=== PATIENT | male | born 1945 | race Caucasian/White ===

== ENCOUNTER → 2019-03-14 12:39 | Outpatient (CLI) | payer MEDICARE, OTHER, SELFPAY ==
[2019-03-14 14:23] LABS: Cholesterol 96 mg/dL (200); High Density Lipoprotein 44 mg/dL; Triglycerides 132 mg/dL; Very Low Density Lipoprotein 26 mg/dL (5-40)
== END ==
DX: E78.5 Hyperlipidemia, unspecified (principal)
CPT/HCPCS: 36415; 80061

== ENCOUNTER → 2019-07-09 14:51 | Outpatient (CLI) | payer MEDICARE, OTHER, SELFPAY ==
[2019-07-09 16:53] LABS: Absolute Lymphocyte Count 1.13 X10^3/uL (0.83-4.51); Basophil# 0.06 X10^3/uL; Basophil% 0.8 % (0-1); Eosinophil# 0.32 X10^3/uL; Eosinophils% 4.3 % (0-5); Hematocrit 39.8 % (40-54); Hemoglobin 13.2 g/dL (13.0-16.5); Lymphocyte # 1.13 X10^3/ul (4.0); Lymphocyte % 15.3 % (19-41); Mean Corp Hgb Conc 33.2 g/dL (32-36); Mean Corpuscular Hgb 28.9 pg (27.0-32.0); Mean Corpuscular Volume 87.3 fL (80-94); Mean Platelet Vol. 11.5 fl (6.2-12.0); Monocyte# 0.79 X10^3/uL; Monocyte% 10.7 % (0-10); NRBC Flagged by Analyzer 0 % (0-5); Neutrophil # 5.04 X10^3/uL (2.7-7.7); Neutrophil % 68.5 % (47-70); Platelet Count 227 K/mm3 (150-450); RBC Distribution Width CV 12.9 % (11.6-14.6); RBC Distribution Width SD 40.7 fl (35.1-43.9); Red Blood Count 4.56 M/mm3 (4.6-6.2); White Blood Count 7.4 K/mm3 (4.4-11.0)
[2019-07-09 17:11] LABS: ALB/GLOB Ratio 1.1 RATIO (0.9-2.4); AST(SGOT) 19 U/L (15-37); Alanine Aminotransfer ALT/SGPT 27 U/L (16-61); Albumin, Serum 3.3 g/dL (3.2-5.0); Alkaline Phosphatase 66 U/L (45-117); Anion Gap 8 (5-15); BUN 20 mg/dL (7-18); BUN/Creat Ratio 13.2 RATIO (10-20); Calcium,Total 8.8 mg/dL (8.5-10.1); Chloride 106 mmol/L (98-107); Creatinine, Serum 1.51 mg/dL (0.70-1.30); EST Glomerular Filtration Rate 48 mL/min (>60); Est Glom Filt Rate - Afr Amer 58 mL/min (>60); Globulin 3.1 g/dL (2.2-4.2); Glucose 187 mg/dL (74-106); Protein, Total 6.4 g/dL (6.4-8.2); Sodium Level 141 mmol/L (136-145); T4 Free Direct 0.82 ng/dL (0.76-1.46); Thyroid Stim Hormone (TSH) 2.32 uIU/mL (0.358-3.74)
[2019-07-10 07:59] LABS: SARS-COV-2 TOTAL ABS Nonreactive (Nonreactive)
[2019-07-10 10:34] LABS: Vitamin B12 426 pg/mL (211-911); Vitamin D,25 Hydroxy 41.6 ng/mL
== END ==
PROVIDERS: PCP Family Medicine; Visit Provider Family Medicine
DX: Z20.828 Contact with and (suspected) exposure to other viral communicable diseases (principal); N39.0 Urinary tract infection, site not specified; I10 Essential (primary) hypertension; E55.9 Vitamin D deficiency, unspecified; R41.89 Other symptoms and signs involving cognitive functions and awareness
CPT/HCPCS: 80053; 82306; 82607; 84439; 84443; 85025; 86769; G2023

== ENCOUNTER 2019-07-14 11:04 | Emergency (ER) | payer MEDICARE, OTHER, SELFPAY ==
[2019-07-14 11:06] VITALS: BP 146/70; PULSE 59; RESP 17; TEMP 36.1; O2SAT 96; BMI 32.1
--- NOTE | 2019-07-14 11:27 | ED.DCSUM_ITS ---
History of Present Illness Informant: Patient, Family Onset: Today Context: Sudden Onset Timing: Continuous Quality: skin tear Location: left forearm Current Severity: Mild Maximum Severity: Severe Worsened by: movement Relieved by: rest/dressing Associated Symptoms: denies Narrative: 73-year-old male presents with a skin tear to his left forearm. This occurred earlier today. He scraped his forearm against a new storm door that he was installing at his home. He was able to get the bleeding stopped with manual pressure. He states his last tetanus was 3 years ago. He is right-hand dominant. He is not on blood thinners. Denies any numbness tingling or signifi cant pain. Denies weakness. Denies any other injuries. Prior similar symptoms: No Recent Illness/Hospitalization: No <Jamar Elliott - Last Filed: 07/14/19 11:50> <Shola Carmona - Last Filed: 07/14/19 16:15> Chief Complaint: Laceration Past Medical History Prior records reviewed: Yes Past Medical History: None Surgical History: no surgical history Lives: With Family Smoking Status: Never smoker Alcohol: None Drugs: None <Jamar Elliott - Last Filed: 07/14/19 11:50> <Shola Carmona - Last Filed: 07/14/19 16:15> - Allergies and Home Meds Allergies/Adverse Reactions: Allergies Penicillins Allergy (Verified 07/14/19 11:05) Hives Primary Care Physician: Meño Torres MD [Primary Care Provider] - Review of Systems All systems negative except as indicated General: Denies: Chills, Fever, Sweats Eyes: Denies: Visual changes - bilaterally, Diplopia ENT: Denies: Rhinorrhea, Sore throat Cardiovascular: Denies: Chest pain, Palpitations Respiratory: Denies: Dyspnea, Cough, Dyspnea on exertion Gastrointestinal: Denies: Abdominal pain, Nausea, Vomiting, Diarrhea, Melena, Hematochezia Genitourinary: Denies: Dysuria, Hematuria, Frequency Musculoskeletal: Denies: Back pain, Swelling, Extremity Pain Skin: Reports: Abrasions, Wounds. Denies: Rash, Abscess Neurological: Denies: Headache, Weakness, Numbness <Jamar Elliott - Last Filed: 07/14/19 11:50> Physical Exam Vital Signs/Narrative: Vital Signs Temp Pulse Resp BP Pulse Ox 07/14/19 11:06 97.0 F L 59 L 17 146/70 H 96 Inital Vital Signs reviewed: Yes General: Well nourished, Well developed, No Acute Distress Head: Normocephalic, Atraumatic Eyes: Perrl, EOMI ENT: Moist mucous membranes, No rhinorrhea Neck: Supple, Nontender Cardiovascular: Regular rate, Regular rhythm, No murmurs Respiratory: No distress, CTA bilaterally, Chest nontender Abdomen: Soft, Nontender, Nondistended, Normal bowel sounds Back: Nontender, Normal Inspection Extremities: Nontender, No edema. Negative for: Tenderness, Edema, Calf Ten derness Skin: Normal color, No rash, Trauma - Patient has a skin tear on his left forearm dorsal aspect. There is no active bleeding or lacerations. There is no tenderness on palpation around this area. Compartment soft. Normal radial pulse distally. Lithographed Plate Inspector strength equal bilaterally. Normal range of motion actively of his wrist and elbow. No signs of infection are noted. Neurological: Alert, Oriented x3, Cranial nerves II-XII grossly intact, Normal Strength, Normal Sensation Psychological: Normal affect, Normal Mood <Jamar Elliott - Last Filed: 07/14/19 11:50> Diagnostic/Tx/Re-eval - Medical Decision Making Patient's tetanus immunization is up-to-date. Patient wound is not bleeding it is a skin tear and there is no laceration that would require suture repair. It is superficial. Gelfoam dressing was applied. I discussed with patient proper wound care and given signs of infection to monitor for and advised him to follow-up with his primary care in 2 to 3 days for wound check or return back to the emergency department for worsening symptoms which were discussed. <Jamar Elliott - Last Filed: 07/14/19 11:50> - Medical Decision Making Patient was seen with me. I did a ucjm-vo-same examination with the patient. Patient presents with skin tear to his left forearm that occurred last night. Patient states that the bleeding is been persistent. Patient states his son is a nurse and he came over and applied a dressing to his forearm last night. Patient denies any paresthesias or weakness. Patient states his last tetanus was within 5 years. Patient denies any other injuries. Vital signs are stable. Patient is afebrile. Patient is in no acute distress. Skin is warm and dry. There is a superficial skin tear over the dorsal aspect of the left forearm. This is approximately 6 cm in length. There is no gapping of the wound margins. There is minimal bleeding. Sensation was intact to light touch bilaterally in the upper extremities. Radial pulses are equal bilaterally. There is good range of motion. There is no bony crepitance or step-off. There is no tenderness. Gelfoam dressing was applied. Patient was instructed to keep the wound clean and dry. Patient was instructed to follow-up with his primary care physician. Patient was instructed return if worse in any way. Patient understood and was agreeable with the plan. All questions were answered. <Shola Carmona - Last Filed: 07/14/19 16:15> ED Disposition <Jamar Elliott - Last Filed: 07/14/19 11:50> <Shola Carmona - Last Filed: 07/14/19 16:15> - Plan for ED Patient: Disposition: Home or Assisted Living Diagnosis: Skin tear of left forearm without complication, Abrasion of forearm without infection Instructions: ED AVULSION LACERATION Referrals: Meño Torres MD [Primary Care Provider] -
[2019-07-14 12:01] VITALS: RESP 16
== END 2019-07-14 12:02 | disposition home or self-care (01) ==
LOC: ED 11:59
PROVIDERS: Emergency Provider Physician Assistant Medical; PCP Family Medicine
DX: S51.812A Laceration without foreign body of left forearm, initial encounter (principal); S50.812A Abrasion of left forearm, initial encounter; W22.8XXA Striking against or struck by other objects, initial encounter; Y93.9 Activity, unspecified; Y92.9 Unspecified place or not applicable
CPT/HCPCS: 99282

== ENCOUNTER 2019-09-30 11:51 | Emergency (ER) | payer MEDICARE, OTHER, SELFPAY ==
[2019-09-30 11:53] VITALS: BP 149/63; PULSE 48; RESP 16; TEMP 36.4; O2SAT 99; BMI 30.1
--- NOTE | 2019-09-30 12:11 | RAD_ITS ---
STUDY: X-RAY - RIGHT KNEE REASON FOR EXAM: Male, 74 years old. Walking and felt a pop in right knee, pain -- medial pain, swelling -- arthroscopic surgery in TECHNIQUE: 4 view(s) of the knee. COMPARISON: None. FINDINGS: Normal visualized distal femur. Normal visualized proximal tibia and fibula. Normal proximal tibiofibular articulation. There is severe degenerative arthrosis of the medial femorotibial compartment with severe joint space narrowing. There is mild degenerative arthrosis of the lateral femorotibial compartment. There is severe degenerative arthrosis of the patellofemoral articulation. Moderate sized joint effusion. Chondrocalcinosis of the medial and lateral menisci. RAD/Knee 4 or More Views IMPRESSION: Degenerative arthrosis. Moderate-sized joint effusion. Chondrocalcinosis. Electronically Signed: Magdy Lisa, at 12:58 EDT , Service support ,
--- NOTE | 2019-09-30 12:51 | ED.DCSUM_ITS ---
- ER Visit Summary Date of Service: 09/30/19 Chief Complaint: Right knee pain History of Present Illness: The patient is a [address] Meño Torres. He reports that just prior to coming emergency department he turned on a planted right foot and felt a pop in his right knee. Reports he has sharp pains 9-10 with weightbearing and is pain-free at rest. He did not fall. He denies any paresthesias or weakness. Reports he had similar symptoms in the past and his knee is actually locked in place. Review of systems: General: No fever, chills, cold sweats. Cardiovascular: No chest pain, palpitations. Respiratory: No cough, shortness of breath, dyspnea on exertion. Gastrointestinal: No abdominal pain, nausea, vomiting, diarrhea, melena, or hematochezia. Genitourinary: No dysuria, frequency, hematuria. Skin: No rash. Neuro: No headache, numbness, weakness. Physical Examination: Vitals: Stable. Afebrile. General: Well-nourished and well-developed. Head: Normocephalic atraumatic. Neck: Supple, no lymphadenopathy. No JVD. Nontender. Cardiovascular: Regular rate and rhythm. No murmurs. Respiratory: No respiratory distress. Clear to auscultation bilaterally. Abdominal: Soft, nontender, nondistended, normal bowel sounds. No guarding, rebound, or peritoneal signs. Back: Nontender. Extremities: Right knee shows mild tenderness palpation to the distal medial right femur. He has no pain or ligamentous instability with anterior/posterior drawer or medial/lateral stress. He has had a positive Khoa with his foot deviated medially. Is a small joint effusion. Skin: Normal color, no rash. Neurologic: Alert and oriented ?3. Cranial nerves II through XII are intact. Normal strength and sensation. Psych: Normal affect. Test Results: X-ray shows degenerative changes. Emergency Department Course and Treatment: Patient refused pain medications. He is resting comfortably. Treatment Plan: Patient will be discharged with Viroqua and Colace. Instructed to follow-up Dr. Barr in 1 week if not improving. Return to the emergency department for any worsening symptoms. Disposition: To home in improved and stable condition. Impression: 1. Right knee pain, acute. This note was generated with [employer] software. It may contain incorrect words, spelling, and punctuation that were not noted in review of the chart prior to signing ED Disposition - Plan for ED Patient: Instructions: ED Knee Pain [facility] Prescriptions: Docusate Sodium [Colace] 100 mg PO DAILY #20 cap Prescription Printed Hydrocodone Bitart/Apap 5-325 [Viroqua 5MG-325MG] 1 tab PO Q4H PRN PRN 2 Days #10 tab PRN Reason: Pain Prescription Printed Referrals: Jason Barr MD [STAFF PHYSICIAN] - 1 Week if not improving
[2019-09-30 13:09] VITALS: BP 132/78; PULSE 61; RESP 18; O2SAT 97
== END 2019-09-30 13:10 | disposition home or self-care (01) ==
LOC: ED 12:18
PROVIDERS: Emergency Provider Emergency Medicine; PCP Family Medicine
DX: M25.561 Pain in right knee (principal); I25.10 Atherosclerotic heart disease of native coronary artery without angina pectoris; E11.9 Type 2 diabetes mellitus without complications; Z79.84 Long term (current) use of oral hypoglycemic drugs; Z79.82 Long term (current) use of aspirin; Z79.899 Other long term (current) drug therapy; Z95.1 Presence of aortocoronary bypass graft
CPT/HCPCS: 73564; 99282

== ENCOUNTER → 2019-11-22 06:47 | Outpatient (CLI) | payer MEDICARE, OTHER, SELFPAY ==
[2019-11-04 13:59] VITALS: BMI 30.4
--- NOTE | 2019-11-22 06:48 | ECHOCS_ITS ---
Reason For Study: CAD/ASHD Procedure This was a 2D Doppler, Color Flow transthoracic echocardiogram. Exam performed in department. Left Ventricle Normal LV size. The estimated ejection fraction is 65 %. No regional wall motion abnormalities noted. Right Ventricle Normal RV size. Normal systolic function. Atria Normal left atrium. Normal right atrium. No doppler evidence for ASD. Mitral Valve There is no mitral valve stenosis. Trivial mitral valve insufficiency. Tricuspid Valve There is no tricuspid stenosis. Unable to estimate RV systolic pressure due to inadequate jet, pulmonary artery pressure probably normal. Aortic Valve Aortic sclerosis, no stenosis. No aortic valve insufficiency. Pulmonic Valve There is no pulmonic valvular stenosis. Trivial pulmonic valve insufficiency. Great Vessels Normal aortic root. Pericardium/Pleural No pericardial effusion. Medication Diluted definity 3ml given slow IV push to enhance endocardial definition. MMode/2D Measurements & Calculations LVIDd: 4.5 cm IVSd: 1.1 cm Ao root diam: 3.2 cm LVIDs: 3.0 cm LVPWd: 1.1 cm RVDd: 3.8 cm FS: 34.5 % LAV(MOD-bp): 62.9 ml LVAd ap4: 30.3 cm2 SV(MOD-sp4): 58.6 ml LAV(MOD-bp) Indexed: 30.8 ml/m2 EDV(MOD-sp4): 94.7 ml LAV(MOD-sp2): 55.5 ml EDV(sp4-el): 95.3 ml LAV(MOD-sp4): 59.4 ml LVAs ap4: 16.8 cm2 ESV(MOD-sp4): 36.1 ml ESV(sp4-el): 37.2 ml EF(MOD-sp4): 61.9 % EF(sp4-el): 61.0 % SV(sp4-el): 58.2 ml LA A4 area: 20.3 cm2 LA dimension(2D): 4.1 cm RA A4 area: 14.0 cm2 Time Measurements MV dec time: 0.21 sec Doppler Measurements & Calculations MV E max farooq: 84.6 cm/sec Lat Peak E' Farooq: 9.7 cm/sec Med Peak E' Farooq: 7.7 cm/sec MV A max farooq: 69.5 cm/sec E/E' lat: 8.7 E/E' med: 11.1 MV E/A: 1.2 Ao V2 max: 124.0 cm/sec LV V1 max: 96.5 cm/sec PA V2 max: 120.6 cm/sec Ao max P.1 mmHg LV V1 max P.7 mmHg TR max farooq: 303.8 cm/sec TR max P.9 mmHg Interpretation Summary The estimated ejection fraction is 65 %. Trivial mitral valve insufficiency. The study was technically difficult. Contrast injection was performed. Ordering Physician: Tracie Aquino Referring Physician: SHARIFA LOVE Performed By: Tiffanie Rivas RDCS
--- NOTE | 2019-12-03 17:55 | STRESSREP_ITS ---
Stress Test Report Date: 11/22/2019 Procedure: Exercise tolerance test/imaging study Indications: CAD Consent: Per the patient Procedure: The patient exercised on a Magen protocol for 9 minutes achieving a peak heart rate of 131 bpm (90% predicted maximal heart rate) with a peak blood pressure 194/66 mmHg and a peak MET capacity of 10.1 METs. The baseline ECG demonstrated normal sinus rhythm, occasional PVCs. The peak exercise ECG demonstrated sinus tachycardia with occasional PVCs, no significant ST-T changes diagnostic for ischemia. EKG during recovery revealed no significant ischemic changes [There were no significant cardiac dysrhythmias pretest, during exercise, or recovery]. The functional capacity was considered excellent for age. There was [no complaint of chest discomfort during exercise or recovery]. The examination was discontinued secondary to achieving target heart rate. Impression: 1. Technically adequate (percent predicted maximal heart rate greater than 85%) exercise tolerance test 2. Stress test is negative for exercise-induced EKG changes of ischemia 3. The test test is negative for exercise-induced chest pain 4. Functional capacity is excellent for age 5. Nuclear images pending Myocardial perfusion imaging study: Technique: The patient was injected with 11 mCi of technetium 99m Cardiolite and subsequently rest SPECT Cardiolite nuclear imaging was obtained in the horizontal long, vertical long, and short axis views. The patient exercised on a Magen protocol. Please see above for details. The patient was injected with 33 mCi of technetium 99m Cardiolite and subsequently stress SPECT Cardiolite nuclear imaging was obtained in the horizontal long, vertical long, and short axis views. A gated Cardiolite study at peak stress was obtained. Interpretation: Rest and stress SPECT Cardiolite nuclear imaging status post realignment, normalization, and attenuation correction, demonstrates normal myocardial radioisotope uptake. The gated Cardiolite study demonstrates no significant regional wall motion abnormalities. The reported LVEF is 67%. Impression: 1. There is no evidence of significant ischemia or infarction. 2. The gated Cardiolite study reports an LVEF of 67%. This note was generated with [employer] software. It may contain incorrect words, spelling, and punctuation that were not noted in checking the note before signing.
== END ==
PROVIDERS: PCP Family Medicine; Referring Provider Specialist; Visit Provider Specialist
DX: I25.10 Atherosclerotic heart disease of native coronary artery without angina pectoris (principal); I10 Essential (primary) hypertension; E78.5 Hyperlipidemia, unspecified; Z95.5 Presence of coronary angioplasty implant and graft; Z95.1 Presence of aortocoronary bypass graft
CPT/HCPCS: 78452; 93017; 93306; A9500; Q9957; A4216; C8929

== ENCOUNTER → 2020-10-02 | Outpatient (CLI) | payer MEDICARE, OTHER, SELFPAY | END | disposition home or self-care (01) | LOC: LABSPEC 15:38 | PROVIDERS: PCP Family Medicine; Visit Provider Family Medicine | DX: R39.15 Urgency of urination (principal) | CPT/HCPCS: 87086; 87088 ==

== ENCOUNTER 2021-02-04 18:57 | Emergency (ER) | payer MEDICARE, OTHER, SELFPAY ==
[2021-02-04 18:57] VITALS: BP 181/76; PULSE 56; RESP 18; TEMP 37.1; O2SAT 96; BMI 30.4
--- NOTE | 2021-02-04 19:19 | EDS_ITS ---
HPI History of Present Illness Chief Complaint: Cold Sx Informant: patient Narrative Narrative: Patient presents with about 3 days of mild nasal congestion and a little bit of malaise. He states he is not really coughing. He is not short of breath. He does not feel sick he is just a little more tired than normal. No myalgias. No fevers. He was exposed to Covid through grandson. His is having some symptoms similar to him but 1 day longer. She had a Covid test that was negative today but was referred in here for further testing. He thought he should get tested to. Although he has multiple medical problems he feels well. He actually goes to the gym and works out 3 days a week. He states his symptoms are mild. Nothing really makes them better or worse. He is not having chest pain. [facility] Medical History (Updated 02/04/21 @ 19:[address] Oliver Blum MD) Asthma Atherosclerosis of coronary artery of [place] heart without angina pectoris CKD (chronic kidney disease) Essential hypertension Hay fever Hyperlipidemia Mild cognitive impairment Skin cancer STEMI (ST elevation myocardial infarction) Type 2 diabetes mellitus without complication Vitamin D deficiency Home Medications aspirin 81 mg PO DAILY@0800 07/14/19 [History Last Taken Unknown] cholecalciferol (vitamin D3) 2,000 unit PO DAILY 07/14/19 [History Last Taken Unknown] glimepiride 4 mg PO DAILY 07/14/19 [History Last Taken Unknown] ascorbic acid (vitamin C) 1,000 mg PO 09/30/19 [History Last Taken Unknown] alirocumab 75 mg/mL subcutaneous pen injector 75 mg SC Q2W 10/25/19 [History Last Taken Unknown] fenofibrate 54 mg tablet 54 mg PO DAILY tab 10/25/19 [History Last Taken Unknown] metoprolol succinate 25 mg tablet,extended release 24 hr 25 mg PO DAILY tab 10/25/19 [History Last Taken Unknown] Allergy/AdvReac Type Severity Reaction Status Date / Time fish derived Allergy Intermediate Throat Verified 02/04/21 18:59 swells Penicillins Allergy Hives Verified 02/04/21 18:59 [id number] Reductase AdvReac Intermediate myalgias Verified 02/04/21 18:59 Inhibitor [Oflzedf-Bnr-Ecg Reductase Inhibitor] Family History Father ALS (amyotrophic lateral sclerosis) Mother Heart disease Breast cancer CVA (cerebral vascular accident) Diabetes Sister Cancer Uterine cancer Surgical History 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) History of coronary artery stent placement (09/17/14) History of elbow surgery History of eye surgery History of left cataract extraction History of right cataract extraction Social History Smoking Status: Former smoker how long ago did patient quit smokin years ago alcohol intake: current alcohol intake frequency: a few times a week Alcohol type: wine substance use type: does not use caffeine: Yes Type: coffee Number of servings: 1 ROS ROS ED Constitutional Constitutional ED: Reports other Details: He does have generalized malaise ; Denies chills or fever(s) ENT ENT ED: Reports rhinorrhea; Denies sore throat Cardiovascular Cardiovascular: Denies chest pain or palpitations Respiratory/Chest Respiratory/Chest: Reports cough; Denies dyspnea or sputum Gastrointestinal Gastrointestinal: Denies abdominal pain, diarrhea, nausea or vomiting Genitourinary Genitourinary ED: Denies dysuria Musculoskeletal Musculoskeletal: Denies myalgias Integumentary Denies rash Neurologic Neurologic: Denies headache(s) Psychiatric Psychiatric: Denies anxiety or depression Endocrine Endocrinology: Denies polydipsia or polyuria Allergic/Immunologic Allergic/Immunologic ED: Denies mouth swelling or urticaria EXAM Physical Exam Const Vital Signs: 02/04/21 18:57 02/04/21 20:19 02/04/21 20:20 Temperature 98.8 F Temperature Source Temporal Pulse Rate 56 L Respiratory Rate 18 Respiratory Effort Normal Non-Labored Normal Non-Labored Respiratory Depth Normal Respiratory Pattern Normal Normal Blood Pressure 181/76 H Blood Pressure Mean 111 Pulse Ox 96 Oxygen Delivery Method Room Air Room Air Positive well nourished and well developed General Appearance ED: well developed and NAD; Negative for cyanotic, diaphoretic or pallor HEENT Reports moist mucous membranes Eyes General Eye ED: Negative for pale conjunctiva or scleral icterus Neck no JVD Chest Wall inspection of chest normal Resp normal respiratory effort and clear to auscultation bilaterally Effort and Inspection: Negative for pain with movement Auscultation: Negative for rales, rhonchi or wheezes Cardio regular rate, regular rhythm and no murmurs GI normal to inspection, nondistended, normoactive bowel sounds and non-tender Palpation: soft Back/Spine no CVA tenderness Neuro Sensorium / Orientation: alert Psych mental status grossly normal Skin no rashes or lesions noted General Skin Exam: Negative for jaundice or pallor MDM MDM MDM Narrative Medical decision making narrative: I discussed options with the patient. He states he does not feel well he just wants to know if he has Covid. I will send off a PCR test as this is more sensitive. We are doing the same for his . They would both like to go home pending this test. Covid test did come back negative for this patient. Lab Data Labs: Laboratory Results - last 24 hr 02/04/21 20:12 COVID-19 (JANNETTE) Not Detected Discharge Plan Triage Chief Complaint: Cold Sx ED Provider: Oliver Blum Dx/Rx/DC Orders Clinical Impression: Malaise, Close exposure to 2019-nCoV Instructions: Coronavirus Disease 2019 (COVID-19): Caring for Yourself or Others Prescriptions: No Action fenofibrate 54 mg tablet 54 mg PO DAILY RF: 0 metoprolol succinate 25 mg tablet extended release 24 hr 25 mg PO DAILY RF: 0 Praluent Pen 75 mg/mL pen injector 75 mg SC Q2W RF: 0 glimepiride 4 MG tablet 4 mg PO DAILY RF: 0 aspirin 81 MG tablet,chewable 81 mg PO DAILY@0800 RF: 0 cholecalciferol (vitamin D3) 2,000 UNIT capsule 2,000 unit PO DAILY RF: 0 ascorbic acid (vitamin C) 1,000 MG tablet 1,000 mg PO RF: 0 Primary Care Provider: Meño Torres Referrals: Meño Torres MD [Primary Care Provider] - 3-5 Days if not improving Disposition Disposition: Home, Self Care Discharge Date/Time: 02/04/21 20:22
[2021-02-04 20:20] VITALS: O2SAT 95
== END 2021-02-04 20:22 | disposition home or self-care (01) ==
LOC: ED 19:26
PROVIDERS: Emergency Provider Emergency Medicine; PCP Family Medicine
DX: R53.81 Other malaise (principal); Z20.822 Contact with and (suspected) exposure to COVID-19; I12.9 Hypertensive chronic kidney disease with stage 1 through stage 4 chronic kidney disease, or unspecified chronic kidney disease; E11.22 Type 2 diabetes mellitus with diabetic chronic kidney disease; N18.9 Chronic kidney disease, unspecified; I25.10 Atherosclerotic heart disease of native coronary artery without angina pectoris; E11.9 Type 2 diabetes mellitus without complications; E78.5 Hyperlipidemia, unspecified; J45.909 Unspecified asthma, uncomplicated; E55.9 Vitamin D deficiency, unspecified; Z79.82 Long term (current) use of aspirin; Z79.84 Long term (current) use of oral hypoglycemic drugs; Z79.899 Other long term (current) drug therapy; Z87.891 Personal history of nicotine dependence; Z95.1 Presence of aortocoronary bypass graft; Z95.5 Presence of coronary angioplasty implant and graft
CPT/HCPCS: 87635; 99283; U0005; U0003

== ENCOUNTER 2021-02-07 08:21 | Emergency (ER) | payer MEDICARE, SELFPAY ==
[2021-02-07 08:22] VITALS: BP 168/72; PULSE 59; RESP 18; TEMP 36.6; O2SAT 100; BMI 31.3
--- NOTE | 2021-02-07 09:26 | EDS_ITS ---
HPI History of Present Illness Chief Complaint: General Illness Detail of Chief Complaint: I need to be tested for COVID-19 Informant: patient Onset/Context/Timing Onset: Today Worsened by: Nothing Relieved by: Nothing Narrative Narrative: Patient presents requesting a COVID-19 rapid antigen test. Patient states his tested positive for COVID-19 recently. Patient states he is scheduled to start a new job tomorrow and needs to make sure that he is negative for COVID-19 before he starts this. Patient states that he has had some rhi norrhea but this has resolved. Patient denies any fevers or chills. Patient denies any shortness of breath or cough. Patient denies any nausea, vomiting, or diarrhea. Patient denies any other symptoms. [facility] Medical History (Updated 02/07/21 @ 10:[address] Shola Carmona, DO) Asthma Atherosclerosis of coronary artery of [place] heart without angina pectoris CKD (chronic kidney disease) Essential hypertension Hay fever Hyperlipidemia Mild cognitive impairment Skin cancer STEMI (ST elevation myocardial infarction) Type 2 diabetes mellitus without complication Vitamin D deficiency Home Medications aspirin 81 mg PO DAILY@0800 07/14/19 [History Last Taken Unknown] cholecalciferol (vitamin D3) 2,000 unit PO DAILY 07/14/19 [History Last Taken Unknown] glimepiride 4 mg PO DAILY 07/14/19 [History Last Taken Unknown] ascorbic acid (vitamin C) 1,000 mg PO 09/30/19 [History Last Taken Unknown] alirocumab 75 mg/mL subcutaneous pen injector 75 mg SC Q2W 10/25/19 [History Last Taken Unknown] fenofibrate 54 mg tablet 54 mg PO DAILY tab 10/25/19 [History Last Taken Unknown] metoprolol succinate 25 mg tablet,extended release 24 hr 25 mg PO DAILY tab 10/25/19 [History Last Taken Unknown] Allergy/AdvReac Type Severity Reaction Status Date / Time fish derived Allergy Intermediate Throat Verified 02/07/21 08:24 swells Penicillins Allergy Hives Verified 02/07/21 08:24 Htglabq-MLV-WzU Reductase AdvReac Intermediate myalgias Verified 02/07/21 08:24 Inhibitor [Mejirmb-Mjp-Pnv Reductase Inhibitor] Family History Father ALS (amyotrophic lateral sclerosis) Mother Heart disease Breast cancer CVA (cerebral vascular accident) Diabetes Sister Cancer Uterine cancer Surgical History 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) History of coronary artery stent placement (09/17/14) History of elbow surgery History of eye surgery History of left cataract extraction History of right cataract extraction Social History Smoking Status: Former smoker how long ago did patient quit smokin years ago alcohol intake: current alcohol intake frequency: a few times a week Alcohol type: wine substance use type: does not use caffeine: Yes Type: coffee Number of servings: 1 ROS ROS ED Constitutional Constitutional ED: Denies chills or fever(s) Eyes Eyes: Denies blurry vision or change in vision ENT ENT ED: Reports rhinorrhea; Denies sore throat Cardiovascular Cardiovascular: Denies chest pain or palpitations Respiratory/Chest Respiratory/Chest: Denies cough or dyspnea Gastrointestinal Gastrointestinal: Denies nausea or vomiting Genitourinary Genitourinary ED: Denies dysuria or hematuria Musculoskeletal Musculoskeletal: Denies back pain or neck pain Integumentary Denies abscess or rash Neurologic Neurologic: Denies headache(s) or weakness Allergic/Immunologic Allergic/Immunologic ED: Denies mouth swelling or urticaria EXAM Physical Exam Const Vital Signs: 02/07/21 08:22 02/07/21 08:32 Temperature 98 F Temperature Source Temporal Pulse Rate 59 L Respiratory Rate 18 Respiratory Pattern Normal Blood Pressure 168/72 H Blood Pressure Mean 104 Pulse Ox 100 Oxygen Delivery Method Room Air Positive well nourished and well developed General Appearance ED: well developed HEENT Reports moist mucous membranes Neck supple and no JVD Resp normal respiratory effort and clear to auscultation bilaterally Cardio regular rate, regular rhythm and no murmurs GI normal to inspection, nondistended, normoactive bowel sounds and non-tender Palpation: soft Extremity normal to inspection General Extremety ED: Negative for edema or tenderness General Extremity: Negative for edema Neuro oriented x3, CN's II-XII intact bilaterally and no sensory deficits noted Sensorium / Orientation: alert Motor Exam: strength 5/5 throughout Psych mental status grossly normal Skin no rashes or lesions noted MDM MDM MDM Narrative Medical decision making narrative: COVID-19 rapid antigen was obtained and was negative. Patient was advised of his findings. Patient was instructed to follow-up with his primary care physician in 7 to 10 days. Patient was instructed to return if worse in any way. Patient understood and was agreeable with the plan. All questions were answered. Discharge Plan Triage Chief Complaint: General Illness ED Provider: Shola Carmona Dx/Rx/DC Orders Clinical Impression: Close exposure to 2019-nCoV Instructions: Coronavirus Disease 2019 (COVID-19): Overview Prescriptions: No Action fenofibrate 54 mg tablet 54 mg PO DAILY RF: 0 metoprolol succinate 25 mg tablet extended release 24 hr 25 mg PO DAILY RF: 0 Praluent Pen 75 mg/mL pen injector 75 mg SC Q2W RF: 0 glimepiride 4 MG tablet 4 mg PO DAILY RF: 0 aspirin 81 MG tablet,chewable 81 mg PO DAILY@0800 RF: 0 cholecalciferol (vitamin D3) 2,000 UNIT capsule 2,000 unit PO DAILY RF: 0 ascorbic acid (vitamin C) 1,000 MG tablet 1,000 mg PO RF: 0 Primary Care Provider: Meño Torres Referrals: Meño Torres MD [Primary Care Provider] - 1-2 Weeks Disposition Disposition: Home, Self Care
[2021-02-07 10:52] VITALS: BP 135/28; PULSE 88; RESP 16; TEMP 36.9; O2SAT 98
== END 2021-02-07 10:52 | disposition home or self-care (01) ==
PROVIDERS: Emergency Provider Emergency Medicine; PCP Family Medicine; Visit Provider Emergency Medicine
DX: Z20.822 Contact with and (suspected) exposure to COVID-19 (principal); E11.22 Type 2 diabetes mellitus with diabetic chronic kidney disease; I12.9 Hypertensive chronic kidney disease with stage 1 through stage 4 chronic kidney disease, or unspecified chronic kidney disease; N18.9 Chronic kidney disease, unspecified; I25.10 Atherosclerotic heart disease of native coronary artery without angina pectoris; E78.5 Hyperlipidemia, unspecified; J45.909 Unspecified asthma, uncomplicated; I25.2 Old myocardial infarction; Z79.82 Long term (current) use of aspirin; Z79.84 Long term (current) use of oral hypoglycemic drugs; Z87.891 Personal history of nicotine dependence; Z95.1 Presence of aortocoronary bypass graft; Z95.5 Presence of coronary angioplasty implant and graft
CPT/HCPCS: 87426; 99282

== ENCOUNTER 2021-02-11 17:25 | Outpatient (CLI) | payer MEDICARE, SELFPAY | END 2021-02-11 23:59 | disposition short-term general hospital (02) | LOC: LABSPEC 02-12 09:09 | PROVIDERS: PCP Family Medicine; Visit Provider Family Medicine | DX: Z11.52 Encounter for screening for COVID-19 (principal) | CPT/HCPCS: 87635; U0003; U0005 ==

== ENCOUNTER → 2022-07-26 | Outpatient (CLI) | payer MEDICARE, SELFPAY ==
[2022-07-26 14:57] LABS: Vitamin B12 687 pg/mL (211-911)
[2022-07-26 15:14] LABS: AST(SGOT) 29 U/L (15-37); Alanine Aminotransfer ALT/SGPT 40 U/L (16-61); Albumin, Serum 3.6 g/dL (3.2-5.0); Alkaline Phosphatase 71 U/L (45-117); Anion Gap 2 (5-15); BUN 26 mg/dL (7-18); BUN/Creat Ratio 19.3 RATIO (10-20); Calcium,Total 9.5 mg/dL (8.5-10.1); Chloride 110 mmol/L (98-107); Cholesterol 139 mg/dL (200); Creatinine, Serum 1.35 mg/dL (0.70-1.30); EST Glomerular Filtration Rate 54 mL/min (>60); Est Glom Filt Rate - Afr Amer 66 mL/min (>60); Globulin 3.7 g/dL (2.2-4.2); Glucose 116 mg/dL (74-106); High Density Lipoprotein 39 mg/dL; Potassium 5.3 mmol/L (3.5-5.1); Protein, Total 7.3 g/dL (6.4-8.2); Sodium Level 140 mmol/L (136-145); Thyroid Stim Hormone (TSH) 3.04 uIU/mL (0.358-3.74); Triglycerides 117 mg/dL; Very Low Density Lipoprotein 23 mg/dL (5-40)
== END | disposition home or self-care (01) ==
LOC: BFHLAB 11:18
PROVIDERS: PCP Family Medicine; Visit Provider Family Medicine
DX: E11.65 Type 2 diabetes mellitus with hyperglycemia (principal); I25.10 Atherosclerotic heart disease of native coronary artery without angina pectoris; E03.9 Hypothyroidism, unspecified; E53.8 Deficiency of other specified B group vitamins
CPT/HCPCS: 36415; 80053; 80061; 82043; 82570; 82607; 84443

== ENCOUNTER → 2022-08-02 | Outpatient (CLI) | payer MEDICARE, SELFPAY ==
--- NOTE | 2022-08-03 17:23 | STRESSREP ---
Stress Test Report Exercise myocardial perfusion stress test. 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 The patient exercised according to the regular Magen protocol for a total duration of 9 minutes attaining a maximum heart rate of 110 bpm which was 76% of maximum predicted heart rate; the maximum workload was 10.1 metabolic equivalents. At rest there were no ST or T wave changes noted to suggest ischemia and at peak exercise upsloping ST changes only were noted which did not meet the criteria for ischemia. No clinical angina was noted the test was terminated due to the target heart rate being achieved/fatigue. The peak blood pressure was 170/64 mmHg. Rate-pressure product was 18,400.. Myocardial perfusion protocol. 10.0 mCi of technetium 99m sestamibi was injected at rest. The patient exercised according to regular Magen protocol for total duration of 9 minutes and at peak exercise 35 mCi of technetium 99m sestamibi was injected stress images were obtained stress and rest images were reconstructed in comparing the short axis vertical long and horizontal long axis. Gated images were also obtained. Perfusion SPECT analysis: Review of the stress images demonstrate normal uptake of tracer noted in all areas of the myocardium. The resting images similarly demonstrate normal uptake of tracer noted in all areas of the myocardium. No areas of reversibility are noted to suggest ischemia no previous infarct was noted. Gated SPECT analysis: The gated ejection fraction is 65%. Conclusion: Normal exercise myocardial perfusion stress test at a high workload Preserved ejection fraction.
== END | disposition home or self-care (01) ==
LOC: CVS 06:08
PROVIDERS: PCP Family Medicine; Referring Provider Internal Medicine Cardiovascular Disease; Visit Provider Internal Medicine Cardiovascular Disease
DX: I25.10 Atherosclerotic heart disease of native coronary artery without angina pectoris (principal); I10 Essential (primary) hypertension; E78.5 Hyperlipidemia, unspecified; Z95.1 Presence of aortocoronary bypass graft; Z95.5 Presence of coronary angioplasty implant and graft
CPT/HCPCS: 78452; 93017; A9500; A4216

== ENCOUNTER → 2022-09-03 | Outpatient (CLI) | payer MEDICARE, SELFPAY | END | disposition home or self-care (01) | LOC: LABSPEC 08:54 | PROVIDERS: PCP Family Medicine; Visit Provider Otolaryngology Otolaryngology/Facial Plastic Surgery | DX: J32.9 Chronic sinusitis, unspecified (principal) | CPT/HCPCS: 87070; 87077; 87186; 87205 ==

== ENCOUNTER → 2022-09-20 | Outpatient (CLI) | payer MEDICARE, SELFPAY ==
[2022-09-20 11:19] LABS: PSA,Total - Annual Screen 1.92 ng/mL (0.00-4.00)
== END | disposition home or self-care (01) ==
LOC: LAB 10:04
PROVIDERS: PCP Family Medicine; Referring Provider Family Medicine; Visit Provider Family Medicine
DX: Z12.5 Encounter for screening for malignant neoplasm of prostate (principal)
CPT/HCPCS: 36415; 84153; G0103

== ENCOUNTER → 2022-11-16 | Outpatient (CLI) | payer MEDICARE, SELFPAY ==
--- NOTE | 2022-11-16 13:25 | RAD_ITS ---
INDICATION: HIP/THIGH PAIN -- R EXAMINATION/TECHNIQUE: X-RAY - XR Spine Lumbar Min 4 Views COMPARISON: No relevant prior comparison study available FINDINGS: Preserved vertebral body height. No fracture. No spondylolisthesis. Preservation of the normal lumbar lordosis. Mild dextro convex lumbar scoliosis. Endplate osteophyte is present throughout the lumbar spine with bulky hypertrophic facet arthropathy from L3-S1. Mild loss of disc space height at L1-2. Included bowel gas pattern is non-obstructive. RAD/L/S Spine Min 4 Views IMPRESSION: No evidence of lumbar spinal fracture or spondylolisthesis. Lumbar spondylosis as described. Electronically Signed: Wagner Caban MD at 17:46 EDT ,
--- NOTE | 2022-11-16 13:25 | RAD_ITS ---
INDICATION: PAIN EXAMINATION/TECHNIQUE: X-RAY - XR Hip Unilateral with Pelvis when performed; 2-3 Views COMPARISON: No relevant prior comparison study available FINDINGS: PELVIC BONES: No displaced fracture, destructive or sclerotic lesions. Note that overlapping bowel shadows may however obscure fine detail. Sacroiliac joints are unremarkable. No widening of the pubic symphysis. HIPS: Moderate bilateral hip joint space narrowing, with accompanying marginal osteophytes. No displaced fracture seen in this frontal view. SOFT TISSUES: No soft tissue swelling or gas. RAD/HIP, UNI W/ Pelvis 2-3 Views IMPRESSION: No evidence of displaced pelvic or hip fracture. Moderate bilateral hip arthrosis. Electronically Signed: Wagner Caban MD at 17:44 EDT ,
== END | disposition home or self-care (01) ==
LOC: RAD 13:18
PROVIDERS: PCP Family Medicine; Referring Provider Nurse Practitioner Family; Visit Provider Nurse Practitioner Family
DX: M25.551 Pain in right hip (principal); M79.651 Pain in right thigh
CPT/HCPCS: 72110; 73502

== ENCOUNTER 2022-12-10 14:15 | Emergency (ER) | payer MEDICARE, SELFPAY ==
[2022-12-10 14:17] VITALS: BP 127/64; PULSE 54; RESP 18; TEMP 36.6; O2SAT 96; BMI 29.5
--- NOTE | 2022-12-10 14:31 | EDS_ITS ---
HPI History of Present Illness Chief Complaint: Upper Extremity Injury Detail of Chief Complaint: Pain to left index finger Informant: patient Narrative Narrative: Patient presents to the emergency department with complaint of pain to his left index finger that initially started yesterday. Patient states that he was trying to strap in a wheelchair onto a vehicle and reached between a wall in the wheelchair and was twisting his arm awkwardly and hand. Subsequently developed some soreness to the index finger. Patient with increased swelling today and more discomfort. He denies any cuts or lacerations. He had no fever or chills or sweats. [facility] Medical History Acute maxillary sinusitis, unspecified Asthma Atherosclerosis of coronary artery of [place] heart without angina pectoris CKD (chronic kidney disease) Essential hypertension Hay fever Hyperlipidemia Mild cognitive impairment Skin cancer STEMI (ST elevation myocardial infarction) Type 2 diabetes mellitus without complication Vitamin D deficiency Home Medications aspirin 81 mg chewable tablet 81 mg PO DAILY@0800 07/14/19 [History Last Taken Unknown] cholecalciferol (vitamin D3) 50 mcg (2,000 unit) capsule 2,000 unit PO DAILY 07/14/19 [History Last Taken Unknown] glimepiride 4 mg tablet 4 mg PO DAILY 07/14/19 [History Last Taken Unknown] fenofibrate 54 mg tablet 54 mg PO DAILY 10/25/19 [History Last Taken Unknown] metoprolol succinate 25 mg tablet,extended release 24 hr 25 mg PO DAILY 10/25/19 [History Last Taken Unknown] ezetimibe 10 mg tablet 10 mg PO DAILY 07/22/22 [History Last Taken Unknown] memantine 10 mg tablet 10 mg PO BID 07/22/22 [History Last Taken Unknown] losartan 50 mg tablet 50 mg PO DAILY #90 tabs 07/26/22 [Rx Last Taken Unknown] azithromycin 250 mg tablet 250 mg PO QDAY #12 tabs 08/23/22 [Rx Last Taken Unknown] Allergy/AdvReac Type Severity Reaction Status Date / Time fish derived Allergy Intermediate Throat Verified 12/10/22 14:17 swells Penicillins Allergy Hives Verified 12/10/22 14:17 Odkxtit-DSP-CoT Reductase AdvReac Intermediate myalgias Verified 12/10/22 14:17 Inhibitor [[place]-Nxx-Efy Reductase Inhibitor] Family History Father ALS (amyotrophic lateral sclerosis) Mother Heart disease Breast cancer CVA (cerebral vascular accident) Diabetes Sister Cancer Uterine cancer Surgical History 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) History of coronary artery stent placement (09/17/14) History of elbow surgery History of eye surgery History of left cataract extraction History of right cataract extraction Social History Smoking Status: Former smoker how long ago did patient quit smokin years ago alcohol intake: current alcohol intake frequency: a few times a week Alcohol type: wine substance use type: does not use caffeine: Yes Type: coffee Number of servings: 1 ROS ROS ED Review of Systems ROS Unobtainable: other Constitutional Constitutional ED: Reports lethargy; Denies chills, fever(s), sweats or weight loss Eyes Eyes: Denies blurry vision, change in vision or diplopia ENT ENT ED: Denies rhinorrhea or sore throat Cardiovascular Cardiovascular: Denies chest pain, orthopnea or racing heartbeat Respiratory/Chest Respiratory/Chest: Denies cough, dyspnea, dyspnea on exertion, orthopnea or sputum Gastrointestinal Gastrointestinal: Denies abdominal pain, diarrhea, nausea or vomiting Genitourinary Genitourinary ED: Denies dysuria, hematuria or urinary frequency Musculoskeletal Musculoskeletal: Reports other Details: Left index finger pain and swelling ; Denies arthralgias, back pain, myalgias or neck pain Integumentary Denies abscess, Abrasions or rash Neurologic Neurologic: Denies headache(s) or weakness Psychiatric Psychiatric: Denies anxiety, depression or suicidal thoughts Endocrine Endocrinology: Denies polydipsia, polyphagia or polyuria Hematologic/Lymphatic Hematologic/Lymphatic: Denies easy bleeding, easy bruising or lymphadenopathy Allergic/Immunologic Allergic/Immunologic ED: Denies mouth swelling, tongue swelling or urticaria EXAM Physical Exam Const Vital Signs: 12/10/22 14:17 Temperature 97.8 F Temperature Source Temporal Pulse Rate 54 L Respiratory Rate 18 Blood Pressure 127/64 H Blood Pressure Mean 85 Pulse Ox 96 Oxygen Delivery Method Room Air Positive well nourished and well developed General Appearance ED: well developed and NAD HEENT Reports TM's clear and moist mucous membranes normocephalic and atraumatic; Negative for trauma or tenderness Tympanic Membrane ED: Yes TM's clear Eyes PERRL and EOMs intact bilaterally General Eye ED: Negative for pale conjunctiva or scleral icterus Neck no lymphadenopathy, supple and no JVD General: Negative for tenderness Chest Wall inspection of chest normal and palpation of chest normal Chest: Negative for tenderness Resp normal respiratory effort and clear to auscultation bilaterally Effort and Inspection: Negative for respiratory distress or pain with movement Auscultation: Negative for rhonchi, wheezes or diminished lung sounds Cardio regular rate, regular rhythm, S1 normal heart sound, S2 normal heart sound and no murmurs Peripheral Pulses: pulses 2+ throughout GI normal to inspection, nondistended, normoactive bowel sounds, soft to palpation, non-tender, non-distended and no masses Back/Spine no CVA tenderness and no thoracic nor lumbar tenderness Extremity Extremity Narrative: Left index finger-there is soft tissue swelling over the proximal phalanx. There is pain at the PIP joint. He has limited flexion at the PIP joint secondary to pain. He has no tenderness over the extensor tendon or flexor tendon on exam. There is no erythema or warmth. There is no ecchymosis or bruising. Neurovascular intact distally General Extremety ED: Negative for edema General Extremity: Negative for edema Neuro oriented x3, CN's II-XII intact bilaterally, no sensory deficits noted and gait normal Sensorium / Orientation: awake, alert, oriented to person, oriented to place and oriented to time Motor Exam: strength 5/5 throughout and strength abnormal Psych mental status grossly normal Skin no rashes or lesions noted and no wounds MDM MDM MDM Narrative Medical decision making narrative: Patient with pain to left index finger after trying to manipulate and attach a wheelchair to a vehicle yesterday. X-rays of the left index finger obtained were interpreted by myself as no evidence of fracture or dislocation. Clinically the finger does not look infected. Negative for [place] signs. I suspect likely a sprain of the finger. Patient will be placed in aluminum splint. He will take Naprosyn at home for pain. Radiography Diagnostic Testing: Three-view x-rays of the left Are obtained interpreted by myself as no evidence of fracture or dislocation. Official report from radiology pending. Discharge Plan Triage Chief Complaint: Upper Extremity Injury ED Provider: Berenice De Luna Dx/Rx/DC Orders Clinical Impression: Sprain of finger Instructions: ED Finger Sprain Prescriptions: No Action fenofibrate 54 mg tablet 54 mg PO DAILY metoprolol succinate 25 mg tablet extended release 24 hr 25 mg PO DAILY memantine 10 mg tablet 10 mg PO BID ezetimibe 10 mg tablet 10 mg PO DAILY losartan 50 mg tablet 50 mg PO DAILY Qty: 90 3RF azithromycin 250 mg tablet 250 mg PO QDAY Qty: 12 0RF Rx Instructions: 2 tablets today, then 1 tablet daily on days 2 through 11 glimepiride 4 MG tablet 4 mg PO DAILY aspirin 81 MG tablet,chewable 81 mg PO DAILY@0800 cholecalciferol (vitamin D3) 2,000 UNIT capsule 2,000 unit PO DAILY Primary Care Provider: Donell Capps Referrals: Donell Capps DO [Primary Care Provider] - Brian Ramos MD [Med Staff - Active Staff] - 3-5 Days Disposition Disposition: Home, Self Care Discharge Date/Time: 12/10/22 15:12
--- NOTE | 2022-12-10 14:38 | RAD_ITS ---
INDICATION: pain, swelling left index finger EXAMINATION/TECHNIQUE: X-RAY - LEFT HAND XR Fingers Min 2 Views 3 VIEWS COMPARISON: No relevant prior comparison study available FINDINGS: SOFT TISSUES: No soft tissue swelling or gas. No radiopaque foreign body. BONES/JOINTS: No acute fracture or subluxation.. Normal alignment. Preservation of the joint space.. No sclerotic or destructive changes observed. RAD/Finger(s) Min 2 Views IMPRESSION: No evidence of acute fracture or dislocation. Electronically Signed: Kyle Narayan MD at 15:09 EDT ,
[2022-12-10 15:11] VITALS: O2SAT 97
== END 2022-12-10 15:12 | disposition home or self-care (01) ==
PROVIDERS: Emergency Provider Emergency Medicine; PCP Family Medicine; Visit Provider Emergency Medicine
DX: S63.611A Unspecified sprain of left index finger, initial encounter (principal); E11.22 Type 2 diabetes mellitus with diabetic chronic kidney disease; I25.10 Atherosclerotic heart disease of native coronary artery without angina pectoris; N18.9 Chronic kidney disease, unspecified; E78.5 Hyperlipidemia, unspecified; I12.9 Hypertensive chronic kidney disease with stage 1 through stage 4 chronic kidney disease, or unspecified chronic kidney disease; X50.1XXA Overexertion from prolonged static or awkward postures, initial encounter; Z79.82 Long term (current) use of aspirin; Z87.891 Personal history of nicotine dependence; Z95.1 Presence of aortocoronary bypass graft; Z95.5 Presence of coronary angioplasty implant and graft
CPT/HCPCS: 73140; 99283

== ENCOUNTER → 2023-01-12 | Outpatient (CLI) | payer MEDICARE, SELFPAY | END | disposition home or self-care (01) | LOC: LABSPEC 13:41 | PROVIDERS: PCP Family Medicine; Visit Provider Family Medicine | DX: R05.9 Cough, unspecified (principal) | CPT/HCPCS: 87635 ==

== ENCOUNTER → 2023-05-31 | Outpatient (CLI) | payer MEDICARE, SELFPAY ==
--- NOTE | 2023-05-31 08:11 | ECHOCS_ITS ---
Reason For Study: Murmur Procedure This was a 2D Doppler, Color Flow transthoracic echocardiogram. Contrast injection was performed. The study was technically difficult. Exam performed in department. Left Ventricle Normal LV size. The estimated ejection fraction is 65 %. Diastolic function is indeterminate. No regional wall motion abnormalities noted. Right Ventricle Normal RV size. Normal systolic function. Atria The left atrium is mildly enlarged. Normal right atrium. No doppler evidence for ASD. Mitral Valve There is mild mitral annular calcification. There is no mitral valve stenosis. No mitral valve insufficiency. Tricuspid Valve There is no tricuspid stenosis. Trivial tricuspid valve insufficiency. Pulmonary artery systolic pressure is 30 mmHg. Aortic Valve Moderate diffuse aortic valve thickening. Mild to moderate aortic stenosis. No aortic valve insufficiency. Pulmonic Valve There is no pulmonic valvular stenosis. No pulmonic valve insufficiency. Great Vessels Normal aortic root. Pericardium/Pleural No pericardial effusion. Medication 22 gauge I.V. with prn adaptor inserted into right arm. Diluted definity 1.5ml given slow IV push to enhance endocardial definition. MMode/2D Measurements & Calculations LVIDd: 4.7 cm IVSd: 0.99 cm LVOT diam: 2.0 cm LVIDs: 3.2 cm LVPWd: 1.1 cm RVDd: 3.8 cm FS: 32.4 % LVOT area: 3.2 cm2 Ao root diam: 3.5 cm LAV(MOD-bp): 72.4 ml Aortic Valve Planimetry: 1.0 cm2 LA dimension: 4.7 cm LAV(MOD-bp) Indexed: 36.8 ml/m2 LAV(MOD-sp2): 72.1 ml LAV(MOD-sp4): 64.9 ml TAPSE: 1.8 cm LA A4 area: 22.3 cm2 RA A4 area: 17.3 cm2 Time Measurements MV dec time: 0.28 sec Doppler Measurements & Calculations MV E max farooq: 77.5 cm/sec Lat Peak E' Farooq: 8.2 cm/sec Med Peak E' Farooq: 6.6 cm/sec MV A max farooq: 58.5 cm/sec E/E' lat: 9.4 E/E' med: 11.7 MV E/A: 1.3 MV V2 max: 92.8 cm/sec MV P1/2t max farooq: 91.8 cm/sec Ao V2 max: 303.0 cm/sec MV max P.4 mmHg MV P1/2t: 108.2 msec Ao max P.7 mmHg MV V2 mean: 42.2 cm/sec MV dec slope: 248.5 cm/sec2 Ao V2 mean: 195.5 cm/sec MV mean P.90 mmHg Ao mean P.1 mmHg MV V2 VTI: 35.5 cm MVA(P1/2t): 2.0 cm2 Ao V2 VTI: 82.3 cm MVA(VTI): 2.7 cm2 AV (velocity ratio): 0.36 JANE(I,D): 1.2 cm2 JANE(V,D): 1.1 cm2 LV V1 max: 106.3 cm/sec SV(LVOT): 96.5 ml TR max farooq: 252.3 cm/sec LV V1 max P.5 mmHg TR max P.5 mmHg LV V1 mean P.7 mmHg LV V1 mean: 77.8 cm/sec LV V1 VTI: 29.8 cm ECHO/Echo Complete W/ Contrast Interpretation Summary The estimated ejection fraction is 65 %. Diastolic function is indeterminate. The left atrium is mildly enlarged. Mild to moderate aortic stenosis. Ordering Physician: Duong Reyes Referring Physician: Donell Capps Performed By: Ramiro Ivey RCS
== END | disposition home or self-care (01) ==
LOC: CVS 08:07
PROVIDERS: PCP Family Medicine; Referring Provider Internal Medicine Cardiovascular Disease; Visit Provider Internal Medicine Cardiovascular Disease
DX: R01.1 Cardiac murmur, unspecified (principal)
CPT/HCPCS: 93306; Q9957; A4216; C8929

== ENCOUNTER 2023-06-27 18:34 | Emergency (ER) | payer MEDICARE, SELFPAY ==
[2023-06-27 18:35] VITALS: BP 143/66; PULSE 82; RESP 16; TEMP 36.4; O2SAT 97; BMI 29.6
--- NOTE | 2023-06-27 19:28 | RAD_ITS ---
STUDY: X-RAY - LEFT HAND REASON FOR EXAM: Male, 77 years old. INJURY TECHNIQUE: 2 view(s) of the hand. COMPARISON: None. FINDINGS: Normal radiocarpal articulation. Normal distal radioulnar joint. Normal visualized carpal bones. Normal carpal articulations Normal carpometacarpal articulation of the thumb. Normal second through fifth carpometacarpal joints. Normal metacarpi. There is degenerative arthrosis of the metacarpophalangeal (MCP) joints. Normal interphalangeal joint of the thumb. Normal proximal and distal phalanges of the thumb. There is degenerative arthrosis of the second and third metacarpophalangeal (MCP) joints. There is diffuse articular joint space narrowing of the proximal and distal interphalangeal joints of the second through fifth fingers, but without erosive changes or periarticular soft tissue swelling. Normal phalanges of the second through fifth fingers. The soft tissue structures are unremarkable. There is no acute fracture seen. RAD/Hand 2 Views IMPRESSION: Degenerative joint disease of the hand, as described above. Electronically Signed: Abelino Herrera MD at 19:49 EDT ,
== END 2023-06-27 21:46 | disposition left against medical advice (07) ==
LOC: ED 21:54
PROVIDERS: PCP Family Medicine
DX: S61.412A Laceration without foreign body of left hand, initial encounter (principal); X58.XXXA Exposure to other specified factors, initial encounter; Z53.21 Procedure and treatment not carried out due to patient leaving prior to being seen by health care provider
CPT/HCPCS: 73120

== ENCOUNTER 2023-06-28 09:03 | Emergency (ER) | payer MEDICARE, SELFPAY ==
[2023-06-28 09:07] VITALS: BP 157/77; PULSE 55; RESP 14; RESP 16; TEMP 36.1; O2SAT 96; BMI 29.9
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
[2023-06-28] MEDS: Diphth,Pertuss(Acell),Tet Vac 0.5 ML Vial IM (09:28)
[2023-06-28 09:31] VITALS: BP 145/77; PULSE 56; RESP 17; TEMP 36.4; O2SAT 96
== END 2023-06-28 09:48 | disposition home or self-care (01) ==
LOC: ED 09:43
PROVIDERS: Emergency Provider Emergency Medicine; PCP Family Medicine; Visit Provider Emergency Medicine
DX: S61.412A Laceration without foreign body of left hand, initial encounter (principal); E11.22 Type 2 diabetes mellitus with diabetic chronic kidney disease; I12.9 Hypertensive chronic kidney disease with stage 1 through stage 4 chronic kidney disease, or unspecified chronic kidney disease; Z23 Encounter for immunization; W22.8XXA Striking against or struck by other objects, initial encounter; N18.9 Chronic kidney disease, unspecified; J45.909 Unspecified asthma, uncomplicated; Z79.82 Long term (current) use of aspirin; Z79.84 Long term (current) use of oral hypoglycemic drugs; Z79.899 Other long term (current) drug therapy; Z87.891 Personal history of nicotine dependence; I25.2 Old myocardial infarction
CPT/HCPCS: 12002; 90715; 99283

== ENCOUNTER → 2023-08-25 | Outpatient (CLI) | payer MEDICARE, SELFPAY ==
[2023-08-25 11:42] LABS: Anion Gap 3 (5-15); BUN 27 mg/dL (7-18); BUN/Creat Ratio 18.5 RATIO (10-20); Calcium,Total 9.3 mg/dL (8.5-10.1); Chloride 105 mmol/L (98-107); Creatinine, Serum 1.46 mg/dL (0.70-1.30); EST Glomerular Filtration Rate 50 mL/min (>60); Est Glom Filt Rate - Afr Amer 60 mL/min (>60); Glucose 238 mg/dL (74-106); Potassium 4.2 mmol/L (3.5-5.1); Sodium Level 138 mmol/L (136-145)
== END | disposition home or self-care (01) ==
LOC: LAB 10:53
PROVIDERS: PCP Family Medicine; Referring Provider Internal Medicine Cardiovascular Disease; Visit Provider Internal Medicine Cardiovascular Disease
DX: I10 Essential (primary) hypertension (principal)
CPT/HCPCS: 36415; 80048

== ENCOUNTER → 2023-09-22 | Outpatient (CLI) | payer MEDICARE, SELFPAY ==
--- NOTE | 2023-09-21 16:40 | LES_PTH ---
PATIENT: RAMONA BURGESS LOC: [facility] U#:[id number] AGE/SX: 78/M ROOM: RE09/22/[address]: Dr. Donell Capps, : 1945 BED: DIS: 09/22/2023 SPEC #: [id number] RECD: 09/22/23 11:52 STATUS: URIAH ELIZABETH #: [id number] ADOLFO: 09/21/23 16:[address]: Donell Capps DEPT: SURGICAL PATHOLOGY RECD BY: Terrie Sexton Tissues: Skin of leg, NOS Procedures: Special Stain Group I Surgery Specimen Level IV GMS Stain (control) HEADER OPERATION: Punch biopsy of left leg PRE-OP DIAGNOSIS: Persistent rash, psoriasis appearing, rule out psoriasis TISSUE SUBMITTED: Punch biopsy left leg MICROSCOPIC DIAGNOSIS Left leg, punch biopsy: Superficial perivascular dermatitis. See comment. ATIF/ 09/25/2023 COMMENT Sections show perivascular inflammation consistent primarily of small lymphocytes in the dermis and surrounding blood vessels. Rare eosinophils are noted. No plasma cells are seen. Minimal superficial epidermal infiltration of lymphocytes is also identified. The epidermis does not display hyperplasia or acanthosis. GMS stain with matched control is negative for fungal organisms. Classic features of psoriasis are not present. Clinical correlation is suggested. MICROSCOPIC DESCRIPTION Slides are reviewed. GROSS DESCRIPTION Received in fixative is one container labeled with the patient's name and designated Left leg. The specimen consists of a punch biopsy of brock-white skin measuring 0.1cm in diameter and 0.2cm in length. The entire specimen is submitted in one cassette. 09/22/2023 TC:3 CPT:97454,64832
== END | disposition home or self-care (01) ==
LOC: LABSPEC 12:19
PROVIDERS: PCP Family Medicine; Referring Provider Family Medicine; Visit Provider Family Medicine
DX: L30.8 Other specified dermatitis (principal)
CPT/HCPCS: 88305; 88312

== ENCOUNTER → 2023-11-06 | Outpatient (CLI) | payer MEDICARE, SELFPAY ==
[2023-11-06 15:09] LABS: Absolute Lymphocyte Count 0.86 X10^3/uL (0.83-4.51); Absolute Neutrophil Count 4.7 X10^3/uL (2.0-7.7); Basophil# 0.09 X10^3/uL; Basophil% 1.3 % (0-1); Eosinophil# 0.43 X10^3/uL; Eosinophils% 6.3 % (0-5); Hematocrit 36.7 % (40-54); Lymphocyte # 0.86 X10^3/ul (0.83-4.51); Lymphocyte % 12.6 % (19-41); Mean Corp Hgb Conc 32.7 g/dL (32-36); Mean Corpuscular Hgb 28.6 pg (27.0-32.0); Mean Corpuscular Volume 87.6 fL (80-94); Mean Platelet Vol. 11.6 fl (6.2-12.0); Monocyte# 0.75 X10^3/uL; Monocyte% 10.9 % (0-10); NRBC Flagged by Analyzer 0 % (0-5); Neutrophil % 68.6 % (47-70); Platelet Count 259 K/mm3 (150-450); RBC Distribution Width CV 13.2 % (11.6-14.6); RBC Distribution Width SD 41.8 fl (35.1-43.9); Red Blood Count 4.19 M/mm3 (4.6-6.2); White Blood Count 6.9 K/mm3 (4.4-11.0)
[2023-11-06 16:18] LABS: AST(SGOT) 29 U/L (15-37); Alanine Aminotransfer ALT/SGPT 40 U/L (16-61); Albumin, Serum 3.4 g/dL (3.2-5.0); Alkaline Phosphatase 95 U/L (45-117); Anion Gap 7 (5-15); BUN 29 mg/dL (7-18); BUN/Creat Ratio 21.5 RATIO (10-20); Calcium,Total 9.4 mg/dL (8.5-10.1); Chloride 109 mmol/L (98-107); Creatinine, Serum 1.35 mg/dL (0.70-1.30); EST Glomerular Filtration Rate 54 mL/min (>60); Est Glom Filt Rate - Afr Amer 66 mL/min (>60); Globulin 3.3 g/dL (2.2-4.2); Glucose 146 mg/dL (74-106); Potassium 4.4 mmol/L (3.5-5.1); Protein, Total 6.7 g/dL (6.4-8.2); Sodium Level 141 mmol/L (136-145); T4 Free Direct 0.92 ng/dL (0.76-1.46)
== END | disposition home or self-care (01) ==
LOC: BFHLAB 13:08
PROVIDERS: PCP Family Medicine; Referring Provider Family Medicine; Visit Provider Family Medicine
DX: E03.9 Hypothyroidism, unspecified (principal); R63.4 Abnormal weight loss
CPT/HCPCS: 36415; 80053; 84439; 84443; 85025

== ENCOUNTER 2024-02-05 20:15 | Inpatient (IN) | payer MEDICARE, SELFPAY ==
[2024-02-05] VITALS (10 sets, daily range): BP systolic 138–197; BP diastolic 55–97; PULSE 50–89; RESP 14–20; TEMP 36.3–36.8; O2SAT 98–100; BMI 29.0; BMI 28.3
--- NOTE | 2024-02-05 20:16 | EKG12_ITS ---
Test Reason : STROKE Blood Pressure : */* mmHG Vent. Rate : 60 BPM Atrial Rate : 60 BPM P-R Int : 172 ms QRS Dur : 92 ms QT Int : 438 ms P-R-T Axes : 19 41 70 degrees QTcB Int : 438 ms Normal sinus rhythm Normal ECG Confirmed by KEON LEACH, ABDULAZIZ ([id number]), international editorial producer MARIANA ROACH ([id number]) on 02/06/2024 8:02:44 AM Referred By: Confirmed By: ABDULAZIZ HERBERT MD
--- NOTE | 2024-02-05 20:16 | CT_ITS ---
We are attempting to reach an attending provider to discuss findings. An addendum with communication details will be sent when the communication is complete. INDICATION: Neuro deficit, acute, stroke suspected EXAMINATION: CT BRAIN - CT Head Stroke Protocol W/O Contrast Injection TECHNIQUE: Multiple axial images were obtained of the head without intravenous contrast. The protocol utilizes one or more of the following dose reduction techniques: automated exposure control, adjustment of mA and/or kV according to patient size,and/or use of iterative reconstruction technique. IV Contrast dosage and agent: None. COMPARISON: FINDINGS: BRAIN PARENCHYMA: No intra- or extra-axial hemorrhage. No evidence of acute infarct. No intracranial mass or mass effect. There is preservation of the dixon/white matter interface. Posterior fossa structures are unremarkable. CSF SPACES: Appropriate for age. No hydrocephalus. Basal cisterns are patent. CALVARIUM, SKULL BASE, PARANASAL SINUSES AND MASTOID AIR CELLS: Clear. No discrete lytic or blastic abnormalities. ORBITS: Both globes, extraocular muscles, optic nerves and retrobulbar fat appear unremarkable. CT/STROKE Brain/Head without Cont IMPRESSION: No acute intracranial pathology Electronically Signed: Darius Erickson DO at 20:30 EST Reading Location ID and State: [facility] / [place] Tel [phone], Service support ,
--- NOTE | 2024-02-05 20:16 | CT_ITS ---
We are attempting to reach an attending provider to discuss findings. An addendum with communication details will be sent when the communication is complete. INDICATION: Neuro deficit, acute, stroke suspected EXAMINATION: CT BRAIN WITHOUT CONTRAST, CTA HEAD, AND CTA NECK TECHNIQUE: Routine carotid CT angiogram protocol was performed without and with IV contrast. In addition, images were obtained of the [place] of [place]. NASCET criteria using the distal ICAs for comparison were used for evaluation of stenoses. 3D reconstructions were reviewed. The protocol utilizes one or more of the following dose reduction techniques: automated exposure control, adjustment of mA and/or kV according to patient size,and/or use of iterative reconstruction technique. IV Contrast dosage and agent: COMPARISON: FINDINGS: --CTA NECK: AORTIC ARCH AND BRANCHES: Normal anatomy, patent. RIGHT CCA: No occlusion, significant stenosis or dissection. RIGHT CAROTID BULB: Atherosclerotic calcifications with less than 50% luminal stenosis. RIGHT ICA: No occlusion, significant stenosis or dissection. LEFT CCA: No occlusion, significant stenosis or dissection. LEFT CAROTID BULB: Atherosclerotic calcifications with less than 50% luminal stenosis. LEFT ICA: No occlusion, significant stenosis or dissection. RIGHT VERTEBRAL ARTERY: No occlusion, significant stenosis or dissection. LEFT VERTEBRAL ARTERY: No occlusion, significant stenosis or dissection. NECK SOFT TISSUES: Unremarkable. --CTA HEAD: --Anterior circulation: ICAs: No significant stenosis at the intracranial/visualized segments. ACAs: No significant stenosis at the visualized segments. ACOM: Questionable 1 mm aneurysm at the junction of the anterior communicating and the right A2 segment.. MCAs: No significant stenosis at the visualized segments. --Posterior circulation: PCOMs: Patent on the right. Nonvisualization on the left. professor of history: Hypoplastic right P1 segment. BASILAR ARTERY: No significant stenosis. VERTEBRAL ARTERIES: No significant stenosis at the intradural/visualized segments. No evidence of intracranial aneurysm or vascular malformation. CT/STROKE CTA Head AND Neck W/Con IMPRESSION: Questionable 1 mm aneurysm at the junction of the anterior communicating and the right A2 segment.. Electronically Signed: Darius Erickson DO at 21:15 EST Reading Location ID and State: [facility] / [place] Tel [phone], Service support ,
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
--- NOTE | 2024-02-05 20:26 | ED.RN ---
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
--- NOTE | 2024-02-05 20:34 | CM.ED ---
Social Work Reason for visit: Stroke alert Patient was brought in by son and . Supportive listening and emotional support offered. No further needs identified at this time. Chrissy Comer, LEAD SOFTWARE DEVELOPMENT ENGINEER, STEEL POST INSTALLER
[2024-02-05 20:49] LABS: Basophil# 0.05 X10^3/uL; Basophil% 0.7 % (0-1); Eosinophil# 0.34 X10^3/uL; Eosinophils% 4.7 % (0-5); Hematocrit 36.5 % (40-54); Hemoglobin 12.2 g/dL (13.0-16.5); Lymphocyte % 15.3 % (19-41); Mean Corp Hgb Conc 33.4 g/dL (32-36); Mean Corpuscular Hgb 28.8 pg (27.0-32.0); Mean Corpuscular Volume 86.1 fL (80-94); Mean Platelet Vol. 11.2 fl (6.2-12.0); Monocyte# 0.66 X10^3/uL; Monocyte% 9.2 % (0-10); NRBC Flagged by Analyzer 0 % (0-5); Neutrophil # 5.01 X10^3/uL (2.7-7.7); Neutrophil % 69.7 % (47-70); Platelet Count 183 K/mm3 (150-450); RBC Distribution Width SD 40.5 fl (35.1-43.9); Red Blood Count 4.24 M/mm3 (4.6-6.2); White Blood Count 7.2 K/mm3 (4.4-11.0)
[2024-02-05 20:51] LABS: Bedside Glucose 238 mg/dL (74-106)
[2024-02-05 20:58] LABS: International Normalized Ratio 1.1; Prothrombin Time (Protime)PT. 14.1 SECONDS (11.7-14.9)
[2024-02-05 20:59] LABS: Partial Thromboplast Time 28.3 Seconds (24.1-36.2)
--- NOTE | 2024-02-05 21:00 | RAD_ITS ---
INDICATION: Neuro deficit, acute, stroke suspected EXAMINATION/TECHNIQUE: X-RAY - XR Chest 1 View COMPARISON: FINDINGS: LINES/DEVICES: Sternotomy wires present. LUNGS: No consolidation, edema or effusion. No pneumothorax. MEDIASTINUM AND CARDIOVASCULAR STRUCTURES: Cardiac silhouette not enlarged. Central airways and mediastinal contour are unremarkable. BONES AND SOFT TISSUES: Unremarkable. RAD/Chest 1 View IMPRESSION: No radiographic evidence of acute cardiopulmonary disease. Electronically Signed: Darius Erickson DO at 21:19 EST ,
[2024-02-05 21:11] LABS: Anion Gap 4 (5-15); BUN 21 mg/dL (7-18); BUN/Creat Ratio 18.9 RATIO (10-20); Calcium,Total 8.5 mg/dL (8.5-10.1); Chloride 107 mmol/L (98-107); Creatinine, Serum 1.11 mg/dL (0.70-1.30); EST Glomerular Filtration Rate 68 mL/min (>60); Est Glom Filt Rate - Afr Amer 82 mL/min (>60); Estimated Creatinine Clearance 55.93 ml/min; Glucose 180 mg/dL (74-106); Potassium 4.1 mmol/L (3.5-5.1); Sodium Level 140 mmol/L (136-145); Troponin-I HS 8 pg/mL (3.0-78.0)
--- NOTE | 2024-02-05 21:37 | ECHOD_ITS ---
Reason For Study: TIA/STROKE Procedure This was a 2D Doppler, Color Flow transthoracic echocardiogram. Exam performed portable in patient room. Left Ventricle Normal LV size. Moderate concentric left ventricular hypertrophy. Left ventricular systolic function is normal. The left ventricular ejection fraction is 55 %. No regional wall motion abnormalities noted. Right Ventricle Normal RV size. Normal systolic function. Mitral Valve Normal mitral valve. Tricuspid Valve Normal tricuspid valve. Mild (1+) tricuspid valve insufficiency. Pulmonary artery systolic pressure is 32 mmHg. Aortic Valve Trisinus/trileaflet aortic valve. Moderate focal aortic valve calcification. Peak aortic valve gradient 36 mmHg. Mean aortic valve gradient 23 mmHg. Mild to moderate aortic stenosis. Pulmonic Valve The pulmonic valve is not well visualized. Great Vessels Normal aortic root. The pulmonary is not well visualized. Inferior vena cava collapse with respiration. Pericardium/Pleural No pericardial effusion. MMode/2D Measurements & Calculations LVIDd: 4.2 cm IVSd: 1.5 cm LVOT diam: 2.1 cm LVIDs: 2.7 cm LVPWd: 1.7 cm LVOT area: 3.4 cm2 RVDd: 4.8 cm FS: 36.6 % asc Aorta Diam: 3.4 cm LAV(MOD-bp): 51.6 ml LVAd ap4: 24.8 cm2 LAV(MOD-bp) Indexed: 26.6 ml/m2 LVLd ap4: 8.2 cm LAV(MOD-sp2): 53.0 ml EDV(MOD-sp4): 61.4 ml LAV(MOD-sp4): 49.2 ml EDV(sp4-el): 63.2 ml LVAs ap4: 12.7 cm2 LVLs ap4: 6.8 cm ESV(MOD-sp4): 20.4 ml ESV(sp4-el): 20.2 ml EF(MOD-sp4): 66.8 % EF(sp4-el): 68.1 % SV(MOD-sp4): 41.0 ml SV(MOD-sp2): 26.5 ml LVAd ap2: 21.1 cm2 LVLd ap2: 7.7 cm SI(MOD-sp4): 21.2 ml/m2 SI(MOD-sp2): 13.7 ml/m2 EDV(MOD-sp2): 46.8 ml EDV(sp2-el): 49.2 ml LVAs ap2: 12.7 cm2 LVLs ap2: 6.8 cm ESV(MOD-sp2): 20.3 ml ESV(sp2-el): 20.3 ml EF(MOD-sp2): 56.7 % SV(sp4-el): 43.1 ml Ao sinus diam: 3.[address] Junction: 3.0 cm LA A4 area: 18.2 cm2 LA dimension(2D): 3.7 cm RA A4 area: 11.9 cm2 TAPSE: 1.9 cm Time Measurements MV dec time: 0.23 sec Doppler Measurements & Calculations MV E max farooq: 83.8 cm/sec Lat Peak E' Farooq: 10.7 cm/sec Med Peak E' Farooq: 6.5 cm/sec MV A max farooq: 61.4 cm/sec E/E' lat: 7.8 E/E' med: 13.0 MV E/A: 1.4 Ao V2 max: 299.0 cm/sec LV V1 max: 103.6 cm/sec MV dec slope: 362.0 cm/sec2 Ao max P.9 mmHg LV V1 max P.3 mmHg Ao V2 mean: 228.8 cm/sec LV V1 mean P.6 mmHg Ao mean P.5 mmHg LV V1 mean: 78.6 cm/sec Ao V2 VTI: 73.1 cm LV V1 VTI: 29.8 cm AV (velocity ratio): 0.41 JANE(I,D): 1.4 cm2 JANE(V,D): 1.2 cm2 SV(LVOT): 101.2 ml PA V2 max: 81.3 cm/sec TR max farooq: 267.5 cm/sec TR max P.6 mmHg ECHO/Echo Complete Interpretation Summary Normal LV size. Left ventricular systolic function is normal. The left ventricular ejection fraction is 55 %. Mean aortic valve gradient 23 mmHg. Mild to moderate aortic stenosis. Moderate concentric left ventricular hypertrophy. Ordering Physician: Shania Gutierrez Referring Physician: Donell Capps Performed By: Katelin Bullock RDCS
--- NOTE | 2024-02-05 21:38 | PCM.HP.STD ---
HPI - General General Date of Admission: 02/05/24 Date of Service: 02/05/24 Chief Complaint: visual field cut HPI Narrative RAMONA BURGESS, is a 78 M who presented to the emergency department [facility] on 02/05/2024 with a chief complaint of visual changes in his left eye. Patient stated he was driving earlier and reported that the son was in his eyes so he had trouble seeing (this was between 4 and 430) however it was then noticed by family his pupil looked a little bit different and he had loss of vision peripherally on the left eye only about an hour to an hour and a half after that episode. Given these findings, his son drove him to the emergency department for further evaluation. He denied any tingling numbness or weakness anywhere. Initial NIH was 2 for visual changes and he was given a 1 for facial palsy however on my exam there is no facial palsy present and his NIH was 1. He does have a known history of DM-2, hypertension, hyperlipidemia and does not tolerate statins as well as coronary artery disease with previous stent placement in 2014. He has had a recent echocardiogram however bubble study was not performed at that time. EF was 65% and he had mild to moderate aortic stenosis. Vital signs on presentation showed temperature of 98.2, heart rate 59, blood pressure 183/67, pulse ox was 100% on room air. CBC was overtly unremarkable. Coags were normal. Chemistry panel was unremarkable except for blood glucose level 180. Troponin was 8. EKG was normal sinus rhythm with normal intervals and no ST-T wave changes concerning for acute ischemia. Chest x-ray was completely unremarkable. CT the brain showed no acute intracranial pathology and CTA of the head and neck showed no stenosis that was significant and I questionable 1 mm aneurysm at the junction of the anterior communicating and right A2 segment. On exam there was significant anisocoria left eye. It was evident the patient has had previous cataract surgery bilaterally. [facility]LY [facility] Medical History Basal cell carcinoma Acute maxillary sinusitis, unspecified Asthma Hay fever Skin cancer STEMI (ST elevation myocardial infarction) Essential hypertension Hyperlipidemia Atherosclerosis of coronary artery of [place] without angina pectoris CKD (chronic kidney disease) Type 2 diabetes mellitus without complication Vitamin D deficiency Mild cognitive impairment Home Medications ?Medication ?Instructions ?Recorded ?Last Taken ?Type aspirin 81 mg chewable tablet 81 mg PO DAILY@0800 07/14/19 Unknown History cholecalciferol (vitamin D3) 50 2,000 unit PO DAILY 07/14/19 Unknown History mcg (2,000 unit) capsule glimepiride 4 mg tablet 4 mg PO DAILY 07/14/19 Unknown History memantine 10 mg tablet 10 mg PO QAM 03/02/23 Unknown History metoprolol succinate 50 mg 50 mg PO DAILY 03/02/23 Unknown History tablet,extended release 24 hr escitalopram oxalate 5 mg tablet 5 mg PO QDAY 09/01/23 Unknown History levothyroxine 50 mcg tablet 50 mcg PO QDAY 09/01/23 Unknown History losartan 100 mg tablet 100 mg PO DAILY #90 tabs 09/01/23 Unknown Rx tamsulosin 0.4 mg capsule 0.4 mg PO BID 09/01/23 Unknown History donepezil 5 mg tablet 5 mg PO QHS 02/05/24 Unknown History Allergy/AdvReac Type Severity Reaction Status Date / Time fish derived Allergy Intermediate Throat Verified 02/05/24 20:51 swells Penicillins Allergy Hives Verified 02/05/24 20:51 Oooyaib-FYF-ShO Reductase AdvReac Intermediate myalgias Verified 02/05/24 20:51 Inhibitor (Ruttkfh-Wko-Wnr Reductase Inhibitor) Family History Father ALS (amyotrophic lateral sclerosis) Mother Heart disease Breast cancer CVA (cerebral vascular accident) Diabetes Sister Cancer Uterine cancer Surgical History History of carpal tunnel surgery of right wrist (~2023) History of nasal surgery History of left cataract extraction History of elbow surgery History of coronary artery stent placement (09/17/14) 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) History of eye surgery History of right cataract extraction Social History Smoking Status: Former smoker how long ago did patient quit smokin years ago alcohol intake: current alcohol intake frequency: a few times a week Alcohol type: wine substance use type: does not use caffeine: Yes Type: coffee Number of servings: 1 ROS Constitutional Constitutional: Denies anorexia, change in weight, chills, fatigue, fever(s), malaise, night sweats, weakness or other Eyes Eyes: Reports change in vision; Denies blurry vision, change in eye color, discharge from eye(s), double vision, erythema, eye pain, loss of vision or other ENT HEENT: Denies abnormal hearing, dysphagia, ear pain, epistaxis, headache(s), hearing loss, nasal congestion, nasal discharge, post nasal drip, sinus pressure, sore throat or other Cardiovascular Cardiovascular: Denies chest pain, claudication, dyspnea on exertion, edema, lightheadedness, orthopnea, palpitations, paroxysmal nocturnal dyspnea, rapid heart rate, syncope or other Respiratory/Chest Respiratory/Chest: Denies cough, dyspnea, excessive phlegm production, hemoptysis, productive cough, shortness of breath at rest, shortness of breath with exertion, wheezing or other Gastrointestinal Gastrointestinal: Denies abdominal pain, coffee ground emesis, constipation, diarrhea, dyspepsia, hematemesis, hematochezia, loose stools, melena, nausea, vomiting or other Genitourinary Genitourinary: Denies burning urination, difficulty urinating, dysuria, hematuria, nocturia, urinary frequency, urinary hesitancy, urinary incontinence, urinary urgency or other Musculoskeletal Musculoskeletal: Denies arthralgias, back pain, joint pain, joint stiffness, joint swelling, myalgias, neck pain or other Neurologic Neurologic: Reports other Details: Left-sided hemianopsia ; Denies abnormal gait, abnormal speech, confusion, disequilibrium, dizziness, focal weakness, headache(s), numbness, paresthesias, seizure-like activity, seizures, syncope, tingling or tremor(s) Psychiatric Psychiatric: Denies anxiety, depression, homicidal ideation, suicidal ideation or other Endocrine Endocrinology: Denies change in body appearance, cold intolerance, excessive sweating, heat intolerance, polydipsia, polyuria or other Hematologic/Lymphatic Hematologic/Lymphatic: Denies anemia, easy bleeding, easy bruising, lymphadenopathy or other Allergic/Immunologic Allergic/Immunologic: Denies rhinitis, hives, eczemia, asthma or other Vital Signs Vital Signs Vital Signs: 02/05/24 20:15 02/05/24 20:16 02/05/24 20:17 Temperature 98.2 F Temperature Source Oral Pulse Rate 59 L 59 L 89 Respiratory Rate 14 18 16 Blood Pressure 183/67 H 178/63 H 183/67 H Blood Pressure Mean 105 101 105 Pulse Ox 100 98 98 Oxygen Delivery Method Room Air Room Air Room Air 02/05/24 20:33 02/05/24 20:46 02/05/24 21:16 Temperature Temperature Source Pulse Rate 60 54 L Respiratory Rate 20 H 16 Blood Pressure 182/55 H 138/97 H Blood Pressure Mean 97 110 Pulse Ox 100 98 Oxygen Delivery Method Room Air Room Air Room Air 02/05/24 21:19 Temperature 98 F Temperature Source Pulse Rate 54 L Respiratory Rate 16 Blood Pressure 138/97 H Blood Pressure Mean 110 Pulse Ox 99 Oxygen Delivery Method Weight Weight: 84.028 kg Body Mass Index (BMI) 29.0 Physical Exam Const alert, oriented x3, no apparent distress and well nourished Constitutional Narrative: Slightly overweight older white male, sitting up in bed, son and at bedside, appears comfortable, nontoxic appearing General Appearance: cooperative HEENT normocephalic, head/scalp atraumatic and moist oral mucous membranes HEENT Narrative: Mild hearing loss, Mallampati 2, no thrush Eyes EOMs intact bilaterally and conjunctivae normal; Negative for PERRL Eyes Narrative: No scleral icterus, left pupil is abnormal shape and reactive but reactivity is limited, right eye is within normal limits. Patient with obvious previous ocular surgery Neck supple, no JVD and no carotid bruits Neck Narrative: Trachea midline, no thyroid enlargement Resp normal respiratory effort, no retractions, no use of accessory muscles and clear to auscultation bilaterally Auscultation: Negative for rales, rhonchi or wheezes Cardio regular rate, regular rhythm, S1 normal heart sound, S2 normal heart sound, no rub and no clicks; Negative for no murmurs Cardio Narrative: 3 out of 6 systolic murmur loudest at right upper sternal border GI normal to inspection, nondistended, normoactive bowel sounds, soft to palpation and non-tender Extremity no clubbing, cyanosis or edema Extremity Narrative: Radial and pedal pulses are 2+ Neuro oriented x3, No CN's II-XII intact bilaterally, moves all extremities and no focal motor deficits Neuro Narrative: Patient with left eye visual field cut that is consistent with hemianopsia, right eye within normal limits, all other cranial nerves within normal limits Speech: speech normal Psych affect normal Psych Narrative: Very pleasant, interacts appropriately, eye contact is good Results Lab / Micro Data 02/05/24 20:33 02/05/24 20:33 Labs: Laboratory Results - last 24 hr 02/05/24 20:21: POC Glucose 238 H 02/05/24 20:33: WBC 7.2, RBC 4.24 L, Hgb 12.2 L, Hct 36.5 L, MCV 86.1, MCH 28.8, MCHC 33.4, RDW Std Deviation 40.5, RDW Coeff of [place] 13.0, Plt Count 183, MPV 11.2, Immature Gran % (Auto) 0.400, Neut % (Auto) 69.7, Lymph % (Auto) 15.3 L, [place] % (Auto) 9.2, Eos % (Auto) 4.7, Baso % (Auto) 0.7, Absolute Neuts (auto) 5.0, Absolute Lymphs (auto) 1.10, Nucleated RBC % 0, PT 14.1, INR 1.1, APTT 28.3, Sodium 140, Potassium 4.1, Chloride 107, Carbon Dioxide 29.0, Anion Gap 4 L, BUN 21 H, Creatinine 1.11, Estim Creat Clear Calc 55.93, Est GFR (MDRD) Af Amer 82, Est GFR (MDRD) Non-Af 68, BUN/Creatinine Ratio 18.9, Glucose 180 H, Calcium 8.5, Troponin I High Sens 8 Imaging Radiology Impression Brain CT 02/05/24 20:16 IMPRESSION: No acute intracranial pathology Electronically Signed: Darius rEickson DO at 20:30 EST , ADDENDUM: 02/05/242037 IMPRESSION: No acute intracranial pathology N.B. : The above Results were Read Back by Darius Erickson DO to Dax Vicente DO, and understanding confirmed on 02/05/2024 20:31:47 (ET). Electronically Signed: Darius Erickson DO at 20:30 EST , Head/Neck CTA 02/05/24 20:16 IMPRESSION: Questionable 1 mm aneurysm at the junction of the anterior communicating and the right A2 segment.. 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 N.B. : The above Results were Read Back by Darius Erickson DO to Dariusz Castellanos MD, and understanding confirmed on 02/05/2024 21:16:52 (ET). Electronically Signed: Darius Erickson DO at 21:15 EST , Chest X-Ray 02/05/24 21:00 IMPRESSION: No radiographic evidence of acute cardiopulmonary disease. Electronically Signed: Darius Erickson DO at 21:19 EST , Assessment & Plan Assessment/Plan (1) Left homonymous hemianopsia: PLAN: Plan Left eye hemianopsia -NIH on presentation was 2 and 1 at the time of my evaluation -Out of the window for tenecteplase -Patient with abnormal pupil exam--> unclear how much of this is chronic versus acute with previous eye surgery -MRI in a.m. 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 -Reported out as possible/questionable -Check MRA of brain -Neuroconsultation -Will need outpatient follow-up Essential hypertension/hyperlipidemia -Patient is statin intolerant -Hold home antihypertensives for now and allow for permissive hypertension given above concern for stroke -As needed antihypertensives per stroke protocol Hypothyroidism -Continue home levothyroxine -Check TSH DM-2 -Check hemoglobin A1c -Hold home oral agents -SSI -Accu-Cheks as ordered BPH with obstruction -Continue home Flomax Memory impairment -Continue home memantine -Continue home donepezil -Patient was alert and oriented x 3 on admission Depression -Continue home Lexapro History of tobacco abuse -No current use -Ongoing cessation DVT prophylaxis -Lovenox subcu 40 mg daily CODE STATUS -Verified as full code in the emergency department prior to admission Charges/Coding Visit Charges Inpatient E&M: 28263 Init Hosp L2
[2024-02-05] MEDS: Donepezil HCl 5 MG Tablet PO (23:12)
[2024-02-05] MEDS: Tamsulosin HCl 0.4 MG Capsule PO (23:12)
[2024-02-05 23:31] LABS: Bedside Glucose 131 mg/dL (74-106)
[2024-02-05] MEDS: Clopidogrel Bisulfate 75 MG Tablet PO (23:48)
[2024-02-06 01:26] VITALS: BMI 28.3
[2024-02-06 02:00] VITALS: BP 162/61; PULSE 54; RESP 18; TEMP 36.4; O2SAT 98
[2024-02-06 03:55] VITALS: BP 164/64; PULSE 53; RESP 18; TEMP 36.3; O2SAT 97
[2024-02-06 06:00] VITALS: BP 146/59; PULSE 52; RESP 18; TEMP 36.3; O2SAT 100
[2024-02-06 06:40] LABS: Absolute Lymphocyte Count 1.25 X10^3/uL (0.83-4.51); Absolute Neutrophil Count 5.5 X10^3/uL (2.0-7.7); Basophil# 0.05 X10^3/uL; Basophil% 0.6 % (0-1); Eosinophil# 0.36 X10^3/uL; Eosinophils% 4.6 % (0-5); Hematocrit 36.2 % (40-54); Hemoglobin 12.3 g/dL (13.0-16.5); Lymphocyte # 1.25 X10^3/ul (0.83-4.51); Lymphocyte % 15.9 % (19-41); Mean Corpuscular Hgb 28.9 pg (27.0-32.0); Mean Corpuscular Volume 85.2 fL (80-94); Mean Platelet Vol. 10.9 fl (6.2-12.0); Monocyte# 0.75 X10^3/uL; Monocyte% 9.5 % (0-10); NRBC Flagged by Analyzer 0 % (0-5); Neutrophil # 5.45 X10^3/uL (2.7-7.7); Neutrophil % 69.3 % (47-70); Platelet Count 178 K/mm3 (150-450); RBC Distribution Width SD 39.9 fl (35.1-43.9); Red Blood Count 4.25 M/mm3 (4.6-6.2); White Blood Count 7.9 K/mm3 (4.4-11.0)
[2024-02-06] MEDS: Levothyroxine 50 MCG Tablet PO (06:45)
[2024-02-06 07:04] LABS: Bedside Glucose 100 mg/dL (74-106)
[2024-02-06 07:19] LABS: AST(SGOT) 20 U/L (15-37); Alanine Aminotransfer ALT/SGPT 48 U/L (16-61); Albumin, Serum 3.1 g/dL (3.2-5.0); Alkaline Phosphatase 75 U/L (45-117); Anion Gap 3 (5-15); BUN 17 mg/dL (7-18); BUN/Creat Ratio 17.8 RATIO (10-20); Calcium,Total 8.9 mg/dL (8.5-10.1); Chloride 109 mmol/L (98-107); Cholesterol 176 mg/dL (200); Creatinine, Serum 0.96 mg/dL (0.70-1.30); EST Glomerular Filtration Rate 81 mL/min (>60); Est Glom Filt Rate - Afr Amer 98 mL/min (>60); Estimated Creatinine Clearance 64.02 ml/min; Glucose 105 mg/dL (74-106); High Density Lipoprotein 44 mg/dL; Magnesium 2.1 mg/dL (1.6-2.6); Phosphorus 3.4 mg/dL (2.5-4.9); Potassium 4.1 mmol/L (3.5-5.1); Protein, Total 6.1 g/dL (6.4-8.2); Sodium Level 139 mmol/L (136-145); Triglycerides 131 mg/dL; Very Low Density Lipoprotein 26 mg/dL (5-40)
--- NOTE | 2024-02-06 07:21 | PCM.PN.HOSP ---
Reason for Visit Reason for Visit: Diagnoses Homonymous bilateral field defects, left side (02/05/24) Objective Data Objective Data Vital Signs: Vital Signs Temp Pulse Resp BP Pulse Ox O2 Del Method 97.4 F L 52 L 18 146/59 H 100 Room Air 02/06/24 06:00 02/06/24 06:00 02/06/24 06:00 02/06/24 06:00 02/06/24 06:00 02/06/24 06:00 Oxygen Delivery Method Room Air Weight: 181 lb 3.52 oz Body Mass Index (BMI) 28.3 Intake & Output: Intake and Output for Last 24 Hours 02/04/24 02/05/24 02/06/24 23:59 23:59 23:59 Output Total 0 / 0 825 / 825 Balance 0 / 0 -825 / -825 Lab / Micro Data 02/06/24 06:28 02/06/24 06:28 Labs: Laboratory Results - last 24 hr 02/05/24 20:21: POC Glucose 238 H 02/05/24 20:33: WBC 7.2, RBC 4.24 L, Hgb 12.2 L, Hct 36.5 L, MCV 86.1, MCH 28.8, MCHC 33.4, RDW Std Deviation 40.5, RDW Coeff of Ford 13.0, Plt Count 183, MPV 11.2, Immature Gran % (Auto) 0.400, Neut % (Auto) 69.7, Lymph % (Auto) 15.3 L, [place] % (Auto) 9.2, Eos % (Auto) 4.7, Baso % (Auto) 0.7, Absolute Neuts (auto) 5.0, Absolute Lymphs (auto) 1.10, Nucleated RBC % 0, PT 14.1, INR 1.1, APTT 28.3, Sodium 140, Potassium 4.1, Chloride 107, Carbon Dioxide 29.0, Anion Gap 4 L, BUN 21 H, Creatinine 1.11, Estim Creat Clear Calc 55.93, Est GFR (MDRD) Af Amer 82, Est GFR (MDRD) Non-Af 68, BUN/Creatinine Ratio 18.9, Glucose 180 H, Calcium 8.5, Troponin I High Sens 8 02/05/24 23:08: POC Glucose 131 H 02/06/24 06:28: WBC 7.9, RBC 4.25 L, Hgb 12.3 L, Hct 36.2 L, MCV 85.2, MCH 28.9, MCHC 34.0, RDW Std Deviation 39.9, RDW Coeff of [place] 13.0, Plt Count 178, MPV 10.9, Immature Gran % (Auto) 0.100, Neut % (Auto) 69.3, Lymph % (Auto) 15.9 L, [place] % (Auto) 9.5, Eos % (Auto) 4.6, Baso % (Auto) 0.6, Absolute Neuts (auto) 5.5, Absolute Lymphs (auto) 1.25, Nucleated RBC % 0, Sodium 139, Potassium 4.1, Chloride 109 H, Carbon Dioxide 28.0, Anion Gap 3 L, BUN 17, Creatinine 0.96, Estim Creat Clear Calc 64.02, Est GFR (MDRD) Af Amer 98, Est GFR (MDRD) Non-Af 81, BUN/Creatinine Ratio 17.8, Glucose 105, Calcium 8.9, Phosphorus 3.4, Magnesium 2.1, Total Bilirubin 0.60, AST 20, ALT 48, Alkaline Phosphatase 75, Total Protein 6.1 L, Albumin 3.1 L, Globulin 3.0, Albumin/Globulin Ratio 1.0, Triglycerides 131, Cholesterol 176, LDL Cholesterol 106, VLDL Cholesterol 26, HDL Cholesterol 44, TSH 2.960 02/06/24 06:42: POC Glucose 100 Radiography Diagnostic Testing: Radiology Impression Brain CT 02/05/24 20:16 IMPRESSION: No acute intracranial pathology Electronically Signed: Darius Erickson DO at 20:30 EST Reading Location ID and State: [facility] / [place] Tel [phone], Service support , ADDENDUM: 02/05/242037 IMPRESSION: No acute intracranial pathology N.B. : The above Results were Read Back by Darius Erickson DO to Dax Vicente DO, and understanding confirmed on 02/05/2024 20:31:47 (ET). Electronically Signed: Darius Erickson DO at 20:30 EST , Head/Neck CTA 02/05/24 20:16 IMPRESSION: Questionable 1 mm aneurysm at the junction of the anterior communicating and the right A2 segment.. 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 N.B. : The above Results were Read Back by Darius Erickson DO to Dariusz Castellanos MD, and understanding confirmed on 02/05/2024 21:16:52 (ET). Electronically Signed: Darius Erickson DO at 21:15 EST , Chest X-Ray 02/05/24 21:00 IMPRESSION: No radiographic evidence of acute cardiopulmonary disease. Electronically Signed: Darius Erickson DO at 21:19 EST , Physical Exam Narrative Patient with left eye visual field cut that is consistent with hemianopsia, right eye within normal limits, all other cranial nerves within normal limits Assessment & Plan Assessment/Plan (1) Left homonymous hemianopsia: PLAN: Plan 78-year-old gentleman was admitted with change in left eye vision about 14 8 hours on day of admission while he was driving. Approxi-1 to 1.5 hours, visual symptoms got worse and lost peripheral vision, unable to see his left arm and head to the side. NIH score was 2 Left eye hemianopsia -NIH on presentation was 2 and 1 at the time of my evaluation -Out of the window for tenecteplase -Patient with abnormal pupil exam--> unclear how much of this is chronic versus acute with previous eye surgery -MRI in a.m. 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 -Reported out as possible/questionable -Neuroconsultation -Will need outpatient follow-up Essential hypertension/hyperlipidemia -Patient is statin intolerant -Hold home antihypertensives for now and allow for permissive hypertension given above concern for stroke -As needed antihypertensives per stroke protocol Hypothyroidism -Continue home levothyroxine -Check TSH DM-2 -Check hemoglobin A1c -Hold home oral agents -SSI -Accu-Cheks as ordered BPH with obstruction -Continue home Flomax Memory impairment -Continue home memantine -Continue home donepezil -Patient was alert and oriented x 3 on admission Depression -Continue home Lexapro History of tobacco abuse -No current use -Ongoing cessation DVT prophylaxis -Lovenox subcu 40 mg daily CODE STATUS -Verified as full code in the emergency department prior to admission
[2024-02-06 07:45] VITALS: O2SAT 96
[2024-02-06 08:00] LABS: Hemoglobin A1c 6.8 % (3.8-5.6)
[2024-02-06 09:15] VITALS: BP 155/59; PULSE 51; RESP 18; TEMP 36.7; O2SAT 97
[2024-02-06] MEDS: Tamsulosin HCl 0.4 MG Capsule PO (09:16)
[2024-02-06] MEDS: Escitalopram Oxalate 10 MG Tablet 5 MG PO (09:16)
[2024-02-06] MEDS: Aspirin 81 MG TAB.CHEW PO (09:16)
[2024-02-06] MEDS: Clopidogrel Bisulfate 75 MG Tablet PO (09:16)
[2024-02-06] MEDS: Memantine Hydrochloride 10 MG Tablet PO (09:16)
[2024-02-06] MEDS: Cholecalciferol (VIT D3) 25 MCG TABLET (1,000 UNITS) 50 MCG PO (09:17)
--- NOTE | 2024-02-06 10:00 | MRI_ITS ---
EXAM: MR HEAD WITHOUT INTRAVENOUS CONTRAST CLINICAL INDICATION: stroke TECHNIQUE: Multiplanar and multisequence MR images of the brain were obtained without intravenous contrast. COMPARISON: CT brain 02/05/2024 FINDINGS: BRAIN AND EXTRA-AXIAL SPACES: No restricted diffusion to indicate acute ischemia. Brain signal intensity is normal. No hemorrhage or mass effect. Ventricles and cortical sulci are prominent in size related to volume loss change commensurate with the patient''s age. Posterior fossa is normal. Basal cisterns are patent. SELLA: Normal. Normal sella turcica, pituitary gland, infundibular stalk, optic chiasm and hypothalamus. AUDITORY SYSTEM: Normal. The internal auditory canals are patent. BONES/JOINTS: Intact calvarium. SINUSES: Unremarkable as visualized. Clear. MASTOID AIR CELLS: Clear. ORBITS: Deformity of the left globe related to surgical banding. VASCULATURE: Unremarkable as visualized. Normal flow voids in the major intracranial circulation. MRI/Brain without Contrast IMPRESSION: No acute intracranial abnormality. Electronically Signed: Kevyn Salazar MD at 11:53 EST ,
[2024-02-06 11:58] LABS: Bedside Glucose 285 mg/dL (74-106)
--- NOTE | 2024-02-06 13:08 | CON.PCM.NE_ITS ---
Assessment and Plan: Stroke Assessment/Plan ASSESSMENT/PLAN: DWI negative TIA 1) Recommend TTE to complet TIA work-up. If TTE negative, can DC home 2) Asa/plavix x 21 days, then stop plavix and continue Asa only thereafter 3) Recommend starting lipitor 4) Follow-up in outpatient neurology clinic. Primary team messaged on backline. HPI Consult Data Date of Consult: 02/06/24 HPI Narrative HPI Narrative: RAMONA BURGESS is a 78 yo RH M with a history of DM HTN HL CAD s/p stent (on home Asa) who at [address] while driving developed decreased vision on the left (out of focus/blurry) to the point where he could not see his own hand. He presented to [place] [facility]. CT brain negative. CTA head/neck negative. He was admitted to medicine. LDL 106, HgbA1c 6.8. MRI brain DWI negative. This morning he feels back to baseline (episode lasted ~4hrs). He is on Asa/plavix. Neurological examination shows nonfocal exam.NIHSS-0. TTE completed, awaiting report. [facility] Medical History Basal cell carcinoma Acute maxillary sinusitis, unspecified Asthma Hay fever Skin cancer STEMI (ST elevation myocardial infarction) Essential hypertension Hyperlipidemia Atherosclerosis of coronary artery of [place] heart without angina pectoris CKD (chronic kidney disease) Type 2 diabetes mellitus without complication Vitamin D deficiency Mild cognitive impairment Home Medications ?Medication ?Instructions ?Recorded ?Last Taken ?Type aspirin 81 mg chewable tablet 81 mg PO DAILY@0800 07/14/19 Unknown History cholecalciferol (vitamin D3) 50 2,000 unit PO DAILY 07/14/19 Unknown History mcg (2,000 unit) capsule glimepiride 4 mg tablet 4 mg PO DAILY 07/14/19 Unknown History memantine 10 mg tablet 10 mg PO QAM 03/02/23 Unknown History metoprolol succinate 50 mg 50 mg PO DAILY 03/02/23 Unknown History tablet,extended release 24 hr escitalopram oxalate 5 mg tablet 5 mg PO QDAY 09/01/23 Unknown History levothyroxine 50 mcg tablet 50 mcg PO QDAY 09/01/23 Unknown History losartan 100 mg tablet 100 mg PO DAILY #90 tabs 09/01/23 Unknown Rx tamsulosin 0.4 mg capsule 0.4 mg PO BID 09/01/23 Unknown History donepezil 5 mg tablet 5 mg PO QHS 02/05/24 Unknown History Allergy/AdvReac Type Severity Reaction Status Date / Time fish derived Allergy Intermediate Throat Verified 02/05/24 20:51 swells Penicillins Allergy Hives Verified 02/05/24 20:51 [id number] Reductase AdvReac Intermediate myalgias Verified 02/05/24 20:51 Inhibitor (Pwjpjki-Jrq-Mhq Reductase Inhibitor) Family History Father ALS (amyotrophic lateral sclerosis) Mother Heart disease Breast cancer CVA (cerebral vascular accident) Diabetes Sister Cancer Uterine cancer Surgical History History of carpal tunnel surgery of right wrist (~2023) History of nasal surgery History of left cataract extraction History of elbow surgery History of coronary artery stent placement (09/17/14) 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) History of eye surgery History of right cataract extraction Social History Smoking Status: Former smoker how long ago did patient quit smokin years ago alcohol intake: current alcohol intake frequency: a few times a week Alcohol type: wine substance use type: does not use caffeine: Yes Type: coffee Number of servings: 1 Vital Signs Vital Signs Vital Signs: 02/05/24 20:15 02/05/24 20:16 02/05/24 20:17 Temperature 98.2 F Temperature Source Oral Pulse Rate 59 L 59 L 89 Respiratory Rate 14 18 16 Respiratory Effort Respiratory Depth Respiratory Pattern Blood Pressure 183/67 H 178/63 H 183/67 H Blood Pressure Mean 105 101 105 Blood Pressure Source Blood Pressure Position Blood Pressure Location Pulse Ox 100 98 98 Oxygen Delivery Method Room Air Room Air Room Air 02/05/24 20:33 02/05/24 20:46 02/05/24 21:16 Temperature Temperature Source Pulse Rate 60 54 L Respiratory Rate 20 H 16 Respiratory Effort Respiratory Depth Respiratory Pattern Blood Pressure 182/55 H 138/97 H Blood Pressure Mean 97 110 Blood Pressure Source Blood Pressure Position Blood Pressure Location Pulse Ox 100 98 Oxygen Delivery Method Room Air Room Air Room Air 02/05/24 21:19 02/05/24 21:30 02/05/24 22:00 Temperature 98 F Temperature Source Pulse Rate 54 L 59 L 55 L Respiratory Rate 16 15 16 Respiratory Effort Respiratory Depth Respiratory Pattern Blood Pressure 138/97 H 158/64 H 185/57 H Blood Pressure Mean 110 95 99 Blood Pressure Source Blood Pressure Position Blood Pressure Location Pulse Ox 99 98 98 Oxygen Delivery Method Room Air 02/05/24 22:35 02/05/24 22:45 02/05/24 23:00 Temperature 97.3 F L Temperature Source Temporal Pulse Rate 50 L Respiratory Rate 16 Respiratory Effort Normal Non-Labored Respiratory Depth Normal Respiratory Pattern Normal Blood Pressure 197/66 H Blood Pressure Mean 109 Blood Pressure Source Monitor Blood Pressure Position Semi-Fowlers Blood Pressure Location Left Arm Pulse Ox 100 100 Oxygen Delivery Method Room Air Room Air Room Air 02/06/24 02:00 02/06/24 03:55 02/06/24 06:00 Temperature 97.5 F L 97.4 F L 97.4 F L Temperature Source Temporal Temporal Temporal Pulse Rate 54 L 53 L 52 L Respiratory Rate 18 18 18 Respiratory Effort Respiratory Depth Respiratory Pattern Blood Pressure 162/61 H 164/64 H 146/59 H Blood Pressure Mean 94 97 88 Blood Pressure Source Monitor Monitor Monitor Blood Pressure Position Semi-Fowlers Semi-Fowlers Semi-Fowlers Blood Pressure Location Left Arm Left Arm Left Arm Pulse Ox 98 97 100 Oxygen Delivery Method Room Air Room Air Room Air 02/06/24 07:32 02/06/24 09:15 Temperature 98.1 F Temperature Source Oral Pulse Rate 51 L Respiratory Rate 18 Respiratory Effort Normal Non-Labored Respiratory Depth Normal Respiratory Pattern Normal Blood Pressure 155/59 H Blood Pressure Mean 91 Blood Pressure Source Blood Pressure Position Blood Pressure Location Pulse Ox 97 Oxygen Delivery Method Room Air Room Air Weight Weight: 82.2 kg Body Mass Index (BMI) 28.3 NIHSS NIHSS Nursing Documentation NIHSS Nursing Documentation: NIHSS: Ischemic Stroke/TIA Start: 02/05/24 22:42 Text: For ICU Patients: NIH sroke scale at Status: Complete presentation and every 2 hours or with change in RN caregiver Freq: [id number] Protocol: Activity Type Activity Date Activity User E-sign Co-sign Detail Recorded Client Recorded Date Recorded By Document 02/05/24 22:35 MB [id number] 02/05/24 23:00 MB 02/05/24 22:35 NIH Stroke Scale [NIHSS] A score of 0 is normal or asymptomatic . Total possible score is 42. Inpatient: RN or Physician to activate a stroke alert for onset of new stroke symptoms or with NIHSS increase >/= 3 points. Following change in neurological status, NIHSS will be performed per physician order or more frequently PRN. -1a. Level of Consciousness Alert; keenly responsive -1b. LOC Questions Answers BOTH questions correctly. -1c. LOC Commands Performs both tasks correctly . -2. Best Gaze Normal -3. Visual Partial hemianopia -4. Facial Palsy Normal symmetrical movements -5a. Left Arm No drift; arm holds 90 (or 45 ) degrees for full 10 seconds -5b. Right Arm No drift; arm holds 90 (or 45 ) degrees for full 10 seconds -6a. Left Leg No drift; leg holds 30-degree position for full 5 seconds -6b. Right Leg No drift; leg holds 30-degree position for full 5 seconds -7. Limb Ataxia Absent -8. Sensory Normal; no sensory loss -9. Best Language No aphasia; normal -10. Dysarthria Normal -11. Extinction and Inattention No abnormality -Total 1 Query Text:A score of 0 is normal or asymptomatic. Total possible score is 42 . ED: Notify Physician for NIHSS increase by > / = 3 points. Inpatient: RN or Physician to activate a stroke alert for NIHSS increase of > / = 3 points. Coma Scale [Assess] -Eye Opening Spontaneous -Motor Obeys Commands -Verbal Oriented [Total] -Coma Scale Total 15 NIHSS: Ischemic Stroke/TIA Start: 02/05/24 22:42 Text: For PCU Patients: NIH and Neuro Check every 4 Status: Active hours, PRN and with change in RN caregiver. Freq: [id number] Protocol: Activity Type Activity Date Activity User E-sign Co-sign Detail Recorded Client Recorded Date Recorded By Document 02/06/24 09:15 MM desktop 02/06/24 09:15 MM 02/06/24 09:15 NIH Stroke Scale [NIHSS] A score of 0 is normal or asymptomatic . Total possible score is 42. Inpatient: RN or Physician to activate a stroke alert for onset of new stroke symptoms or with NIHSS increase >/= 3 points. Following change in neurological status, NIHSS will be performed per physician order or more frequently PRN. -1a. Level of Consciousness Alert; keenly responsive -1b. LOC Questions Answers BOTH questions correctly. -1c. LOC Commands Performs both tasks correctly . -2. Best Gaze Normal -3. Visual No visual loss -4. Facial Palsy Normal symmetrical movements -5a. Left Arm No drift; arm holds 90 (or 45 ) degrees for full 10 seconds -5b. Right Arm No drift; arm holds 90 (or 45 ) degrees for full 10 seconds -6a. Left Leg No drift; leg holds 30-degree position for full 5 seconds -6b. Right Leg No drift; leg holds 30-degree position for full 5 seconds -7. Limb Ataxia Absent -8. Sensory Normal; no sensory loss -9. Best Language No aphasia; normal -10. Dysarthria Normal -11. Extinction and Inattention No abnormality -Total 0 Query Text:A score of 0 is normal or asymptomatic. Total possible score is 42 . ED: Notify Physician for NIHSS increase by > / = 3 points. Inpatient: RN or Physician to activate a stroke alert for NIHSS increase of > / = 3 points. Coma Scale [Assess] -Eye Opening Spontaneous -Motor Obeys Commands -Verbal Oriented [Total] -Coma Scale Total 15 NIHSS 1a. Level of Consciousness: Alert; keenly responsive 1b. LOC Questions: Answers BOTH questions correctly. 1c. LOC Commands: Performs both tasks correctly. 2. Best Gaze: Normal 3. Visual: No visual loss 4. Facial Palsy: Normal symmetrical movements 5a. Left Arm: No drift; arm holds 90 (or 45) degrees for full 10 seconds 5b. Right Arm: No drift; arm holds 90 (or 45) degrees for full 10 seconds 6a. Left Leg: No drift; leg holds 30-degree position for full 5 seconds 6b. Right Leg: No drift; leg holds 30-degree position for full 5 seconds 7. Limb Ataxia: Absent 8. Sensory: Normal; no sensory loss 9. Best Language: No aphasia; normal 10. Dysarthria: Normal 11. Extinction and Inattention: No abnormality Total: 0 Physical Exam Neuro Neuro Narrative: General: The patient appears nutritionally appropriate, well-groomed, and appears comfortable in no acute distress. Mental Status: The patient?s mental status was normal including orientation. Language was intact. Cranial nerves: Visual weathers full, extra-ocular motion was intact. Face motion symmetric. Bilateral shoulder shrug was intact. Tongue was midline with normal movement. There was no dysarthria. Motor: Normal strength in all four extremities. No pronator drift. Sensation: Intact light touch bilaterally. Coordination: Bilateral finger to nose was normal. There was no dysmetria. Gait: deferred Lab / Micro Data 02/06/24 06:28 02/06/24 06:28 Labs: Laboratory Results - last 24 hr 02/05/24 20:21: POC Glucose 238 H 02/05/24 20:33: WBC 7.2, RBC 4.24 L, Hgb 12.2 L, Hct 36.5 L, MCV 86.1, MCH 28.8, MCHC 33.4, RDW Std Deviation 40.5, RDW Coeff of [place] 13.0, Plt Count 183, MPV 11.2, Immature Gran % (Auto) 0.400, Neut % (Auto) 69.7, Lymph % (Auto) 15.3 L, [place] % (Auto) 9.2, Eos % (Auto) 4.7, Baso % (Auto) 0.7, Absolute Neuts (auto) 5.0, Absolute Lymphs (auto) 1.10, Nucleated RBC % 0, PT 14.1, INR 1.1, APTT 28.3, Sodium 140, Potassium 4.1, Chloride 107, Carbon Dioxide 29.0, Anion Gap 4 L, BUN 21 H, Creatinine 1.11, Estim Creat Clear Calc 55.93, Est GFR (MDRD) Af Amer 82, Est GFR (MDRD) Non-Af 68, BUN/Creatinine Ratio 18.9, Glucose 180 H, Calcium 8.5, Troponin I High Sens 8 02/05/24 23:08: POC Glucose 131 H 02/06/24 06:28: WBC 7.9, RBC 4.25 L, Hgb 12.3 L, Hct 36.2 L, MCV 85.2, MCH 28.9, MCHC 34.0, RDW Std Deviation 39.9, RDW Coeff of [place] 13.0, Plt Count 178, MPV 10.9, Immature Gran % (Auto) 0.100, Neut % (Auto) 69.3, Lymph % (Auto) 15.9 L, [place] % (Auto) 9.5, Eos % (Auto) 4.6, Baso % (Auto) 0.6, Absolute Neuts (auto) 5.5, Absolute Lymphs (auto) 1.25, Nucleated RBC % 0, Sodium 139, Potassium 4.1, Chloride 109 H, Carbon Dioxide 28.0, Anion Gap 3 L, BUN 17, Creatinine 0.96, Estim Creat Clear Calc 64.02, Est GFR (MDRD) Af Amer 98, Est GFR (MDRD) Non-Af 81, BUN/Creatinine Ratio 17.8, Glucose 105, Hemoglobin A1c 6.8 H, Calcium 8.9, Phosphorus 3.4, Magnesium 2.1, Total Bilirubin 0.60, AST 20, ALT 48, Alkaline Phosphatase 75, Total Protein 6.1 L, Albumin 3.1 L, Globulin 3.0, Albumin/Globulin Ratio 1.0, Triglycerides 131, Cholesterol 176, LDL Cholesterol 106, VLDL Cholesterol 26, HDL Cholesterol 44, TSH 2.960 02/06/24 06:42: POC Glucose 100 02/06/24 11:33: POC Glucose 285 H Imaging Radiology Impression Brain CT 02/05/24 20:16 IMPRESSION: No acute intracranial pathology Electronically Signed: Darius Erickson DO at 20:30 EST , ADDENDUM: 02/05/242037 IMPRESSION: No acute intracranial pathology N.B. : The above Results were Read Back by Darius Erickson DO to Dax Vicente DO, and understanding confirmed on 02/05/2024 20:31:47 (ET). 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 N.B. : The above Results were Read Back by Darius Erickson DO to Dariusz Castellanos MD, and understanding confirmed on 02/05/2024 21:16:52 (ET). Electronically Signed: Darius Erickson DO at 21:15 EST , Chest X-Ray 02/05/24 21:00 IMPRESSION: No radiographic evidence of acute cardiopulmonary disease. Electronically Signed: Darius Erickson DO at 21:19 EST , Echocardiogram 02/05/24 21:37 Interpretation Summary Normal LV size. Left ventricular systolic function is normal. The left ventricular ejection fraction is 55 %. Mean aortic valve gradient 23 mmHg. Mild to moderate aortic stenosis. Moderate concentric left ventricular hypertrophy. Ordering Physician: Shania Gutierrez Referring Physician: Donell Capps Performed By: Katelin Bullock RDCS Brain MRI 02/06/24 10:00 IMPRESSION: No acute intracranial abnormality. Electronically Signed: Kevyn Salazar MD at 11:53 EST , Active Medications Active Medications Active Medications: Current Medications Generic Name Dose Route Start Last Admin Trade Name Freq PRN Reason Stop Dose Admin Acetaminophen 650 mg 02/05/24 22:42 Acetaminophen 325 Mg Tablet PO Q6H PRN PRN Pain 1-10 Or Fever>100.7 Albuterol Sulfate 2.5 mg 02/05/24 22:42 Albuterol 2.5 Mg/3 Ml Vial.Neb. INHALATION Q2H PRN PRN SOB &/OR WHEEZING Aspirin 81 mg 02/06/24 08:00 02/06/24 09:16 Aspirin 81 Mg Tab.Chew PO 81 mg DAILY@0800 JOSE Administration Cholecalciferol 50 mcg 02/06/24 10:00 02/06/24 09:17 Cholecalciferol (Vit D3) 25 Mcg Tablet (1,000 Units) PO 50 mcg DAILY JOSE Administration Clopidogrel Bisulfate 75 mg 02/06/24 10:00 02/06/24 09:16 Clopidogrel Bisulfate 75 Mg Tablet PO 75 mg DAILY JOSE Administration Donepezil HCl 5 mg 02/05/24 22:42 02/05/24 23:12 Donepezil Hcl 5 Mg Tablet PO 5 mg QHS JOSE Administration Enoxaparin Sodium 40 mg 02/06/24 10:00 02/06/24 09:19 Enoxaparin 40 Mg/0.4 Ml Syringe SC Not Given DAILY JOSE Escitalopram Oxalate 5 mg 02/06/24 10:00 02/06/24 09:16 Escitalopram Oxalate 10 Mg Tablet PO 5 mg DAILY JOSE Administration Glucagon 1 mg 02/05/24 22:42 Glucagon 1 Mg/Ml Syringe IM X1 PRN HYPOGLYCEMIA Protocol Hydralazine HCl 5 mg 02/05/24 22:42 Hydralazine 20 Mg/Ml Vial IV 02/06/24 22:42 Q30M PRN maintain BP parameters with HR <60 Dextrose 250 mls @ 0 mls/hr 02/05/24 22:42 Dextrose 10%-Water IV .Q0M PRN HYPOGLYCEMIA Protocol As Directed Sodium Chloride 100 mls @ 15 mls/hr 02/05/24 22:53 IV .Q6H40M PRN Saline Flush Sodium Chloride 100 mls @ 15 mls/hr 02/05/24 22:53 IV .Q6H40M PRN Additional IVPB Infusion Insulin Human Lispro 0 unit 02/06/24 07:00 02/06/24 06:44 Insulin Lispro 100 Unit/Ml Insuln.Pen SC Not Given TIDAC [facility] Protocol Labetalol HCl 10 - 20 mg 02/05/24 22:42 Labetalol 20mg/4ml Syringe IV 02/06/24 22:42 Q10M PRN PRN maintain BP parameters with HR >/=60 Levothyroxine Sodium 50 mcg 02/06/24 06:00 02/06/24 06:45 Levothyroxine 50 Mcg Tablet PO 50 mcg DAILY@0600 [facility] Administration Melatonin 3 mg 02/05/24 22:42 Melatonin 3 Mg Tablet PO QHS PRN PRN INSOMNIA Memantine 10 mg 02/06/24 10:00 02/06/24 09:16 Memantine Hydrochloride 10 Mg Tablet PO 10 mg DAILY [facility] Administration Ondansetron HCl 4 mg 02/05/24 22:42 Ondansetron 4 Mg/2 Ml Vial IV Q8H PRN PRN NAUSEA/VOMITING Senna/Docusate Sodium 2 tablet 02/05/24 22:42 Senna/Docusate Sodium 1 Tablet PO BID PRN PRN Constipation Sodium Chloride 10 - 40 ml 02/05/24 22:53 0.9% Saline Lock 10 Ml Syringe IV UD PRN SALINE FLUSH Tamsulosin HCl 0.4 mg 02/05/24 22:42 02/06/24 09:16 Tamsulosin Hcl 0.4 Mg Capsule PO 0.4 mg BID JOSE Administration
[2024-02-06 13:15] VITALS: BP 139/59; PULSE 53; RESP 18; TEMP 36.8; O2SAT 97
--- NOTE | 2024-02-06 13:20 | CASEMGMT ---
RN CM Face to Face with patient for initial transition planning/care coordination assessment. RN CM introduced self and role at [facility]. Patient lying in bed, alert and oriented. Patient willing to participate in assessment and is able to answer all questions appropriately. Care providers, pharmacy, and demographics verified. Strata: 2 PCP: G[facility]is Specialists: Jinny neurologist Preferred Pharmacy: [facility] Insurance: [employer] Prescription Benefit: yes Living Will/HPOA: yes, Zenaida Cobos LNOK: , children Living Arrangements: Patient lives with in a single story home with 3 steps and railing to enter the home. Patient states he is independent at home. Transportation: self, DME/HHC: Patient has raised toilet at home. No previous HHC or SNF Patient wishes to discharge home, denies need for home health at this time. Patient states he has no further needs or concerns at this time. CM to follow for discharge planning needs that may arise. Disposition Plan: Patient to discharge home with family support and follow-up plans in place. Hoa COBOS, RN, CM
--- NOTE | 2024-02-06 14:09 | PCM.DC ---
Discharge Instructions Diet Discharge Diet: No restrictions and 2000 mg Sodium Diet DC O2, CPAP, BIPAP needs Home O2 Discharge instructions: No Dressing / Incision Discharge Activity: Return to Normal Activity Weight Bearing Status: Weight bearing as tolerated Dressing / Incision Call your doctor if you observe: Fever of 101 or Higher, Coldness, Increased Pain, Numbness or Tingling, Change in Color, Inability to urinate, Inability to have a bowel movement, Shortness of breath, Dizziness, Fainting spells, Swelling in the ankles, Chest pain, Prolonged hiccupping, Increased palpitations (irregular heartbeat) and Calf discomfort Follow Up Care When: IN 2 WEEKS Test Results: Test results from this visit will be discussed in further detail at your follow-up appointment, if applicable. Discharge Plan Admission Admit Date/Time: 02/05/24 21:17 Primary Reason for Your Visit: Left eye peripheral vision loss Attending Provider: Lorenzo Gatica Primary Care Provider: Donell Capps Consulting Providers: Raymond Staples; Jacob Silva; Chelsy Castano; Amrita Ballard; Claudia Dunlap; Donaldo Childress; Julieta Elmore; Eugenio Ochoa; Reese Sanders; Oliverio Berman; Khadra Trotter; Morgan Smith; Brisa Brooks; Brigitte Jeff; Tracee Magdaleno; Oliver Mccormick; Bhavesh Borja; Skyler Steele; Aparna Gutierrez; Miguel Angel Rodriguez; Shania Gutierrez Instructions Additional Instructions / Restrictions: Follow-up [facility]. Discharge Orders/Prescriptions Prescriptions: New clopidogrel [Plavix] 75 mg tablet 75 mg PO DAILY 21 Days Qty: 21 0RF rosuvastatin 10 mg capsule, sprinkle 10 mg PO QHS 30 Days Qty: 30 2RF Rx Instructions: low-dose start because of myalgia with statin Continued memantine 10 mg tablet 10 mg PO QAM metoprolol succinate 50 mg tablet extended release 24 hr 50 mg PO DAILY tamsulosin 0.4 mg capsule 0.4 mg PO BID levothyroxine 50 mcg tablet 50 mcg PO QDAY escitalopram oxalate 5 mg tablet 5 mg PO QDAY losartan 100 mg tablet 100 mg PO DAILY Qty: 90 3RF glimepiride 4 MG tablet 4 mg PO DAILY aspirin 81 MG tablet,chewable 81 mg PO DAILY@0800 cholecalciferol (vitamin D3) 2,000 UNIT capsule 2,000 unit PO DAILY donepezil 5 mg tablet 5 mg PO QHS Referrals / Follow Up: Donell Capps DO [Primary Care Provider] - Juancho Jackson MD [Non-Staff -Ordering Privileges] - Within 1 Month Disposition Disposition (needs filled in before D/C Order can be placed): Home, Self Care
[2024-02-06 15:12] VITALS: BMI 28.3
--- NOTE | 2024-02-06 15:22 | PCM.DC.SUM ---
Providers Date of Admission: 02/05/24 Date of Discharge: 02/06/24 Primary Care Physician: Dr. Donell Capps, DO Consultations 02/05/24 22:42 Consult: Tele-Neurology Routine Consulting Provider: [facility] Reason for Consult: Acute Ischemic Stroke/TIA EMERGENT Consult: No MD Notified: Yes Date Notified: 02/05/24 Time Notified: 23:01 Method of Notification: Answering Service Nursing Unit Staff Notify [facility] of Tele-Neurology Consult: Yes Reason For Visit: VISUAL FIELD CUT Diagnosis Discharge Diagnosis (1) Left homonymous hemianopsia: Status: Acute Code(s): H53.462 - Homonymous bilateral field defects, left side Plan 78-year-old gentleman was admitted with change in left eye vision that started about 1400 hrs. lasted for 1.25-1.5 hours on day of admission while he was driving. NIH score was 2 Left eye hemianopsia, most likely due to ophthalmic cause: Patient was admitted in PCU. He has a history of left eye retinal detachment in the past and had mild left inferior quadrant loss from that but got worse on the day of admission. The patient vision was back to to his baseline in about 4 hours. On exam it seems she is on the baseline and wheezing came back Patient had MRI brain, DWI was negative for acute stroke/infarct. CT head and neck negative. 2D echo was negative for ASD. Mild TR, mild to moderate with mean AV gradient 23 mmHg. Neurologist recommended aspirin and Plavix for 21 days and then continue aspirin indefinitely. Patient has history of myalgia with statin therefore started on low-dose water-soluble rosuvastatin 10 mg daily. LDL 106. A1c 6.8. TSH normal. Essential hypertension/hyperlipidemia -Patient is statin -Hold home antihypertensives for now and allow for permissive hypertension given above concern for stroke -As needed antihypertensives per stroke protocol Hypothyroidism -Continue home levothyroxine TSH DM-2: A1c 6.8. Glucose was controlled. Patient at home is on glimepiride, resumed on BPH with obstruction -Continue home Flomax , Anxiety and depression memory impairment -Continue home memantine -Continue home donepezil -Patient was alert and oriented x 3 on admission DVT prophylaxis -Lovenox subcu 40 mg daily CODE STATUS Full code Discharge medication reconciliation done. Discharge follow-up instructions completed. Discharge process discussed with the patient and all questions were answered to patient's satisfaction. Follow with PCP in 1 to 2 weeks Total time spent, exact 35 minutes on discharge meds reconciliation, examination, coordination of care with nurses and ancillary staff, review of imaging and blood test and discussion with the patient on follow-up instructions. Medications at Discharge Home Medications aspirin 81 mg chewable tablet 81 mg PO DAILY@0800 07/14/19 cholecalciferol (vitamin D3) 50 mcg (2,000 unit) capsule 2,000 unit PO DAILY 07/14/19 glimepiride 4 mg tablet 4 mg PO DAILY 07/14/19 memantine 10 mg tablet 10 mg PO QAM 03/02/23 metoprolol succinate 50 mg tablet,extended release 24 hr 50 mg PO DAILY 03/02/23 escitalopram oxalate 5 mg tablet 5 mg PO QDAY 09/01/23 levothyroxine 50 mcg tablet 50 mcg PO QDAY 09/01/23 losartan 100 mg tablet 100 mg PO DAILY #90 tabs 09/01/23 tamsulosin 0.4 mg capsule 0.4 mg PO BID 09/01/23 donepezil 5 mg tablet 5 mg PO QHS 02/05/24 clopidogrel 75 mg tablet (Plavix) 75 mg PO DAILY 3 weeks #21 tabs 02/06/24 rosuvastatin 10 mg sprinkle capsule 10 mg PO QHS 1 month #30 caps 02/06/24 Physical Exam Narrative Seen and examined Patient has history of left eye retinal detachment in the past and surgery. Physical exam General: Alert, Oriented x3, Cooperative HEENT: Left pupil is irregular, abnormal shape but reactive. Right eye pupil is in normal limit. Atraumatic, left peripheral vision recovered, mild left inferior quadrant chronic deficit Oral: No Gingival or Mucosal Lesions/ Ulcerations Neck: Supple, No JVD, Negative Carotid Bruits Chest wall/Lungs: Air entry diminished in bilateral lung bases. No crepitation/rhonchi Cardiovascular: Regular rate, Regular Rhythm, Normal S1, Normal S2, No M/G/R Abdomen: Bowel Sounds Present, Soft, Non Tender, Non-Distended : No dysuria. No renal angle tenderness. No suprapubic tenderness. Extremities: No edema, Capillary Refill Less than 3 Seconds Skin: No rashes, No breakdown Musculoskeletal: No Tenderness to Palpation of Joints or Extremities. ROM intact. Muscle strength 5/5 at major joints Neurological: Cranial nerves II-XII grossly intact, DTR 2+/4. Psych/Mental Status: Normal Affect, Appropriate. Weight / BMI Weight Weight: 181 lb 3.52 oz Body Mass Index (BMI) 28.3 ABG / Lab / Microbiology Data 02/06/24 06:28 02/06/24 06:28 Laboratory: Laboratory Results - last 24 hr 02/05/24 20:21: POC Glucose 238 H 02/05/24 20:33: WBC 7.2, RBC 4.24 L, Hgb 12.2 L, Hct 36.5 L, MCV 86.1, MCH 28.8, MCHC 33.4, RDW Std Deviation 40.5, RDW Coeff of Ford 13.0, Plt Count 183, MPV 11.2, Immature Gran % (Auto) 0.400, Neut % (Auto) 69.7, Lymph % (Auto) 15.3 L, Hopkins % (Auto) 9.2, Eos % (Auto) 4.7, Baso % (Auto) 0.7, Absolute Neuts (auto) 5.0, Absolute Lymphs (auto) 1.10, Nucleated RBC % 0, PT 14.1, INR 1.1, APTT 28.3, Sodium 140, Potassium 4.1, Chloride 107, Carbon Dioxide 29.0, Anion Gap 4 L, BUN 21 H, Creatinine 1.11, Estim Creat Clear Calc 55.93, Est GFR (MDRD) Af Amer 82, Est GFR (MDRD) Non-Af 68, BUN/Creatinine Ratio 18.9, Glucose 180 H, Calcium 8.5, Troponin I High Sens 8 02/05/24 23:08: POC Glucose 131 H 02/06/24 06:28: WBC 7.9, RBC 4.25 L, Hgb 12.3 L, Hct 36.2 L, MCV 85.2, MCH 28.9, MCHC 34.0, RDW Std Deviation 39.9, RDW Coeff of Ford 13.0, Plt Count 178, MPV 10.9, Immature Gran % (Auto) 0.100, Neut % (Auto) 69.3, Lymph % (Auto) 15.9 L, Hopkins % (Auto) 9.5, Eos % (Auto) 4.6, Baso % (Auto) 0.6, Absolute Neuts (auto) 5.5, Absolute Lymphs (auto) 1.25, Nucleated RBC % 0, Sodium 139, Potassium 4.1, Chloride 109 H, Carbon Dioxide 28.0, Anion Gap 3 L, BUN 17, Creatinine 0.96, Estim Creat Clear Calc 64.02, Est GFR (MDRD) Af Amer 98, Est GFR (MDRD) Non-Af 81, BUN/Creatinine Ratio 17.8, Glucose 105, Hemoglobin A1c 6.8 H, Calcium 8.9, Phosphorus 3.4, Magnesium 2.1, Total Bilirubin 0.60, AST 20, ALT 48, Alkaline Phosphatase 75, Total Protein 6.1 L, Albumin 3.1 L, Globulin 3.0, Albumin/Globulin Ratio 1.0, Triglycerides 131, Cholesterol 176, LDL Cholesterol 106, VLDL Cholesterol 26, HDL Cholesterol 44, TSH 2.960 02/06/24 06:42: POC Glucose 100 02/06/24 11:33: POC Glucose 285 H Radiography Diagnostic Testing: Radiology Impression Brain CT 02/05/24 20:16 IMPRESSION: No acute intracranial pathology Electronically Signed: Darius Erickson DO at 20:30 EST , ADDENDUM: 02/05/242037 IMPRESSION: No acute intracranial pathology N.B. : The above Results were Read Back by Darius Erickson DO to Dax Vicente DO, and understanding confirmed on 02/05/2024 20:31:47 (ET). 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 Electronically Signed: Darius Ericskon DO at 21:15 EST , ADDENDUM: 02/05/242122 IMPRESSION: Questionable 1 mm aneurysm at the junction of the anterior communicating and the right A2 segment.. N.B. : The above Results were Read Back by Darius Erickson DO to Dariusz Castellanos MD, and understanding confirmed on 02/05/2024 21:16:52 (ET). Electronically Signed: Darius Erickson DO at 21:15 EST , Chest X-Ray 02/05/24 21:00 IMPRESSION: No radiographic evidence of acute cardiopulmonary disease. Electronically Signed: Darius Erickson DO at 21:19 EST , Echocardiogram 02/05/24 21:37 Interpretation Summary Normal LV size. Left ventricular systolic function is normal. The left ventricular ejection fraction is 55 %. Mean aortic valve gradient 23 mmHg. Mild to moderate aortic stenosis. Moderate concentric left ventricular hypertrophy. Ordering Physician: Shania Gutierrez Referring Physician: Donell Capps Performed By: Katelin Bullock RDCS Brain MRI 02/06/24 10:00 IMPRESSION: No acute intracranial abnormality. Electronically Signed: Kevyn Salazar MD at 11:53 EST , D/C Instructions Discharge Diet: No restrictions and 2000 mg Sodium Diet Weight Bearing Status: Weight bearing as tolerated Call your doctor if you observe: Fever of 101 or Higher, Coldness, Increased Pain, Numbness or Tingling, Change in Color, Inability to urinate, Inability to have a bowel movement, Shortness of breath, Dizziness, Fainting spells, Swelling in the ankles, Chest pain, Prolonged hiccupping, Increased palpitations (irregular heartbeat) and Calf discomfort DC O2, CPAP, BIPAP Needs Home O2 Discharge instructions: No When: IN 2 WEEKS Meaningful Use Info Meaningful Use Meaningful Use Diagnoses (Choose all that apply): None applicable Ischemic Stroke Statin Dosing Therapy Reference: STATIN DOSE THERAPY REFERENCE: * Patients > 75 years receive moderate or high dose statin therapy. * Patients 75 years or YOUNGER should receive HIGH intensity statin dose unless contraindicated. You will be required to document reason for non-treatment if statin daily dose does not meet guidelines. HIGH DOSE STATIN THERAPY DAILY Atorvastatin > than or = to 40 mg Rosuvastatin > than or = to 20 mg Amlodipine + Atorvastatin > than or = to 2.5/40 mg Ezetimibe + Simvastatin 10/80 mg Simvastatin 80mg Discharge Plan Admission Admit Date/Time: 02/05/24 21:17 Primary Reason for Your Visit: Left eye peripheral vision loss Attending Provider: Lorenzo Gatica Primary Care Provider: Donell Capps Consulting Providers: Raymond Staples; Jacob Silva; Chelsy Castano; Amrita Ballard; Clauida Dunlap; Donaldo Childress; Julieta Elmore; Eugenio Ochoa; Reese Sanders; Oliverio Berman; Khadra Trotter; Morgan Smith; Brisa Brooks; Brigitte Jeff; Tracee Magdaleno New; Oliver Mccormick; Bhavesh Borja; Skyler Steele; Aparna Gutierrez; Miguel Angel Rodriguez; Shania Gutierrez Instructions Additional Instructions / Restrictions: Follow-up [facility]. Discharge Orders/Prescriptions Prescriptions: New clopidogrel [Plavix] 75 mg tablet 75 mg PO DAILY 21 Days Qty: 21 0RF rosuvastatin 10 mg capsule, sprinkle 10 mg PO QHS 30 Days Qty: 30 2RF Rx Instructions: low-dose start because of myalgia with statin Continued memantine 10 mg tablet 10 mg PO QAM metoprolol succinate 50 mg tablet extended release 24 hr 50 mg PO DAILY tamsulosin 0.4 mg capsule 0.4 mg PO BID levothyroxine 50 mcg tablet 50 mcg PO QDAY escitalopram oxalate 5 mg tablet 5 mg PO QDAY losartan 100 mg tablet 100 mg PO DAILY Qty: 90 3RF glimepiride 4 MG tablet 4 mg PO DAILY aspirin 81 MG tablet,chewable 81 mg PO DAILY@0800 cholecalciferol (vitamin D3) 2,000 UNIT capsule 2,000 unit PO DAILY donepezil 5 mg tablet 5 mg PO QHS Referrals / Follow Up: Donell Capps DO [Primary Care Provider] - Juancho Jackson MD [Non-Staff -Ordering Privileges] - Within 1 Month Disposition Disposition (needs filled in before D/C Order can be placed): Home, Self Care Charges/Coding Visit Charges Inpatient E&M: 71608 Disch Hosp >30min
--- NOTE | 2024-02-06 15:28 | CHAPLAIN ---
Type of Pastoral Visit _x__ Initial Visit ___ Follow-up Visit ___ On-call Visit ___ General Patient Visit ___ Spiritual Assessment ___ Family Conference ___ Bereavement ___ Rapid Response ___ Code Blue ___ Other (describe below) Pastoral Care Referral From _x__ Patient ___ Family ___ Nurse ___ Physician ___ Communicable Disease Specialist ___ Income Tax Auditor ___ Other (describe below) Sacrament/Intervention _x__ Active listening ___ Anointing ___ Protestant ___ Bereavement ___ Communion ___ Maribeth exploration ___ ___ Life review ___ Prayer ___ Reconciliation ___ Sacrament of Sick _x__ Supportive presence ___ Wedding ___ Other (describe below) Pastoral Comments patient has been met before and he reviews what had happened that brought him to the hospital; spouse and son are in the room; patient gives longer explanation of current life and his work which he enjoys in '[employer]'; offer of support and prayer; several phone calls and interruptions came and the visit ended
== END 2024-02-06 16:43 | disposition home or self-care (01) | DRG 123 ==
LOC: ED 21:22 → PCU 21:49
PROVIDERS: Admitting Provider Internal Medicine; Emergency Provider Emergency Medicine; PCP Family Medicine; Visit Provider Internal Medicine
DX: H53.462 Homonymous bilateral field defects, left side (principal); N13.8 Other obstructive and reflux uropathy; I67.1 Cerebral aneurysm, nonruptured; E11.22 Type 2 diabetes mellitus with diabetic chronic kidney disease; I12.9 Hypertensive chronic kidney disease with stage 1 through stage 4 chronic kidney disease, or unspecified chronic kidney disease; N18.9 Chronic kidney disease, unspecified; E03.9 Hypothyroidism, unspecified; F32.A Depression, unspecified; E78.5 Hyperlipidemia, unspecified; I25.10 Atherosclerotic heart disease of native coronary artery without angina pectoris; H57.02 Anisocoria; F41.9 Anxiety disorder, unspecified; N40.1 Benign prostatic hyperplasia with lower urinary tract symptoms; Z79.02 Long term (current) use of antithrombotics/antiplatelets; Z79.82 Long term (current) use of aspirin; Z79.84 Long term (current) use of oral hypoglycemic drugs; Z79.890 Hormone replacement therapy; Z87.891 Personal history of nicotine dependence; Z98.41 Cataract extraction status, right eye; Z98.42 Cataract extraction status, left eye; Z86.69 Personal history of other diseases of the nervous system and sense organs; Z95.1 Presence of aortocoronary bypass graft; Z95.5 Presence of coronary angioplasty implant and graft
CPT/HCPCS: 36415; 70450; 70496; 70498; 70551; 71045; 80048; 80053; 80061; 82962; 83036; 83735; 84100; 84443; 84484; 85025; 85610; 85730; 93005; 93306; 94762; 97802; 99285; Q9967

== ENCOUNTER → 2024-02-16 | Outpatient (CLI) | payer MEDICARE, SELFPAY ==
--- NOTE | 2024-02-16 08:08 | CDU_ITS ---
Reason For Study: Amaurosis Fugax Rt. Velocities/BP Lt. Velocities/BP Prox CCA 96/9 cm/sec. Prox CCA 212/12 cm/sec. Mid CCA 90/12 cm/sec. Mid CCA 177/12 cm/sec. Dist CCA 73/13 cm/sec. Dist CCA 88/16 cm/sec. Prox ICA 96/22 cm/sec. Prox ICA 140/21 cm/sec. Mid ICA 85/17 cm/sec. Mid ICA 111/17 cm/sec. Dist ICA 89/22 cm/sec. Dist ICA 115/30 cm/sec. Rt. ICA/CCA = 1.1. Lt. ICA/CCA = 0.8. Prox ECA 88/3 cm/sec. Prox ECA 69/4 cm/sec. Rt. Vert. 61/13 cm/sec. Lt. Vert. 51/11 cm/sec. Right Extracranial There is intimal thickening but no significant atherosclerotic plaque noted in the right common carotid artery. There is heterogeneous, irregular atherosclerotic plaque noted in the right internal carotid artery. There is heterogeneous, irregular atherosclerotic plaque noted in the right external carotid artery. Antegrade flow is noted in the right vertebral artery. Left Extracranial There is heterogeneous, irregular atherosclerotic plaque noted in the left common carotid artery. There is heterogeneous, irregular atherosclerotic plaque noted in the left internal carotid artery. There is intimal thickening but no significant atherosclerotic plaque noted in the left external carotid artery. Antegrade flow is noted in the left vertebral artery. Procedure Carotid Duplex 95141. This is a Carotid Duplex examination using B-mode, color flow and specral Doppler. Exam performed in department. VL/Carotid Duplex Ultrasound Interpretation Summary Mild (<50%) stenosis right extracranial internal carotid. Moderate (50-69%) stenosis left extracranial internal carotid. Patent and antegrade vertebrals bilaterally. Ordering Physician: Wilian Foster Referring Physician: Donell Capps Performed By: Yancy Pearson, RDCS, RVT
== END | disposition home or self-care (01) ==
LOC: CVS 08:01
PROVIDERS: PCP Family Medicine; Referring Provider Ophthalmology; Visit Provider Ophthalmology
DX: G45.3 Amaurosis fugax (principal)
CPT/HCPCS: 93880

== ENCOUNTER 2024-06-17 08:17 | Emergency (ER) | payer MEDICARE, SELFPAY ==
[2024-06-17 08:21] VITALS: BP 113/87; PULSE 50; RESP 16; TEMP 36.5; O2SAT 99; BMI 29.1
--- NOTE | 2024-06-17 08:53 | CT_ITS ---
EXAM: NONCONTRAST CT SCAN OF THE HEAD CLINICAL HISTORY: Confusion, visual changes COMPARISON: February 06, 2024 MRI TECHNIQUE: Serial axial series through the head were obtained without contrast. 2-D coronal and sagittal reformats were then obtained. DLP = 745.49 mGy-cm, radiation dose lowering protocol was performed. FINDINGS: Brain: There is no acute large territorial infarct, intracranial hemorrhage, midline shift or mass effect. There are atherosclerotic vascular calcifications involving the bilateral carotid siphons. The sella and pineal gland regions appear unremarkable. There is no evidence of cerebellar tonsillar herniation. Ventricles: There is no acute hydrocephalus. Basilar cisterns are patent. Mastoid air cells: Well-aerated. Calvarium: The bony calvarium is intact. Orbits: Postsurgical change is noted in the left globe. Mucosal thickening is visible in the left maxillary sinus. CT/Brain/Head without Contrast IMPRESSION: Postsurgical change is noted in the left globe. Mucosal thickening is visible in the left maxillary sinus. No acute intracranial abnormality is identified. Reading Location: [facility]
--- NOTE | 2024-06-17 08:53 | EX.ED.VIS.HA ---
HPI History of Present Illness Chief Complaint: Headache Informant: patient and spouse/S.O. Onset/Context/Timing Onset: Weeks (3) Context: Sudden Timing: Continuous Quality -Headache: Positive for Throbbing Location: Left temporal/parietal area Worsened by: Bright lights Relieved by: Nothing Associated Symptoms/Injury Associated Symptoms: Positive for Blurred Vision; Negative for Fever, Nausea, Vomiting, Sore Throat, Sinus Pressure, Numbness, Tingling, Preceding Aura, Photophobia or Visual Loss Injury - JENNINGS: Positive for Direct Trauma Narrative Narrative: Patient presents with a headache that has been persistent for the past 3 weeks. Patient states he hit his head on an x-ray machine while he was getting x-rays for his hand. Patient was scheduled to have carpal tunnel surgery of his left wrist today but was referred to the emergency department due to the headache and recent head injury. Patient states his pain is throbbing. Patient states it is a localized to the left side of his head. Patient states it is worse with lights. Patient states he has been having some dizziness and increased sleepiness. Patient also admits to some blurred vision out of his left eye. Patient denies any visual loss or scotomas. Patient denies any nausea or vomiting. [facility] Medical History Basal cell carcinoma Acute maxillary sinusitis, unspecified Asthma Hay fever Skin cancer STEMI (ST elevation myocardial infarction) Essential hypertension Hyperlipidemia Atherosclerosis of coronary artery of [place] heart without angina pectoris CKD (chronic kidney disease) Type 2 diabetes mellitus without complication Vitamin D deficiency Mild cognitive impairment Home Medications ?Medication ?Instructions ?Recorded ?Last Taken ?Type aspirin 81 mg chewable tablet 81 mg PO DAILY@0800 07/14/19 Unknown History glimepiride 4 mg tablet 4 mg PO DAILY 07/14/19 Unknown History metoprolol succinate 50 mg 50 mg PO DAILY 03/02/23 Unknown History tablet,extended release 24 hr escitalopram oxalate 5 mg tablet 5 mg PO QDAY 09/01/23 Unknown History levothyroxine 50 mcg tablet 50 mcg PO QDAY 09/01/23 Unknown History losartan 100 mg tablet 100 mg PO DAILY #90 tabs 09/01/23 Unknown Rx tamsulosin 0.4 mg capsule 0.4 mg PO BID 09/01/23 Unknown History antiarthritic combination no.2 900 mg PO 03/05/24 Unknown History mg tablet (glucosamine-chondroitin) cholecalciferol (vitamin D3) 50 1,000 unit PO DAILY 03/05/24 Unknown History mcg (2,000 unit) capsule cyanocobalamin (vitamin B-12) 500 500 mcg PO QDAY 03/05/24 Unknown History mcg tablet (B-12 DOTS) pyridoxine (vitamin B6) 100 mg 100 mg PO QDAY 03/05/24 Unknown History tablet donepezil 5 mg tablet 5 mg PO QDAY 03/28/24 Unknown History Allergy/AdvReac Type Severity Reaction Status Date / Time fish derived Allergy Intermediate Throat Verified 06/17/24 08:24 swells Penicillins Allergy Hives Verified 06/17/24 08:24 [id number] Reductase AdvReac Intermediate myalgias Verified 06/17/24 08:24 Inhibitor (Xxrxbee-Sko-Djt Reductase Inhibitor) Family History Father ALS (amyotrophic lateral sclerosis) Mother Heart disease Breast cancer CVA (cerebral vascular accident) Diabetes Sister Cancer Uterine cancer Surgical History History of carpal tunnel surgery of right wrist (~2023) History of nasal surgery History of left cataract extraction History of elbow surgery History of coronary artery stent placement (09/17/14) 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) History of eye surgery History of right cataract extraction Social History Smoking Status: Former smoker how long ago did patient quit smokin years ago alcohol intake: current alcohol intake frequency: a few times a week Alcohol type: wine substance use type: does not use caffeine: Yes Type: coffee Number of servings: 1 ROS ROS ED Constitutional Constitutional ED: Denies chills or fever(s) Eyes Eyes: Reports blurry vision left; Denies change in vision ENT ENT ED: Denies rhinorrhea or sore throat Cardiovascular Cardiovascular: Denies chest pain or palpitations Respiratory/Chest Respiratory/Chest: Denies cough or dyspnea Gastrointestinal Gastrointestinal: Denies nausea or vomiting Genitourinary Genitourinary ED: Denies dysuria or hematuria Musculoskeletal Musculoskeletal: Denies back pain or neck pain Integumentary Denies abscess or rash Neurologic Neurologic: Reports headache(s); Denies weakness Allergic/Immunologic Allergic/Immunologic ED: Denies mouth swelling or urticaria EXAM Physical Exam Const Vital Signs: 06/17/24 08:21 Temperature 97.7 F L Temperature Source Oral Pulse Rate 50 L Respiratory Rate 16 Blood Pressure 113/87 H Blood Pressure Mean 95 Pulse Ox 99 Oxygen Delivery Method Room Air Positive well nourished and well developed General Appearance ED: well developed and NAD HEENT Reports normocephalic HEENT Narrative: There is mild tenderness of the left temporal parietal area. There is no tenderness over the left temporal artery. There is no edema or ecchymosis. There is no bony crepitance or step-off noted. tenderness; Negative for temporal artery tenderness Eyes EOMs intact bilaterally Eyes Narrative: The left pupil was approximately 1 to 2 mm larger than the right. Both pupils are reactive to light. Funduscopic examination is benign. There is no papilledema noted. Neck supple and no JVD Resp normal respiratory effort and clear to auscultation bilaterally Cardio regular rhythm Rate: bradycardia Neuro oriented x3, CN's II-XII intact bilaterally and no sensory deficits noted [place] Coma Scale: document GCS findings Spontaneous Obeys Commands Oriented 15 Sensorium / Orientation: awake and alert Speech: speech normal Motor Exam: strength 5/5 throughout Psych mental status grossly normal MDM MDM MDM Narrative Medical decision making narrative: Differential diagnosis includes intracranial bleeding, concussion, and tension headache. CT scan of the brain will be obtained to assess for intracranial bleeding. Radiography Diagnostic Testing: CT scan of the brain was obtained. There is no acute intracranial abnormality. This was interpreted by the radiologist and was also independently reviewed by myself. Treatment and Re-Evaluation Narrative: Patient and family were advised of the findings. Patient was instructed to take Tylenol as needed for pain. Patient was instructed to follow-up with his primary care physician in 5 to 7 days. Patient and family understood and were agreeable with the plan. All questions were answered. Discharge Plan Triage Chief Complaint: Headache ED Provider: Shola Carmona Dx/Rx/DC Orders Clinical Impression: Closed head injury Instructions: ED Head Injury (Adult) Prescriptions: No Action metoprolol succinate 50 mg tablet extended release 24 hr 50 mg PO DAILY tamsulosin 0.4 mg capsule 0.4 mg PO BID levothyroxine 50 mcg tablet 50 mcg PO QDAY escitalopram oxalate 5 mg tablet 5 mg PO QDAY losartan 100 mg tablet 100 mg PO DAILY Qty: 90 3RF glucosamine-chondroitin 900 mg tablet PO cyanocobalamin (vitamin B-12) [B-12 DOTS] 500 mcg tablet 500 mcg PO QDAY pyridoxine (vitamin B6) 100 mg tablet 100 mg PO QDAY glimepiride 4 MG tablet 4 mg PO DAILY aspirin 81 MG tablet,chewable 81 mg PO DAILY@0800 cholecalciferol (vitamin D3) 50 mcg (2,000 unit) capsule 1,000 unit PO DAILY donepezil 5 mg tablet 5 mg PO QDAY Primary Care Provider: Donell Capps Referrals: Donell Capps DO [Primary Care Provider] - 5-7 Days Print Language: Greek Disposition Disposition: Home, Self Care
[2024-06-17 10:17] VITALS: BP 122/55; PULSE 50; RESP 16; TEMP 36.6; O2SAT 98
== END 2024-06-17 10:30 | disposition home or self-care (01) ==
PROVIDERS: Emergency Provider Emergency Medicine; PCP Family Medicine; Visit Provider Emergency Medicine
DX: S09.90XA Unspecified injury of head, initial encounter (principal); E11.22 Type 2 diabetes mellitus with diabetic chronic kidney disease; N18.9 Chronic kidney disease, unspecified; I25.10 Atherosclerotic heart disease of native coronary artery without angina pectoris; Z87.891 Personal history of nicotine dependence; I12.9 Hypertensive chronic kidney disease with stage 1 through stage 4 chronic kidney disease, or unspecified chronic kidney disease; E78.5 Hyperlipidemia, unspecified; W22.09XA Striking against other stationary object, initial encounter; Y92.89 Other specified places as the place of occurrence of the external cause; Z85.828 Personal history of other malignant neoplasm of skin; I25.2 Old myocardial infarction; Z79.82 Long term (current) use of aspirin; Z79.84 Long term (current) use of oral hypoglycemic drugs; Z79.899 Other long term (current) drug therapy; Z98.42 Cataract extraction status, left eye; Z95.5 Presence of coronary angioplasty implant and graft; Z98.41 Cataract extraction status, right eye
CPT/HCPCS: 70450; 99282

== ENCOUNTER → 2024-11-26 | Outpatient (CLI) | payer MEDICARE, SELFPAY ==
[2024-11-26 13:05] LABS: Hematocrit 35.5 % (40-54); Hemoglobin 12.3 g/dL (13.0-16.5); Mean Corp Hgb Conc 34.6 g/dL (32-36); Mean Corpuscular Volume 83.1 fL (80-94); Mean Platelet Vol. 11.2 fl (6.2-12.0); Platelet Count 278 K/mm3 (150-450); RBC Distribution Width CV 12.2 % (11.6-14.6); RBC Distribution Width SD 37.2 fl (35.1-43.9); Red Blood Count 4.27 M/mm3 (4.6-6.2); White Blood Count 7.8 K/mm3 (4.4-11.0)
--- OUTSIDE RECORDS SUMMARY | 2024-11-26 13:23 | XMS RPT_ITS | CCD ---
Author Organization [facility] Care Team Providers Care Cross Tie Turner Name Role Phone Matias Tierney Unavailable Basadriana, Mehmet G. Unavailable Ramona Nair Unavailable Unavailable Unavailable Unavailable Basaran, Mehmet G. Unavailable Unavailable Basaran, Mehmet Rich Unavailable Unavailab le Basaran, Mehmet Rich Unavailable Unavailab Ramona Rossi Primary Care Provider Unavailable Primary Care Provider Unavailabl e Basaran, Mehmet Rich Unavailable [phone] Yohana, Luis S. Primary Care Provider [phone] RAMONA NAIR Primary Care UnavailMEÑO Munson Admitting Unavailab MEÑO Villarreal Attending Unavailab le YOHANA, LUIS S. Primary Care Unavailable ROCHELLE RAMÍREZ Attending Unavailable YOHANA, LUIS S. Primary Care Unavailable YOHANA, LUIS S. Primary Care Unavailable JULIA MORENO Attending Unavailabl MEÑO Frazier Primary Care Unavailable STARLINGLEXIS Attending Unavailable YOHANA, LUIS S. Primary Care Unavailable YOHANA, LUIS S. Primary Care Unavailable STARLING LEXIS S Attending Unavailable STARLINGLEXIS S Attending Unavailable YOHANA, LUIS S. Primary Care Unavailable MEÑO VILLALTA Attending Unavailab MEÑO Reyes Primary Care Unavailable Basaran, Mehmet Rich Unavailable Meño Torres Primary Care Provider Yohana, Luis S. Primary Care Provider Mñeo Torres MD Primary Care Provider Meño Torres MD Primary Care Provider [phone] James Clark MD Primary Care Provider Dr. Meño Torres Referring Provider Roof PROPAGATOR, PROPAGATOR-C Gen Nunn Attending Provider Dr. Donell Capps Primary Care Provider [phone] Dr. Rinku Aguirre Attending Provider [phone] Rinku Aguirre Referring Provider [phone] Rinku Aguirre Other Provider Dr. Donell Capps Referring Provider TEMITOPE Bowen Attending Provider Dr. Donell Capps Primary Care Provider [phone] TEMITOPE Bowen Attending Provider Dr. Donell Capps Primary Care Provider [phone] RAMONA NAIR Attending Unavailable RAMONA NAIR Attending Unavailable Dr. Donell Capps Primary Care Provider Dr. Donell Capps Referring Provider Dr. Duong Reyes Attending Provider LATOYA YANES, MANOLOWELL Monse Primary Care Unavailabl e LATOYA DO~[id number], LATOYA AGUAYO B Attendi ng Unavailable LATOYA DO~[id number], LATOYA Shea Admitti ng Unavailable Dr. Donell Capps DO Primary Care Provider Amrita Giron Attending Provider Dr. Wilian Foster MD Referring Provider Dr. Donell Capps DO Referring Provider [phone] Dr. Duong Reyes MD Attending Provider Dr. Shola Carmona DO Emergency Provider Dr. Donell Capps DO Primary Care Provider Dr. Shola Carmona DO Attending Provider Dr. Donell Capps DO Referring Provider [phone] Lili PROPAGATOR-CGen Attending Provider Génesis, Donell Primary Care Unavailable Raymond Staples Consulting Unavailable Shania Gutierrez Admitting Unavailable Shania Gutierrez Attending Unavailable Adeli, Amir Consulting Unavailable Hinduja, Chelsy Consulting Unavailable Elio, Amrita Consulting Unavailable Zha, Claudia Consulting Unavailable Fior, Donaldo Consulting Unavailable Ramírez, Julieta Consulting Unavailable BitEugenio solo Consulting Unavailable Reese Sanders Consulting Unavailable Oliverio Berman Consulting Unavailable Khadra Trotter Consulting Unavailable Morgan Smith Consulting Unavailable Brisa Brooks Consulting Unavailable Brigitte Jeff Consulting Unavailable Tracee Magdaleno Consulting UnavailOliver Cueva Consulting Unavailable Bhavesh Borja Consulting Unavailable Skyler Steele Consulting Unavailable Aparna Gutierrez Consulting Unavailable Miguel Angel Rodriguez Consulting Unavailable Shania Gutierrez Consulting Unavailable Génesis, Donell Primary Care Unavailable Génesis, Donell Referring Unavailable Duong Reyes Attending Unavailable Shola Alvarado Attending Unavailable Génesis, Donell Primary Care Unavailable Chenevey, Wilian Referring Unavailable Génesis, Donell Primary Care Unavailable Rinku Aguirre Attending Unavailable Lorenzo Gatica Attending Unavailable En, Lorenzo Consulting Unavailable Génesis, Donell Primary Care Unavailable Génesis, Donell Referring Unavailable Roof Gen REID Attending Unavailable Génesis, Donell Referring Unavailable GénesisDonell Attending Unavailable Génesis, Donell Primary Care Unavailable Génesis, Donell Primary Care Unavailable Kristin, Wilian Referring Unavailable Amrita Whitt Attending Unavailable Génesis, Donell Primary Care Unavailable Shola Carmona Attending Unavailable Génesis, Donell Primary Care Unavailable Génesis, Donell Referring Unavailable Génesis, Donell Attending Unavailable Génesis, Donell Primary Care Unavailable Chenevey, Wilian Referring Unavailable Chenrafey Wilian Attending Unavailable Raymond Staples Consulting Unavailable Génesis, Donell Primary Care Unavailable Shania Gutierrez Admitting Unavailable En, Lorenzo Attending Unavailable Adeli, Amir Consulting Unavailable Hinduja, Chelsy Consulting Unavailable Elio, Amrita Consulting Unavailable Zha, Claudia Consulting Unavailable Fior, Donaldo Consulting Unavailable Julieta Elmore Consulting Unavailable Eugenio Ochoa Consulting Unavailable Reese Sanders Consulting Unavailable Oliverio Berman Consulting Unavailable Khadra Trotter Consulting Unavailable Morgan Smith Consulting Unavailable Brisa Brooks Consulting Unavailable Brigitte Jeff Consulting Unavailable Tracee Magdaleno Consulting UnavailOliver Cueva Consulting Unavailable Bhavesh Borja Consulting Unavailable Skyler Steele Consulting Unavailable Aparna Gutierrez Consulting Unavailable Miguel Angel Rodriguez Consulting Unavailable Shania Gutierrez Consulting Unavailable Yohan Santo MD Unavailable NONE, NONE Unavailable Unavailable Donell Capps DO A Unavailable [phone] Julia Cook MD Unavailable Milly Duron Unavailable [phone] Allergies Allergy Classification Reported Allergen(s) Allergy Type Date of Onset Reaction(s) Facility (20 sources) acetaminophen / HYDROcodone; Translations: [HYDROCODONE-ACET AMINOPHEN] Propensity to adverse reactions to drug 11-07-19 15 GI Intolerance [facility] Work Phone: (20 sources) Fish derivative ; Translations: [FISH DERIVED] Propensity to adverse reactions to drug 12-09-19 15 Throat swells [facility] Work Phone: (20 sources) Hmg-Coa Reductase Inhibitors (Statins); Translations: [CDSFJIC-XUK-CBG REDUCTASE INHIBITORS] Propensity to adverse reactions to drug 08-04-19 15 Other (See Comments) [facility] Work Phone: (20 sources) Penicillins; Translations: [PENICILLINS] Propensity to adverse reactions to drug 08-04-19 15 Hives [facility] Work Phone: (19 sources) evolocumab; Translations: [EVOLOCUMAB] Drug Allergy 08-23-19 18 Hives [facility] (20 sources) Grass pollen; Translations: [Unknown] Propensity to adverse reactions to drug 08-23-19 18 [facility] (19 sources) metFORMIN; Translations: [METFORMIN] Drug Allergy 08-23-19 18 Itching [facility] (19 sources) simvastatin; Translations: [SIMVASTATIN] Drug Allergy 08-23-19 18 Other (See Comments) [facility] (13 sources) Fish Oils; Translations: [FISH OIL] Drug Allergy 03-13-19 19 Itching [facility] (9 sources) HMG-CoA reductase inhibitor Drug Intolerance 05-24-19 Other: See Comments [facility] Work Phone: (9 sources) Penicillins Drug Allergy 01-16-20 Hives [facility] (1 source) ALLERGIES NOT ON FILE; Translations: [ALLERGIES NOT ON FILE] Propensity to adverse reactions (disorder) [facility] Repository (1 source) Penicillins Drug allergy (disorder) 09-26-19 [facility] Repository (1 source) Exgfhuc-Ggo-Rcb Reductase Inhibitor Drug allergy (disorder) 09-26-19 [facility] Repository (3 sources) Mold Extract Drug Allergy 06-17-19 [facility] (3 sources) Penicillin V Drug Allergy 03-18-19 [facility] (3 sources) Seafood Food allergy (disorder) 06-17-19 [facility] (3 sources) PLANT POLLENS Food allergy (disorder) 06-17-19 [facility] Medications Current Medications Medication Drug Class(es) Dates Sig (Normalized) Sig (Original) acetaminophen 325 mg / oxyCODONE hydrochloride 5 mg oral tablet (1 source) Opioid Agonist Start: 07-30-2017 End: 08-04-2017 take 1 tablet by mouth every six hours as needed for pain, then take 4 tablets by mouth as needed for pain oxyCODONE-acetaminop hen (PERCOCET) 5-325 mg per tablet Indications: Contusion of head, unspecified part of head, initial encounter , Laceration of right lower extremity, initial encounter Take 1 (one) tablet by mouth every 6 (six) hours as needed for pain (Days supply per fill: 4). 15 tablet 0 07/30/2017 08/04/2017 Active 1 ml alirocumab 75 mg/ml auto-injector (20 sources) PCSK9 Inhibitor Start: 11-18-2019 inject 1 mL by subcutaneous injection once alirocumab (Praluent Pen) 75 mg/mL injection Indications: Hyperlipidemia, unspecified hyperlipidemia type Inject 1 mL (75 mg total) under the skin every 14 (fourteen) days . 2 mL 11 11/18/2019 Active Start: 10-25-2019 End: 07-22-2022 Alirocumab (Praluent Pen) 75 mg/mL pen injector Discontinued 75 mg SC every 2 weeks October 25, 2019 12:00am July 22, 2022 1:48pm inject into abdomen, thigh, or upper arm (deltoid muscle); rotate sites Start: 09-26-2017 inject 1 mL by subcu taneous injection once alirocumab (PRALUENT PEN) 75 mg/mL injection Inject 1 mL (75 mg total) under the skin every 14 (fourteen) days. 2 mL 11 09/26/2017 Active aspirin 81 mg chewable tablet (20 sources) Nonsteroidal Anti-inflammatory Drug Start: 09-25-2024 take 2 tablets by mouth once daily Aspirin 81 mg tablet,chewable Active 162 mg PO DAILY@0800 September 25, 2024 10:57am Start: 07-14-2019 End: 09-25-2024 take 1 tablet by mouth once daily Aspirin 81 MG tablet,chewable Discontinued 81 mg PO DAILY@0800 July 14, 2019 12:00am September 25, 2024 10:58am Start: 10-27-2015 aspirin, enter ic coated (ASPIRIN, ENTERIC COATED) 81 mg EC tablet Take 81 mg by mouth. 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 calcipotriene 0.05 mg/ml topical cream (18 sources) Vitamin D Analog Start: 09-27-2017 calcipotriene (DOVONOX) 0.005 % cream End: 10-13-2017 calcipotriene (DOVONOX) 0.00 5 % ointment Apply topically 2 (two) times a day. 10/13/2017 Discontinued calcium ascorbate 500 mg oral tablet (2 sources) take 1 tablet by mouth once daily ascorbic acid (ascorbic acid with monet hips) 500 MG tablet Take 500 mg by mouth daily. 0 Active cholecalciferol 0.025 mg oral tablet (20 sources) Vitamin D Start: 09-25-2024 take 1 tablet by mouth once daily Cholecalciferol (Vitamin D3) 25 mcg (1,000 unit) tablet Active 25 ug PO daily September 25, 2024 12:00am Start: 03-05-2024 End: 09-25-2024 take 1 capsule by mouth once daily Cholecalciferol (Vitamin D3) 50 mcg (2,000 unit) capsule Discontinued 1000 U PO DAILY March 05, 2024 3:03pm September 25, 2024 10:57am Start: 07-14-2019 End: 03-05-2024 take 1 capsule by mouth once daily Cholecalciferol (Vitamin D3) 2,000 UNIT capsule Discontinued 2000 U PO DAILY July 14, 2019 12:00am March 05, 2024 3:11pm take 2 tablets by mo ut once daily cholecalciferol, vitamin D3, 1,000 unit tablet Take 2,000 Units by mouth daily . 0 Active take 1 tablet by manuel th once daily cholecalciferol, vitamin D3, 1,000 unit tablet Take 1,000 Units by mouth daily. 0 Active Comment on above: Take by mouth. donepezil hydrochloride 5 mg oral tablet (20 sources) Start: 02-05-2024 End: 03-28-2024 take 1 tablet by mouth once daily Donepezil 5 mg tablet Active 5 mg PO daily March 28, 2024 11:11am Start: 05-23-2022 End: 01-09-2023 take 0.5 tablet by mouth once daily at bedtime donepezil (ARICEPT) 5 mg tablet Take 0.5 tablets by mouth daily at bedtime. 45 tablet 1 07/13/2022 01/09/2023 Active Start: 09-09-2019 End: 11-04-2019 take 1 tablet by mouth once daily Donepezil 5 MG tablet Discontinued 5 mg PO DAILY September 30, 2019 12:00am November 04, 2019 2:06pm Comment on above: Take 0.5 tablets by mouth daily at bedtime. Take 5 mg by mouth d aily at bedtime. 1/2 tab (2.5 mg) po daily escitalopram 5 mg oral tablet (5 sources) Serotonin Reuptake Inhibitor Start: take 1 tablet by mouth once daily Escitalopram Oxalate 5 mg tablet Active 5 mg PO daily September 01, 2023 12:00am 1 ml evolocumab 140 mg/ml auto-injector (3 sources) PCSK9 Inhibitor Start: 7 evolocumab (REPATHA SURECLICK) 140 mg/mL Pen Indications: Hyperlipidemia, unspecified hyperlipidemia type Inject 140 mg under the skin every 14 (fourteen) days. 2 Syringe 11 09/27/2016 Active Start: 09-27-2016 evolocumab (RE PATHA SURECLICK) 140 mg/mL Pen Indications: Hyperlipidemia, unspecified hyperlipidemia type Inject 140 mg under the skin every 14 (fourteen) days. 2 Syringe 11 09/27/2016 Active fluocinonide 0.5 mg/ml topical cream (17 sources) Corticosteroid fluocinonide (LI DEX) 0.05 % cream Apply topically 2 (two) times a day. 0 Active fluvastatin 20 mg oral capsule (6 sources) HMG-CoA Reductase Inhibitor Start: 017 End: 018 fluvastatin (LESCOL) 20 MG capsule Indications: Hyperlipidemia, unspecified hyperlipidemia type Take 1 (one) capsule (20 mg total) by mouth Monday, Monday, Monday Take at night. 12 capsule 5 09/26/2016 09/26/2017 Active glimepiride 4 mg oral tablet (20 sources) Sulfonylurea Start: 020 End: 023 take 1 tablet by mouth once daily Glimepiride 4 MG tablet Active 4 mg PO DAILY July 14, 2019 12:00am Comment on above: Take 4 mg by mouth d aily with breakfast. Take one and a half tablets daily with breakfast hydrocortisone 0.025 mg/mg topical ointment (12 sources) Corticosteroid Start: hydrocortisone 2.5 % ointment ibuprofen 200 mg oral tablet (20 sources) Nonsteroidal Anti-inflammatory Drug take 2 tablets by mouth three times daily as needed for pain ibuprofen 200 mg tablet 2 tablet by mouth three times a day as needed for pain active Moni Darnell SUPER[employer] TRAINING SPECIALIST [facility] take 1 tablet by manuel th once daily as needed for pain ibuprofen (ADVIL,MOTRIN) 600 MG tablet T johnathan 600 mg by mouth daily as needed for pain. 0 Active imiquimod 50 mg/ml topical c ream (20 sources) imiquimod (ALDAR A) 5 % cream Apply 5 % topically as needed Wash hands prior to and following application. . 0 Active imiquimod (ALDAR A) 5 % cream Apply 5 % topically nightly Wash hands prior to and following application. . Active ipratropium bromide 0.042 mg/actuat metered dose nasal spray (4 sources) Anticholinergic Start: 09-25-2024 Ipratropium Br omide 42 mcg (0.06 %) spray,non-aerosol Active INTRANASAL September 25, 2024 12:00am ipratropium brom wendy 42 mcg (0.06 %) nasal spray as directed active Moni Darnell [facility] levothyroxine sodium 0.05 mg oral tablet (14 sources) l-Thyroxine Start: 09-01-2023 take 1 tablet by mouth once daily Levothyroxine 50 mcg tablet Active 50 ug PO daily September 01, 2023 12:00am Start: 07-21-2022 End: 01-17-2023 take 1 tablet by mouth once daily for thyroid dysfunction levothyroxine (LEVOXYL) 25 mcg tablet Take 1 tablet by mouth once daily. Take on empty stomach. For Thyroid 90 tablet 1 07/21/2022 01/17/2023 Active Start: 07-18-2022 End: 07-21-2022 take 1 capsule by mouth once daily before breakfast levothyroxine 25 mcg cap Take 1 capsule by mouth daily before breakfast. 90 capsule 1 07/18/2022 07/21/2022 Discontinued take 1 capsule by [facility] once daily levothyroxine 50 mcg capsule 1 capsule by mouth once a day active Moni Darnell SUPER[employer]IST [facility] take 1 capsule by mo [facility] once daily before breakfast levothyroxine 25 mcg cap Take 25 mcg by mouth daily before breakfast. 0 Active Comment on above: Take 25 mcg by mouth daily before breakfast. [facility] Take on empty stomach. For Thyroid Take 1 capsule by mo ut daily before breakfast. losartan potassium 100 mg oral tablet (20 sources) Angiotensin 2 Receptor Sarahi Start: 09-01-2023 End: 08-26-2024 take 1 tablet by mouth once daily Losartan 100 mg tablet Active 100 mg PO DAILY 90 August 26, 2024 11:12am Start: 07-26-2022 End: 08-18-2023 take 1 tablet by mouth once daily Losartan 50 mg tablet Discontinued 50 mg PO DAILY 90 July 26, 2022 12:00am August 18, 2023 10:15am Start: 07-18-2022 take 1 tablet by manuel th once daily losartan (COZAAR) 25 mg tablet Take 1 tablet by mouth once daily. 90 tablet 1 07/18/2022 Active take 1 tablet by manuel th once daily losartan (COZAAR) 25 mg tablet Take 25 mg by mouth once daily. 0 Active Comment on above: Take 25 mg by mouth once daily. Take 1 tablet by manuel th once daily. 24 hr metoprolol succinate 50 mg extended release oral tablet (20 sources) beta-Adrenergic Sarahi Start: 03-02-2023 take 1 tablet by mouth once daily Metoprolol Succinate 50 mg tablet extended release 24 hr Active 50 mg PO DAILY March 02, 2023 1:00am Start: 07-14-2019 End: 10-25-2019 take 1 tablet by mouth once daily Metoprolol Tartrate 25 MG tablet Discontinued 25 mg PO DAILY July 14, 2019 12:00am October 25, 2019 2:58pm Start: 03-29-2016 End: 03-02-2023 take 1 tablet by mouth once daily Metoprolol Succinate 25 mg tablet extended release 24 hr Discontinued 25 mg PO DAILY October 25, 2019 12:00am March 02, 2023 2:35pm Start: 03-29-2016 take 0.5 tablet by m out once daily metoprolol succinate ER (TOPROL XL) 25 mg 24 hr tablet Take 25 mg by mouth once daily. 1/2 tab (12.5 mg) po daily 0 03/29/2016 Active Comment on above: Take 25 mg by mouth once daily. 1/2 tab (12.5 mg) po daily metoprolol succinate ER 50 mg capsule sprinkle, ext. release 24 hr (3 sources) take 1 capsule by mouth once daily metoprolol succinate ER 50 mg capsule sprinkle, ext. release 24 hr 1 capsule by mouth once a day active Moni Darnell LPN [facility] multivitamin (THERAGRAN) per tablet (4 sources) take 1 tablet by mouth once daily multivitamin (THERAGRAN) per tablet Take 1 tablet by mouth daily Active Multivitamin 50 Plus tablet (3 sources) take 1 tablet by mouth once daily Multivitamin 50 Plus tablet 1 tablet by mouth once a day active Moni Darnell LPN [facility] Multivitamin Tablet (1 source) take 1 tablet by mouth once daily multivitamin (THERAGRAN) per tablet Take 1 tablet by mouth daily Active perflutren lipid microspheres 1.3 mL in NaCl (PF) 0.9% 10 mL injection (DEFINITY) (9 sources) Start: 3 End: 4 perflutren lipid microspheres 1.3 mL in NaCl (PF) 0.9% 10 mL injection (DEFINITY) pitavastatin 1 mg oral tablet (6 sources) HMG-CoA Reductase Inhibitor Start: 7 End: 7 pitavastatin 1 mg Tab Indications: Hyperlipidemia, unspecified hyperlipidemia type Take 1 (one) tablet (1 mg total) by mouth Monday, Monday, Monday. 12 tablet 5 08/03/2016 Active 0.25 mg, 0.5 mg dose 1.5 ml semaglutide 1.34 mg/ml pen injector (16 sources) Start: 0 semaglutide (Ozempic) 0.25 mg or 0.5 mg(2 mg/1.5 mL) Pen Indications: Type 2 diabetes mellitus without complication, without long-term current use of insulin (HCC) Inject 0.5 mg under the skin once a week . 1.5 mL 5 10/28/2019 Active Start: 10-25-2019 End: 11-04-2019 Semaglutide (Ozempic) 1 mg/d ose (2 mg/1.5 mL) pen injector Discontinued 1 MG SC EVERY WEEK October 25, 2019 12:00am November 04, 2019 2:06pm semaglutide (OZE [facility]) 0.25 mg or 0.5 mg(2 mg/1.5 mL) Pen Inject 0.25 mg under the skin once a week . 0 Active 125 ml sodium chloride 9 mg/ ml prefilled syringe (10 sources) Start: 05-23-2022 End: 08-22-2023 sodium chloride 0.9 % (flush ) 10 mL (BD POSIFLUSH) Start: 07-30-2017 End: 07-30-2017 sodium chloride (NS) 0.9 % i rrigation solution 1,000 mL tamsulosin hydrochloride 0.4 mg oral capsule (12 sources) alpha-Adrenergic Sarahi Start: 09-25-2024 take 1 capsule by mouth once daily Tamsulosin 0.4 mg capsule Active 0.4 mg PO daily September 25, 2024 10:58am Start: 03-02-2023 End: 09-01-2023 Tamsulosin 0.4 mg capsule Discontinued mg PO March 02, 2023 1:00am September 01, 2023 11:08am Start: 03-02-2023 End: 09-25-2024 take 1 capsule by mouth twice daily Tamsulosin 0.4 mg capsule Discontinued 0.4 mg PO TWICE A DAY September 01, 2023 11:07am September 25, 2024 10:58am Start: 03-02-2023 Tamsulosin Act ann MG PO March 02, 2023 1:00am VITAMIN D-3 (CHOLECALCIFEROL ) 25 MCG (1000 UT) CAPS (3 sources) take 1 capsule by mouth once daily Vitamin D3 25 mcg (1,000 unit) capsule 1 capsule by mouth once a day active Moni Darnell LPN [facility] [facility] Completed/Discontinued Medications Medication Drug Class(es) Dates Sig (Normalized) Sig (Original) acetaminophen 325 mg / HYDROcodone bitartrate 5 mg oral tablet (9 sources) Opioid Agonist Start: 09-30-2019 End: 10-02-2019 Hydrocodone-Acetami nophen 1 TABLET tablet Discontinued 1 {tbl} PO EVERY 4 HOURS NEEDED as needed for Pain 10 2 0 September 30, 2019 October 01, 2019 12:00am October 02, 2019 12:02am Knee pain Pain in unspecified knee Start: 09-30-2019 End: 10-02-2019 take 1 tablet by mouth every four hours as needed Hydrocodone-Acetaminophen Discontinued 1 TABLET PO EVERY 4 HOURS NEEDED 10 2 September 30, 2019 October 02, 2019 12:02am Antiarthritic Combination No .2 (Glucosamine-Chondroitin) 900 mg tablet (2 sources) Start: 03-05-2024 End: 09-25-2024 Antiarthritic Combination No .2 (Glucosamine-Chondroitin) 900 mg tablet Discontinued mg PO March 05, 2024 1:00am September 25, 2024 10:56am Start: 03-05-2024 Antiarthritic Combination No.2 (Glucosamine-Chondroitin) 900 mg tablet Active mg PO March 05, 2024 1:00am ascorbic acid 1000 mg oral tablet (20 sources) Start: 09-30-2019 End: 07-22-2022 Ascorbic Acid (Vitamin C) 1, 000 MG tablet Discontinued 1000 mg PO September 30, 2019 12:00am July 22, 2022 1:48pm take 1 tablet by mouth once ilir y Ascorbic Acid (VITAMIN C) 100 mg tablet Take 100 mg by mouth once daily. 0 Active take 1 tablet by mouth once ilir y ascorbic acid (ascorbic acid with monet hips) 500 MG tablet Take 500 mg by mouth daily. 0 Active Comment on above: Take 100 mg by mouth once daily. azithromycin 250 mg oral tablet (7 sources) Macrolide Antimicrobial Start: 08-24-19 End: 03-02-19 Azithromycin 250 mg tablet Discontinued 250 mg PO daily August 23, 2022 12:00am March 02, 2023 2:34pm 2 tablets today, then 1 tablet daily on days 2 through 11 Blood-Glucose Meter monitoring kit (6 sources) Start: 07-06-19 Blood-Glucose Meter monitoring kit Glucose Meter of Choice - Kit - Dx: Type 2 DM - Controlled E11.9 1 Each 0 07/05/2022 Active Comment on above: Glucose Meter of Cho ice - Kit - Dx: Type 2 DM - Controlled E11.9 cephalexin 500 mg oral capsule (2 sources) Cephalosporin Antibacterial Start: 06-28-19 End: 09-01-19 take 1 capsule by mouth every six hours Cephalexin 500 mg capsule Discontinued 500 mg PO EVERY 6 HOURS June 28, 2023 12:00am September 01, 2023 11:06am clopidogrel 75 mg oral tablet (2 sources) [id number] Platelet Inhibitor Start: 02-06-20 End: 03-05-19 take 1 tablet by mouth once daily Clopidogrel (Plavix) 75 mg tablet Discontinued 75 mg PO DAILY February 06, 2024 1:00am March 05, 2024 3:11pm docusate sodium 100 mg oral capsule (9 sources) Start: 09-30-19 End: 11-04-19 take 1 capsule by mouth once daily Docusate Sodium 100 MG capsule Discontinued 100 mg PO DAILY September 30, 2019 12:00am November 04, 2019 2:05pm ezetimibe 10 mg oral tablet (11 sources) Dietary Cholesterol Absorption Inhibitor Start: 07-19-19 End: 03-02-19 take 1 tablet by mouth once daily Ezetimibe 10 mg tablet Discontinued 10 mg PO DAILY July 22, 2022 12:00am March 02, 2023 2:34pm Comment on above: Take 1 tablet by manuel once daily. fenofibrate 54 mg oral tablet (20 sources) Peroxisome Proliferator Receptor alpha Agonist Start: 10-25-19 End: 03-02-19 take 1 tablet by mouth once daily Fenofibrate 54 mg tablet Discontinued 54 mg PO DAILY October 25, 2019 12:00am March 02, 2023 2:36pm Start: 03-13-2018 End: 03-13-2019 take 1 tablet by mouth once daily at mealtime fenofibrate (TRICOR) 54 MG tablet Indications: Hyperlipidemia, unspecified hyperlipidemia type Take 1 (one) tablet (54 mg total) by mouth daily Give with food . 30 tablet 3 03/13/2018 Active Comment on above: Take 54 mg by mouth once daily. glyBURIDE 5 mg oral tablet (1 source) Sulfonylurea End: 023 take 1 tablet by mouth once daily at breakfast glyBURIDE 5 mg tablet Take 5 mg by mouth daily with breakfast. 0 05/23/2022 Discontinued Comment on above: Take 5 mg by mouth d aily with breakfast. hydroCHLOROthiazide 12.5 mg / losartan potassium 100 mg oral tablet (2 sources) Thiazide Diuretic, Angiotensin 2 Receptor Sarahi Start: End: Losartan-Hydrochlo rothiazide 100-12.5 mg tablet Discontinued 1 {tbl} PO DAILY 60 11 August 18, 2023 12:00am September 01, 2023 11:44am lidocaine 40 mg/ml topical cream (17 sources) Antiarrhythmic, Amide Local Anesthetic Start: 018 End: lidocaine (LMX) 4 % cream memantine hydrochloride 10 mg oral tablet (20 sources) G-mdzjvv-C-aspartat e Receptor Antagonist Start: 024 End: 025 take 1 tablet by mouth once daily in the morning Memantine 10 mg tablet Discontinued 10 mg PO EVERY MORNING March 02, 2023 2:35pm March 05, 2024 3:10pm Start: 07-22-2022 End: 03-02-2023 take 1 tablet by mouth twice daily Memantine 10 mg tablet Discontinued 10 mg PO TWICE A DAY July 22, 2022 12:00am March 02, 2023 2:36pm Start: 12-14-2020 take 1 tablet by manuel th twice daily memantine (NAMENDA) 5 mg tablet Take 5 mg by mouth twice daily. 0 12/14/2020 Active Comment on above: Take 5 mg by mouth t wice daily. metroNIDAZOLE 250 mg oral tablet (5 sources) Nitroimidazole Antimicrobial End: take 2 tablets by mouth three times daily at mealtime metroNIDAZOLE (FLAGYL) 250 MG tablet Take 500 mg by mouth 3 (three) times a day with meals. 10/13/2017 Discontinued pravastatin sodium 10 mg oral tablet (3 sources) HMG-CoA Reductase Inhibitor Start: End: pravastatin (PRAVACHOL) 10 MG tablet Take 1 (one) tablet (10 mg total) by mouth Monday, Monday, Monday. 12 tablet 5 07/07/2017 08/30/2017 Discontinued pumpkin seed extract/soy germ (AZO BLADDER CONTROL ORAL) (9 sources) pumpkin seed extract/soy germ (AZO BLADDER CONTROL ORAL) Take by mouth. 0 Active Comment on above: Take by mouth. rosuvastatin 10 mg oral capsule (2 sources) HMG-CoA Reductase Inhibitor Start: End: take 1 capsule by mouth at bedtime Rosuvastatin 10 mg capsule, sprinkle Discontinued 10 mg PO AT BEDTIME 30 30 2 February 06, 2024 1:00am March 05, 2024 3:05pm low-dose start because of myalgia with statin Semaglutide (Ozempic) 1 mg/dose (2 mg/1.5 mL) pen injector (2 sources) Start: End: Semaglutide (Ozempic) 1 mg/dose (2 mg/1.5 mL) pen injector Discontinued 1 mg SC EVERY WEEK October 25, 2019 12:00am November 04, 2019 2:06pm sulfamethoxazole 800 mg / trimethoprim 160 mg oral tablet (3 sources) Dihydrofolate Reductase Inhibitor Antibacterial, Sulfonamide Antimicrobial Start: End: 07-25-2 018 take 1 tablet by mouth twice daily sulfamethoxazole-tr imethoprim (BACTRIM DS,SEPTRA DS) 800-160 mg per tablet Take 1 tablet by mouth 2 (two) times a day. 08/19/2017 08/30/2017 Discontinued Start: 07-30-2017 End: 08-04-2017 take 1 tablet by mouth twice daily sulfamethoxazole-trimethoprim (BACTRIM DS,SEPTRA DS) 800-160 mg per tablet Take 1 (one) tablet by mouth 2 (two) times a day for 10 doses. 10 tablet 0 07/30/2017 08/04/2017 Active triamcinolone acetonide 1 mg/ml topical cream (1 source) Corticosteroid Start: 01-16-2020 End: 05-23-2022 triamcinolone acetonide (KENALOG) 0.1 % cream Apply to affected area twice daily. As needed for irritation after photodynamic therapy treatment. 15 g 0 01/16/2020 05/23/2022 Discontinued Comment on above: Apply to affected ar ea twice daily. As needed for irritation after photodynamic therapy treatment. vitamin B12 (2 sources) Vitamin B12 Start: 03-05-2024 End: 09-25-2024 take 1 tablet by mouth once daily Cyanocobalamin (Vitamin B-12) (B-12 Dots) 500 mcg tablet Discontinued 500 ug PO daily March 05, 2024 1:00am September 25, 2024 10:57am Start: 03-05-2024 take 1 tablet by manuel th once daily Cyanocobalamin (Vitamin B-12) (B-12 Dots) 500 mcg tablet Active 500 ug PO daily March 05, 2024 1:00am vitamin b6 100 mg oral tablet (2 sources) Start: 03-05-2024 End: 09-25-2024 take 1 tablet by mouth once daily Pyridoxine (Vitamin B6) 100 mg tablet Discontinued 100 mg PO daily March 05, 2024 1:00am September 25, 2024 10:58am Problems Active Problems Problem Classification Problem Date Documented Date Episodic/Chronic Acute myocardial infarction (20 sources) Acute ST segment elevation myocardial infarction; Translations: [Acute myocardial infarction] Onset: 09-17-2014 Resolved: 11-02-2018 09-18-2014 Chronic Cataract (18 sources) Unspecified cataract; Translations: [Cataract of left eye] Onset: 07-12-2016 07-12-2016 Chronic Cataract (8 sources) Cataract of left eye; Translations: [Cataract of left eye] Onset: 07-12-2016 07-12-2016 Chronic ulcer of skin (20 sources) Non-pressure ulcer lower limb; Translations: [Chronic ulcer of lower extremity] Onset: 08-30-2017 Resolved: 11-02-2018 08-30-2017 Chronic Coronary atherosclerosis and other heart disease (20 sources) Coronary arteriosclerosis in [place] artery; Translations: [Coronary arteriosclerosis] Onset: 09-18-2014 11-07-2014 Chronic Comment on above: Patient is asymptoma tic and secondary risk factors are being addressed Delirium, dementia, and amnestic and other cognitive disorders (10 sources) Dementia; Translations: [Unspecified dementia without behavioral disturbance] Onset: 05-23-2022 05-23-2022 Chronic Diabetes mellitus with complications (5 sources) Type 2 diabetes mellitus with ulcer Chronic Diabetes mellitus without complication (20 sources) Type 2 diabetes mellitus; Translations: [Type 2 diabetes mellitus without complication] Onset: 09-18-2014 11-07-2014 Chronic Disorders of lipid metabolism (20 sources) Hyperlipoproteinemia; Translations: [Hyperlipidemia] Onset: 09-18-2014 07-28-2016 Chronic Essential hypertension (20 sources) Hypertensive disorder; Translations: [Essential hypertension] Onset: 09-18-2014 11-07-2014 Chronic Genitourinary symptoms and ill-defined conditions (1 source) Polyuria; Translations: [Polyuria] Episodic Headache; including migraine (1 source) Headache; including migraine; Translations: [Headache, unspecified] Onset: 06-17-2024 Heart valve disorders (5 sources) Aortic valve stenosis; Translations: [Nonrheumatic aortic (valve) stenosis] Onset: 03-28-2024 03-28-2024 Chronic Heart valve disorders (5 sources) Systolic murmur; Translations: [Cardiac murmur, unspecified] Episodic Immunizations and screening for infectious disease (9 sources) Contact with or exposure to other viral diseases; Translations: [Close exposure to 2019-nCoV] 02-07-2021 Episodic Malaise and fatigue (9 sources) Malaise; Translations: [Other malaise] 02-12-2021 Episodic Occlusion or stenosis of precerebral arteries (1 source) Occlusion and stenosis of left carotid artery; Translations: [Occlusion and stenosis of left carotid artery] Onset: 03-28-2024 Chronic Open wounds of extremities (20 sources) Laceration of lower limb; Translations: [Unspecified open wound, right lower leg, initial encounter] Onset: 08-30-2017 08-30-2017 Episodic Osteoarthritis (20 sources) Osteoarthritis of knee; Translations: [Osteoarthritis of knee, unspecified] Onset: 05-23-2022 05-23-2022 Chronic Other circulatory disease (5 sources) Disorder of carotid artery; Translations: [Disorder of arteries and arterioles, unspecified] 03-28-2024 Chronic Other connective tissue disease (3 sources) Acquired trigger finger of right little finger; Translations: [Trigger finger, right little finger] Onset: 10-17-2024 10-17-2024 Episodic Other hereditary and degenerative nervous system conditions (2 sources) Mild cognitive impairment, so stated; Translations: [MILD COGNTV IMPAIRMNT UNCRTN/UNKNWN] Onset: 04-08-2024 Chronic Other injuries and conditions due to external causes (2 sources) Closed injury of head; Translations: [Unspecified injury of head, initial encounter] 06-17-2024 Episodic Other nervous system disorders (3 sources) Lesion of ulnar nerve, bilateral upper limbs; Translations: [Lesion of ulnar nerve] Onset: 06-28-2022 06-28-2022 Chronic Other nervous system disorders (3 sources) Carpal tunnel syndrome, left upper limb; Translations: [Carpal tunnel syndrome] Onset: 06-16-2022 11-03-2023 Chronic Other nervous system disorders (3 sources) Carpal tunnel syndrome, right upper limb; Translations: [Carpal tunnel syndrome] Onset: 06-16-2022 11-03-2023 Chronic Other nutritional; endocrine; and metabolic disorders (10 sources) Obesity; Translations: [Obesity, unspecified] Onset: 05-23-2022 05-23-2022 Chronic Other upper respiratory infections (10 sources) Acute maxillary sinusitis; Translations: [Acute maxillary sinusitis, unspecified] 08-23-2022 Episodic Sprains and strains (5 sources) Sprain of ligament of finger; Translations: [Unspecified sprain of unspecified finger, initial encounter] 12-10-2022 Episodic Superficial injury; contusion (10 sources) Bruise of head; Translations: [Abrasion and/or friction burn of forearm, without infection] 07-15-2019 Episodic Thyroid disorders (11 sources) Hypothyroidism; Translations: [Hypothyroidism, unspecified] Onset: 05-23-2022 05-23-2022 Chronic Transient cerebral ischemia (1 source) Amaurosis fugax; Translations: [Amaurosis fugax] Onset: 03-14-2024 Chronic Past or Other Problems Problem Classification Problem Date Documented Da te Episodic/Chronic Blindness and vision defects (4 sources) Left homonymous hemianopsia; Translations: [Homonymous bilateral field defects, left side] Onset: 02-06-2024 02-14-2024 Episodic Coronary atherosclerosis and other heart disease (20 sources) History of coronary artery bypass grafting; Translations: [Presence of aortocoronary bypass graft] Onset: 09-17-2014 12-16-2014 Episodic Other connective tissue disease (3 sources) Tenosynovitis of wrist; Translations: [Synovitis and tenosynovitis, unspecified] Onset: 05-24-2024 05-24-2024 Episodic Other connective tissue disease (3 sources) Triggering of digit; Translations: [Trigger finger, right little finger] Onset: 11-03-2023 11-03-2023 Episodic Other eye disorders (7 sources) Myogenic ptosis of bilateral eyelids; Translations: [Myogenic ptosis of eyelid of both eyes] Onset: 11-02-2018 11-02-2018 Episodic Other injuries and conditions due to external causes (1 source) Unspecified injury of head, initial encounter; Translations: [Unspecified injury of head, initial encounter] Onset: 06-21-2024 Episodic Other skin disorders (14 sources) Eruption; Translations: [Rash, skin] Onset: 10-13-2017 10-13-2017 Episodic Unclassified (20 sources) H/O: surgery; Translations: [H/O detached retina repair] Onset: 07-12-2016 07-12-2016 Episodic Unclassified (11 sources) Open wound of right lower leg, initial encounter; Translations: [Open wound of right lower leg] Onset: 08-30-2017 Resolved: 11-02-2018 11-02-2018 Results Test Name Value Interpretation Reference Range Facility Relevant diagnostic tests/la boratory data Narrativeon 11-13-2024 MEDS REVIEW Done [facility] Work Phone: MEDS REVIEWD Medications reviewed without changes [facility] Work Phone: Relevant diagnostic tests/la boratory data Narrativeon 10-17-2024 Fall risk assessment no [facility] Work Phone: MEDS REVIEW Documentation of current medications (procedure) [facility] Work Phone: MEDS REVIEWD Medications reviewed without changes [facility] Work Phone: Relevant diagnostic tests/la boratory data Narrativeon 10-16-2024 Fall risk assessment no [facility] Work Phone: MEDS REVIEW Done [facility] Work Phone: MEDS REVIEW Documentation of current medications (procedure) [facility] Work Phone: MEDS REVIEWD Medications reviewed with changes [facility] Work Phone: Cardiology Visit Reporton Cardiology Visit Report [facility] [address] [place] [address]. [address] [place] [address] OFFICE VISIT Date of Service: 09/25/24 MR#: [id number] Acct: [id number] Name: RAMONA COBOS Rep #: [id number] : 1945 Provider: JACK victoria Age/Sex: 79/M Location: [facility] Status: Signed HPI HPI History of Present Illness Details: Patient is a 79-year-old white male presents with his for cardiovascular monitoring. Patient's son works in the [employer] at [employer]. Patient had an episode back New Year's Vielka 2023 where he presented with left eye visual loss. 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 But this was a little different. He was sitting at the dining room table stood up got a little bit dizzy and then could not see peripheral vision. His noted that his left pupil was markedly enlarged compared to the right pupil at the same time. The patient was evaluated in the emergency department but the symptoms had resolved after about 4 hours. He had a CT and an MRI both of which were negative for any intracranial or intracerebral abnormalities. He is actually seeing the roller gold leaf since discharge and has not come up with an etiology of his transient visual loss. He follows with his neurologist who he sees for cognitive decline. The patient denies any recurrence of his anginal symptoms which was a diffuse diaphoretic spell that led to his coronary bypass graft surgery after emergent stenting of the right coronary artery in 2014. Patient received a BOYD to the LAD and a vein graft to the diagonal and right coronary arteries. The patient had an echocardiogram done January 2024 when he was admitted to the hospital with this visual loss. That showed no evidence of an ASD he does have moderate aortic stenosis with a mean gradient of 23. He denies chest, arm, jaw, or neck discomfort. He denies palpitations. He states mild, bilateral lower extremity edema. He denies claudication. He denies shortness of breath with activity, shortness of breath at rest, orthopnea, or PND. He denies chronic cough. He denies significant, sudden weight gain. He denies lightheadedness, dizziness, near-syncope, or syncope. He denies blood in urine, blood in stool, or epistaxis. He denies fever with chills. He denies myalgia. He denies fatigue. His exercise level has remained stable. 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: No Accompanied by: Is patient in pain?: No Allergies fish derived Allergy (Intermediate, Verified 09/25/24 10:56) Throat swells Penicillins Allergy (Verified 09/25/24 10:56) Hives Aluoofo-CNO-JcS Reductase Inhibitor (Szugphe-Fsz-Yqa Reductase Inhibitor) Adverse Reaction (Intermediate, Verified 09/25/24 10:56) myalgias Medications ???Medication ???Instructions ???Recorded ???Confirmed ???Type glimepiride 4 mg tablet 4 mg PO DAILY 07/14/19 09/25/24 Hi story metoprolol succinate 50 mg 50 mg PO DAILY 03/02/23 09/25/24 H istory tablet,extended release 24 hr escitalopram oxalate 5 mg tablet 5 mg PO QDAY 09/01/23 09/25/24 His tory levothyroxine 50 mcg tablet 50 mcg PO QDAY 09/01/23 09/25/24 H istory donepezil 5 mg tablet 5 mg PO QDAY 03/28/24 09/25/24 His tory losartan 100 mg tablet 100 mg PO DAILY #90 tabs 08/26/24 09/25/24 Rx aspirin 81 mg chewable tablet 162 mg PO DAILY@0809/25/2409/07 History cholecalciferol (vitamin D3) 25 25 mcg PO QDAY 09/25/24 09/25/24 H istory mcg (1,000 unit) tablet ipratropium bromide 42 mcg (0.06 intranasal 09/25/24 09/25/24 Histo ry %) nasal spray tamsulosin 0.4 mg capsule 0.4 mg PO QDAY 09/25/24 09/25/24 H istory Ejection fraction %: 55 Have you fallen in the past year?: No PFSH Medical History Basal cell carcinoma Acute maxillary sinusitis, unspecified Asthma Hay fever Skin cancer STEMI (ST elevation myocardial infarction) Essential hypertension Hyperlipidemia Atherosclerosis of coronary artery of [place] heart without angina pectoris CKD (chronic kidney disease) Type 2 diabetes mellitus without complication Vitamin D deficiency Mild cognitive impairment Surgical History History of carpal tunnel surgery of left wrist History of carpal tunnel surgery of right wrist ( 2023) History of nasal surgery History of left cataract extraction History of elbow surgery History of coronary artery stent placement (more content not included)... 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 Disclaimer: This test is not designed to be used in the initial diagnosis of amyloidosis. The amyloid deposits are identified by hematoxylin-eosin, Congo red and, if necessary, by other stains. These deposits are microdissected under visual control and the tissue obtain is digested with trypsin, followed by mass spectrometry analysis. The performance of the test is dependent on the accuracy of the microdissection. Very small amounts of amyloid may not be adequate for this analysis. Confirmation of the results may be obtained by family history, molecular tests or immunohistochemistry. 08/29/2024 Laboratory Developed Test (LDT) Disclaimer: Performance characteristics of immunohistochemical, immunofluorescent and chromogenic in-situ hybridization tests have been determined by the performing laboratory within [facility] Pathology and Laboratory Medicine Department ([facility], [facility], [facility], [facility], [facility], [facility], or [facility]) in a manner consistent with CLIA requirements. One or more of these tests have not been cleared or approved by the FDA. RT-PLM is regulated under CLIA as qualified to perform high-complexity testing. These tests are used for clinical purposes. They should not be regarded as investigational or for research. Positive and negative controls stain appropriately. Electronically signed out by: Peri Seth MD Performed By: #### L [id number] #### [facility] CLIA [id number] [address] [place] [address] [place] OF [place] SURGICAL PATHOLOGY REFERENCE LAB CONSULTon 08-07-2024 AP DISCLAIMER Normal [facility] Comment on above: Order Comment: Speci men Type: FORMALIN-FIXED PARAFFIN-EMBEDDED TISSUE SPECIMEN Ordering Facility: [facility] Amyloid Testing Account Address: [address] [place] [address] Result Comment: Yassine barron Developed Test (LDT) Disclaimer: Performance characteristics of immunohistochemical, immunofluorescent, and chromogenic in-situ hybridization tests have been determined by the performing laboratory within [facility] Pathology and Laboratory Medicine Department ([facility], [facility], [facility], [facility], [facility], or [facility]) in a manner consistent with CLIA requirements. One or more of these tests may not have been cleared or approved by the FDA. RT-PLM is regulated under CLIA as qualified to perform high-complexity testing. These tests are used for clinical purposes. These should not be regarded as investigational or for research. Positive and negative controls stain appropriately. Performed By: #### L [id number] #### [facility] CLIA [id number] [address] [place] [address] OF THEO CASE REPORT Normal [facility] Comment on above: Order Comment: Speci men Type: FORMALIN-FIXED PARAFFIN-EMBEDDED TISSUE SPECIMEN Ordering Facility: [facility] Account Address: [address] [place] [address] Result Comment: Surg [facility] Pathology Report Case: [id number] Authorizing Provider: Rachel Izquierdo, Collected: 08/07/2024 10:06 AM Ordering Location: [facility] Received: 08/07/2024 10:05 AM [facility] Pathologist: Meño Dozier MD Specimen: Block(s) and/or Slide(s), 2 SLIDES & 1 BLOCK, [id number]; A1 Performed By: #### L [id number] #### [facility] CLIA [id number] [address] [place] [address] STATES OF THEO CLINICAL HISTORY CONSULT REQUESTED [facility] Comment on above: Order Comment: Speci men Type: FORMALIN-FIXED PARAFFIN-EMBEDDED TISSUE SPECIMEN Ordering Facility: [facility] Account Address: [address] [place] [address] Performed By: #### L [id number] #### [facility] CLIA [id number] [address] [place] [address] OF THEO DIAGNOSIS COMMENT Amyloid typing via mass spectrometry will be documented in an addendum. Normal [facility] Comment on above: Order Comment: Speci men Type: FORMALIN-FIXED PARAFFIN-EMBEDDED TISSUE SPECIMEN Ordering Facility: [facility] Account Address: [address] [place] [address] Performed By: #### L [id number] #### [facility] CLIA [id number] [address] [place] [address] 3, [address] [place] [address] OF [facility] FINAL DIAGNOSIS Normal [facility] Comment on above: Order Comment: Speci men Type: FORMALIN-FIXED PARAFFIN-EMBEDDED TISSUE SPECIMEN Ordering Facility: [facility] Amyloid Testing Account Address: [address] [place] [address] Result Comment: Soft tissue, left wrist tenosynovium, excision: - Benign, noninflamed tenosynovium with focal fibrosis. 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 (See comment) at 1013 EDT Performed By: #### L [id number] #### [facility] CLIA [id number] [address] [place] [address], [address] [place] [address] OF THEO FINAL PERFORMING LAB Normal [facility] Comment on above: Order Comment: Speci men Type: FORMALIN-FIXED PARAFFIN-EMBEDDED TISSUE SPECIMEN Ordering Facility: [facility] Amyloid Testing Account Address: [address] [place] [address] Result Comment: Diag nostic interpretation performed at: [facility], [address] [place] [address], [facility] 3, [address] [place] [address] CLIA# [id number] County Coroner: Meño Dozier MD Performed By: #### L [id number] #### [facility] CLIA [id number] [address] [place] [address] 3, [address] [place] [address] OF THEO Brain/Head without Contrasto n 06-17-2024 Brain/Head without Contrast [facility] Services [address] [place] [id number] Brain/Head without Contrast MR#: [id number] Acct: [id number] Name: RAMONA COBOS Rep #: [id number] : 1945 M 78 From: Shahzad Cabrera MD PCP: Dr. Donell Capps, DO Status: REG ER Study: Brain/Head without Contrast Date of Exam: 06/06 04/02 Exam# [id number] Ordering Dr: Schwiger,Shola DO EXAM: NONCONTRAST CT SCAN OF THE HEAD CLINICAL HISTORY: Confusion, visual changes COMPARISON: February 06, 2024 MRI TECHNIQUE: Serial axial series through the head were obtained without contrast. 2-D coronal and sagittal reformats were then obtained. DLP = 745.49 mGy-cm, radiation dose lowering protocol was performed. FINDINGS: Brain: There is no acute large territorial infarct, intracranial hemorrhage, midline shift or mass effect. There are atherosclerotic vascular calcifications involving the bilateral carotid siphons. The sella and pineal gland regions appear unremarkable. There is no evidence of cerebellar tonsillar herniation. Ventricles: There is no acute hydrocephalus. Basilar cisterns are patent. Mastoid air cells: Well-aerated. Calvarium: The bony calvarium is intact. Orbits: Postsurgical change is noted in the left globe. Mucosal thickening is visible in the left maxillary sinus. CT/Brain/Head without Contrast IMPRESSION: Postsurgical change is noted in the left globe. Mucosal thickening is visible in the left maxillary sinus. No acute intracranial abnormality is identified. Reading Location: [facility] CC: Dr. Shola Carmona DO; Dr. Donell Capps DO Property Clerk: Signed Normal [facility] Emergency Department Summary on 06-17-2024 Emergency Department Summary [facility] Medical Records Department [address] [place] [address] Emergency Department Summary 06/17/24 MR#: [id number] Acct: [id number] Name: RAMONA COBOS Rep #: [id number] : 1945 78 From: Shola Carmona DO PCP: Dr. Donell Capps DO Status:DEP ER Location: ED HPI History of Present Illness Chief Complaint: Headache Informant: patient and spouse/S.O. Onset/Context/Timin g Onset: Weeks (3) Context: Sudden Timing: Continuous Quality -Headache: Positive for Throbbing Location: Left temporal/parietal area Worsened by: Bright lights Relieved by: Nothing Associated Symptoms/Injury Associated Symptoms: Positive for Blurred Vision; Negative for Fever, Nausea, Vomiting, Sore Throat, Sinus Pressure, Numbness, Tingling, Preceding Aura, Photophobia or Visual Loss Injury - JENNINGS: Positive for Direct Trauma Narrative Narrative: Patient presents with a headache that has been persistent for the past 3 weeks. Patient states he hit his head on an x-ray machine while he was getting x-rays for his hand. Patient was scheduled to have carpal tunnel surgery of his left wrist today but was referred to the emergency department due to the headache and recent head injury. Patient states his pain is throbbing. Patient states it is a localized to the left side of his head. Patient states it is worse with lights. Patient states he has been having some dizziness and increased sleepiness. Patient also admits to some blurred vision out of his left eye. Patient denies any visual loss or scotomas. Patient denies any nausea or vomiting. [facility] Medical History Basal cell carcinoma Acute maxillary sinusitis, unspecified Asthma Hay fever Skin cancer STEMI (ST elevation myocardial infarction) Essential hypertension Hyperlipidemia Atherosclerosis of coronary artery of [place] heart without angina pectoris CKD (chronic kidney disease) Type 2 diabetes mellitus without complication Vitamin D deficiency Mild cognitive impairment Home Medications ???Medication ???Instructions ???Recorded ???Last Taken ???Type aspirin 81 mg chewable tablet 81 mg PO DAILY@0800 07/14/19 Unkno wn History glimepiride 4 mg tablet 4 mg PO DAILY 07/14/19 Unknown His tory metoprolol succinate 50 mg 50 mg PO DAILY 03/02/23 Unknown Hi story tablet,extended release 24 hr escitalopram oxalate 5 mg tablet 5 mg PO QDAY 09/01/23 Unknown Hist ory levothyroxine 50 mcg tablet 50 mcg PO QDAY 09/01/23 Unknown Hi story losartan 100 mg tablet 100 mg PO DAILY #90 tabs 09/01/23 Unknown Rx tamsulosin 0.4 mg capsule 0.4 mg PO BID 09/01/23 Unknown His tory antiarthritic combination no.2 900 mg PO 03/05/24 Unknown History mg tablet (glucosamine-chondr oitin) cholecalciferol (vitamin D3) 50 1,000 unit PO DAILY 03/05/24 Unkno wn History mcg (2,000 unit) capsule cyanocobalamin (vitamin B-12) 500 500 mcg PO QDAY 03/05/24 Unknown History mcg tablet (B-12 DOTS) pyridoxine (vitamin B6) 100 mg 100 mg PO QDAY 03/05/24 Unknown Hi story tablet donepezil 5 mg tablet 5 mg PO QDAY 03/28/24 Unknown Hist ory Allergy/AdvReac Type Severity Reaction Status Date / Time fish derived Allergy Intermediate Throat Verified 06/17/24 08:24 swells Penicillins Allergy Hives Verified 06/17/24 08:24 Vyptqry-KMI-PoV Reductase AdvReac Intermediate myalgias Verified 06/17/24 08:24 Inhibitor (Oiieyem-Crq-Xvf Reductase Inhibitor) Family History Father ALS (amyotrophic lateral sclerosis) Mother Heart disease Breast cancer CVA (cerebral vascular accident) Diabetes Sister Cancer Uterine cancer Surgical History History of carpal tunnel surgery of right wrist ( 2023) History of nasal surgery History of left cataract extraction History of elbow surgery History of coronary artery stent placement (09/17/14) 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) History of eye surgery History of right cataract extraction Social History Smoking Status: Former smoker how long ago did patient quit smokin years ago alcohol intake: current alcohol intake frequency: a few times a week Alcohol type: wine substance use type: does not use caffeine: Yes Type: coffee Number of servings: 1 ROS ROS ED Constitutional Constitutional ED: Denies chills or fever(s) Eyes Eyes: Reports blurry vision left; Denies change in vision ENT ENT ED: Denies rhinorrhea or sore throat Cardiovascular Cardiovascular: Denies chest pain or palpitations Respiratory/Chest Respiratory/Chest: Denies cough or dyspnea Gastrointestinal Gastrointestinal: Denies nausea or vomit (more content not included)... [facility] Folateon 04-05-2024 Biotin Interference Samples should not be taken from patients receiving therapy with high biotin doses (i.e. >5mg/day) until at least 8 hours following the last biotin administration. [facility] Comment on above: Performed By: #### F RUPERT #### [facility] [address] [place] [address] Performed By: #### B 12 #### [facility] [address] [place], [place] [address] Folate 16.6 ng/mL Normal 4.8-24.2 [facility] Comment on above: Performed By: #### F OLATE #### [facility] [address], [place] [address] Vitamin B12on 04-05-2024 Cobalamin (Vitamin B12) [Mass/Vol] 890 pg/mL Normal 232-1245 [facility] Comment on above: Performed By: #### B 12 #### [facility] [address] [place] [address] Cardiology Visit Reporton Cardiology Visit Report [facility] [address] [place] [address] OFFICE VISIT Date of Service: 03/28/24 MR#: [id number] Acct: [id number] Name: RAMONA COBOS Rep #: [id number] : 1945 Provider: Dr. Duong rios MD Age/Sex: 78/M Location: [facility] Status: Signed HPI HPI History of Present Illness Details: Patient is a 78-year-old white male presents with his for cardiovascular monitoring. Patient's son works in the [employer] at [employer]. Patient had an episode back New Year's Vielka where he presented with left eye visual loss. 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 But this was a little diff erent. He was sitting at the dining room table stood up got a little bit dizzy and then could not see peripheral vision. His noted that his left pupil was markedly enlarged compared to the right pupil at the same time. The patient was evaluated in the emergency department but the symptoms had resolved after about 4 hours. He had a CT and an MRI both of which were negative for any intracranial or intracerebral abnormalities. He is actually seeing the roller gold leaf since discharge and has not come up with an etiology of his transient visual loss. The patient is scheduled to see his neurologist who he sees for cognitive decline in May 2024. The patient denies any recurrence of his anginal symptoms which was a diffuse diaphoretic spell that led to his coronary bypass graft surgery after emergent stenting of the right coronary artery in 2014. Patient received a BOYD to the LAD and a vein graft to the diagonal and right coronary arteries. The patient had an echocardiogram done January 2024 when he was admitted to the hospital with this visual loss. That showed no evidence of an ASD he does have moderate aortic stenosis with a mean gradient of 23. The patient denies any PND orthopnea he denies any dyspnea on exertion he denies any syncope or near syncope with activity. The patient denies any falls. 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 Accompanied by: Is patient in pain?: No Allergies fish derived Allergy (Intermediate, Verified 03/28/24 10:10) Throat swells Penicillins Allergy (Verified 03/28/24 10:10) Hives Uozoewc-NDB-MnT Reductase Inhibitor (Lsjichg-Vwn-Kzk Reductase Inhibitor) Adverse Reaction (Intermediate, Verified 03/28/24 10:10) myalgias Medications ???Medication ???Instructions ???Recorded ???Confirmed ???Type aspirin 81 mg chewable tablet 81 mg PO DAILY@0800 07/14/1903/28 History glimepiride 4 mg tablet 4 mg PO DAILY 07/14/19 03/28/24 Hi story metoprolol succinate 50 mg 50 mg PO DAILY 03/02/23 03/28/24 H istory tablet,extended release 24 hr escitalopram oxalate 5 mg tablet 5 mg PO QDAY 09/01/23 03/28/24 His tory levothyroxine 50 mcg tablet 50 mcg PO QDAY 09/01/23 03/28/24 H istory losartan 100 mg tablet 100 mg PO DAILY #90 tabs 09/01/23 03/28/24 Rx tamsulosin 0.4 mg capsule 0.4 mg PO BID 09/01/23 03/28/24 Hi story antiarthritic combination no.2 900 mg PO 03/05/24 03/28/24 History mg tablet (glucosamine-chondr oitin) cholecalciferol (vitamin D3) 50 1,000 unit PO DAILY 03/05/2403/28 History mcg (2,000 unit) capsule cyanocobalamin (vitamin B-12) 500 500 mcg PO QDAY 03/05/24 03/28/24 History mcg tablet (B-12 DOTS) pyridoxine (vitamin B6) 100 mg 100 mg PO QDAY 03/05/24 03/28/24 H istory tablet donepezil 5 mg tablet 5 mg PO QDAY 03/28/24 03/28/24 His tory Ejection fraction %: 65 Have you fallen in the past year?: No PFSH Medical History Basal cell carcinoma Acute maxillary sinusitis, unspecified Asthma Hay fever Skin cancer STEMI (ST elevation myocardial infarction) Essential hypertension Hyperlipidemia Atherosclerosis of coronary artery of [place] heart without angina pectoris CKD (chronic kidney disease) Type 2 diabetes mellitus without complication Vitamin D deficiency Mild cognitive impairment Surgical History History of carpal tunnel surgery of right wrist ( 2023) History of nasal surgery History of left cataract extraction History of elbow surgery History of coronary artery stent placement (09/17/14) 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) History of eye surgery History of right cataract extraction Family History (Reviewed 03/28/24 @ (more content not included)... Normal [facility] MR/BMS.Sheyla 03-05-2024 MR/BMS.ILEANA [facility] [address] [place] [address] OFFICE VISIT Date of Service: 03/05/24 MR#: [id number] Acct: [id number] Name: JENIFERRAMONA SKAGGS Rep #: [id number] : 1945 Provider: TEMITOPE Walker Age/Sex: 78/M Location: [facility] Status: Signed Intake Vital Signs 02/06/24 14:22 03/05/24 14:18 Height 5 ft 7 in Weight: 188 lb BP 137/72 H Blood Pressure Location Lt brachial Position Sitting Respiration 14 Pulse 51 L Pulse Source Monitor Temp 97.8 F Temp Source Temporal Pulse Oximetry (%) 97 Oxygen Delivery Method room air Intake Visit Reasons: CAROTID ARTERY STENOSIS Chief Complaint: establish care Is patient in pain?: No Allergies fish derived Allergy (Intermediate, Verified 03/05/24 14:20) Throat swells Penicillins Allergy (Verified 03/05/24 14:20) Hives Tihuqwd-QDQ-VfJ Reductase Inhibitor (Laxzrdo-Tum-Gqy Reductase Inhibitor) Adverse Reaction (Intermediate, Verified 03/05/24 14:20) myalgias Medications ???Medication ???Instructions ???Recorded ???Confirmed ???Type aspirin 81 mg chewable tablet 81 mg PO DAILY@0800 07/14/19 03/05/24 History glimepiride 4 mg tablet 4 mg PO DAILY 07/14/19 03/05/24 History metoprolol succinate 50 mg 50 mg PO DAILY 03/02/23 03/05/24 History tablet,extended release 24 hr escitalopram oxalate 5 mg tablet 5 mg PO QDAY 09/01/23 03/05/24 History levothyroxine 50 mcg tablet 50 mcg PO QDAY 09/01/23 03/05/24 History losartan 100 mg tablet 100 mg PO DAILY #90 tabs 09/01/23 03/05/24 Rx tamsulosin 0.4 mg capsule 0.4 mg PO BID 09/01/23 03/05/24 History donepezil 5 mg tablet 5 mg PO QHS 02/05/24 03/05/24 History antiarthritic combination no.2 900 mg PO 03/05/24 03/05/24 History mg tablet (glucosamine-chondr oitin) cholecalciferol (vitamin D3) 50 1,000 unit PO DAILY 03/05/24 03/05/24 History mcg (2,000 unit) capsule cyanocobalamin (vitamin B-12) 500 500 mcg PO QDAY 03/05/24 03/05/24 History mcg tablet (B-12 DOTS) pyridoxine (vitamin B6) 100 mg 100 mg PO QDAY 03/05/24 03/05/24 History tablet Have you fallen in the past year?: No PFSH Medical History Basal cell carcinoma Acute maxillary sinusitis, unspecified Asthma Hay fever Skin cancer STEMI (ST elevation myocardial infarction) Essential hypertension Hyperlipidemia Atherosclerosis of coronary artery of [place] heart without angina pectoris CKD (chronic kidney disease) Type 2 diabetes mellitus without complication Vitamin D deficiency Mild cognitive impairment Surgical History History of carpal tunnel surgery of right wrist ( 2023) History of nasal surgery History of left cataract extraction History of elbow surgery History of coronary artery stent placement (09/17/14) 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) History of eye surgery History of right cataract extraction Family History Father ALS (amyotrophic lateral sclerosis) Mother Heart disease Breast cancer CVA (cerebral vascular accident) Diabetes Sister Cancer Uterine cancer Social History Smoking Status: Former smoker how long ago did patient quit smokin years ago alcohol intake: current alcohol intake frequency: a few times a week Alcohol type: wine substance use type: does not use caffeine: Yes Type: coffee Number of servings: 1 HPI HPI HPI: RAMONA COBOS, is a 78 M who presents to the office today for evaluation of carotid artery stenosis as referred [place] Dr. [place] [facility] He is accompanied to his appointment today by his who helped to supplement history. He was admitted to [facility] for stroke workup from 02/04/25 - 02/05/25 after he presented to the ED with report of reduced peripheral vision and generally blurred vision through the L eye, it was not a total loss of vision. He had no associated facial drooping, unilateral weakness, unilateral sensory deficits, difficulty speaking. His symptoms resolved within about 4 hours. He did not receive TNK. He had a negative Brain MRI. CTA Head and Neck showed no LVO and radiology reported no significant carotid disease. He was on ASA 81mg daily at the time this occurred, he was started on Plavix x 21 days. He is intolerant to statins. He does have a history of reduced peripheral vision in the L eye at baseline due to prior retinal detachment/disease. After discharge, he saw Dr. Foster who reportedly found no new abnormalities on eye exam and ordered carotid duplex. Carotid duplex 02/19/2024 demonstrated mild <50% R ICA stenosis with max PSV 96/22 cm/sec and 50-69% L ICA stenosis with max PSV 140/21 (more content not included)... Normal [facility] Carotid Duplex Ultrasoundon 02-16-[address] [facility] [address] [place] [address] Carotid Duplex Ultrasound 02/16/24 0811 MR#: [id number] Acct: [id number] Name: RAMONA COBOS Rep #: [id number] : 1945 78 From: Shola Alvarado MD Attending Dr: Dr. Wilian Foster MD Status: REG CLI Ordering Dr: Wilian Foster MD Date: 02/16/24 Location: CVS Sex: M C Admitted: Reason For Study: Amaurosis Fugax Rt. Velocities/BP Lt. Velocities/BP Prox CCA 96/9 cm/sec. Prox CCA 212/12 cm/sec. Mid CCA 90/12 cm/sec. Mid CCA 177/12 cm/sec. Dist CCA 73/13 cm/sec. Dist CCA 88/16 cm/sec. Prox ICA 96/22 cm/sec. Prox ICA 140/21 cm/sec. Mid ICA 85/17 cm/sec. Mid ICA 111/17 cm/sec. Dist ICA 89/22 cm/sec. Dist ICA 115/30 cm/sec. Rt. ICA/CCA = 1.1. Lt. ICA/CCA = 0.8. Prox ECA 88/3 cm/sec. Prox ECA 69/4 cm/sec. Rt. Vert. 61/13 cm/sec. Lt. Vert. 51/11 cm/sec. Right Extracranial There is intimal thickening but no significant atherosclerotic plaque noted in the right common carotid artery. There is heterogeneous, irregular atherosclerotic plaque noted in the right internal carotid artery. There is heterogeneous, irregular atherosclerotic plaque noted in the right external carotid artery. Antegrade flow is noted in the right vertebral artery. Left Extracranial There is heterogeneous, irregular atherosclerotic plaque noted in the left common carotid artery. There is heterogeneous, irregular atherosclerotic plaque noted in the left internal carotid artery. There is intimal thickening but no significant atherosclerotic plaque noted in the left external carotid artery. Antegrade flow is noted in the left vertebral artery. Procedure Carotid Duplex 79[address]. This is a Carotid Duplex examination using B-mode, color flow and specral Doppler. Exam performed in department. VL/Carotid Duplex Ultrasound Interpretation Summary Mild (<50%) stenosis right extracranial internal carotid. Moderate (50-69%) stenosis left extracranial internal carotid. Patent and antegrade vertebrals bilaterally. __ Ordering Physician: Wilian Foster Referring Physician: Donell Capps Performed By: Yancy Pearson, VICKIE, RVT 02/19/24 1340 Date Shola Alvarado MD CC: Dr. Donell Capps, DO; Dr. Wilian Foster MD Date Dictated: 02/16/24 0811 Date Transcribed: 02/19/24 1341 Property Clerk: Signed Normal [facility] Bedside Glucoseon 02-06-2024 FINGERSTICK GLU 285 mg/dL High 74-106 [facility] Comment on above: Result Comment: BJ GEMENT OF PATIENT CARE PER NURSING PROTOCOL Performed By: #### L 501.080 ####[facility] [address] [place], [address] FINGERSTICK GLU 100 mg/dL Normal 74-106 [facility] Comment on above: Result Comment: BJ GEMENT OF PATIENT CARE PER NURSING PROTOCOL Performed By: #### L 501.080 ####[facility] [address] [place], [address] Brain without Contraston Brain without Contrast [facility] Services [address] [place] [address] Brain without Contrast MR#: [id number] Acct: [id number] Name: RAMONA COBOS Rep #: [id number] : 1945 M 78 From: Kevyn Salazar MD PCP: Dr. Donell Capps DO Status: ADM IN Study: Brain without Contrast Date of Exam: 02/06/24 Exam# [id number] Ordering Dr: Shania Gutierrez DO [id number] EXAM: MR HEAD WITHOUT INTRAVENOUS CONTRAST CLINICAL INDICATION: stroke TECHNIQUE: Multiplanar and multisequence MR images of the brain were obtained without intravenous contrast. COMPARISON: CT brain 02/05/2024 FINDINGS: BRAIN AND EXTRA-AXIAL SPACES: No restricted diffusion to indicate acute ischemia. Brain signal intensity is normal. No hemorrhage or mass effect. Ventricles and cortical sulci are prominent in size related to volume loss change commensurate with the patient''s age. Posterior fossa is normal. Basal cisterns are patent. SELLA: Normal. Normal sella turcica, pituitary gland, infundibular stalk, optic chiasm and hypothalamus. AUDITORY SYSTEM: Normal. The internal auditory canals are patent. BONES/JOINTS: Intact calvarium. SINUSES: Unremarkable as visualized. Clear. MASTOID AIR CELLS: Clear. ORBITS: Deformity of the left globe related to surgical banding. VASCULATURE: Unremarkable as visualized. Normal flow voids in the major intracranial circulation. MRI/Brain without Contrast IMPRESSION: No acute intracranial abnormality. Electronically Signed: Kevyn Salazar MD at 11:53 EST , CC: Dr. Shanai Gutierrez DO; Dr. Donell Capps DO Property Clerk: Signed Normal [facility] CBC W/Diff, Automatedon 12-3 Absolute Lymph 1.25 X10 3/uL Normal 0.83-4.51 [facility] Comment on above: Performed By: #### L 501.9985, L501.5200, L501.9520, L100.0100, L501.2300, L500.4050, L500.4100 ####[facility] [address] [place], [address] Absolute Neut 5.5 X10 3/uL Normal 2.0-7.7 [facility] Comment on above: Performed By: #### L 501.9985, L501.5200, L501.9520, L100.0100, L501.2300, L500.4050, L500.4100 ####[facility] [address] [place], [address] Basophils/100 WBC (Bld) 0.6 % Normal 0-1 [facility] Comment on above: Performed By: #### L 501.9985, L501.5200, L501.9520, L100.0100, L501.2300, L500.4050, L500.4100 ####[facility] [address] [place], [address] Eosinophils/100 WBC (Bld) 4.6 % Normal 0-5 [facility] Comment on above: Performed By: #### L 501.9985, L501.5200, L501.9520, L100.0100, L501.2300, L500.4050, L500.4100 ####[facility] [address] [place], [address] Erythrocyte distribution width (RBC) [Ratio] 13.0 % Normal 11.6-14.6 [facility] Comment on above: Performed By: #### L 501.9985, L501.5200, L501.9520, L100.0100, L501.2300, L500.4050, L500.4100 ####[facility] [address] [place], [address] Hematocrit (Bld) [Volume fraction] 36.2 % Low 40-54 [facility] Comment on above: Performed By: #### L 501.9985, L501.5200, L501.9520, L100.0100, L501.2300, L500.4050, L500.4100 ####[facility] [address] [place], [address] Hemoglobin (Bld) [Mass/Vol] 12.3 g/dL Low 13.0-16.5 [facility] Comment on above: Performed By: #### L 501.9985, L501.5200, L501.9520, L100.0100, L501.2300, L500.4050, L500.4100 ####[facility] [address] [place], [address] IG% 0.100 Normal 0.0-0.9 [facility] Comment on above: Result Comment: IG% - Immature Granulocytes (promyelocytes, myelocytes and metamyelocytes) > 1% indicates that a LEFT SHIFT is Present. Performed By: #### L 501.9985, L501.5200, L501.9520, L100.0100, L501.2300, L500.4050, L500.4100 ####[facility] [address] [place], [address] Lymphocytes/100 WBC (Bld) 15.9 % Low 19-41 [facility] Comment on above: Performed By: #### L 501.9985, L501.5200, L501.9520, L100.0100, L501.2300, L500.4050, L500.4100 ####[facility] [address] [place], [address] MCH (RBC) [Entitic mass] 28.9 pg Normal 27.0-32.0 [facility] Comment on above: Performed By: #### L 501.9985, L501.5200, L501.9520, L100.0100, L501.2300, L500.4050, L500.4100 ####[facility] [address] [place], [address] MCHC (RBC) [Mass/Vol] 34.0 g/dL Normal 32-36 [facility] Comment on above: Performed By: #### L 501.9985, L501.5200, L501.9520, L100.0100, L501.2300, L500.4050, L500.4100 ####[facility] [address] [place], [address] MCV (RBC) [Entitic vol] 85.2 fL Normal 80-94 [facility] Comment on above: Performed By: #### L 501.9985, L501.5200, L501.9520, L100.0100, L501.2300, L500.4050, L500.4100 ####[facility] [address] [place], [address] Monocytes/100 WBC (Bld) 9.5 % Normal 0-10 [facility] Comment on above: Performed By: #### L 501.9985, L501.5200, L501.9520, L100.0100, L501.2300, L500.4050, L500.4100 ####[facility] [address] [place], [address] Neutrophils/100 WBC (Bld) 69.3 % Normal 47-70 [facility] Comment on above: Performed By: #### L 501.9985, L501.5200, L501.9520, L100.0100, L501.2300, L500.4050, L500.4100 ####[facility] [address] [place], [address] Nucleated RBC (Bld) [#/Vol] 0 10*3/uL Normal 0-5 [facility] Comment on above: Performed By: #### L 501.9985, L501.5200, L501.9520, L100.0100, L501.2300, L500.4050, L500.4100 ####[facility] [address] [place], [address] Platelet mean volume (Bld) [Entitic vol] 10.9 fL Normal 6.2-12.0 [facility] Comment on above: Performed By: #### L 501.9985, L501.5200, L501.9520, L100.0100, L501.2300, L500.4050, L500.4100 ####[facility] [address] [place], [address] Platelets (Bld) [#/Vol] 178 10*3/uL Normal 150-450 [facility] Comment on above: Performed By: #### L 501.9985, L501.5200, L501.9520, L100.0100, L501.2300, L500.4050, L500.4100 ####[facility] [address] [place], [address] RBC (Bld) [#/Vol] 4.25 10*6/uL Low 4.6-6.2 [facility] Comment on above: Performed By: #### L 501.9985, L501.5200, L501.9520, L100.0100, L501.2300, L500.4050, L500.4100 ####[facility] [address] [place], [address] RDW SD 39.9 fl Normal 35.1-43.9 [facility] Comment on above: Performed By: #### L 501.9985, L501.5200, L501.9520, L100.0100, L501.2300, L500.4050, L500.4100 ####[facility] [address] [place], [address] WBC (Bld) [#/Vol] 7.9 10*3/uL Normal 4.4-11.0 [facility] Comment on above: Performed By: #### L 501.9985, L501.5200, L501.9520, L100.0100, L501.2300, L500.4050, L500.4100 ####[facility] [address] [place], [address] Comprehensive Metabolic Prof ilon 02-06-2024 Albumin [Mass/Vol] 3.1 g/dL Low 3.2-5.0 [facility] Comment on above: Order Comment: Comme nts: NPO at [place] prior to lipid panel Performed By: #### L 501.9985, L501.5200, L501.9520, L100.0100, L501.2300, L500.4050, L500.4100 ####[facility] [address] [place], [place], [id number] Albumin/Globulin [Mass ratio] 1.0 {ratio} Normal 0.9-2.4 [facility] Comment on above: Order Comment: Comme nts: NPO at [place] prior to lipid panel Performed By: #### L 501.9985, L501.5200, L501.9520, L100.0100, L501.2300, L500.4050, L500.4100 ####[facility] [address] [place], [address] ALK P 75 U/L Normal 45-117 [facility] Comment on above: Order Comment: Comme nts: NPO at MN prior to lipid panel Performed By: #### L 501.9985, L501.5200, L501.9520, L100.0100, L501.2300, L500.4050, L500.4100 ####[facility] [address] [place], [address] ALT [Catalytic activity/Vol] 48 U/L Normal 16-61 [facility] Comment on above: Order Comment: Comme nts: NPO at [place] prior to lipid panel Performed By: #### L 501.9985, L501.5200, L501.9520, L100.0100, L501.2300, L500.4050, L500.4100 ####[facility] [address] [place], [address] AST [Catalytic activity/Vol] 20 U/L Normal 15-37 [facility] Comment on above: Order Comment: Comme nts: NPO at [place] prior to lipid panel Performed By: #### L 501.9985, L501.5200, L501.9520, L100.0100, L501.2300, L500.4050, L500.4100 ####[facility] [address] [place], [address] Bilirubin [Mass/Vol] 0.60 mg/dL Normal 0.20-1.00 [facility] Comment on above: Order Comment: Comme nts: NPO at ND prior to lipid panel Result Comment: For patients on eltrombopag therapy, use of Dimension [place] TBIL is not recommended. Performed By: #### L 501.9985, L501.5200, L501.9520, L100.0100, L501.2300, L500.4050, L500.4100 ####[facility] [address] [place], [address] BUN/CRE 17.8 RATIO Normal 10-20 [facility] Comment on above: Order Comment: Comme nts: NPO at ND prior to lipid panel Performed By: #### L 501.9985, L501.5200, L501.9520, L100.0100, L501.2300, L500.4050, L500.4100 ####[facility] [address] [place], [address] CA,Total 8.9 mg/dL Normal 8.5-10.1 [facility] Comment on above: Order Comment: Comme nts: NPO at ND prior to lipid panel Performed By: #### L 501.9985, L501.5200, L501.9520, L100.0100, L501.2300, L500.4050, L500.4100 ####[facility] [address] [place], [address] Chloride [Moles/Vol] 109 mmol/L High 98-107 [facility] Comment on above: Order Comment: Comme nts: NPO at ND prior to lipid panel Performed By: #### L 501.9985, L501.5200, L501.9520, L100.0100, L501.2300, L500.4050, L500.4100 ####[facility] [address] [place], [address] CO2 [Moles/Vol] 28.0 mmol/L Normal 21.0-32.0 [facility] Comment on above: Order Comment: Comme nts: NPO at ND prior to lipid panel Performed By: #### L 501.9985, L501.5200, L501.9520, L100.0100, L501.2300, L500.4050, L500.4100 ####[facility] [address] [facility] [place], [address] Creatinine [Mass/Vol] 0.96 mg/dL Normal 0.70-1.30 [facility] Comment on above: Order Comment: Comme nts: NPO at ND prior to lipid panel Result Comment: The validity of the calculated GFR GFRAA in patients over 70 years has not been determined. Clinical correlation is essential. Performed By: #### L 501.9985, L501.5200, L501.9520, L100.0100, L501.2300, L500.4050, L500.4100 ####[facility] [address] [place], [address] ECRCL 64.02 ml/min Normal [facility] Comment on above: Order Comment: Comme nts: NPO at ND prior to lipid panel Performed By: #### L 501.9985, L501.5200, L501.9520, L100.0100, L501.2300, L500.4050, L500.4100 ####[facility] [address] [place], [address] EST GFR - AA 98 mL/min Normal >60 [facility] Comment on above: Order Comment: Comme nts: NPO at ND prior to lipid panel Result Comment: Afri can Tanzanian GFR Calc Performed By: #### L 501.9985, L501.5200, L501.9520, L100.0100, L501.2300, L500.4050, L500.4100 ####[facility] [address] [place], [place], [id number] GAP 3 Low 5-15 [facility] Comment on above: Order Comment: Comme nts: NPO at ND prior to lipid panel Performed By: #### L 501.9985, L501.5200, L501.9520, L100.0100, L501.2300, L500.4050, L500.4100 ####[facility] [address] [place], [place], [phone] GFR/1.73 sq M.predicted among non-blacks MDRD (S/P/Bld) [Vol rate/Area] 81 mL/min/{1.73_m2} Normal >60 [facility] Comment on above: Order Comment: Comme nts: NPO at ND prior to lipid panel Result Comment: Non- GFR Calc Performed By: #### L 501.9985, L501.5200, L501.9520, L100.0100, L501.2300, L500.4050, L500.4100 ####[facility] [address] [place], [place], [phone]) Globulin (S) [Mass/Vol] 3.0 g/dL Normal 2.2-4.2 [facility] Comment on above: Order Comment: Comme nts: NPO at MN prior to lipid panel Performed By: #### L 501.9985, L501.5200, L501.9520, L100.0100, L501.2300, L500.4050, L500.4100 ####[facility] [address] [place], [address] Glucose [Mass/Vol] 105 mg/dL Normal 74-106 [facility] Comment on above: Order Comment: Comme nts: NPO at MN prior to lipid panel Result Comment: Fast ing Glucose result from 100 to 125 mg/dL suggests IMPAIRED HOMEOSTASIS per A.D.A. criteria. Performed By: #### L 501.9985, L501.5200, L501.9520, L100.0100, L501.2300, L500.4050, L500.4100 ####[facility] [address] [place], [place], [phone] Potassium [Moles/Vol] 4.1 mmol/L Normal 3.5-5.1 [facility] Comment on above: Order Comment: Comme nts: NPO at MN prior to lipid panel Performed By: #### L 501.9985, L501.5200, L501.9520, L100.0100, L501.2300, L500.4050, L500.4100 ####[facility] [address] [place], [address] Sodium [Moles/Vol] 139 mmol/L Normal 136-145 [facility] Comment on above: Order Comment: Comme nts: NPO at MN prior to lipid panel Performed By: #### L 501.9985, L501.5200, L501.9520, L100.0100, L501.2300, L500.4050, L500.4100 ####[facility] [address] [place], [address] T PROT 6.1 g/dL Low 6.4-8.2 [facility] Comment on above: Order Comment: Comme nts: NPO at ND prior to lipid panel Performed By: #### L 501.9985, L501.5200, L501.9520, L100.0100, L501.2300, L500.4050, L500.4100 ####[facility] [address] [facility] [place], [address] Urea nitrogen [Mass/Vol] 17 mg/dL Normal 7-18 [facility] Comment on above: Order Comment: Comme nts: NPO at ND prior to lipid panel Performed By: #### L 501.9985, L501.5200, L501.9520, L100.0100, L501.2300, L500.4050, L500.4100 ####[facility] [address] [place], [address] Discharge Instructionon 01-08 Discharge Instruction [facility] Medical Records Department [address] [place] [address] Instructions for Home/Discharge Instructions 02/06/24 1409 MR#: [id number] Acct: [id number] Name: RAMONA COBOS Rep #: [id number] : 1945 78 From: Lorenzo Gatica MD PCP: Dr. Donell Capps, DO Status:ADM IN Discharge Instructions Diet Discharge Diet: No restrictions and 2000 mg Sodium Diet DC O2, CPAP, BIPAP needs Home O2 Discharge instructions: No Dressing / Incision Discharge Activity: Return to Normal Activity Weight Bearing Status: Weight bearing as tolerated Dressing / Incision Call your doctor if you observe: Fever of 101 or Higher, Coldness, Increased Pain, Numbness or Tingling, Change in Color, Inability to urinate, Inability to have a bowel movement, Shortness of breath, Dizziness, Fainting spells, Swelling in the ankles, Chest pain, Prolonged hiccupping, Increased palpitations (irregular heartbeat) and Calf discomfort Follow Up Care When: IN 2 WEEKS Test Results: Test results from this visit will be discussed in further detail at your follow-up appointment, if applicable. Discharge Plan Admission Admit Date/Time: 02/05/24 21:17 Primary Reason for Your Visit: Left eye peripheral vision loss Attending Provider: Lorenzo Gatica Primary Care Provider: Donell Capps Consulting Providers: Raymond Staples; Jacob Silva; Chelsy Castano; Amrita Ballard; Claudia Dunlap; Donaldo Childress; Julieta Elmore; Eugenio Ochoa; Reese Sanders; Oliverio Berman; Khadra Trotter; Morgan Smith; Brisa Brooks; Brigitte Jeff; Tracee Magdaleno; Oliver Mccormick; Bhavesh Borja; Skyler Steele; Aparna Gutierrez; Miguel Angel Rodriguez; Shania Gutierrez Instructions Additional Instructions / Restrictions: [place] [facility]charge Orders/Prescription s Prescriptions: New clopidogrel [Plavix] 75 mg tablet 75 mg PO DAILY 21 Days Qty: 21 0RF rosuvastatin 10 mg capsule, sprinkle 10 mg PO QHS 30 Days Qty: 30 2RF Rx Instructions: low-dose start because of myalgia with statin Continued memantine 10 mg tablet 10 mg PO QAM metoprolol succinate 50 mg tablet extended release 24 hr 50 mg PO DAILY tamsulosin 0.4 mg capsule 0.4 mg PO BID levothyroxine 50 mcg tablet 50 mcg PO QDAY escitalopram oxalate 5 mg tablet 5 mg PO QDAY losartan 100 mg tablet 100 mg PO DAILY Qty: 90 3RF glimepiride 4 MG tablet 4 mg PO DAILY aspirin 81 MG tablet,chewable 81 mg PO DAILY@0800 cholecalciferol (vitamin D3) 2,000 UNIT capsule 2,000 unit PO DAILY donepezil 5 mg tablet 5 mg PO QHS Referrals / Follow Up: Donell Capps DO [Primary Care Provider] - Juancho Jackson MD [Non-Staff -Ordering Privileges] - Within 1 Month Disposition Disposition (needs filled in before D/C Order can be placed): Home, Self Care 02/06/24 1522 Lorenzo Gatica MD CC: Amrita Ballard; Brisa Brooks; Oliver Mccormick; Claudia Dunlap MD; Chelsy Castano MD; Raymond Staples MD; Dr. Jacob Silva MD; Dr. Donaldo Childress MD; Dr. Julieta Elmore MD; Dr. Reese Sanders MD; Dr. Eugenio Ochoa MD; Dr. Oliverio Berman MD; Dr. Shania Gutierrez DO; Dr. Donell Capps DO; Dr. Morgan Smith DO; Dr. Tracee Magdaleno MD; Dr. Brigitte Jeff MD; Dr. Bhavesh Borja MD; Dr. Skyler Steele MD; Dr. Aparna Gutierrez MD; Khadra Trotter DO; Miguel Angel Rodriguez MD Signed Normal [facility] Hemoglobin A1con 02-06-2024 HbA1c (Bld) [Mass fraction] 6.8 % High 3.8-5.6 [facility] Comment on above: Result Comment: Norm al < 5.7 % Prediabetic 5.7 - 6.4 % Diabetic >or= 6.5 % Please note range changes. Performed By: #### L 501.9985, L501.5200, L501.9520, L100.0100, L501.2300, L500.4050, L500.4100 ####[facility] [address] [place], [address] Lipid Profileon 02-06-2024 Cholesterol [Mass/Vol] 176 mg/dL Normal 200 [facility] Comment on above: Order Comment: Comme nts: NPO at [place] prior to lipid panel Result Comment: <200 mg/dL Desirable 200-240 mg/dL Borderline >240 mg/dL High Risk Performed By: #### L 501.9985, L501.5200, L501.9520, L100.0100, L501.2300, L500.4050, L500.4100 ####[facility] [address] [place], [address] Cholesterol in HDL [Mass/Vol] 44 mg/dL Normal [facility] Comment on above: Order Comment: Comme nts: NPO at [place] prior to lipid panel Result Comment: The drugs N-Acetylcysteine and Metamizole may falsely depress this assay. Reference Range HDL <40 mg/dL Low HDL Cholesterol HDL >or= 60 mg/dL High HDL Cholesterol Performed By: #### L 501.9985, L501.5200, L501.9520, L100.0100, L501.2300, L500.4050, L500.4100 ####[facility] [address] [place], [address] Cholesterol in LDL [Mass/Vol] 106 mg/dL Normal 0-130 [facility] Comment on above: Order Comment: Comme nts: NPO at ND prior to lipid panel Performed By: #### L 501.9985, L501.5200, L501.9520, L100.0100, L501.2300, L500.4050, L500.4100 ####[facility] [address] [place], [place], [phone] Cholesterol in VLDL [Mass/Vol] 26 mg/dL Normal 5-40 [facility] Comment on above: Order Comment: Comme nts: NPO at ND prior to lipid panel Performed By: #### L 501.9985, L501.5200, L501.9520, L100.0100, L501.2300, L500.4050, L500.4100 ####[facility] [address], [address] Triglyceride [Mass/Vol] 131 mg/dL Normal [facility] Comment on above: Order Comment: Comme nts: NPO at ND prior to lipid panel Result Comment: The drugs N-Acetylcysteine and Metamizole may falsely depress this assay. Serum Triglycerides Reference Interval Normal <150 mg/dL Borderline high 150 - 199 mg/dL High 200 - 499 mg/dL Very High > or = 500 mg/dL Performed By: #### L 501.9985, L501.5200, L501.9520, L100.0100, L501.2300, L500.4050, L500.4100 ####[facility] [address] [place], [address] MR/CON.PCM.NEon 02-06-2024 MR/CON.PCM.NE [facility] Medical Records Department [address] [place] [address] Consultation - Neurology 02/06/24 1308 MR#: [id number] Acct: [id number] Name: RAMONA COBOS Rep #: [id number] : 1945 78 From: Aparna Gutierrez MD PCP: Dr. Donell Capps, DO Status:ADM IN [facility] Assessment and Plan: Stroke Assessment/Plan ASSESSMENT/PLAN: DWI negative TIA 1) Recommend TTE to complet TIA work-up. If TTE negative, can DC home 2) Asa/plavix x 21 days, then stop plavix and continue Asa only thereafter 3) Recommend starting lipitor 4) Follow-up in outpatient neurology clinic. Primary team messaged on backline. HPI Consult Data Date of Consult: 02/06/24 HPI Narrative HPI Narrative: RAMONA COBOS is a 78 yo RH M with a history of DM HTN HL CAD s/p stent (on home Asa) who at [address] developed decreased vision on the left (out of focus/blurry) to the point where he could not see his own hand. He presented to [facility]. CT brain negative. CTA head/neck negative. He was admitted to medicine. LDL 106, HgbA1c 6.8. MRI brain DWI negative. This morning he feels back to baseline (episode lasted 4hrs). He is on Asa/plavix. Neurological examination shows nonfocal exam.NIHSS-0. TTE completed, awaiting report. [facility] Medical History Basal cell carcinoma Acute maxillary sinusitis, unspecified Asthma Hay fever Skin cancer STEMI (ST elevation myocardial infarction) Essential hypertension Hyperlipidemia Atherosclerosis of coronary artery of [place] heart without angina pectoris CKD (chronic kidney disease) Type 2 diabetes mellitus without complication Vitamin D deficiency Mild cognitive impairment Home Medications ???Medication ???Instructions ???Recorded ???Last Taken ???Type aspirin 81 mg chewable tablet 81 mg PO DAILY@0800 07/14/19 Unknown History cholecalciferol (vitamin D3) 50 2,000 unit PO DAILY 07/14/19 Unknown History mcg (2,000 unit) capsule glimepiride 4 mg tablet 4 mg PO DAILY 07/14/19 Unknown History memantine 10 mg tablet 10 mg PO QAM 03/02/23 Unknown History metoprolol succinate 50 mg 50 mg PO DAILY 03/02/23 Unknown History tablet,extended release 24 hr escitalopram oxalate 5 mg tablet 5 mg PO QDAY 09/01/23 Unknown History levothyroxine 50 mcg tablet 50 mcg PO QDAY 09/01/23 Unknown History losartan 100 mg tablet 100 mg PO DAILY #90 tabs 09/01/23 Unknown Rx tamsulosin 0.4 mg capsule 0.4 mg PO BID 09/01/23 Unknown History donepezil 5 mg tablet 5 mg PO QHS 02/05/24 Unknown History Allergy/AdvReac Type Severity Reaction Status Date / Time fish derived Allergy Intermediate Throat Verified 02/05/24 20:51 swells Penicillins Allergy Hives Verified 02/05/24 20:51 Bemiymw-VXG-GhB Reductase AdvReac Intermediate myalgias Verified 02/05/24 20:51 Inhibitor (Zvdqkzf-Dmv-Arc Reductase Inhibitor) Family History Father ALS (amyotrophic lateral sclerosis) Mother Heart disease Breast cancer CVA (cerebral vascular accident) Diabetes Sister Cancer Uterine cancer Surgical History History of carpal tunnel surgery of right wrist ( 2023) History of nasal surgery History of left cataract extraction History of elbow surgery History of coronary artery stent placement (09/17/14) 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) History of eye surgery History of right cataract extraction Social History Smoking Status: Former smoker how long ago did patient quit smokin years ago alcohol intake: current alcohol intake frequency: a few times a week Alcohol type: wine substance use type: does not use caffeine: Yes Type: coffee Number of servings: 1 Vital Signs Vital Signs Vital Signs: 02/05/24 20:15 02/05/24 20:16 02/05/24 20:17 Temperature 98.2 F Temperature Source Oral Pulse Rate 59 L 59 L 89 Respiratory Rate 14 18 16 Respiratory Effort Respiratory Depth Respiratory Pattern Blood Pressure 183/67 H 178/63 H 183/67 H Blood Pressure Mean 105 101 105 Blood Pressure Source Blood Pressure Position Blood Pressure Location Pulse Ox 100 98 98 Oxygen Delivery Method Room Air Room Air Room Air 02/05/24 20:33 02/05/24 20:46 02/05/24 21:16 Temperature Temperature Source Pulse Rate 60 54 L Respiratory Rate 20 H 16 Respiratory Effort Respiratory Depth Respiratory Pattern Blood Pressure 182/55 H 138/97 H Blood Pressure Mean 97 110 Blood Pressure Source Blood Pressure Position Blood Pressure Location Pulse Ox 100 98 Oxygen Delivery Method Room Air Room Air Room Air (more content not included)... Normal [facility] Magnesiumon 02-06-2024 Magnesium [Mass/Vol] 2.1 mg/dL Normal 1.6-2.6 [facility] Comment on above: Order Comment: Comme nts: NPO at ND prior to lipid panel Performed By: #### L 501.9985, L501.5200, L501.9520, L100.0100, L501.2300, L500.4050, L500.4100 ####[facility] [address] [facility] [place], [place], [phone] Phosphoruson 02-06-2024 Phosphate [Mass/Vol] 3.4 mg/dL Normal 2.5-4.9 [facility] Comment on above: Order Comment: Comme nts: NPO at ND prior to lipid panel Performed By: #### L 501.9985, L501.5200, L501.9520, L100.0100, L501.2300, L500.4050, L500.4100 ####[facility] [address] [facility] [place], [place], [phone] Thyroid Stim Hormone (TSH)on 02-06-2024 TSH 2.960 uIU/mL Normal 0.358-3.740 [facility] Comment on above: Order Comment: Comme nts: NPO at ND prior to lipid panel Performed By: #### L 501.9985, L501.5200, L501.9520, L100.0100, L501.2300, L500.4050, L500.4100 ####[facility] [address] [place], [address] 12 Lead EKGon 02-05-2024 12 Lead EKG [facility] Cardiovascular Services [address] [place] [address] 12 Lead EKG 02/05/242031 MR#: [id number] Acct: [id number] Name: RAMONA COBOS Rep #: [id number] : 1945 78 From: Rinku Aguirre MD Attending Dr: Dr. Lorenzo Gatica MD Status: ADM IN Ordering Dr: Dariusz Castellanos MD Date: 02/05/24 Location: [facility] Sex: M C Admitted: 02/05/24 Test Reason : STROKE Blood Pressure : */* mmHG Vent. Rate : 60 BPM Atrial Rate : 60 BPM P-R Int : 172 ms QRS Dur : 92 ms QT Int : 438 ms P-R-T Axes : 19 41 70 degrees QTcB Int : 438 ms Normal sinus rhythm Normal ECG Confirmed by KEON LEACH, RINKU ([id number]), social media editor MARIANA ROACH ([id number]) on 02/06/2024 8:02:44 AM Referred By: Confirmed By: RINKU AGUIRRE MD 02/06/24 0802 Date Rinku Aguirre MD CC: Dr. Donell Capps DO; Dr. Lorenzo Gatica MD; Dr. Dariusz Castellanos MD Signed Normal [facility] Basic Metabolic Profile (BMP )on 02-05-2024 BUN/CRE 18.9 RATIO Normal -20 [facility] Comment on above: Order Comment: 'TROP ' Serial specimen #1, #2 or #3: 1 Performed By: #### L 300.3900, L100.0100, L300.4310, L500.2500, L501.4020 #### [facility] [address] [place], [address] CA,Total 8.5 mg/dL Normal 8.5-10.1 [facility] Comment on above: Order Comment: 'TROP ' Serial specimen #1, #2 or #3: 1 Performed By: #### L 300.3900, L100.0100, L300.4310, L500.2500, L501.4020 #### [facility] [address] [place], [address] Chloride [Moles/Vol] 107 mmol/L Normal 98-107 [facility] Comment on above: Order Comment: 'TROP ' Serial specimen #1, #2 or #3: 1 Performed By: #### L 300.3900, L100.0100, L300.4310, L500.2500, L501.4020 #### [facility] [address] [place], [address] CO2 [Moles/Vol] 29.0 mmol/L Normal 21.0-32.0 [facility] Comment on above: Order Comment: 'TROP ' Serial specimen #1, #2 or #3: 1 Performed By: #### L 300.3900, L100.0100, L300.4310, L500.2500, L501.4020 #### [facility] [address] [place], [address] Creatinine [Mass/Vol] 1.11 mg/dL Normal 0.70-1.30 [facility] Comment on above: Order Comment: 'TROP ' Serial specimen #1, #2 or #3: 1 Result Comment: The validity of the calculated GFR GFRAA in patients over 70 years has not been determined. Clinical correlation is essential. Performed By: #### L 300.3900, L100.0100, L300.4310, L500.2500, L501.4020 #### [facility] [address] [place], [address] ECRCL 55.93 ml/min Normal [facility] Comment on above: Order Comment: 'TROP ' Serial specimen #1, #2 or #3: 1 Performed By: #### L 300.3900, L100.0100, L300.4310, L500.2500, L501.4020 #### [facility] [address] [place], [address] EST GFR - AA 82 mL/min Normal >60 [facility] Comment on above: Order Comment: 'TROP ' Serial specimen #1, #2 or #3: 1 Result Comment: Afri can Tanzanian GFR Calc Performed By: #### L 300.3900, L100.0100, L300.4310, L500.2500, L501.4020 #### [facility] [address] [place], [address] GAP 4 Low 5-15 [facility] Comment on above: Order Comment: 'TROP ' Serial specimen #1, #2 or #3: 1 Performed By: #### L 300.3900, L100.0100, L300.4310, L500.2500, L501.4020 #### [facility] [address] [place], [address] GFR/1.73 sq M.predicted among non-blacks MDRD (S/P/Bld) [Vol rate/Area] 68 mL/min/{1.73_m2} Normal >60 [facility] Comment on above: Order Comment: 'TROP ' Serial specimen #1, #2 or #3: 1 Result Comment: Non- GFR Calc Performed By: #### L 300.3900, L100.0100, L300.4310, L500.2500, L501.4020 #### [facility] [address] [place], [address] Glucose [Mass/Vol] 180 mg/dL High 74-106 [facility] Comment on above: Order Comment: 'TROP ' Serial specimen #1, #2 or #3: 1 Result Comment: Fast ing Glucose result greater than or equal to 126 mg/dL suggests DIABETES MELLITUS per A.D.A. criteria. Performed By: #### L 300.3900, L100.0100, L300.4310, L500.2500, L501.4020 #### [facility] [address] [place], [address] Potassium [Moles/Vol] 4.1 mmol/L Normal 3.5-5.1 [facility] Comment on above: Order Comment: 'TROP ' Serial specimen #1, #2 or #3: 1 Performed By: #### L 300.3900, L100.0100, L300.4310, L500.2500, L501.4020 #### [facility] [address] [place], [address] Sodium [Moles/Vol] 140 mmol/L Normal 136-145 [facility] Comment on above: Order Comment: 'TROP ' Serial specimen #1, #2 or #3: 1 Performed By: #### L 300.3900, L100.0100, L300.4310, L500.2500, L501.4020 #### [facility] [address] [place], [address] Urea nitrogen [Mass/Vol] 21 mg/dL High 7-18 [facility] Comment on above: Order Comment: 'TROP ' Serial specimen #1, #2 or #3: 1 Performed By: #### L 300.3900, L100.0100, L300.4310, L500.2500, L501.4020 #### [facility] [address] [place], [address] Bedside Glucoseon 02-05-2024 FINGERSTICK GLU 131 mg/dL High 74-106 [facility] Comment on above: Result Comment: BJ GEMENT OF PATIENT CARE PER NURSING PROTOCOL Performed By: #### L 501.080 ####[facility] [address] [place], [address] FINGERSTICK GLU 238 mg/dL High 74-106 [facility] Comment on above: Result Comment: BJ GEMENT OF PATIENT CARE PER NURSING PROTOCOL Performed By: #### L 501.080 ####[facility] [address] [place], [address] CBC W/Diff, Automatedon 12-3 0-2023 Absolute Lymph 1.10 X10 3/uL Normal 0.83-4.51 [facility] Comment on above: Performed By: #### L 300.3900, L100.0100, L300.4310, L500.2500, L501.4020 #### [facility] [address] [place], [address] Absolute Neut 5.0 X10 3/uL Normal 2.0-7.7 [facility] Comment on above: Performed By: #### L 300.3900, L100.0100, L300.4310, L500.2500, L501.4020 #### [facility] [address] [place], [address] Basophils/100 WBC (Bld) 0.7 % Normal 0-1 [facility] Comment on above: Performed By: #### L 300.3900, L100.0100, L300.4310, L500.2500, L501.4020 #### [facility] [address] [place], [address] Eosinophils/100 WBC (Bld) 4.7 % Normal 0-5 [facility] Comment on above: Performed By: #### L 300.3900, L100.0100, L300.4310, L500.2500, L501.4020 #### [facility] [address] [place], [address] Erythrocyte distribution width (RBC) [Ratio] 13.0 % Normal 11.6-14.6 [facility] Comment on above: Performed By: #### L 300.3900, L100.0100, L300.4310, L500.2500, L501.4020 #### [facility] [address] [place], [address] Hematocrit (Bld) [Volume fraction] 36.5 % Low 40-54 [facility] Comment on above: Performed By: #### L 300.3900, L100.0100, L300.4310, L500.2500, L501.4020 #### [facility] [address] [place], [address] Hemoglobin (Bld) [Mass/Vol] 12.2 g/dL Low 13.0-16.5 [facility] Comment on above: Performed By: #### L 300.3900, L100.0100, L300.4310, L500.2500, L501.4020 #### [facility] [address] [place], [address] IG% 0.400 Normal 0.0-0.9 [facility] Comment on above: Result Comment: IG% - Immature Granulocytes (promyelocytes, myelocytes and metamyelocytes) > 1% indicates that a LEFT SHIFT is Present. Performed By: #### L 300.3900, L100.0100, L300.4310, L500.2500, L501.4020 #### [facility] [address] [place], [address] Lymphocytes/100 WBC (Bld) 15.3 % Low 19-41 [facility] Comment on above: Performed By: #### L 300.3900, L100.0100, L300.4310, L500.2500, L501.4020 #### [facility] [address] [place], [address] MCH (RBC) [Entitic mass] 28.8 pg Normal 27.0-32.0 [facility] Comment on above: Performed By: #### L 300.3900, L100.0100, L300.4310, L500.2500, L501.4020 #### [facility] [address] [place], [address] MCHC (RBC) [Mass/Vol] 33.4 g/dL Normal 32-36 [facility] Comment on above: Performed By: #### L 300.3900, L100.0100, L300.4310, L500.2500, L501.4020 #### [facility] [address] [place], [address] MCV (RBC) [Entitic vol] 86.1 fL Normal 80-94 [facility] Comment on above: Performed By: #### L 300.3900, L100.0100, L300.4310, L500.2500, L501.4020 #### [facility] [address] [place], [address] Monocytes/100 WBC (Bld) 9.2 % Normal 0-10 [facility] Comment on above: Performed By: #### L 300.3900, L100.0100, L300.4310, L500.2500, L501.4020 #### [facility] [address] [place], [address] Neutrophils/100 WBC (Bld) 69.7 % Normal 47-70 [facility] Comment on above: Performed By: #### L 300.3900, L100.0100, L300.4310, L500.2500, L501.4020 #### [facility] [address] [place], [address] Nucleated RBC (Bld) [#/Vol] 0 10*3/uL Normal 0-5 [facility] Comment on above: Performed By: #### L 300.3900, L100.0100, L300.4310, L500.2500, L501.4020 #### [facility] [address] [place], [address] Platelet mean volume (Bld) [Entitic vol] 11.2 fL Normal 6.2-12.0 [facility] Comment on above: Performed By: #### L 300.3900, L100.0100, L300.4310, L500.2500, L501.4020 #### [facility] [address] [place], [address] Platelets (Bld) [#/Vol] 183 10*3/uL Normal 150-450 [facility] Comment on above: Performed By: #### L 300.3900, L100.0100, L300.4310, L500.2500, L501.4020 #### [facility] [address] [place], [address] RBC (Bld) [#/Vol] 4.24 10*6/uL Low 4.6-6.2 [facility] Comment on above: Performed By: #### L 300.3900, L100.0100, L300.4310, L500.2500, L501.4020 #### [facility] [address] [place], [address] RDW SD 40.5 fl Normal 35.1-43.9 [facility] Comment on above: Performed By: #### L 300.3900, L100.0100, L300.4310, L500.2500, L501.4020 #### [facility] [address] [place], [address] WBC (Bld) [#/Vol] 7.2 10*3/uL Normal 4.4-11.0 [facility] Comment on above: Performed By: #### L 300.3900, L100.0100, L300.4310, L500.2500, L501.4020 #### [facility] [address] [place], [address] Chest 1 Viewon 02-05-2024 Chest 1 View [facility] Imaging Services [address] [place] [address] Chest 1 View MR#: [id number] Acct: [id number] Name: RAMONA COBOS Rep #: [id number] : 1945 M 78 From: Darius Erickson DO PCP: Dr. Donell Capps DO Status: REG ER Study: Chest 1 View Date of Exam: 02/05/24 Exam# [id number] Ordering Dr: Dariusz Castellanos MD -[id number] INDICATION: Neuro deficit, acute, stroke suspected EXAMINATION/TECHNIQ UE: X-RAY - XR Chest 1 View COMPARISON: FINDINGS: LINES/DEVICES: Sternotomy wires present. LUNGS: No consolidation, edema or effusion. No pneumothorax. MEDIASTINUM AND CARDIOVASCULAR STRUCTURES: Cardiac silhouette not enlarged. Central airways and mediastinal contour are unremarkable. BONES AND SOFT TISSUES: Unremarkable. RAD/Chest 1 View IMPRESSION: No radiographic evidence of acute cardiopulmonary disease. Electronically Signed: Darius Erickson DO at 21:19 EST Reading Location ID and State: [facility] / [place] Tel [phone], Service support , CC: Dr. Donell Capps DO; Dr. Dariusz Castellanos MD Property Clerk: Signed Normal [facility] Echo Completeon 02-05-2024 Echo Complete [facility] [address] [place] [address] Echo Complete 02/06/24 0834 MR#: [id number] Acct: [id number] Name: RAMONA COBOS Rep #: [id number] : 1945 78 From: Rinku Aguirre MD Attending Dr: Dr. Lorenzo Gatica MD Status: ADM IN Ordering Dr: Shania Gutierrez DO Date: 02/05/24 Location: U Sex: M C Admitted: 02/05/24 Reason For Study: TIA/STROKE Procedure This was a 2D Doppler, Color Flow transthoracic echocardiogram. Exam performed portable in patient room. Left Ventricle Normal LV size. Moderate concentric left ventricular hypertrophy. Left ventricular systolic function is normal. The left ventricular ejection fraction is 55 %. No regional wall motion abnormalities noted. Right Ventricle Normal RV size. Normal systolic function. Mitral Valve Normal mitral valve. Tricuspid Valve Normal tricuspid valve. Mild (1+) tricuspid valve insufficiency. Pulmonary artery systolic pressure is 32 mmHg. Aortic Valve Trisinus/trileaflet aortic valve. Moderate focal aortic valve calcification. Peak aortic valve gradient 36 mmHg. Mean aortic valve gradient 23 mmHg. Mild to moderate aortic stenosis. Pulmonic Valve The pulmonic valve is not well visualized. Great Vessels Normal aortic root. The pulmonary is not well visualized. Inferior vena cava collapse with respiration. Pericardium/Pleural No pericardial effusion. MMode/2D Measurements Calculations LVIDd: 4.2 cm IVSd: 1.5 cm LVOT diam: 2.1 cm LVIDs: 2.7 cm LVPWd: 1.7 cm LVOT area: 3.4 cm2 RVDd: 4.8 cm FS: 36.6 % asc Aorta Diam: 3.4 cm LAV(MOD-bp): 51.6 ml LVAd ap4: 24.8 cm2 LAV(MOD-bp) Indexed: 26.6 ml/m2 LVLd ap4: 8.2 cm LAV(MOD-sp2): 53.0 ml EDV(MOD-sp4): 61.4 ml LAV(MOD-sp4): 49.2 ml EDV(sp4-el): 63.2 ml LVAs ap4: 12.7 cm2 LVLs ap4: 6.8 cm ESV(MOD-sp4): 20.4 ml ESV(sp4-el): 20.2 ml EF(MOD-sp4): 66.8 % EF(sp4-el): 68.1 % SV(MOD-sp4): 41.0 ml SV(MOD-sp2): 26.5 ml LVAd ap2: 21.1 cm2 LVLd ap2: 7.7 cm SI(MOD-sp4): 21.2 ml/m2 SI(MOD-sp2): 13.7 ml/m2 EDV(MOD-sp2): 46.8 ml EDV(sp2-el): 49.2 ml LVAs ap2: 12.7 cm2 LVLs ap2: 6.8 cm ESV(MOD-sp2): 20.3 ml ESV(sp2-el): 20.3 ml EF(MOD-sp2): 56.7 % SV(sp4-el): 43.1 ml Ao sinus diam: 3.[address] Junction: 3.0 cm LA A4 area: 18.2 cm2 LA dimension(2D): 3.7 cm RA A4 area: 11.9 cm2 TAPSE: 1.9 cm Time Measurements MV dec time: 0.23 sec Doppler Measurements Calculations MV E max ozzie: 83.8 cm/sec Lat Peak E' Ozzie: 10.7 cm/sec Med Peak E' Ozzie: 6.5 cm/sec MV A max ozzie: 61.4 cm/sec E/E' lat: 7.8 E/E' med: 13.0 MV E/A: 1.4 Ao V2 max: 299.0 cm/sec LV V1 max: 103.6 cm/sec MV dec slope: 362.0 cm/sec2 Ao max P.9 mmHg LV V1 max P.3 mmHg Ao V2 mean: 228.8 cm/sec LV V1 mean P.6 mmHg Ao mean P.5 mmHg LV V1 mean: 78.6 cm/sec Ao V2 VTI: 73.1 cm LV V1 VTI: 29.8 cm AV (velocity ratio): 0.41 JANE(I,D): 1.4 cm2 JANE(V,D): 1.2 cm2 SV(LVOT): 101.2 ml PA V2 max: 81.3 cm/sec TR max ozzie: 267.5 cm/sec TR max P.6 mmHg ECHO/Echo Complete Interpretation Summary Normal LV size. Left ventricular systolic function is normal. The left ventricular ejection fraction is 55 %. Mean aortic valve gradient 23 mmHg. Mild to moderate aortic stenosis. Moderate concentric left ventricular hypertrophy. __ Ordering Physician: Shania Gutierrez Referring Physician: Donell Capps Performed By: Katelin Bullock JOSELYN 02/06/24 1059 Date Rinku Aguirre MD CC: Dr. Shania Gutierrez DO; Dr. Donell Capps DO; Dr. Lorenzo Gatica MD Date Dictated: 02/06/2434 Date Transcribed: 02/06/241058 Property Clerk: Signed Normal [facility] Emergency Department Summary on 02-05-2024 Emergency Department Summary [facility] Medical Records Department [address] [place] [address] Emergency Department Summary 02/05/24 MR#: [id number] Acct: [id number] Name: RAMONA COBOS Rep #: [id number] : 1945 78 From: Dariusz Castellanos MD PCP: Dr. Donell Capps DO Status:REG ER Location: ED HPI History of Present Illness Chief Complaint: Stroke Alert Detail of Chief Complaint: Patient developed abrupt onset of change in vision left side while driving Informant: patient and spouse/S.O. Onset/Context/Timin g Onset: Today (1400 while driving a car) Context: Sudden Onset Timing: Continuous Quality and Location: Positive for - (Does not see his left arm) Current Severity: Mild Maximum Severity: Mild Worsened by: Nothing Relieved by: Nothing Associated Symptoms Associated Symptoms: Negative for Headache, Nausea, Vomiting or Chest Pain Narrative Narrative: Patient is a 78-year-old male with history of type 2 diabetes, essential hypertension, hyperlipidemia and coronary artery disease with stent placement 2015 at [facility]. He presents because of change in vision that was first noted at 1400. He was driving at the time. His symptoms never resolved. Approximately 1.25 to 1.5 hours his visual symptoms got worse and he was unable to see his left arm when he held it to his side. He has no other symptoms. Prior similar symptoms: No Recent Illness/Hospitaliza tion: No PFSH PFS Medical History Basal cell carcinoma Acute maxillary sinusitis, unspecified Asthma Hay fever Skin cancer STEMI (ST elevation myocardial infarction) Essential hypertension Hyperlipidemia Atherosclerosis of coronary artery of [place] heart without angina pectoris CKD (chronic kidney disease) Type 2 diabetes mellitus without complication Vitamin D deficiency Mild cognitive impairment Home Medications ???Medication ???Instructions ???Recorded ???Last Taken ???Type aspirin 81 mg chewable tablet 81 mg PO DAILY@0800 07/14/19 Unknown History cholecalciferol (vitamin D3) 50 2,000 unit PO DAILY 07/14/19 Unknown History mcg (2,000 unit) capsule glimepiride 4 mg tablet 4 mg PO DAILY 07/14/19 Unknown History memantine 10 mg tablet 10 mg PO QAM 03/02/23 Unknown History metoprolol succinate 50 mg 50 mg PO DAILY 03/02/23 Unknown History tablet,extended release 24 hr escitalopram oxalate 5 mg tablet 5 mg PO QDAY 09/01/23 Unknown History levothyroxine 50 mcg tablet 50 mcg PO QDAY 09/01/23 Unknown History losartan 100 mg tablet 100 mg PO DAILY #90 tabs 09/01/23 Unknown Rx tamsulosin 0.4 mg capsule 0.4 mg PO BID 09/01/23 Unknown History donepezil 5 mg tablet 5 mg PO QHS 02/05/24 Unknown History Allergy/AdvReac Type Severity Reaction Status Date / Time fish derived Allergy Intermediate Throat Verified 02/05/24 20:51 swells Penicillins Allergy Hives Verified 02/05/24 20:51 Vlcrhxe-RRW-WcF Reductase AdvReac Intermediate myalgias Verified 02/05/24 20:51 Inhibitor (Pzlvfra-Hvg-Pyx Reductase Inhibitor) Family History Father ALS (amyotrophic lateral sclerosis) Mother Heart disease Breast cancer CVA (cerebral vascular accident) Diabetes Sister Cancer Uterine cancer Surgical History History of carpal tunnel surgery of right wrist ( 2023) History of nasal surgery History of left cataract extraction History of elbow surgery History of coronary artery stent placement (09/17/14) 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) History of eye surgery History of right cataract extraction Social History Smoking Status: Former smoker how long ago did patient quit smokin years ago alcohol intake: current alcohol intake frequency: a few times a week Alcohol type: wine substance use type: does not use caffeine: Yes Type: coffee Number of servings: 1 ROS ROS ED Constitutional Constitutional ED: Denies chills, fever(s), subjective, sweats or weakness Eyes Eyes: Reports blurry vision left and change in vision ENT ENT ED: Denies ear pain or rhinorrhea Cardiovascular Cardiovascular: Denies chest pain or palpitations Respiratory/Chest Respiratory/Chest: Denies cough, dyspnea or dyspnea on exertion Gastrointestinal Gastrointestinal: Denies abdominal pain, nausea or vomiting Genitourinary Genitourinary ED: Denies dysuria, hematuria or urinary frequency Musculoskeletal Musculoskeletal: Denies arthralgias, myalgias or neck pain Integumentary Denies rash Neurologic Neurologic: Denies headache(s), paresthesias or weakness Psychiatric Psychiatric: Denies anxiety or depression Hematologic/Lymphat ic Hematologic/Lymphat ic: Denies easy bleeding or e (more content not included)... Normal [facility] H AND P Exam - Hospitaliston 02-05-2024 H&P Exam - Hospitalist [facility] Medical Records Department [address] [place] [address] H P Exam - Hospitalist 02/05/248 MR#: [id number] Acct: [id number] Name: RAMONA COBOS Rep #: [id number] : 1945 78 From: Shania Gutierrez DO PCP: Dr. Donell Capps DO Status:ADM IN Location: [facility] [id number] HPI - General General Date of Admission: 02/05/24 Date of Service: 02/05/24 Chief Complaint: visual field cut HPI Narrative RAMONA COBOS, is a 78 M who presented to the emergency department [facility] on 02/05/2024 with a chief complaint of visual changes in his left eye. Patient stated he was driving earlier and reported that the son was in his eyes so he had trouble seeing (this was between 4 and 430) however it was then noticed by family his pupil looked a little bit different and he had loss of vision peripherally on the left eye only about an hour to an hour and a half after that episode. Given these findings, his son drove him to the emergency department for further evaluation. He denied any tingling numbness or weakness anywhere. Initial NIH was 2 for visual changes and he was given a 1 for facial palsy however on my exam there is no facial palsy present and his NIH was 1. He does have a known history of DM-2, hypertension, hyperlipidemia and does not tolerate statins as well as coronary artery disease with previous stent placement in 2014. He has had a recent echocardiogram however bubble study was not performed at that time. EF was 65% and he had mild to moderate aortic stenosis. Vital signs on presentation showed temperature of 98.2, heart rate 59, blood pressure 183/67, pulse ox was 100% on room air. CBC was overtly unremarkable. Coags were normal. Chemistry panel was unremarkable except for blood glucose level 180. Troponin was 8. EKG was normal sinus rhythm with normal intervals and no ST-T wave changes concerning for acute ischemia. Chest x-ray was completely unremarkable. CT the brain showed no acute intracranial pathology and CTA of the head and neck showed no stenosis that was significant and I questionable 1 mm aneurysm at the junction of the anterior communicating and right A2 segment. On exam there was significant anisocoria left eye. It was evident the patient has had previous cataract surgery bilaterally. [facility] Medical History Basal cell carcinoma Acute maxillary sinusitis, unspecified Asthma Hay fever Skin cancer STEMI (ST elevation myocardial infarction) Essential hypertension Hyperlipidemia Atherosclerosis of coronary artery of [place] heart without angina pectoris CKD (chronic kidney disease) Type 2 diabetes mellitus without complication Vitamin D deficiency Mild cognitive impairment Home Medications ???Medication ???Instructions ???Recorded ???Last Taken ???Type aspirin 81 mg chewable tablet 81 mg PO DAILY@0800 07/14/19 Unknown History cholecalciferol (vitamin D3) 50 2,000 unit PO DAILY 07/14/19 Unknown History mcg (2,000 unit) capsule glimepiride 4 mg tablet 4 mg PO DAILY 07/14/19 Unknown History memantine 10 mg tablet 10 mg PO QAM 03/02/23 Unknown History metoprolol succinate 50 mg 50 mg PO DAILY 03/02/23 Unknown History tablet,extended release 24 hr escitalopram oxalate 5 mg tablet 5 mg PO QDAY 09/01/23 Unknown History levothyroxine 50 mcg tablet 50 mcg PO QDAY 09/01/23 Unknown History losartan 100 mg tablet 100 mg PO DAILY #90 tabs 09/01/23 Unknown Rx tamsulosin 0.4 mg capsule 0.4 mg PO BID 09/01/23 Unknown History donepezil 5 mg tablet 5 mg PO QHS 02/05/24 Unknown History Allergy/AdvReac Type Severity Reaction Status Date / Time fish derived Allergy Intermediate Throat Verified 02/05/24 20:51 swells Penicillins Allergy Hives Verified 02/05/24 20:51 Xvdzsnu-RWB-TpW Reductase AdvReac Intermediate myalgias Verified 02/05/24 20:51 Inhibitor ([place]-Jno-Xmc Reductase Inhibitor) Family History Father ALS (amyotrophic lateral sclerosis) Mother Heart disease Breast cancer CVA (cerebral vascular accident) Diabetes Sister Cancer Uterine cancer Surgical History History of carpal tunnel surgery of right wrist ( 2023) History of nasal surgery History of left cataract extraction History of elbow surgery History of coronary artery stent placement (09/17/14) 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) History of eye surgery History of right cataract extraction Social History Smoking Status: Former smoker how long ago did patient quit smokin years ago alcohol intake: current alcohol intake frequency: a few times a week Alcohol type: wine substance use type: does not use caffe (more content not included)... Normal [facility] L501.4020on 02-05-2024 TROPONIN-I HS 8 pg/mL Normal 3.0-78.0 [facility] Comment on above: Order Comment: 'TROP ' Serial specimen #1, #2 or #3: 1 Result Comment: Evan garcia Note: New Test Units and Gender Specific Reference Ranges. For more information see Policy Stat Procedure [place] High Sensitivity Troponin (TNIH) and attachments. Performed By: #### L 300.3900, L100.0100, L300.4310, L500.2500, L501.4020 #### [facility] [address] [place], [address] Partial Thromboplast Timeon 02-05-2024 aPTT Coag (Bld) [Time] 28.3 s Normal 24.1-36.2 [facility] Comment on above: Performed By: #### L 300.3900, L100.0100, L300.4310, L500.2500, L501.4020 #### [facility] [address] [place], [address] Prothrombin Time w/INRon INR Coag (PPP) [Relative time] 1.1 {INR} Normal [facility] Comment on above: Performed By: #### L 300.3900, L100.0100, L300.4310, L500.2500, L501.4020 #### [facility] [address] [place], [address] PT Coag (PPP) [Time] 14.1 s Normal 11.7-14.9 [facility] Comment on above: Performed By: #### L 300.3900, L100.0100, L300.4310, L500.2500, L501.4020 #### [facility] [address] [place], [address] STROKE Brain/Head without Co nton 02-05-2024 STROKE Brain/Head without Cont [facility] Imaging Services [address] [place] [address] STROKE Brain/Head without Cont MR#: [id number] Acct: [id number] Name: RAMONA COBOS Rep #: [id number] : 1945 M 78 From: Darius Erickson DO PCP: Dr. Donell Capps DO Status: ADM IN Study: STROKE Brain/Head without Cont Date of Exam: Exam# [id number] Ordering Dr: Dariusz Castellanos MD ADDENDUM by Dr. Russel Encarnacion MD on 02/06/24 at 0821 ADDENDUM -[id number] ADDENDUM: No metallic foreign bodies are noted to preclude the patient from undergoing MRI evaluation Electronically Signed: Roney Encarnacion MD at 8:21 EST , N.B. : The above Results were Read Back by Darius Erickson DO to Dax Vicente DO, and understanding confirmed on 02/05/2024 20:31:47 (ET). 02/06/24 0821 Date cc: Dr. Donell Capps DO; Dr. Dariusz Castellanos MD * Signed ADDENDUM by Dr. Darius Erickson DO on 02/05/24 at 2030 [id number] INDICATION: Neuro deficit, acute, stroke suspected EXAMINATION: CT BRAIN - CT Head Stroke Protocol W/O Contrast Injection TECHNIQUE: Multiple axial images were obtained of the head without intravenous contrast. The protocol utilizes one or more of the following dose reduction techniques: automated exposure control, adjustment of mA and/or kV according to patient size,and/or use of iterative reconstruction technique. IV Contrast dosage and agent: None. COMPARISON: FINDINGS: BRAIN PARENCHYMA: No intra- or extra-axial hemorrhage. No evidence of acute infarct. No intracranial mass or mass effect. There is preservation of the sanches/white matter interface. Posterior fossa structures are unremarkable. CSF SPACES: Appropriate for age. No hydrocephalus. Basal cisterns are patent. CALVARIUM, SKULL BASE, PARANASAL SINUSES AND MASTOID AIR CELLS: Clear. No discrete lytic or blastic abnormalities. ORBITS: Both globes, extraocular muscles, optic nerves and retrobulbar fat appear unremarkable. 02/05/242029 Date cc: Dr. Donell Capps DO; Dr. Dariusz Castellanos MD * Signed ADDENDUM by Dr. Russel Encarnacion MD on 02/06/[address]/STROKE Brain/Head without Cont IMPRESSION: undefined 02/06/24827 Date cc: Dr. Donell Capps DO; Dr. Dariusz Castellanos MD * Signed ADDENDUM by Dr. Darius Erickson DO on 02/05/[address]/STROKE Brain/Head without Cont IMPRESSION: No acute intracranial pathology N.B. : The above Results were Read Back by Darius Erickson DO to Dax Vicente DO, and understanding confirmed on 02/05/2024 20:31:47 (ET). Electronically Signed: Darius Erickson DO at 20:30 EST , 02/05/242037 Date cc: Dr. Donell Capps DO; Dr. Dariusz Castellanos MD * Signed We are attempting to reach an attending provider to discuss findings. An addendum with communication details will be sent when the communication is complete. [id number] INDICATION: Neuro deficit, acute, stroke suspected EXAMINATION: CT BRAIN - CT Head Stroke Protocol W/O Contrast Injection TECHNIQUE: Multiple axial images were obtained of the head without intravenous contrast. The protocol utilizes one or more of the following dose reduction techniques: automated exposure control, adjustment of mA and/or kV according to patient size,and/or use of iterative reconstruction technique. IV Contrast dosage and agent: None. COMPARISON: FINDINGS: BRAIN PARENCHYMA: No intra- or extra-axial hemorrhage. No evidence of acute infarct. No intracranial mass or mass effect. There is preservation of the sanches/white matter interface. Posterior fossa structures are unremarkable. CSF SPACES: Appropriate for age. No hydrocephalus. Basal cisterns are patent. CALVARIUM, SKULL BASE, PARANASAL SINUSES AND MASTOID AIR CELLS: Clear. No discrete lytic or blastic abnormalities. ORBITS: Both globes, extraocular muscles, optic nerves and retrobulbar fat appear unremarkable. CT/STROKE Brain/Head without Cont IMPRESSION: No acute intracranial pathology Electronically Signed: Darius Erickson DO at 20:30 EST Reading Location ID and State: [facility] / [place] Tel [phone], Service support , CC: Dr. Donell Capps DO; Dr. Dariusz Castellanos MD Property Clerk: Signed Normal [facility] STROKE CTA Head AND Neck W/C onon 02-05-2024 STROKE CTA Head AND Neck W/Con [facility] Services [address] [place] [id number] STROKE CTA Head AND Neck W/Con MR#: [id number] Acct: [id number] Name: RAMONA COBOS Rep #: [id number] : 1945 M 78 From: Darius Erickson DO PCP: Dr. Donell Capps DO Status: REG ER Study: STROKE CTA Head AND Neck W/Con Date of Exam: Exam# [id number] Ordering Dr: Castellanos,Dariusz MD ADDENDUM by Dr. Darius Erickson DO on 02/05/24 at 211 [id number] INDICATION: Neuro deficit, acute, stroke suspected EXAMINATION: CT BRAIN WITHOUT CONTRAST, CTA HEAD, AND CTA NECK TECHNIQUE: Routine carotid CT angiogram protocol was performed without and with IV contrast. In addition, images were obtained of the [employer]. NASCET criteria using the distal ICAs for comparison were used for evaluation of stenoses. 3D reconstructions were reviewed. The protocol utilizes one or more of the following dose reduction techniques: automated exposure control, adjustment of mA and/or kV according to patient size,and/or use of iterative reconstruction technique. IV Contrast dosage and agent: COMPARISON: FINDINGS: --CTA NECK: AORTIC ARCH AND BRANCHES: Normal anatomy, patent. RIGHT CCA: No occlusion, significant stenosis or dissection. RIGHT CAROTID BULB: Atherosclerotic calcifications with less than 50% luminal stenosis. RIGHT ICA: No occlusion, significant stenosis or dissection. LEFT CCA: No occlusion, significant stenosis or dissection. LEFT CAROTID BULB: Atherosclerotic calcifications with less than 50% luminal stenosis. LEFT ICA: No occlusion, significant stenosis or dissection. RIGHT VERTEBRAL ARTERY: No occlusion, significant stenosis or dissection. LEFT VERTEBRAL ARTERY: No occlusion, significant stenosis or dissection. NECK SOFT TISSUES: Unremarkable. --CTA HEAD: --Anterior circulation: ICAs: No significant stenosis at the intracranial/visual ized segments. ACAs: No significant stenosis at the visualized segments. ACOM: Questionable 1 mm aneurysm at the junction of the anterior communicating and the right A2 segment.. MCAs: No significant stenosis at the visualized segments. --Posterior circulation: PCOMs: Patent on the right. Nonvisualization on the left. retail planner: Hypoplastic right P1 segment. BASILAR ARTERY: No significant stenosis. VERTEBRAL ARTERIES: No significant stenosis at the intradural/visualiz ed segments. No evidence of intracranial aneurysm or vascular malformation. 02/05/242114 Date cc: Dr. Donell Capps DO; Dr. Dariusz Castellanos MD * Signed ADDENDUM by Dr. Darius Erickson DO on 02/05/[address]/STROKE CTA Head AND Neck W/Con IMPRESSION: Questionable 1 mm aneurysm at the junction of the anterior communicating and the right A2 segment.. N.B. : The above Results were Read Back by Darius Erickson DO to Dariusz Castellanos MD, and understanding confirmed on 02/05/2024 21:16:52 (ET). Electronically Signed: Darius Erickson DO at 21:15 EST Reading Location ID and State: [facility] / [place] Tel [phone], Service support , 02/05/242122 Date cc: Dr. Donell Capps DO; Dr. Dariusz Castellanos MD * Signed We are attempting to reach an attending provider to discuss findings. An addendum with communication details will be sent when the communication is complete. [id number] INDICATION: Neuro deficit, acute, stroke suspected EXAMINATION: CT BRAIN WITHOUT CONTRAST, CTA HEAD, AND CTA NECK TECHNIQUE: Routine carotid CT angiogram protocol was performed without and with IV contrast. In addition, images were obtained of the [employer]. NASCET criteria using the distal ICAs for comparison were used for evaluation of stenoses. 3D reconstructions were reviewed. The protocol utilizes one or more of the following dose reduction techniques: automated exposure control, adjustment of mA and/or kV according to patient size,and/or use of iterative reconstruction technique. IV Contrast dosage and agent: COMPARISON: FINDINGS: --CTA NECK: AORTIC ARCH AND BRANCHES: Normal anatomy, patent. RIGHT CCA: No occlusion, significant stenosis or dissection. RIGHT CAROTID BULB: Atherosclerotic calcifications with less than 50% luminal stenosis. RIGHT ICA: No occlusion, significant stenosis or dissection. LEFT CCA: No occlusion, significant stenosis or dissection. LEFT CAROTID BULB: Atherosclerotic calcifications with less than 50% luminal stenosis. LEFT ICA: No occlusion, significant stenosis or dissection. RIGHT VERTEBRAL ARTERY: No occlusion, significant stenosis or dissection. LEFT VERTEBRAL ARTERY: No occlusion, significant stenosis or dissection. NECK SOFT TISSUES: Unremarkable. --CTA HEAD: --Anterior circulation: ICAs: No significant stenosis at the in (more content not included)... Normal [facility] CBC W/Diff, Automatedon 09-3 Absolute Lymph 0.86 X10 3/uL Normal 0.83-4.51 [facility] Comment on above: Performed By: #### L 500.4050, L501.9520, L506.0400, L100.0100 ####[facility] [address] [place], [address] Absolute Neut 4.7 X10 3/uL Normal 2.0-7.7 [facility] Comment on above: Performed By: #### L 500.4050, L501.9520, L506.0400, L100.0100 ####[facility] [address] [place], [address] Basophils/100 WBC (Bld) 1.3 % High 0-1 [facility] Comment on above: Performed By: #### L 500.4050, L501.9520, L506.0400, L100.0100 ####[facility] [address] [place], [address] Eosinophils/100 WBC (Bld) 6.3 % High 0-5 [facility] Comment on above: Performed By: #### L 500.4050, L501.9520, L506.0400, L100.0100 ####[facility] [address] [place], [address] Erythrocyte distribution width (RBC) [Ratio] 13.2 % Normal 11.6-14.6 [facility] Comment on above: Performed By: #### L 500.4050, L501.9520, L506.0400, L100.0100 ####[facility] [address] [place], [address] Hematocrit (Bld) [Volume fraction] 36.7 % Low 40-54 [facility] Comment on above: Performed By: #### L 500.4050, L501.9520, L506.0400, L100.0100 ####[facility] [address] [place], [address] Hemoglobin (Bld) [Mass/Vol] 12.0 g/dL Low 13.0-16.5 [facility] Comment on above: Performed By: #### L 500.4050, L501.9520, L506.0400, L100.0100 ####[facility] [address] [place], [address] IG% 0.300 Normal 0.0-0.9 [facility] Comment on above: Result Comment: IG% - Immature Granulocytes (promyelocytes, myelocytes and metamyelocytes) > 1% indicates that a LEFT SHIFT is Present. Performed By: #### L 500.4050, L501.9520, L506.0400, L100.0100 ####[facility] [address] [place], [address] Lymphocytes/100 WBC (Bld) 12.6 % Low 19-41 [facility] Comment on above: Performed By: #### L 500.4050, L501.9520, L506.0400, L100.0100 ####[facility] [address] [place], [address] MCH (RBC) [Entitic mass] 28.6 pg Normal 27.0-32.0 [facility] Comment on above: Performed By: #### L 500.4050, L501.9520, L506.0400, L100.0100 ####[facility] [address] [place], [address] MCHC (RBC) [Mass/Vol] 32.7 g/dL Normal 32-36 [facility] Comment on above: Performed By: #### L 500.4050, L501.9520, L506.0400, L100.0100 ####[facility] [address] [place], [address] MCV (RBC) [Entitic vol] 87.6 fL Normal 80-94 [facility] Comment on above: Performed By: #### L 500.4050, L501.9520, L506.0400, L100.0100 ####[facility] [address] [place], [address] Monocytes/100 WBC (Bld) 10.9 % High 0-10 [facility] Comment on above: Performed By: #### L 500.4050, L501.9520, L506.0400, L100.0100 ####[facility] [address] [place], [address] Neutrophils/100 WBC (Bld) 68.6 % Normal 47-70 [facility] Comment on above: Performed By: #### L 500.4050, L501.9520, L506.0400, L100.0100 ####[facility] [address] [place], [address] Nucleated RBC (Bld) [#/Vol] 0 10*3/uL Normal 0-5 [facility] Comment on above: Performed By: #### L 500.4050, L501.9520, L506.0400, L100.0100 ####[facility] [address] [place], [address] Platelet mean volume (Bld) [Entitic vol] 11.6 fL Normal 6.2-12.0 [facility] Comment on above: Performed By: #### L 500.4050, L501.9520, L506.0400, L100.0100 ####[facility] [address] [place], [address] Platelets (Bld) [#/Vol] 259 10*3/uL Normal 150-450 [facility] Comment on above: Performed By: #### L 500.4050, L501.9520, L506.0400, L100.0100 ####[facility] [address] [place], [address] RBC (Bld) [#/Vol] 4.19 10*6/uL Low 4.6-6.2 [facility] Comment on above: Performed By: #### L 500.4050, L501.9520, L506.0400, L100.0100 ####[facility] [address] [place], [address] RDW SD 41.8 fl Normal 35.1-43.9 [facility] Comment on above: Performed By: #### L 500.4050, L501.9520, L506.0400, L100.0100 ####[facility] [address] [place], [address] WBC (Bld) [#/Vol] 6.9 10*3/uL Normal 4.4-11.0 [facility] Comment on above: Performed By: #### L 500.4050, L501.9520, L506.0400, L100.0100 ####[facility] [address] [place], [address] Comprehensive Metabolic Prof [facility] 11-06-2023 Albumin [Mass/Vol] 3.4 g/dL Normal 3.2-5.0 [facility] Comment on above: Performed By: #### L 500.4050, L501.9520, L506.0400, L100.0100 ####[facility] [address] [place], [address] Albumin/Globulin [Mass ratio] 1.0 {ratio} Normal 0.9-2.4 [facility] Comment on above: Performed By: #### L 500.4050, L501.9520, L506.0400, L100.0100 ####[facility] [address] [place], [address] ALK P 95 U/L Normal 45-117 [facility] Comment on above: Performed By: #### L 500.4050, L501.9520, L506.0400, L100.0100 ####[facility] [address] [place], [address] ALT [Catalytic activity/Vol] 40 U/L Normal 16-61 [facility] Comment on above: Performed By: #### L 500.4050, L501.9520, L506.0400, L100.0100 ####[facility] [address] [place], [address] AST [Catalytic activity/Vol] 29 U/L Normal 15-37 [facility] Comment on above: Performed By: #### L 500.4050, L501.9520, L506.0400, L100.0100 ####[facility] [address] [place], [address] Bilirubin [Mass/Vol] 0.60 mg/dL Normal 0.20-1.00 [facility] Comment on above: Result Comment: For patients on eltrombopag therapy, use of Dimension [place] TBIL is not recommended. Performed By: #### L 500.4050, L501.9520, L506.0400, L100.0100 ####[facility] [address] [place], [address] BUN/CRE 21.5 RATIO High 10-20 [facility] Comment on above: Performed By: #### L 500.4050, L501.9520, L506.0400, L100.0100 ####[facility] [address] [place], [address] CA,Total 9.4 mg/dL Normal 8.5-10.1 [facility] Comment on above: Performed By: #### L 500.4050, L501.9520, L506.0400, L100.0100 ####[facility] [address] [place], [address] Chloride [Moles/Vol] 109 mmol/L High 98-107 [facility] Comment on above: Performed By: #### L 500.4050, L501.9520, L506.0400, L100.0100 ####[facility] [address] [place], [address] CO2 [Moles/Vol] 25.0 mmol/L Normal 21.0-32.0 [facility] Comment on above: Performed By: #### L 500.4050, L501.9520, L506.0400, L100.0100 ####[facility] [address] [place], [address] Creatinine [Mass/Vol] 1.35 mg/dL High 0.70-1.30 [facility] Comment on above: Result Comment: The validity of the calculated GFR GFRAA in patients over 70 years has not been determined. Clinical correlation is essential. Performed By: #### L 500.4050, L501.9520, L506.0400, L100.0100 ####[facility] [address] [place], [address] EST GFR - AA 66 mL/min Normal >60 [facility] Comment on above: Result Comment: Afri can [place] GFR Calc Performed By: #### L 500.4050, L501.9520, L506.0400, L100.0100 ####[facility] [address] [place], [address] GAP 7 Normal 5-15 [facility] Comment on above: Performed By: #### L 500.4050, L501.9520, L506.0400, L100.0100 ####[facility] [address] [place], [address] GFR/1.73 sq M.predicted among non-blacks MDRD (S/P/Bld) [Vol rate/Area] 54 mL/min/{1.73_m2} Low >60 [facility] Comment on above: Result Comment: Non- GFR Calc Performed By: #### L 500.4050, L501.9520, L506.0400, L100.0100 ####[facility] [address] [place], [address] Globulin (S) [Mass/Vol] 3.3 g/dL Normal 2.2-4.2 [facility] Comment on above: Performed By: #### L 500.4050, L501.9520, L506.0400, L100.0100 ####[facility] [address] [place], [address] Glucose [Mass/Vol] 146 mg/dL High 74-106 [facility] Comment on above: Result Comment: Fast ing Glucose result greater than or equal to 126 mg/dL suggests DIABETES MELLITUS per A.D.A. criteria. Performed By: #### L 500.4050, L501.9520, L506.0400, L100.0100 ####[facility] [address] [place], [address] Potassium [Moles/Vol] 4.4 mmol/L Normal 3.5-5.1 [facility] Comment on above: Performed By: #### L 500.4050, L501.9520, L506.0400, L100.0100 ####[facility] [address] [place], [address] Sodium [Moles/Vol] 141 mmol/L Normal 136-145 [facility] Comment on above: Performed By: #### L 500.4050, L501.9520, L506.0400, L100.0100 ####[facility] [address] [place], [address] T PROT 6.7 g/dL Normal 6.4-8.2 [facility] Comment on above: Performed By: #### L 500.4050, L501.9520, L506.0400, L100.0100 ####[facility] [address] [place], [address] Urea nitrogen [Mass/Vol] 29 mg/dL High 7-18 [facility] Comment on above: Performed By: #### L 500.4050, L501.9520, L506.0400, L100.0100 ####[facility] [address] [place], [address] T4 Free Directon 11-06-2023 T4 FREE DIRECT 0.92 ng/dL Normal 0.76-1.46 [facility] Comment on above: Performed By: #### L 500.4050, L501.9520, L506.0400, L100.0100 ####[facility] [address] [place], [address] Thyroid Stim Hormone (TSH)on 11-06-2023 TSH 3.210 uIU/mL Normal 0.358-3.740 [facility] Comment on above: Performed By: #### L 500.4050, L501.9520, L506.0400, L100.0100 ####[facility] [address] [place], [address] Laboratory - Microbiology an d Antimicrobial susceptibilityOrdered By: Donell Capps on 01-12-2023 SARS-CoV-2 (COVID-19) RNA JANNETTE+probe Ql (Unsp spec) SARS-CoV-2 (COVID 19) [facility] No Panel InformationOrdered By: Donell Capps on 09-20-2022 Prostate Specific Antigen Screen 1.92 ng/mL 0.00-4.00 [facility] Comment on above: This test was perfor med using the TPSA assay method for the[facility] chemistry system. Values obtained with differentassay methods cannot be used interchangably.When changing PSA assays in the course of monitoring apatient, additional sequential testing should be carriedout to confirm baseline values. Gram stain for investigation of transfusion reactionOrdered By: Chencho Zacarias on 09-03-2022 Microscopic observation Gram stain Nom (Unsp spec) [facility] No Panel InformationOrdered By: Chencho Zacarias on 09-03-2022 Nasopharyngeal Culture Staphylococcus aureus [facility] Basophil percentageOrdered B y: Dr. Capps on 07-26-2022 Bilirubin [Mass/Vol] 0.50 mg/dL 0.20-1.00 [facility] Comment on above: For patients on eltr ombopag therapy, use of Dimension [place] TBIL is not recommended. Chloride [Moles/Vol] 110 mmol/L 98-107 [facility] Cholesterol [Mass/Vol] 139 mg/dL <200 [facility] Comment on above: <200 mg/dL Desirable 200-240 mg/dL Borderline >240 mg/dL High Risk Glucose [Mass/Vol] 116 mg/dL 74-106 [facility] Comment on above: Fasting Glucose resu lt from 100 to 125 mg/dL suggests IMPAIRED HOMEOSTASIS per A.D.A. criteria. Potassium [Moles/Vol] 5.3 mmol/L 3.5-5.1 [facility] Comment on above: Slight Hemolysis, Re sult may be falsely increased. Protein [Mass/Vol] 7.3 g/dL 6.4-8.2 [facility] Sodium [Moles/Vol] 140 mmol/L 136-145 [facility] Triglyceride [Mass/Vol] 117 mg/dL <199 [facility] Comment on above: The drugs N-Acetylcy steine and Metamizole may falsely depress this assay.Serum Triglycerides Reference Interval Normal <150 mg/dL Borderline high 150 - 199 mg/dL High 200 - 499 mg/dL Very High > or = 500 mg/dL Laboratory - Chemistry and C hemistry - challengeOrdered By: Dr. Capps on 07-26-2022 ALP [Catalytic activity/Vol] 71 U/L 45-117 [facility] ALT [Catalytic activity/Vol] 40 U/L 16-61 [facility] CO2 [Moles/Vol] 28.0 mmol/L 21.0-32.0 [facility] Cobalamin (Vitamin B12) [Mass/Vol] 687 pg/mL 211-911 [facility] Globulin (S) [Mass/Vol] 3.7 g/dL 2.2-4.2 [facility] Urea nitrogen/Creatinine [Mass ratio] 19.3 mg/mg 10-20 [facility] No Panel InformationOrdered By: Dr. Capps on 07-26-2022 Estimated GFR (MDRD) Amer 66 mL/min >60 [facility] Comment on above: GFR Calc Estimated GFR (MDRD) Non-Af Amer 54 mL/min >60 [facility] Comment on above: Non- GFR Calc Thyroid Stimulating Hormone (TSH) 3.04 uIU/mL 0.358-3.74 [facility] Urine Microalbumin/Creatinine Ratio 126.0 mg/g CRE <30 [facility] Serum or plasma albumin farhan urement (mass/volume)Ordered By: Dr. Capps on 07-26-2022 Albumin [Mass/Vol] 3.6 g/dL 3.2-5.0 [facility] Serum or plasma albumin/glob ulin mass ratioOrdered By: Dr. Capps on 07-26-2022 Albumin/Globulin [Mass ratio] 1.0 {ratio} 0.9-2.4 [facility] Serum or plasma calcium farhan urement (mass/volume)Ordered By: Dr. Capps on 07-26-2022 Calcium [Mass/Vol] 9.5 mg/dL 8.5-10.1 [facility] Serum or plasma cholesterol in HDL measurement (mass/volume)Ordered By: Dr. Capps on 07-26-2022 Cholesterol in HDL [Mass/Vol] 39 mg/dL >40 [facility] Comment on above: The drugs N-Acetylcy steine and Metamizole may falsely depress this assay. Reference Range HDL <40 mg/dL Low HDL Cholesterol HDL >or= 60 mg/dL High HDL Cholesterol Serum or plasma cholesterol in VLDL measurement (mass/volume)Ordered By: Dr. Capps on 07-26-2022 Cholesterol in VLDL [Mass/Vol] 23 mg/dL 5-40 [facility] Serum or plasma creatinine m easurement (mass/volume)Ordered By: Dr. Capps on 07-26-2022 Creatinine [Mass/Vol] 1.35 mg/dL 0.70-1.30 [facility] Comment on above: The validity of the calculated GFR & GFRAA in patients over 70 years has not been determined. Clinical correlation is essential. Serum or plasma low density lipoprotein (LDL) cholesterol measurement (mass/volume)Ordered By: Dr. Capps on 07-26-2022 Cholesterol in LDL [Mass/Vol] 77 mg/dL 0-130 [facility] Serum or plasma urea nitroge n measurement (mass/volume)Ordered By: Dr. Capps on 07-26-2022 Urea nitrogen [Mass/Vol] 26 mg/dL 7-18 [facility] Thin prep Papanicolaou smear with manual screeningOrdered By: Dr. Capps on 07-26-2022 Thin prep Papanicolaou smear with manual screening 29 U/L 15-37 [facility] Comment on above: Slight Hemolysis, Re sult may be falsely increased. Thin prep Papanicolaou smear with manual screening 2 5-15 [facility] Thin prep Papanicolaou smear with manual screening 150.0 mg/L NO RANGE EST. [facility] Urine creatinine measurement (mass/volume)Ordered By: Dr. Capps on 07-26-2022 Creatinine (U) [Mass/Vol] 119.00 mg/dL NO RANGE EST. [facility] CBC W Auto Differential pane l (Bld)on 05-23-2022 Basophils (Bld) [#/Vol] 0.07 10*3/uL <0.11 k/uL [facility] Basophils/100 WBC (Bld) 1.2 % [facility] Differential cell count method Nom (Bld) Auto [facility] Eosinophils (Bld) [#/Vol] 0.40 10*3/uL <0.46 k/uL [facility] Eosinophils/100 WBC (Bld) 6.9 % [facility] Erythrocyte distribution width (RBC) [Ratio] 13.2 % 11.5 - 15.0 % [facility] Hematocrit (Bld) [Volume fraction] 39.4 % 39.0 - 51.0 % [facility] Hemoglobin (Bld) [Mass/Vol] 13.0 g/dL 13.0 - 17.0 g/dL [facility] Immature granulocytes (Bld) [#/Vol] <0.10 k/uL [facility] Immature granulocytes/100 WBC (Bld) 0.2 % [facility] Lymphocytes (Bld) [#/Vol] 0.91 10*3/uL Low 1.00 - 4.00 k/uL [facility] Lymphocytes/100 WBC (Bld) 15.7 % [facility] MCH (RBC) [Entitic mass] 28.9 pg 26.0 - 34.0 pg [facility] MCHC (RBC) [Mass/Vol] 33.0 g/dL 30.5 - 36.0 g/dL [facility] MCV (RBC) [Entitic vol] 87.6 fL 80.0 - 100.0 fL [facility] Monocytes (Bld) [#/Vol] 0.65 10*3/uL <0.87 k/uL [facility] Monocytes/100 WBC (Bld) 11.2 % [facility] Neutrophils (Bld) [#/Vol] 3.74 10*3/uL 1.45 - 7.50 k/uL [facility] Neutrophils/100 WBC (Bld) 64.8 % [facility] Nucleated RBC (Bld) [#/Vol] <0.01 k/uL [facility] Nucleated RBC/100 WBC (Bld) [Ratio] 0.0 /100 WBC [facility] Platelet mean volume (Bld) [Entitic vol] 11.7 fL 9.0 - 12.7 fL [facility] Platelets (Bld) [#/Vol] 204 10*3/uL 150 - 400 k/uL [facility] RBC (Bld) [#/Vol] 4.50 10*6/uL 4.20 - 6.0 0 m/uL [facility] WBC (Bld) [#/Vol] 5.78 10*3/uL 3.70 - 11. 00 k/uL [facility] Comprehensive metabolic 2000 panelon 05-23-2022 Albumin [Mass/Vol] 4.0 g/dL 3.9 - 4.9 g/dL [facility] ALP [Catalytic activity/Vol] 60 U/L 38 - 113 U/L [facility] ALT [Catalytic activity/Vol] 27 U/L 10 - 54 U/L [facility] Anion gap [Moles/Vol] 10 mmol/L 9 - 18 mmol/L [facility] AST [Catalytic activity/Vol] 34 U/L 14 - 40 U/L [facility] Bilirubin [Mass/Vol] 0.4 mg/dL 0.2 - 1 .3 mg/dL [facility] Calcium [Mass/Vol] 9.5 mg/dL 8.5 - 10. 2 mg/dL [facility] Chloride [Moles/Vol] 107 mmol/L High 97 - 10 5 mmol/L [facility] CO2 [Moles/Vol] 23 mmol/L 22 - 30 mmol/L [facility] Creatinine [Mass/Vol] 1.21 mg/dL 0.73 - 1.22 mg/dL [facility] Estimated Glomerular Filtration Rate 62 mL/min/1.73m >=60 mL/min/1.73m [facility] Glucose [Mass/Vol] 178 mg/dL High 74 - 99 mg/dL [facility] Potassium [Moles/Vol] 4.5 mmol/L 3.7 - 5.1 mmol/L [facility] Protein [Mass/Vol] 6.7 g/dL 6.3 - 8.0 g/dL [facility] Sodium [Moles/Vol] 140 mmol/L 136 - 144 mmol/L [facility] Urea nitrogen [Mass/Vol] 22 mg/dL 9 - 24 mg/dL [facility] HbA1c (Bld)on 05-23-2022 Average glucose Estimated from glycated hemoglobin (Bld) [Mass/Vol] 128 mg/dL [facility] HbA1c (Bld) [Mass fraction] 6.1 % High 4.3 - 5.6 % [facility] LIPID PANEL, NONFASTINGon Cholesterol [Mass/Vol] 140 mg/dL <200 mg/dL [facility] HDL Cholesterol, Nonfasting 42 mg/dL >39 mg/dL [facility] LDL Cholesterol, Nonfasting 77 mg/dL <100 mg/dL [facility] LDL/HDL Ratio, Nonfasting 1.83 mg/dL <2.54 mg/dL [facility] Non HDL Cholesterol, Nonfasting 98 mg/dL <130 mg/dL [facility] Total Chol/HDL Ratio, Nonfasting 3.33 mg/dL <5.10 mg/dL [facility] Triglycerides, Nonfasting 107 mg/dL <150 mg/dL [facility] VLDL Cholesterol, Nonfasting 21 mg/dL <30 mg/dL [facility] PSA/PROSTSPECAG DIAGon 05-23 Prostate specific Ag [Mass/Vol] 1.23 ng/mL <2.60 ng/mL [facility] TSH BLDon 05-23-2022 TSH Qn 3.180 m[IU]/L 0.270 - 4.200 mIU/L [facility] UA DIP, URINE (POC)on 2022 BILIRUBIN UA (POCT) Negative Negative [facility] CLARITY UA (POCT) Clear [facility] COLOR UA (POCT) Kailee [facility] GLUCOSE UA (POCT) Negative Negative mg/dL [facility] HEMOGLOBIN/BLOOD UA (POCT) Negative Negative [facility] KETONE UA (POCT) Negative Negative mg/dL [facility] LEUKOCYTES UA (POCT) Negative Negative [facility] NITRITE UA (POCT) Negative Negative [facility] PH UA (POCT) 6.0 4.5 - 8.0 [facility] Protein Ql (U) 100 mg/dL Abnormal Negative mg/dL [facility] SPECIFIC GRAVITY UA (POCT) 1.025 1.005 - 1.030 [facility] UROBILINOGEN UA (POCT) 0.2 E.U./dL Jailyn l E.U./dL [facility] No Panel InformationOrdered By: [employer] [facility] on 05-10-2022 Hepatitis B Surface Antibody Non-Reactive [facility] Comment on above: Non Reactive: Incons istent with immunity less than <10 mIU/mL Reactive: Consistent with immunity greater than or equal to 10 mIU/mL Rubella IgG Antibody Non-Reactive Nonreactive [facility] Comment on above: Antibody Results Int erpretation of Immune Status Non Reactive Presumed Non-Immune Equivocal Equivocal Reactive Presumed Immune Serum measles virus IgG anti body assay (units/volume)Ordered By: [employer] on 05-10-2022 MeV IgG Qn (S) > 300.0 AU/mL Immune >16.4 [facility] Comment on above: Negative <13.5 Equiv ocal 13.5 - 16.4 Positive >16.4Presence of antibodies to Rubeola is presumptive evidenceof immunity except when acute infection is suspected.Performed at: - [address] [id number] Director: Shemar Justin PhD, Phone: [phone] Serum mumps virus IgG antibo dy assay (units/volume)Ordered By: [employer] on 05-10-2022 MuV IgG Qn (S) 298.0 AU/mL Immune >10.9 [facility] Comment on above: Negative <9.0 Equivo alena 9.0 - 10.9 Positive >10.9A positive result generally indicates past exposure toMumps virus or previous vaccination. XR FINGER 4TH DIGIT 3 VIEWS RIGHTon 05-29-2020 XR FINGER 4TH DIGIT 3 VIEWS RIGHT ORIGINAL XR FINGER 4TH DIGIT 3 VIEWS RIGHT, 05/29/2020 7:38 PM INDICATION: pain COMPARISON: No FINDINGS: There are no acute fractures or dislocations. Alignment is within normal limits. Joint spaces are maintained. The soft tissues are unremarkable. IMPRESSION: No acute fracture. Interpreted By: Reese Pinto MD Preliminary Report By: Reese Pinto MD Electronically Signed By: Reese Pinto MD Dictated Date: 05/29/2020 8:09:46 PM Prelim Date: 05/29/2020 8:09:46 PM Sign Date: 05/29/2020 8:10:35 PM Ordering Provider:Luis Paige [facility] [place] EXT LAB LIPID PANELon 2019 Cholesterol [Mass/Vol] 96 mg/dL [facility] Cholesterol in HDL [Mass/Vol] 44 mg/dL [facility] Cholesterol in LDL [Mass/Vol] 26 mg/dL [facility] Cholesterol in LDL [Mass/Vol] [facility] Cholesterol.total/Мария sterol in HDL [Mass ratio] [facility] Non HDL Cholesterol 52 [facility] Triglyceride [Mass/Vol] 132 [facility]dL [facility] Cholesterol 26 mg/dL [facility] Ext Lab Apolipoprotein Bon 0 03-14-2019 Apolipoprotein B [Mass/Vol] 42 mg/dL [facility] Urine, Random, Albumin/Creao n 12-05-2018 Albumin DL <= 20 mg/L (U) [Mass/Vol] 5.0 mg/dL High 0.0-1.6 [facility] Comment on above: Order Comment: Items in this order include: HgbA1C, Basic Metabolic Panel , CBC with differential, , , Fasting: Unknown Performed By: #### C 45, C215, C406 #### [facility] [address] [place] [address] Creatinine (U) [Mass/Vol] 85.4 mg/dL Normal 39.0-259.0 [facility] Comment on above: Order Comment: Items in this order include: HgbA1C, Basic Metabolic Panel , CBC with differential, , , Fasting: Unknown Performed By: #### C 45, C215, C406 #### [facility] [address] [place] [address] Urine Microalb/ Creat Ratio 58.5 mcg/mg creat High 0.0-29.9 [facility] Comment on above: Order Comment: Items in this order include: HgbA1C, Basic Metabolic Panel , CBC with differential, , , Fasting: Unknown Result Comment: The ADA (Diabetes Care 26:s94-s98,2003) defines abnormalities in albumin excretion as follows: Category Result (mcg/mg creatinine) Normal <30 Microalbuminuria 30-299 Clinical Albuminuria > or =300 The ADA recommends that at least two of three specimens collected within a 3-6 month period be abnormal before considering a patient to be within a diagnostics category. Performed By: #### C 45, C215, C406 #### [facility] [address] [place] [address] [address] [place] [address] Basic Metabolic Panelon - Anion gap [Moles/Vol] 9.00 mmol/L Normal 8.00-16.00 [facility] Comment on above: Order Comment: Items in this order include: HgbA1C, Basic Metabolic Panel , CBC with differential, , , Fasting: Unknown Performed By: #### C 45, C215, C406 #### [facility] [address] [place] [address] [address] [place] [address] B/C Ratio 12.7 Ratio Normal [facility] Comment on above: Order Comment: Items in this order include: HgbA1C, Basic Metabolic Panel , CBC with differential, , , Fasting: Unknown Performed By: #### C 45, C215, C406 #### [facility] [address] [place] [address] Calcium [Mass/Vol] 9.4 mg/dL Normal 8.5-10.5 [facility] Comment on above: Order Comment: Items in this order include: HgbA1C, Basic Metabolic Panel , CBC with differential, , , Fasting: Unknown Performed By: #### C 45, C215, C406 #### [facility], [facility] [address] [place] [address] Chloride [Moles/Vol] 106 mmol/L Normal 98-107 [facility] Comment on above: Order Comment: Items in this order include: HgbA1C, Basic Metabolic Panel , CBC with differential, , , Fasting: Unknown Performed By: #### José Miguel 45, C215, C406 #### [facility] [address] [place] [address] CO2 [Moles/Vol] 26.0 mmol/L Normal 22.0-30.0 [facility] Comment on above: Order Comment: Items in this order include: HgbA1C, Basic Metabolic Panel , CBC with differential, , , Fasting: Unknown Performed By: #### José Miguel 45, C215, C406 #### [facility] [address] [place] [address] [address] [place] [address] Creatinine [Mass/Vol] 1.1 mg/dL Normal 0.3-1.4 [facility] Comment on above: Order Comment: Items in this order include: HgbA1C, Basic Metabolic Panel , CBC with differential, , , Fasting: Unknown Performed By: #### José Miguel 45, C215, C406 #### [facility] [address] [place] [address] [address] [place] [address] GFR/1.73 sq M.predicted MDRD (S/P/Bld) [Vol rate/Area] 65 mL/min per 1.73 Normal >60 [facility] Comment on above: Order Comment: Items in this order include: HgbA1C, Basic Metabolic Panel , CBC with differential, , , Fasting: Unknown Result Comment: The GFR estimate is not adjusted for race. If the patient's race is -[place]anz[place], the GFR estimate must be multiplied by a factor of 1.21. Performed By: #### José Miguel 45, C215, C406 #### [facility] [address] [place] [address] Glucose [Mass/Vol] 170 mg/dL High 74-100 [facility] Comment on above: Order Comment: Items in this order include: HgbA1C, Basic Metabolic Panel , CBC with differential, , , Fasting: Unknown Performed By: #### C 45, C215, C406 #### [facility] [address] [place] [address] [place] [address] Potassium [Moles/Vol] 4.4 mmol/L Normal 3.5-5.3 [facility] Comment on above: Order Comment: Items in this order include: HgbA1C, Basic Metabolic Panel , CBC with differential, , , Fasting: Unknown Performed By: #### C 45, C215, C406 #### [facility] [address] [place] [address] [place] [address] Sodium [Moles/Vol] 141 mmol/L Normal 135-145 [facility] Comment on above: Order Comment: Items in this order include: HgbA1C, Basic Metabolic Panel , CBC with differential, , , Fasting: Unknown Performed By: #### C 45, C215, C406 #### [facility] [address] [place] [address] [place] [address] Urea nitrogen [Mass/Vol] 14 mg/dL Normal 8-24 [facility] Comment on above: Order Comment: Items in this order include: HgbA1C, Basic Metabolic Panel , CBC with differential, , , Fasting: Unknown Performed By: #### C 45, C215, C406 #### [facility] [address] [place] [address] [address] [place] [address] EXT LAB LIPID PANELon 2018 Cholesterol [Mass/Vol] 108 mg/dL [facility] Cholesterol in HDL [Mass/Vol] 47 mg/dL [facility] Cholesterol in LDL [Mass/Vol] [facility] Cholesterol in LDL [Mass/Vol] 39 mg/dL [facility] Cholesterol.total/Мария sterol in HDL [Mass ratio] 2.3 {ratio} ratio [facility] Non HDL Cholesterol 61 [facility] Triglyceride [Mass/Vol] 109 mg/dL [facility] VLDL Cholesterol 22 mg/dL [facility] External Lab ALT (SGPT)on ALT [Catalytic activity/Vol] 23 U/L [facility] External Lab AST (SGOT)on AST [Catalytic activity/Vol] 30 U/L [facility] External Lab Basic Metabolic Panelon 12-04-2018 Calcium [Mass/Vol] 9.4 mg/dL [facility] Chloride [Moles/Vol] 106 mmol/L [facility] Creatinine [Mass/Vol] 1.10 mg/dL [facility] GFR/1.73 sq M predicted among blacks MDRD (S/P/Bld) [Vol rate/Area] [facility] GFR/1.73 sq M predicted among non-blacks MDRD (S/P/Bld) [Vol rate/Area] 65 mL/min/{1.73_m2} [facility] Glucose [Mass/Vol] 170 mg/dL [facility] HCO3 (Bld) [Moles/Vol] 26 mmol/L [facility] Potassium [Moles/Vol] 4.4 mmol/L [facility] Sodium [Moles/Vol] 141 mmol/L [facility] Urea nitrogen [Mass/Vol] 14 mg/dL [facility] External Lab Hemoglobin A1Co n 12-04-2018 HbA1c (Bld) [Mass fraction] 7.5 % [facility] External Lab TSHon 9 TSH Qn 4.38 m[IU]/L mcIU/mL [facility] Hepatic Panelon 12-04-2018 Albumin [Mass/Vol] 4.4 g/dL Normal 3.5-5.0 [facility] Comment on above: Performed By: #### C 45, C215, C406 #### [facility] [address] [place] [address] Alk Phos 72 U/L Normal 23-159 [facility] Comment on above: Performed By: #### C 45, C215, C406 #### [facility] [address] [place] [address] ALT [Catalytic activity/Vol] 23 U/L Normal 0-49 [facility] Comment on above: Performed By: #### C 45, C215, C406 #### [facility] [address] [place] [address] AST [Catalytic activity/Vol] 30 U/L Normal 17-59 [facility] Comment on above: Performed By: #### C 45, C215, C406 #### [facility] [address] [place] [address] Bili (Direct) 0.0 mg/dL Normal 0.0-0.3 [facility] Comment on above: Performed By: #### C 45, C215, C406 #### [facility] [address] [place] [address] Bili (Indirect) 0.4 mg/dL Normal 0.0-1.1 [facility] Comment on above: Performed By: #### C 45, C215, C406 #### [facility] [address] [place] [address] Bilirubin [Mass/Vol] 0.6 mg/dL Normal 0.2-1.3 [facility] Comment on above: Performed By: #### C 45, C215, C406 #### [facility] [address] [place] [address] [address] [place] [address] Protein [Mass/Vol] 7.1 g/dL Normal 6.3-8.4 [facility] Comment on above: Performed By: #### C 45, C215, C406 #### [facility] [address] [place] [address] [address] [place] [address] [id number] 12-04-2018 HbA1c (Bld) [Mass fraction] 7.5 % High <5.7 [facility] Comment on above: Order Comment: Items in this order include: HgbA1C, Basic Metabolic Panel , CBC with differential, , , Fasting: Unknown Result Comment: Refe rence Interval: Normal: below 5.7%. Prediabetes: 5.7% to 6.4%. Diabetes: 6.5% or above. Performed By: #### C 45, C215, C406 #### [facility] [address] [place] [address] Lipid Panelon 12-04-2018 Cholesterol [Mass/Vol] 108 mg/dL Normal <200 [facility] Comment on above: Performed By: #### C 45, C215, C406 #### [facility] [address] [place] [address] Cholesterol in HDL [Mass/Vol] 47 mg/dL Normal >40 [facility] Comment on above: Performed By: #### C 45, C215, C406 #### [facility] [place] [address] Cholesterol in LDL [Mass/Vol] 39 mg/dL Normal <130 [facility] Comment on above: Performed By: #### C 45, C215, C406 #### [facility] [address] [place] [address] [place] [address] Cholesterol.total/Мария sterol in HDL [Mass ratio] 2.3 {ratio} Normal <4.0 [facility] Comment on above: Performed By: #### C 45, C215, C406 #### [facility] [address] [place] [address] Non-HDL Chol 61 Normal LDL Goal + 30 [facility] Comment on above: Result Comment: LDL and Non-HDL goal dependent upon individual risk Performed By: #### C 45, C215, C406 #### [facility] [address] [place] [address] Triglyceride [Mass/Vol] 109 mg/dL Normal <150 [facility] Comment on above: Performed By: #### C 45, C215, C406 #### [facility] [address] [place] [address] VLDL-Calc 22 mg/dl Normal <30 [facility] Comment on above: Performed By: #### C 45, C215, C406 #### [facility] [address] [place] [address] [place] [address] TSHon 12-04-2018 TSH Qn 4.38 MIU/mL Normal 0.50-6.00 [facility] Comment on above: Order Comment: Items in this order include: HgbA1C, Basic Metabolic Panel , CBC with differential, , , Fasting: Unknown Performed By: #### C 45, C215, C406 #### [facility] [address] [place] [address] [place] [address] Basic Metabolic Panelon 09-06 Anion gap [Moles/Vol] 8.00 mmol/L Normal 8.00-16.00 [facility] Comment on above: Order Comment: Items in this order include: HgbA1C, Basic Metabolic Panel , CBC with differential, , , Fasting: Unknown Performed By: #### C 45, C215, C406 #### [facility] [address] [place] [address] [place] [address] B/C Ratio 18.9 Ratio Normal [facility] Comment on above: Order Comment: Items in this order include: HgbA1C, Basic Metabolic Panel , CBC with differential, , , Fasting: Unknown Performed By: #### C 45, C215, C406 #### [facility] [address] [place] [address] [place] [address] Calcium [Mass/Vol] 9.0 mg/dL Normal 8.5-10.5 [facility] Comment on above: Order Comment: Items in this order include: HgbA1C, Basic Metabolic Panel , CBC with differential, , , Fasting: Unknown Performed By: #### C 45, C215, C406 #### [facility] [address] [place] [address] [place] [address] Chloride [Moles/Vol] 105 mmol/L Normal 98-[address] [facility] Comment on above: Order Comment: Items in this order include: HgbA1C, Basic Metabolic Panel , CBC with differential, , , Fasting: Unknown Performed By: #### C 45, C215, C406 #### [facility] [address] [place] [address] CO2 [Moles/Vol] 26.0 mmol/L Normal 22.0-30.0 [facility] Comment on above: Order Comment: Items in this order include: HgbA1C, Basic Metabolic Panel , CBC with differential, , , Fasting: Unknown Performed By: #### C 45, C215, C406 #### [facility] [address] [place] [address] Creatinine [Mass/Vol] 0.9 mg/dL Normal 0.3-1.4 [facility] Comment on above: Order Comment: Items in this order include: HgbA1C, Basic Metabolic Panel , CBC with differential, , , Fasting: Unknown Performed By: #### C 45, C215, C406 #### [facility] [address] [place] [address] [place] [address] GFR/1.73 sq M.predicted MDRD (S/P/Bld) [Vol rate/Area] 82 mL/min per 1.73 Normal >60 [facility] Comment on above: Order Comment: Items in this order include: HgbA1C, Basic Metabolic Panel , CBC with differential, , , Fasting: Unknown Result Comment: The GFR estimate is not adjusted for race. If the patient's race is -[place], the GFR estimate must be multiplied by a factor of 1.21. Performed By: #### C 45, C215, C406 #### [facility] [address] [place] [address] Glucose [Mass/Vol] 168 mg/dL High 74-100 [facility] Comment on above: Order Comment: Items in this order include: HgbA1C, Basic Metabolic Panel , CBC with differential, , , Fasting: Unknown Performed By: #### C 45, C215, C406 #### [facility] [address] [place] [address] Potassium [Moles/Vol] 4.3 mmol/L Normal 3.5-5.3 [facility] Comment on above: Order Comment: Items in this order include: HgbA1C, Basic Metabolic Panel , CBC with differential, , , Fasting: Unknown Performed By: #### C 45, C215, C406 #### [facility] [address] [place] [address] Sodium [Moles/Vol] 139 mmol/L Normal 135-145 [facility] Comment on above: Order Comment: Items in this order include: HgbA1C, Basic Metabolic Panel , CBC with differential, , , Fasting: Unknown Performed By: #### C 45, C215, C406 #### [facility] [address] [place] [address] Urea nitrogen [Mass/Vol] 17 mg/dL Normal 8-24 [facility] Comment on above: Order Comment: Items in this order include: HgbA1C, Basic Metabolic Panel , CBC with differential, , , Fasting: Unknown Performed By: #### C 45, C215, C406 #### [facility] [address] [place] [address] External Lab Basic Metabolic Panelon 09-18-2018 Calcium [Mass/Vol] 9.0 mg/dL [facility] Chloride [Moles/Vol] 105 mmol/L [facility] Creatinine [Mass/Vol] 0.90 mg/dL [facility] GFR/1.73 sq M predicted among blacks MDRD (S/P/Bld) [Vol rate/Area] [facility] GFR/1.73 sq M predicted among non-blacks MDRD (S/P/Bld) [Vol rate/Area] 82 mL/min/{1.73_m2} [facility] Glucose [Mass/Vol] 168 mg/dL [facility] HCO3 (Bld) [Moles/Vol] 26 mmol/L [facility] Potassium [Moles/Vol] 4.3 mmol/L [facility] Sodium [Moles/Vol] 139 mmol/L [facility] Urea nitrogen [Mass/Vol] 17 mg/dL [facility] External Lab TSHon 08-13-201 9 TSH Qn 2.85 m[IU]/L mcIU/mL [facility] PSA (Screening Medicare Only )on 09-18-2018 SCRPSA 1.17 ng/mL Normal 0.00-4.00 [facility] Comment on above: Order Comment: Items in this order include: HgbA1C, Basic Metabolic Panel , CBC with differential, , , Fasting: Unknown Performed By: #### C 45, C215, C406 #### [facility] [address] [place] [address] [place] [address] TSHon 09-18-2018 TSH Qn 2.85 MIU/mL Normal 0.50-6.00 [facility] Comment on above: Order Comment: Items in this order include: HgbA1C, Basic Metabolic Panel , CBC with differential, , , Fasting: Unknown Performed By: #### C 45, C215, C406 #### [facility] [address] [place] [address] [place] [address] CBC with differentialon Basophils (Bld) [#/Vol] 0.1 K CUMM Normal 0.0-0.2 [facility] Comment on above: Order Comment: Items in this order include: Comprehensive Metabolic Panel, Lipid Panel, CBC with differential, HgbA1C, , Performed By: #### C 215, C47, C8, C406 #### [facility] [address] [place] [address] [place] [address] Basophils/100 WBC (Bld) 0.9 % Normal 0.0-3.0 [facility] Comment on above: Order Comment: Items in this order include: Comprehensive Metabolic Panel, Lipid Panel, CBC with differential, HgbA1C, , Performed By: #### C 215, C47, C8, C406 #### [facility] [address] [place] [address] [address] [place] [address] Eosinophils (Bld) [#/Vol] 0.3 K CUMM Normal 0.0-0.4 [facility] Comment on above: Order Comment: Items in this order include: Comprehensive Metabolic Panel, Lipid Panel, CBC with differential, HgbA1C, , Performed By: #### C 215, C47, C8, C406 #### [facility] [address] [place] [address] [place] [address] Eosinophils/100 WBC (Bld) 3.3 % Normal 0.0-7.0 [facility] Comment on above: Order Comment: Items in this order include: Comprehensive Metabolic Panel, Lipid Panel, CBC with differential, HgbA1C, , Performed By: #### C 215, C47, C8, C406 #### [facility] [address] [place] [address] [place] [address] Erythrocyte distribution width (RBC) [Ratio] 12.3 % Normal 11.5-15.5 [facility] Comment on above: Order Comment: Items in this order include: Comprehensive Metabolic Panel, Lipid Panel, CBC with differential, HgbA1C, , Performed By: #### C 215, C47, C8, C406 #### [facility], [facility]. [address] [place] [address] [place] [address] Hematocrit (Bld) [Volume fraction] 42.7 % Normal 42.0-52.0 [facility] Comment on above: Order Comment: Items in this order include: Comprehensive Metabolic Panel, Lipid Panel, CBC with differential, HgbA1C, , Performed By: #### C 215, C47, C8, C406 #### [facility] [address] [place] [address] [place] [address] Hemoglobin (Bld) [Mass/Vol] 14.1 g/dL Normal 13.5-18.0 [facility] Comment on above: Order Comment: Items in this order include: Comprehensive Metabolic Panel, Lipid Panel, CBC with differential, HgbA1C, , Performed By: #### C 215, C47, C8, C406 #### [facility], [facility]. [address] [place] [address] [place] [address] ImmGrn # 0.0 K CUMM Normal 0.0-0.3 [facility] Comment on above: Order Comment: Items in this order include: Comprehensive Metabolic Panel, Lipid Panel, CBC with differential, HgbA1C, , Performed By: #### C 215, C47, C8, C406 #### [facility] [address] [place] [address] [place] [address] ImmGrn % 0.1 % Normal 0.0-3.0 [facility] Comment on above: Order Comment: Items in this order include: Comprehensive Metabolic Panel, Lipid Panel, CBC with differential, HgbA1C, , Performed By: #### C 215, C47, C8, C406 #### [facility] [address] [place] [address] [place] [address] Lymphocytes (Bld) [#/Vol] 1.2 K CUMM Normal 0.7-4.5 [facility] Comment on above: Order Comment: Items in this order include: Comprehensive Metabolic Panel, Lipid Panel, CBC with differential, HgbA1C, , Performed By: #### José Miguel 215, C47, C8, C406 #### [facility] [address] [place] [address] [place] [address] Lymphocytes/100 WBC (Bld) 16.0 % Normal 14.0-46.0 [facility] Comment on above: Order Comment: Items in this order include: Comprehensive Metabolic Panel, Lipid Panel, CBC with differential, HgbA1C, , Performed By: #### C 215, C47, C8, C406 #### [facility] [address] [place] [address] [place] [address] MCH (RBC) [Entitic mass] 28.7 pg Normal 27.0-31.0 [facility] Comment on above: Order Comment: Items in this order include: Comprehensive Metabolic Panel, Lipid Panel, CBC with differential, HgbA1C, , Performed By: #### C 215, C47, C8, C406 #### [facility], [facility]. [address] [place] [address] [place] [address] MCHC (RBC) [Mass/Vol] 33.0 g/dL Normal 32.0-36.0 [facility] Comment on above: Order Comment: Items in this order include: Comprehensive Metabolic Panel, Lipid Panel, CBC with differential, HgbA1C, , Performed By: #### C 215, C47, C8, C406 #### [facility] [address] [place] [address] [address] [place] [address] MCV (RBC) [Entitic vol] 87.0 fL Normal 78.0-100.0 [facility] Comment on above: Order Comment: Items in this order include: Comprehensive Metabolic Panel, Lipid Panel, CBC with differential, HgbA1C, , Performed By: #### C 215, C47, C8, C406 #### [facility] [address] [place] [address] [address] [place] [address] Monocytes (Bld) [#/Vol] 0.6 K CUMM Normal 0.1-1.0 [facility] Comment on above: Order Comment: Items in this order include: Comprehensive Metabolic Panel, Lipid Panel, CBC with differential, HgbA1C, , Performed By: #### C 215, C47, C8, C406 #### [facility] [address] [place] [address] [place] [address] Monocytes/100 WBC (Bld) 8.3 % Normal 4.0-13.0 [facility] Comment on above: Order Comment: Items in this order include: Comprehensive Metabolic Panel, Lipid Panel, CBC with differential, HgbA1C, , Performed By: #### C 215, C47, C8, C406 #### [facility] [address] [place] [address] [address] [place] [address] Neutrophils (Bld) [#/Vol] 5.3 K CUMM Normal 1.8-7.8 [facility] Comment on above: Order Comment: Items in this order include: Comprehensive Metabolic Panel, Lipid Panel, CBC with differential, HgbA1C, , Performed By: #### C 215, C47, C8, C406 #### [facility] [address] [place] [address] [address] [place] [address] Neutrophils/100 WBC (Bld) 71.4 % Normal 40.0-74.0 [facility] Comment on above: Order Comment: Items in this order include: Comprehensive Metabolic Panel, Lipid Panel, CBC with differential, HgbA1C, , Performed By: #### C 215, C47, C8, C406 #### [facility] [address] [place] [address] Platelet mean volume (Bld) [Entitic vol] 12.2 fL Normal 8.9-12.6 [facility] Comment on above: Order Comment: Items in this order include: Comprehensive Metabolic Panel, Lipid Panel, CBC with differential, HgbA1C, , Performed By: #### C 215, C47, C8, C406 #### [facility] [address] [place] [address] [place] [address] Platelets (Bld) [#/Vol] 283 K CUMM Normal 130-400 [facility] Comment on above: Order Comment: Items in this order include: Comprehensive Metabolic Panel, Lipid Panel, CBC with differential, HgbA1C, , Performed By: #### C 215, C47, C8, C406 #### [facility] [address] [place] [address] [place] [address] RBC (Bld) [#/Vol] 4.91 M CUMM Normal 4.20-5.80 [facility] Comment on above: Order Comment: Items in this order include: Comprehensive Metabolic Panel, Lipid Panel, CBC with differential, HgbA1C, , Performed By: #### C 215, C47, C8, C406 #### [facility] [address] [place] [address] [place] [address] WBC (Bld) [#/Vol] 7.5 K CUMM Normal 3.8-10.6 [facility] Comment on above: Order Comment: Items in this order include: Comprehensive Metabolic Panel, Lipid Panel, CBC with differential, HgbA1C, , Performed By: #### C 215, C47, C8, C406 #### [facility] [address] [place] [address] [address] [place] [address] Comprehensive Metabolic Pane mariposa 07-09-2018 Albumin [Mass/Vol] 3.9 g/dL Normal 3.5-5.0 [facility] Comment on above: Order Comment: Items in this order include: Comprehensive Metabolic Panel, Lipid Panel, CBC with differential, HgbA1C, , Performed By: #### C 215, C47, C8, C406 #### [facility] [address] [place] [address] [address] [place] [address] Alk Phos 77 U/L Normal 23-159 [facility] Comment on above: Order Comment: Items in this order include: Comprehensive Metabolic Panel, Lipid Panel, CBC with differential, HgbA1C, , Performed By: #### C 215, C47, C8, C406 #### [facility] [address] [place] [address] [place] [address] ALT [Catalytic activity/Vol] 25 U/L Normal 21-72 [facility] Comment on above: Order Comment: Items in this order include: Comprehensive Metabolic Panel, Lipid Panel, CBC with differential, HgbA1C, , Performed By: #### C 215, C47, C8, C406 #### [facility] [address] [place] [address] [place] [address] AST [Catalytic activity/Vol] 24 U/L Normal 17-59 [facility] Comment on above: Order Comment: Items in this order include: Comprehensive Metabolic Panel, Lipid Panel, CBC with differential, HgbA1C, , Performed By: #### C 215, C47, C8, C406 #### [facility] [address] [place] [address] [address] [place] [address] Bilirubin [Mass/Vol] 0.5 mg/dL Normal 0.2-1.3 [facility] Comment on above: Order Comment: Items in this order include: Comprehensive Metabolic Panel, Lipid Panel, CBC with differential, HgbA1C, , Performed By: #### C 215, C47, C8, C406 #### [facility] [address] [place] [address] [address] [place] [address] Calcium [Mass/Vol] 9.4 mg/dL Normal 8.5-10.5 [facility] Comment on above: Order Comment: Items in this order include: Comprehensive Metabolic Panel, Lipid Panel, CBC with differential, HgbA1C, , Performed By: #### C 215, C47, C8, C406 #### [facility] [address] [place] [address] [address] [place] [address] Chloride [Moles/Vol] 100 mmol/L Normal 98-107 [facility] Comment on above: Order Comment: Items in this order include: Comprehensive Metabolic Panel, Lipid Panel, CBC with differential, HgbA1C, , Performed By: #### C 215, C47, C8, C406 #### [facility] [address] [place] [address] [place] [address] CO2 [Moles/Vol] 26.0 mmol/L Normal 22.0-30.0 [facility] Comment on above: Order Comment: Items in this order include: Comprehensive Metabolic Panel, Lipid Panel, CBC with differential, HgbA1C, , Performed By: #### José Miguel 215, C47, C8, C406 #### [facility] [address] [place] [address] [address] [place] [address] Creatinine [Mass/Vol] 1.0 mg/dL Normal 0.3-1.4 [facility] Comment on above: Order Comment: Items in this order include: Comprehensive Metabolic Panel, Lipid Panel, CBC with differential, HgbA1C, , Performed By: #### C 215, C47, C8, C406 #### [facility] [address] [place] [address] [address] [place] [address] GFR/1.73 sq M.predicted MDRD (S/P/Bld) [Vol rate/Area] 73 mL/min per 1.73 Normal >60 [facility] Comment on above: Order Comment: Items in this order include: Comprehensive Metabolic Panel, Lipid Panel, CBC with differential, HgbA1C, , Result Comment: The GFR estimate is not adjusted for race. If the patient's race is -[place], the GFR estimate must be multiplied by a factor of 1.21. Performed By: #### C 215, C47, C8, C406 #### [facility] [address] [place] [address] [place] [address] Glucose [Mass/Vol] 313 mg/dL High 74-100 [facility] Comment on above: Order Comment: Items in this order include: Comprehensive Metabolic Panel, Lipid Panel, CBC with differential, HgbA1C, , Performed By: #### C 215, C47, C8, C406 #### [facility] [address] [place] [address] [place] [address] Potassium [Moles/Vol] 4.7 mmol/L Normal 3.5-5.3 [facility] Comment on above: Order Comment: Items in this order include: Comprehensive Metabolic Panel, Lipid Panel, CBC with differential, HgbA1C, , Performed By: #### C 215, C47, C8, C406 #### [facility] [address] [place] [address] [place] [address] Protein [Mass/Vol] 6.3 g/dL Normal 6.3-8.4 [facility] Comment on above: Order Comment: Items in this order include: Comprehensive Metabolic Panel, Lipid Panel, CBC with differential, HgbA1C, , Performed By: #### C 215, C47, C8, C406 #### [facility] [address] [place] [address] [place] [address] Sodium [Moles/Vol] 135 mmol/L Normal 135-145 [facility] Comment on above: Order Comment: Items in this order include: Comprehensive Metabolic Panel, Lipid Panel, CBC with differential, HgbA1C, , Performed By: #### C 215, C47, C8, C406 #### [facility] [address] [place] [address] [place] [address] Urea nitrogen [Mass/Vol] 17 mg/dL Normal 8-24 [facility] Comment on above: Order Comment: Items in this order include: Comprehensive Metabolic Panel, Lipid Panel, CBC with differential, HgbA1C, , Performed By: #### C 215, C47, C8, C406 #### [facility] [address] [facility] [address] [place] [address] External Lab Hemoglobin A1Co n 07-09-2018 Hemoglobin A1c/Hemoglobin.total mass fraction (Bld) 9.9 % [facility] [id number] 07-09-2018 HbA1c (Bld) [Mass fraction] 9.9 % High <5.7 [facility] Comment on above: Order Comment: Items in this order include: Comprehensive Metabolic Panel, Lipid Panel, CBC with differential, HgbA1C, , Result Comment: Refe rence Interval: Normal: below 5.7%. Prediabetes: 5.7% to 6.4%. Diabetes: 6.5% or above. Performed By: #### C 215, C47, C8, C406 #### [facility] [address] [facility] [address] [place] [address] Lipid Panelon 07-09-2018 Cholesterol [Mass/Vol] 104 mg/dL Normal <200 [facility] Comment on above: Performed By: #### C 215, C47, C8, C406 #### [facility] [address] [address] [facility] [address] [place] [address] Cholesterol in HDL [Mass/Vol] 36 mg/dL Low >40 [facility] Comment on above: Performed By: #### C 215, C47, C8, C406 #### [facility] [address] [facility] [address] [place] [address] Cholesterol in LDL [Mass/Vol] 6 mg/dL Normal <130 [facility] Comment on above: Performed By: #### C 215, C47, C8, C406 #### [facility] [address] [place] [address] Cholesterol.total/Мария sterol in HDL [Mass ratio] 2.9 {ratio} Normal <4.0 [facility] Comment on above: Performed By: #### C 215, C47, C8, C406 #### [facility] [address] [place] [address] Non-HDL Chol 68 Normal LDL Goal + 30 [facility] Comment on above: Result Comment: LDL and Non-HDL goal dependent upon individual risk Performed By: #### C 215, C47, C8, C406 #### [facility] [address] [facility] [address] [place] [address] Triglyceride [Mass/Vol] 310 mg/dL High <150 [facility] Comment on above: Performed By: #### C 215, C47, C8, C406 #### [facility] [address] [place] [address] [address] [place] [address] VLDL-Calc 62 mg/dl High <30 [facility] Comment on above: Performed By: #### C 215, C47, C8, C406 #### [facility] [address] [place] [address] [address] [place] [address] Urinalysis (Complete)on Ascorbic Acid 40 Abnormal negative;TNP [facility] Comment on above: Order Comment: Items in this order include: Urine, Random, Albumin/Crea , Urinalysis (Complete), , Items in this order include: Urine, Random, Albumin/Crea , Urinalysis (Complete), , Result Comment: The presence of ascorbic acid in levels >10 mg/dl may cause the urine blood screen to be falsely negative. Reflex microscopic testing is below. Performed By: #### C 301, C80 #### [facility] [address] [place] [address] [address] [place] [address] Bilirubin [Mass/Vol] Negative Normal negative;TNP [facility] Comment on above: Order Comment: Items in this order include: Urine, Random, Albumin/Crea , Urinalysis (Complete), , Items in this order include: Urine, Random, Albumin/Crea , Urinalysis (Complete), , Performed By: #### C 301, C80 #### [facility] [address] [place] [address] [address] [place] [address] Blood Negative Normal negative;TNP [facility] Comment on above: Order Comment: Items in this order include: Urine, Random, Albumin/Crea , Urinalysis (Complete), , Items in this order include: Urine, Random, Albumin/Crea , Urinalysis (Complete), , Performed By: #### C 301, C80 #### [facility] [address] [place] [address] [place] [address] Clarity (U) Clear Normal clear;[facility] Comment on above: Performed By: #### C 301, C80 #### [facility] [address] [place] [address] [place] [address] Order Comment: Items in this order include: Urine, Random, Albumin/Crea , Urinalysis (Complete), , Items in this order include: Urine, Random, Albumin/Crea , Urinalysis (Complete), , Color (U) yellow Normal yellow;[facility] Comment on above: Performed By: #### C 301, C80 #### [facility] [address] [place] [address] [place] [address] Order Comment: Items in this order include: Urine, Random, Albumin/Crea , Urinalysis (Complete), , Items in this order include: Urine, Random, Albumin/Crea , Urinalysis (Complete), , Glucose [Mass/Vol] >=500 Abnormal negative;[facility] Comment on above: Order Comment: Items in this order include: Urine, Random, Albumin/Crea , Urinalysis (Complete), , Items in this order include: Urine, Random, Albumin/Crea , Urinalysis (Complete), , Performed By: #### C 301, C80 #### [facility] [address] [place] [address] [address] [place] [address] Gran. Casts <5 Abnormal Negative;[facility] Comment on above: Order Comment: Items in this order include: Urine, Random, Albumin/Crea , Urinalysis (Complete), , Items in this order include: Urine, Random, Albumin/Crea , Urinalysis (Complete), , Performed By: #### C 301, C80 #### [facility] [address] [place] [address] [address] [place] [address] Ketones Ql (U) Negative Normal negative;[facility] Comment on above: Performed By: #### C 301, C80 #### [facility], [facility]. [address] [place] [address] [address] [place] [address] Order Comment: Items in this order include: Urine, Random, Albumin/Crea , Urinalysis (Complete), , Items in this order include: Urine, Random, Albumin/Crea , Urinalysis (Complete), , Mucous occ Normal none;occ;1+;T PROPAGATOR [facility] Comment on above: Order Comment: Items in this order include: Urine, Random, Albumin/Crea , Urinalysis (Complete), , Items in this order include: Urine, Random, Albumin/Crea , Urinalysis (Complete), , Performed By: #### C 301, C80 #### [facility], [facility]. [address] [place] [address] [address] [place] [address] Nitrite Ql (U) Negative Normal negative;[facility] Comment on above: Performed By: #### C 301, C80 #### [facility], [facility]. [address] [place] [address] [address] [place] [address] Order Comment: Items in this order include: Urine, Random, Albumin/Crea , Urinalysis (Complete), , Items in this order include: Urine, Random, Albumin/Crea , Urinalysis (Complete), , pH (Bld) 5.0 Normal 5.0-9.0 [facility] Comment on above: Order Comment: Items in this order include: Urine, Random, Albumin/Crea , Urinalysis (Complete), , Items in this order include: Urine, Random, Albumin/Crea , Urinalysis (Complete), , Performed By: #### C 301, C80 #### [facility], [facility]. [address] [place] [address] [place] [address] Protein (U) [Mass/Vol] Negative Normal negative;[facility] Comment on above: Order Comment: Items in this order include: Urine, Random, Albumin/Crea , Urinalysis (Complete), , Items in this order include: Urine, Random, Albumin/Crea , Urinalysis (Complete), , Performed By: #### C 301, C80 #### [facility] [address] [place] [address] [place] [address] RBC (U) [#/Vol] /uL Normal negative;<5; T PROPAGATOR [facility] Comment on above: Order Comment: Items in this order include: Urine, Random, Albumin/Crea , Urinalysis (Complete), , Items in this order include: Urine, Random, Albumin/Crea , Urinalysis (Complete), , Performed By: #### C 301, C80 #### [facility], [facility]. [address] [place] [address] [address] [place] [address] S.G. 1.016 Normal 1.001-1.035 [facility] Comment on above: Order Comment: Items in this order include: Urine, Random, Albumin/Crea , Urinalysis (Complete), , Items in this order include: Urine, Random, Albumin/Crea , Urinalysis (Complete), , Performed By: #### C 301, C80 #### [facility], [facility]. [address] [place] [address] [address] [place] [address] Urine Epis occ Normal Negative;occ; [facility] Comment on above: Order Comment: Items in this order include: Urine, Random, Albumin/Crea , Urinalysis (Complete), , Items in this order include: Urine, Random, Albumin/Crea , Urinalysis (Complete), , Performed By: #### C 301, C80 #### [facility] [address] [place] [address] [place] [address] Urobilinogen Qn (U) Negative Normal negative;TNP [facility] Comment on above: Performed By: #### C 301, C80 #### [facility] [address] [place] [address] [place] [address] Order Comment: Items in this order include: Urine, Random, Albumin/Crea , Urinalysis (Complete), , Items in this order include: Urine, Random, Albumin/Crea , Urinalysis (Complete), , WBC (Bld) [#/Vol] Negative Normal negative;TNP [facility] Comment on above: Performed By: #### C 301, C80 #### [facility] [address] [place] [address] [place] [address] Order Comment: Items in this order include: Urine, Random, Albumin/Crea , Urinalysis (Complete), , Items in this order include: Urine, Random, Albumin/Crea , Urinalysis (Complete), , WBC (U) [#/Vol] /uL Normal negative;<5; T PROPAGATOR [facility] Comment on above: Performed By: #### C 301, C80 #### [facility] [address] [place] [address] [place] [address] Order Comment: Items in this order include: Urine, Random, Albumin/Crea , Urinalysis (Complete), , Items in this order include: Urine, Random, Albumin/Crea , Urinalysis (Complete), , Urine, Random, Albumin/Creao n 07-09-2018 Albumin DL <= 20 mg/L (U) [Mass/Vol] 8.6 mg/dL High 0.0-1.6 [facility] Comment on above: Order Comment: Items in this order include: Urine, Random, Albumin/Crea , Urinalysis (Complete), , Performed By: #### C 301, C80 #### [facility] [address] [place] [address] [place] [address] Creatinine (U) [Mass/Vol] 139.8 mg/dL Normal 39.0-259.0 [facility] Comment on above: Order Comment: Items in this order include: Urine, Random, Albumin/Crea , Urinalysis (Complete), , Performed By: #### C 301, C80 #### [facility] [address] [place] [address] [place] [address] Urine Microalb/ Creat Ratio 61.5 mcg/mg creat High 0.0-29.9 [facility] Comment on above: Order Comment: Items in this order include: Urine, Random, Albumin/Crea , Urinalysis (Complete), , Result Comment: The ADA (Diabetes Care 26:s94-s98,2003) defines abnormalities in albumin excretion as follows: Category Result (mcg/mg creatinine) Normal <30 Microalbuminuria 30-299 Clinical Albuminuria > or =300 The ADA recommends that at least two of three specimens collected within a 3-6 month period be abnormal before considering a patient to be within a diagnostics category. Performed By: #### C 301, C80 #### [facility] [address] [place] [address] [place] [address] Basic Metabolic Panelon 03-10 Anion gap [Moles/Vol] 14.00 mmol/L Normal 8.00-16.00 [facility] Comment on above: Order Comment: Items in this order include: HgbA1C, Basic Metabolic Panel , CBC with differential, , , Fasting: Unknown Performed By: #### C 45, C215, C406 #### [facility] [address] [place] [address] [place] [address] B/C Ratio 25.0 Ratio Normal [facility] Comment on above: Order Comment: Items in this order include: HgbA1C, Basic Metabolic Panel , CBC with differential, , , Fasting: Unknown Performed By: #### C 45, C215, C406 #### [facility] [address] [place] [address] [place] [address] Calcium [Mass/Vol] 9.6 mg/dL Normal 8.5-10.5 [facility] Comment on above: Order Comment: Items in this order include: HgbA1C, Basic Metabolic Panel , CBC with differential, , , Fasting: Unknown Performed By: #### C 45, C215, C406 #### [facility] [address] [place] [address] [place] [address] Chloride [Moles/Vol] 99 mmol/L Normal 98-107 [facility] Comment on above: Order Comment: Items in this order include: HgbA1C, Basic Metabolic Panel , CBC with differential, , , Fasting: Unknown Performed By: #### C 45, C215, C406 #### [facility] [address] [facility] [place] [address] CO2 [Moles/Vol] 25.0 mmol/L Normal 22.0-30.0 [facility] Comment on above: Order Comment: Items in this order include: HgbA1C, Basic Metabolic Panel , CBC with differential, , , Fasting: Unknown Performed By: #### C 45, C215, C406 #### [facility] [address] [facility] [place] [address] Creatinine [Mass/Vol] 1.0 mg/dL Normal 0.3-1.4 [facility] Comment on above: Order Comment: Items in this order include: HgbA1C, Basic Metabolic Panel , CBC with differential, , , Fasting: Unknown Performed By: #### C 45, C215, C406 #### [facility] [address] [place] [address] [place] [address] GFR/1.73 sq M.predicted MDRD (S/P/Bld) [Vol rate/Area] 73 mL/min per 1.73 Normal >60 [facility] Comment on above: Order Comment: Items in this order include: HgbA1C, Basic Metabolic Panel , CBC with differential, , , Fasting: Unknown Result Comment: The GFR estimate is not adjusted for race. If the patient's race is -[place], the GFR estimate must be multiplied by a factor of 1.21. Performed By: #### C 45, C215, C406 #### [facility] [address] [facility] [place] [address] Glucose [Mass/Vol] 261 mg/dL High 74-100 [facility] Comment on above: Order Comment: Items in this order include: HgbA1C, Basic Metabolic Panel , CBC with differential, , , Fasting: Unknown Performed By: #### C 45, C215, C406 #### [facility] [address] [place] [address] [place] [address] Potassium [Moles/Vol] 4.6 mmol/L Normal 3.5-5.3 [facility] Comment on above: Order Comment: Items in this order include: HgbA1C, Basic Metabolic Panel , CBC with differential, , , Fasting: Unknown Performed By: #### C 45, C215, C406 #### [facility] [address] [place] [address] [place] [address] Sodium [Moles/Vol] 138 mmol/L Normal 135-145 [facility] Comment on above: Order Comment: Items in this order include: HgbA1C, Basic Metabolic Panel , CBC with differential, , , Fasting: Unknown Performed By: #### C 45, C215, C406 #### [facility] [address] [place] [address] [place] [address] Urea nitrogen [Mass/Vol] 25 mg/dL High 8-24 [facility] Comment on above: Order Comment: Items in this order include: HgbA1C, Basic Metabolic Panel , CBC with differential, , , Fasting: Unknown Performed By: #### C 45, C215, C406 #### [facility] [address] [place] [address] [place] [address] CBC with differentialon - Basophils (Bld) [#/Vol] 0.1 K CUMM Normal 0.0-0.2 [facility] Comment on above: Order Comment: Items in this order include: HgbA1C, Basic Metabolic Panel , CBC with differential, , , Fasting: Unknown Performed By: #### C 45, C215, C406 #### [facility] [address] [place] [address] [place] [address] Basophils/100 WBC (Bld) 0.5 % Normal 0.0-3.0 [facility] Comment on above: Order Comment: Items in this order include: HgbA1C, Basic Metabolic Panel , CBC with differential, , , Fasting: Unknown Performed By: #### C 45, C215, C406 #### [facility] [address] [facility] [address] [place] [address] Eosinophils (Bld) [#/Vol] 0.6 K CUMM High 0.0-0.4 [facility] Comment on above: Order Comment: Items in this order include: HgbA1C, Basic Metabolic Panel , CBC with differential, , , Fasting: Unknown Performed By: #### C 45, C215, C406 #### [facility] [address] [place] [address] [address] [place] [address] Eosinophils/100 WBC (Bld) 3.6 % Normal 0.0-7.0 [facility] Comment on above: Order Comment: Items in this order include: HgbA1C, Basic Metabolic Panel , CBC with differential, , , Fasting: Unknown Performed By: #### C 45, C215, C406 #### [facility] [address] [place] [address] [address] [place] [address] Erythrocyte distribution width (RBC) [Ratio] 12.7 % Normal 11.5-15.5 [facility] Comment on above: Order Comment: Items in this order include: HgbA1C, Basic Metabolic Panel , CBC with differential, , , Fasting: Unknown Performed By: #### C 45, C215, C406 #### [facility], [facility]. [address] [place] [address] [address] [place] [address] Hematocrit (Bld) [Volume fraction] 50.2 % Normal 42.0-52.0 [facility] Comment on above: Order Comment: Items in this order include: HgbA1C, Basic Metabolic Panel , CBC with differential, , , Fasting: Unknown Performed By: #### C 45, C215, C406 #### [facility] [address] [place] [address] [address] [place] [address] Hemoglobin (Bld) [Mass/Vol] 16.6 g/dL Normal 13.5-18.0 [facility] Comment on above: Order Comment: Items in this order include: HgbA1C, Basic Metabolic Panel , CBC with differential, , , Fasting: Unknown Performed By: #### C 45, C215, C406 #### [facility] [address] [place] [address] [address] [place] [address] ImmGrn # 0.1 K CUMM Normal 0.0-0.3 [facility] Comment on above: Order Comment: Items in this order include: HgbA1C, Basic Metabolic Panel , CBC with differential, , , Fasting: Unknown Performed By: #### C 45, C215, C406 #### [facility] [address] [place] [address] [address] [place] [address] ImmGrn % 0.7 % Normal 0.0-3.0 [facility] Comment on above: Order Comment: Items in this order include: HgbA1C, Basic Metabolic Panel , CBC with differential, , , Fasting: Unknown Performed By: #### C 45, C215, C406 #### [facility], [facility]. [address] [place] [address] [place] [address] Lymphocytes (Bld) [#/Vol] 1.8 K CUMM Normal 0.7-4.5 [facility] Comment on above: Order Comment: Items in this order include: HgbA1C, Basic Metabolic Panel , CBC with differential, , , Fasting: Unknown Performed By: #### C 45, C215, C406 #### [facility], [address] [place] [address] Lymphocytes/100 WBC (Bld) 11.6 % Low 14.0-46.0 [facility] Comment on above: Order Comment: Items in this order include: HgbA1C, Basic Metabolic Panel , CBC with differential, , , Fasting: Unknown Performed By: #### C 45, C215, C406 #### [facility] [address] [place] [address] [address] [place] [address] MCH (RBC) [Entitic mass] 28.9 pg Normal 27.0-31.0 [facility] Comment on above: Order Comment: Items in this order include: HgbA1C, Basic Metabolic Panel , CBC with differential, , , Fasting: Unknown Performed By: #### C 45, C215, C406 #### [facility] [address] [facility] [address] [place] [address] MCHC (RBC) [Mass/Vol] 33.1 g/dL Normal 32.0-36.0 [facility] Comment on above: Order Comment: Items in this order include: HgbA1C, Basic Metabolic Panel , CBC with differential, , , Fasting: Unknown Performed By: #### C 45, C215, C406 #### [facility] [address] [place] [address] [address] [place] [address] MCV (RBC) [Entitic vol] 87.5 fL Normal 78.0-100.0 [facility] Comment on above: Order Comment: Items in this order include: HgbA1C, Basic Metabolic Panel , CBC with differential, , , Fasting: Unknown Performed By: #### C 45, C215, C406 #### [facility] [address] [place] [address] [place] [address] Monocytes (Bld) [#/Vol] 1.3 K CUMM High 0.1-1.0 [facility] Comment on above: Order Comment: Items in this order include: HgbA1C, Basic Metabolic Panel , CBC with differential, , , Fasting: Unknown Performed By: #### C 45, C215, C406 #### [facility] [address] [place] [address] [place] [address] Monocytes/100 WBC (Bld) 8.3 % Normal 4.0-13.0 [facility] Comment on above: Order Comment: Items in this order include: HgbA1C, Basic Metabolic Panel , CBC with differential, , , Fasting: Unknown Performed By: #### C 45, C215, C406 #### [facility] [address] [place] [address] [address] [place] [address] Neutrophils (Bld) [#/Vol] 11.5 K CUMM High 1.8-7.8 [facility] Comment on above: Order Comment: Items in this order include: HgbA1C, Basic Metabolic Panel , CBC with differential, , , Fasting: Unknown Performed By: #### C 45, C215, C406 #### [facility] [address] [place] [address] [address] [place] [address] Neutrophils/100 WBC (Bld) 75.3 % High 40.0-74.0 [facility] Comment on above: Order Comment: Items in this order include: HgbA1C, Basic Metabolic Panel , CBC with differential, , , Fasting: Unknown Performed By: #### C 45, C215, C406 #### [facility] [address] [place] [address] [place] [address] Platelet mean volume (Bld) [Entitic vol] 11.7 fL Normal 8.9-12.6 [facility] Comment on above: Order Comment: Items in this order include: HgbA1C, Basic Metabolic Panel , CBC with differential, , , Fasting: Unknown Performed By: #### José Miguel 45, C215, C406 #### [facility] [address] [place] [address] [place] [address] Platelets (Bld) [#/Vol] 275 K CUMM Normal 130-400 [facility] Comment on above: Order Comment: Items in this order include: HgbA1C, Basic Metabolic Panel , CBC with differential, , , Fasting: Unknown Performed By: #### C 45, C215, C406 #### [facility] [address] [place] [address] [place] [address] RBC (Bld) [#/Vol] 5.74 M CUMM Normal 4.20-5.80 [facility] Comment on above: Order Comment: Items in this order include: HgbA1C, Basic Metabolic Panel , CBC with differential, , , Fasting: Unknown Performed By: #### C 45, C215, C406 #### [facility] [address] [place] [address] [address] [place] [address] WBC (Bld) [#/Vol] 15.3 K CUMM High 3.8-10.6 [facility] Comment on above: Order Comment: Items in this order include: HgbA1C, Basic Metabolic Panel , CBC with differential, , , Fasting: Unknown Performed By: #### C 45, C215, C406 #### [facility] [address] [facility] [address] [place] [address] External Lab Basic Metabolic Panelon 04-02-2018 Calcium mass conc 9.6 mg/dL [facility] Chloride molar conc 99 mmol/L [facility] Creatinine mass conc 1.00 mg/dL [facility] GFR/1.73 sq M predicted among blacks MDRD vol rate/area (S/P/Bld) [facility] GFR/1.73 sq M predicted among non-blacks MDRD vol rate/area (S/P/Bld) 73 mL/min/{1.73_m2} [facility] Glucose mass conc 261 mg/dL [facility] HCO3 molar conc (Bld) 25 mmol/L [facility] Potassium molar conc 4.6 mmol/L [facility] Sodium molar conc 138 mmol/L [facility] Urea nitrogen mass conc 25 mg/[facility] Lab Hemoglobin A1Co n 04-02-2018 Hemoglobin A1c/Hemoglobin.total mass fraction (Bld) 9.1 % [facility] [id number] 04-02-2018 HbA1c (Bld) [Mass fraction] 9.1 % High <5.7 [facility] Comment on above: Order Comment: Items in this order include: HgbA1C, Basic Metabolic Panel , CBC with differential, , , Fasting: Unknown Result Comment: Refe rence Interval: Normal: below 5.7%. Prediabetes: 5.7% to 6.4%. Diabetes: 6.5% or above. Performed By: #### C 45, C215, C406 #### [facility] [address] [facility] [address] [place] [address] External Lab Hemoglobin A1Co n 11-22-2017 Hemoglobin A1c/Hemoglobin.total mass fraction (Bld) 7.2 % [facility] Debridementon 10-04-2017 Shola Garcia DPM 10/04/2017 8:17 AM Wound Care Debridement Timeout: Verbal Consent obtained?: Yes Consent given by: Patient Debridement Procedure: Debridement Performed for Assessment: 1 Performed by: Physician Debridement Type: Surgical Pain Control: 4% Lidocaine Level: Skin/Subcutaneous Tissue Pre-Debridement Values: Length (cm): 1 Width (cm): 0.6 Depth (cm): 0.1 Area (sq cm): 0.6 Volume (cm3): 0.06 Post Debridement Measurements: Length (cm): 1 Width (cm): 0.7 Depth (cm): 0.1 Area (sq cm): 0.7 Volume (cm3): 0.07 Percent Debrided: 100 Total Area Debrided (sq cm): 0.7 Tissue and other material debrided: Subcutaneous Devitalized tissue debrided: Slough, Exudate and Biofilm Instrument: Curette Bleeding: Minimal Hemostasis Achieved: Pressure Procedural Pain: 1 Post Procedural Pain: 0 Response to Treatment: Procedure was tolerated well Invalid Interpretation Code [facility] Debridement 09-20-2017 Debridement Shola Garcia DPM 09/20/2017 9:13 AM Wound Care Debridement Timeout: Verbal Consent obtained?: Yes Consent given by: Patient Debridement Procedure: Debridement Performed for Assessment: 19 Performed by: Physician Debridement Type: Surgical Pain Control: 2% Lidocaine Level: Skin/Subcutaneous Tissue Pre-Debridement Values: Length (cm): 1.7 Width (cm): 0.8 Depth (cm): 0.1 Area (sq cm): 1.36 Volume (cm3): 0.14 Post Debridement Measurements: Length (cm): 1.9 Width (cm): 0.9 Depth (cm): 0.1 Area (sq cm): 1.71 Volume (cm3): 0.17 Percent Debrided: 100 Total Area Debrided (sq cm): 1.71 Tissue and other material debrided: Subcutaneous Devitalized tissue debrided: Biofilm, Exudate and Slough Instrument: Curette Bleeding: Minimal Hemostasis Achieved: Pressure Procedural Pain: 2 Post Procedural Pain: 0 Response to Treatment: Procedure was tolerated well Invalid Interpretation Code [facility] Debridement 08-30-2017 Debridement Shola Garcia DPM 08/30/2017 10:55 AM Wound Care Debridement Timeout: Verbal Consent obtained?: Yes Consent given by: Patient Debridement Procedure: Debridement Performed for Assessment: 1 Performed by: Physician Debridement Type: Surgical Pain Control: 2% Lidocaine Level: Skin/Subcutaneous Tissue Pre-Debridement Values: Length (cm): 2.1 Width (cm): 1.5 Depth (cm): 0.1 Area (sq cm): 3.15 Volume (cm3): 0.32 Post Debridement Measurements: Length (cm): 2.2 Width (cm): 1.7 Depth (cm): 0.1 Area (sq cm): 3.74 Volume (cm3): 0.37 Percent Debrided: 100 Total Area Debrided (sq cm): 3.74 Tissue and other material debrided: Subcutaneous Devitalized tissue debrided: Biofilm, Exudate and Slough Instrument: Curette Bleeding: Minimal Hemostasis Achieved: Pressure Procedural Pain: 1 Post Procedural Pain: 0 Response to Treatment: Procedure was tolerated well Invalid Interpretation Code [facility] Debridementon 08-23-2017 Debridement Shola Garcia DPM 08/23/2017 2:55 PM Wound Care Debridement Timeout: Verbal Consent obtained?: Yes Consent given by: Patient Debridement Procedure: Debridement Performed for Assessment: 1 Performed by: Physician Debridement Type: Surgical Pain Control: 4% Lidocaine Level: Skin/Subcutaneous Tissue Pre-Debridement Values: Length (cm): 2 Width (cm): 1.5 Depth (cm): 0.1 Area (sq cm): 3 Volume (cm3): 0.3 Post Debridement Measurements: Length (cm): 2 Width (cm): 1.6 Depth (cm): 0.2 Area (sq cm): 3.2 Volume (cm3): 0.64 Percent Debrided: 100 Total Area Debrided (sq cm): 3.2 Tissue and other material debrided: Subcutaneous Devitalized tissue debrided: Necrotic/Eschar, Slough, Clots, Biofilm and Exudate Instrument: Curette Bleeding: Minimal Hemostasis Achieved: Pressure Procedural Pain: 3 Post Procedural Pain: 1 Response to Treatment: Procedure was tolerated well Invalid Interpretation Code [facility] CT Cervical Spine Without Co ntrast 3Don 07-30-2017 CT Cervical Spine Without Contrast 3D No evidence of acute osseous abnormality. [employer]/tde Workstation ID: [id number] Invalid Interpretation Code Equals6 [facility] CT Cervical Spine Without Contrast 3D EXAMINATION: CT CERVICAL SPINE WITHOUT CONTRAST 3D HISTORY: ORDERING SYSTEM PROVIDED HISTORY: fall, head inj, TECHNOLOGIST PROVIDED HISTORY: Reason for exam: fall, head inj, headache, dizziness Injury/Trauma Encounter Type: Initial Mechanism of injury: fall, head inj, headache, dizziness ORDERING SYSTEM PROVIDED DIAGNOSIS CODES: COMPARISON: None. TECHNIQUE: CT cervical spine without IV contrast. Coronal and sagittal reformations were performed. Additional 3D postprocessing was performed on a separate workstation. Dose reduction techniques were achieved by using automated exposure control and/or adjustment of mA and/or kV according to patient size and/or use of iterative reconstruction technique. FINDINGS: There is degeneration of the cervical spine without disc space narrowing at C5-C6 and C6-C7. Vertebral body heights are well maintained. No significant canal stenosis. No evidence of acute fracture or dislocation. Invalid Interpretation Code [facility] CT Cervical Spine Without Contrast 3D Interface, Rad In [facility] - 07/30/2017 8:52 PM EDT EXAMINATION: CT CERVICAL SPINE WITHOUT CONTRAST 3D HISTORY: ORDERING SYSTEM PROVIDED HISTORY: fall, head inj, TECHNOLOGIST PROVIDED HISTORY: Reason for exam: fall, head inj, headache, dizziness Injury/Trauma Encounter Type: Initial Mechanism of injury: fall, head inj, headache, dizziness ORDERING SYSTEM PROVIDED DIAGNOSIS CODES: COMPARISON: None. TECHNIQUE: CT cervical spine without IV contrast. Coronal and sagittal reformations were performed. Additional 3D postprocessing was performed on a separate workstation. Dose reduction techniques were achieved by using automated exposure control and/or adjustment of mA and/or kV according to patient size and/or use of iterative reconstruction technique. FINDINGS: There is degeneration of the cervical spine without disc space narrowing at C5-C6 and C6-C7. Vertebral body heights are well maintained. No significant canal stenosis. No evidence of acute fracture or dislocation. IMPRESSION: No evidence of acute osseous abnormality. [employer] Workstation ID: [id number] Invalid Interpretation Code [facility] CT Head Or Brain Without Con traston 07-30-2017 CT Head Or Brain Without Contrast No acute intracranial abnormality. [employer] Workstation ID: [id number] Invalid Interpretation Code [facility] CT Head Or Brain Without Contrast EXAMINATION: CT HEAD OR BRAIN WITHOUT CONTRAST HISTORY: ORDERING SYSTEM PROVIDED HISTORY: fall, head inj, headache, dizziness, TECHNOLOGIST PROVIDED HISTORY: Reason for exam: fall, head inj, headache, dizziness Injury/Trauma Encounter Type: Initial Mechanism of injury: fall, head inj, headache, dizziness ORDERING SYSTEM PROVIDED DIAGNOSIS CODES: COMPARISON: None. TECHNIQUE: CT examination of the head without IV contrast. Dose reduction techniques were achieved by using automated exposure control and/or adjustment of mA and/or kV according to patient size and/or use of iterative reconstruction technique. FINDINGS: No intracranial hemorrhage, mass effect or shift of the midline structures. Sanches-white interface is intact. Visualized paranasal sinuses and mastoid air cells are grossly clear. Invalid Interpretation Code [facility] CT Head Or Brain Without Contrast Interface, Rad In [facility] - 07/30/2017 8:52 PM EDT EXAMINATION: CT HEAD OR BRAIN WITHOUT CONTRAST HISTORY: ORDERING SYSTEM PROVIDED HISTORY: fall, head inj, headache, dizziness, TECHNOLOGIST PROVIDED HISTORY: Reason for exam: fall, head inj, headache, dizziness Injury/Trauma Encounter Type: Initial Mechanism of injury: fall, head inj, headache, dizziness ORDERING SYSTEM PROVIDED DIAGNOSIS CODES: COMPARISON: None. TECHNIQUE: CT examination of the head without IV contrast. Dose reduction techniques were achieved by using automated exposure control and/or adjustment of mA and/or kV according to patient size and/or use of iterative reconstruction technique. FINDINGS: No intracranial hemorrhage, mass effect or shift of the midline structures. Sanches-white interface is intact. Visualized paranasal sinuses and mastoid air cells are grossly clear. IMPRESSION: No acute intracranial abnormality. [facility] [employer] Workstation ID: [id number] Invalid Interpretation Code [facility] XR Tibia Fibula Right 2 View son 07-30-2017 XR Tibia Fibula Right 2 Views Subcutaneous gas believed to be posttraumatic. No acute fracture. [employer] Workstation ID: [id number] Invalid Interpretation Code [facility] XR Tibia Fibula Right 2 Views EXAMINATION: XR TIBIA FIBULA RIGHT 2 VIEWS HISTORY: ORDERING SYSTEM PROVIDED HISTORY: fall, puncture wound, TECHNOLOGIST PROVIDED HISTORY: Reason for exam: Puncture wound Injury/Trauma Cancer History: No Surgery, RadiationHistory: Yes Encounter Type: Initial Mechanism of injury: Fall ORDERING SYSTEM PROVIDED DIAGNOSIS CODES: COMPARISON: None. TECHNIQUE: Two views of the right tibia and fibula. FINDINGS: Nqieubry-re-kqawna degeneration of the knee. Subcutaneous gas is believed to be posttraumatic. No evidence of acute fracture or dislocation. No radiopaque foreign body. Invalid Interpretation Code [facility] XR Tibia Fibula Right 2 Views Interface, Rad In [facility] - 07/30/2017 8:52 PM EDT EXAMINATION: XR TIBIA FIBULA RIGHT 2 VIEWS HISTORY: ORDERING SYSTEM PROVIDED HISTORY: fall, puncture wound, TECHNOLOGIST PROVIDED HISTORY: Reason for exam: Puncture wound Injury/Trauma Cancer History: No Surgery, RadiationHistory: Yes Encounter Type: Initial Mechanism of injury: Fall ORDERING SYSTEM PROVIDED DIAGNOSIS CODES: COMPARISON: None. TECHNIQUE: Two views of the right tibia and fibula. FINDINGS: Pbwiebab-px-zqvqit degeneration of the knee. Subcutaneous gas is believed to be posttraumatic. No evidence of acute fracture or dislocation. No radiopaque foreign body. IMPRESSION: Subcutaneous gas believed to be posttraumatic. No acute fracture. [employer]OGDAN/[employer] Workstation ID: [id number] Invalid Interpretation Code [facility]NAP[facility] 04-11-2017 Cholesterol 182 mg/dL Invalid Interpretation Code 100 - 199 [facility] HDL Cholesterol 8.8 nm Low >=9.2 [facility] HDL Cholesterol 29.2 umol/L Low >=30.5 [facility] HDL Cholesterol 40 mg/dL Invalid Interpretation Code >39 [facility] HDL Cholesterol 3.8 umol/L Low >=4.8 [facility] Interpretation and review of laboratory results Abnormal Invalid Interpretation Code [facility] Large VLDL-P 7.5 nmol/L High <=2.7 [facility] LDL Cholesterol 883 nmol/L High <=527 [facility] LDL Cholesterol 100 mg/dL High 0 - 99 [facility] LDL Cholesterol 1417 nmol/L High <1000 [facility] LDL Cholesterol 20.2 nm Invalid Interpretation Code >20.5 [facility] LP-IR Score 65 1 High <=45 [facility] Triglyceride 210 mg/dL High 0 - 149 [facility] VLDL Size 48.3 nm High <=46.6 [facility] External Lab Comprehensive M etabolic Panelon 01-31-2017 Alanine aminotransferase (ALT) 36 U/L Invalid Interpretation Code [facility] Work Phone: Albumin 4.4 g/dL Invalid Interpretation Code [facility] Work Phone: Albumin/Globulin Ratio Invalid Interpretation Code [facility] Work Phone: Alkaline phosphatase (ALP) 87 U/L Invalid Interpretation Code [facility] Work Phone: Aspartate aminotransferase (AST) 26 U/L Invalid Interpretation Code [facility] Work Phone: Bicarbonate (HCO3) 28 mmol/L Invalid Interpretation Code [facility] Work Phone: BUN/Creatinine Ratio Invalid Interpretation Code [employer] Work Phone: Calcium 9.5 mg/dL Invalid Interpretation Code [employer] Work Phone: Chloride 103 mmol/L Invalid Interpretation Code [facility] Work Phone: Creatinine 0.90 mg/dL Invalid Interpretation Code [employer] Phone: eGFR (black) Invalid Interpretation Code [employer] Work Phone: eGFR (non-black) 83 mL/min/{1.73_m2} Invalid Interpretation Code [employer] Work Phone: Globulin Invalid Interpretation Code [employer] Phone: Glucose 154 mg/dL Invalid Interpretation Code [employer] Phone: Magnesium Invalid Interpretation Code [employer] Phone: Phosphate Invalid Interpretation Code mg/dL [facility] Phone: Potassium 4.0 mmol/L Invalid Interpretation Code [employer] Phone: Protein 7.2 g/dL Invalid Interpretation Code [facility] Phone: Sodium 143 mmol/L Invalid Interpretation Code [employer] Phone: Urate Invalid Interpretation Code mg/dL [facility] Phone: Urea nitrogen 15 mg/dL Invalid Interpretation Code [facility] Phone: Urine, bilirubin presence 1.2 mg/dL Invalid Interpretation Code [facility] Phone: External Lab Hemoglobin A1Co n 01-31-2017 HbA1c 6.5 % Invalid Interpretation Code [employer] Phone: External Lab Lipid Panelon 1 04-03-2016 Cholesterol 117 mg/dL Invalid Interpretation Code [employer] Phone: Cholesterol to HDL Ratio 2.7 {ratio} Invalid Interpretation Code [employer] Phone: HDL Cholesterol 74 mg/dL Invalid Interpretation Code [employer] Phone: HDL Cholesterol 43 mg/dL Invalid Interpretation Code [facility] Work Phone: LDL Cholesterol Invalid Interpretation Code mg/dL [facility] Work Phone: LDL Cholesterol 36 mg/dL Invalid Interpretation Code [facility] Work Phone: Triglyceride 190 mg/dL Invalid Interpretation Code [facility] Work Phone: VLDL Cholesterol 38 mg/dL Invalid Interpretation Code [facility] Work Phone: External Lab Vitamin D, 25-O [facility] 01-31-2017 Vitamin D, 25-OH 33.1 1 Invalid Interpretation Code [facility] Work Phone: [facility] 09-19-2016 Cholesterol 203 mg/dL High 100 - 199 [facility] HDL Cholesterol 8.6 nm Low >=9.2 [facility] HDL Cholesterol 28.4 umol/L Low >=30.5 [facility] HDL Cholesterol 41 mg/dL Invalid Interpretation Code >39 [facility] HDL Cholesterol 2.9 umol/L Low >=4.8 [facility] Interpretation and review of laboratory results Abnormal Invalid Interpretation Code [facility] Large VLDL-P 1.6 nmol/L Invalid Interpretation Code <=2.7 [facility] LDL Cholesterol 859 nmol/L High <=527 [facility] LDL Cholesterol 127 mg/dL High 0 - 99 [facility] LDL Cholesterol 1607 nmol/L High <1000 [facility] LDL Cholesterol 20.3 nm Invalid Interpretation Code >20.5 [facility] LP-IR Score 56 1 High <=45 [facility] Triglyceride 173 mg/dL High 0 - 149 [facility] VLDL Size 41.4 nm Invalid Interpretation Code <=46.6 [facility] Vital Signs Date Time Vital Sign Value Performing Clinician Alina severino 11-13-2024 10:47-0400 Body height 173 cm Milly Serrano BRAZING MACHINE FEEDER-SOFTBALL PLAYER Work Phone: [facility] 11-13-2024 10:47-0400 Body height 172.72 cm Milly eSrrano BRAZING MACHINE FEEDER-SOFTBALL PLAYER Work Phone: [facility] 11-13-2024 10:47-0400 Body mass index (BMI) [Ratio] 28.08 kg/m2 Milly Dulgar BRAZING MACHINE FEEDER-SOFTBALL PLAYER Work Phone: [facility] 11-13-2024 10:47-0400 Body weight 84 kg Milly Dulgar BRAZING MACHINE FEEDER-SOFTBALL PLAYER Work Phone: [facility] 11-13-2024 10:47-0400 Body weight 83.46 kg Milly Dulgar BRAZING MACHINE FEEDER-SOFTBALL PLAYER Work Phone: [facility] 11-13-2024 10:47-0400 BP SITE #1 Milly Dulgar BRAZING MACHINE FEEDER-SOFTBALL PLAYER Work Phone: [facility] 11-13-2024 10:47-0400 Diastolic blood pressure 87 mm[Hg] Milly Dulgar BRAZING MACHINE FEEDER-SOFTBALL PLAYER Work Phone: [facility] 11-13-2024 10:47-0400 Heart rate 83 /min Milly Dulgar BRAZING MACHINE FEEDER-SOFTBALL PLAYER Work Phone: [facility] 11-13-2024 10:47-0400 HGHTCHNVIS Milly Dulgar BRAZING MACHINE FEEDER-SOFTBALL PLAYER Work Phone: [facility] 11-13-2024 10:47-0400 Systolic blood pressure 135 mm[Hg] Milly Ruizgar BRAZING MACHINE FEEDER-SOFTBALL PLAYER Work Phone: [facility] 11-13-2024 10:47-0400 VITALSDONE Milly Ruizgar BRAZING MACHINE FEEDER-SOFTBALL PLAYER Work Phone: [facility] 10-17-2024 11:30-0400 Body height 166 cm Julia Cook MD Work Phone: [facility] 10-17-2024 11:30-0400 Body height 166.37 cm Julia Cook MD Work Phone: [facility] 10-17-2024 11:30-0400 Body mass index (BMI) [Ratio] 32.57 kg/m2 Julia Cook MD Work Phone: [facility] 10-17-2024 11:30-0400 Body weight 90 kg Julia Cook MD Work Phone: [facility] 10-17-2024 11:30-0400 Body weight 89.81 kg Julia Cook MD Work Phone: [facility] 10-17-2024 11:30-0400 BP SITE #1 Julia Cook MD Work Phone: [facility] 10-17-2024 11:30-0400 Diastolic blood pressure 71 mm[Hg] Julia Cook MD Work Phone: [facility] 10-17-2024 11:30-0400 HGHTCHNVIS Julia Cook MD Work Phone: [facility] 10-17-2024 11:30-0400 Systolic blood pressure 138 mm[Hg] Julia Cook MD Work Phone: [facility] 10-17-2024 11:30-0400 VITALSDONE Julia Cook MD Work Phone: [facility] 10-16-2024 09:52-0400 Body height 166 cm Yohan Santo MD Work Phone: [facility] 10-16-2024 09:52-0400 Body height 166.37 cm Yohan Santo MD Work Phone: [facility] 10-16-2024 09:52-0400 Body mass index (BMI) [Ratio] 32.57 kg/m2 Yohan Santo MD Work Phone: [facility] 10-16-2024 09:52-0400 Body weight 90 kg Yohan Santo MD Work Phone: [facility] 10-16-2024 09:52-0400 Body weight 89.81 kg Yohan Santo MD Work Phone: [facility] 10-16-2024 09:52-0400 BP SITE #1 Yohan Santo MD Work Phone: [facility] 10-16-2024 09:52-0400 BP SITE #2 Yohan Santo MD Work Phone: [facility] 10-16-2024 09:52-0400 Diastolic blood pressure 89 mm[Hg] Yohan Santo MD Work Phone: [facility] 10-16-2024 09:52-0400 Diastolic blood pressure 74 mm[Hg] Yohan Santo MD Work Phone: [facility] 10-16-2024 09:52-0400 Heart rate 61 /min Yohan Santo MD Work Phone: [facility] 10-16-2024 09:52-0400 HGHTCHNVIS Yohan Santo MD Work Phone: [facility] 10-16-2024 09:52-0400 Systolic blood pressure 179 mm[Hg] Yohan Santo MD Work Phone: [facility] 10-16-2024 09:52-0400 Systolic blood pressure 170 mm[Hg] Yohan Santo MD Work Phone: [facility] 10-16-2024 09:52-0400 VITALSDONE Yohan Santo MD Work Phone: [facility] 09-25-2024 11:13-0400 Diastolic blood pressure 67 mm[Hg] Dr. Donell Capps DO Work Phone: [facility] 09-25-2024 11:13-0400 Systolic blood pressure 148 mm[Hg] Dr. Donell Capps DO Work Phone: [facility] 09-25-2024 10:53-0400 Body height 170.[address] Donell Capps DO Work Phone: [facility] 09-25-2024 10:53-0400 Body mass index (BMI) [Ratio] 30 kg/m2 Dr. Donell Capps DO Work Phone: [facility] 09-25-2024 10:53-0400 Body weight 87.[address] Donell Capps DO Work Phone: [facility] 09-25-2024 10:53-0400 Heart rate 50 /min Dr. Donell Capps DO Work Phone: [facility] 09-25-2024 10:53-0400 Respiratory rate 16 /min Dr. Donell Capps DO Work Phone: [facility] 06-17-2024 10:17-0400 Body temperature 97.9 [degF] Dr. Donell Capps DO Work Phone: [facility] 06-17-2024 10:17-0400 Diastolic blood pressure 55 mm[Hg] Dr. Donell Capps DO Work Phone: [facility] 06-17-2024 10:17-0400 Heart rate 50 /min Dr. Donell Capps DO Work Phone: [facility] 06-17-2024 10:17-0400 Respiratory rate 16 /min Dr. Donell Capps DO Work Phone: [facility] 06-17-2024 10:17-0400 SaO2% (BldA) [Mass fraction] 98 % Dr. Donell Capps DO Work Phone: [facility] 06-17-2024 10:17-0400 Systolic blood pressure 122 mm[Hg] Dr. Donell Capps DO Work Phone: [facility] 06-17-2024 08:21-0400 Body height 170.[address] Donell Capps DO Work Phone: [facility] 06-17-2024 08:21-0400 Body mass index (BMI) [Ratio] 29.1 kg/m2 Dr. Donell Capps DO Work Phone: [facility] 06-17-2024 08:21-0400 Body weight 84.[address] Donell Capps DO Work Phone: [facility] 03-28-2024 10:09-0500 Body mass index (BMI) [Ratio] 30 kg/m2 Dr. Donell Capps DO Work Phone: [facility] 03-28-2024 10:09-0500 Body weight 87.[address] Donell Capps DO Work Phone: [facility] 03-28-2024 10:09-0500 Diastolic blood pressure 62 mm[Hg] Dr. Donell Capps DO Work Phone: [facility] 03-28-2024 10:09-0500 Heart rate 52 /min Dr. Donell Capps DO Work Phone: [facility] 03-28-2024 10:09-0500 Respiratory rate 18 /min Dr. Donell Capps DO Work Phone: [facility] 03-28-2024 10:09-0500 SaO2% (BldA) [Mass fraction] 97 % Dr. Donell Capps DO Work Phone: [facility] 03-28-2024 10:09-0500 Systolic blood pressure 151 mm[Hg] Dr. Donell Capps DO Work Phone: [facility] 03-05-2024 14:18-0500 Body temperature 97.8 [degF] Dr. Donell Capps DO Work Phone: [facility] 03-05-2024 14:18-0500 Body weight 85.[address] Donell Capps DO Work Phone: [facility] 03-05-2024 14:18-0500 Diastolic blood pressure 72 mm[Hg] Dr. Donell Capps DO Work Phone: [facility] 03-05-2024 14:18-0500 Heart rate 51 /min Dr. Donell Capps DO Work Phone: [facility] 03-05-2024 14:18-0500 Respiratory rate 14 /min Dr. Donell Capps DO Work Phone: [facility] 03-05-2024 14:18-0500 SaO2% (BldA) [Mass fraction] 97 % Dr. Donlel Capps DO Work Phone: [facility] 03-05-2024 14:18-0500 Systolic blood pressure 137 mm[Hg] Dr. Donell Capps DO Work Phone: [facility] 03-02-2023 13:29-0500 Body height 170.[address] Donell Capps Work Phone: [facility] 03-02-2023 13:29-0500 Body mass index (BMI) [Ratio] 29.7 kg/m2 Dr. Donell Capps Work Phone: [facility] 03-02-2023 13:29-0500 Body weight 86.[address] Donell Capps Work Phone: [facility] 03-02-2023 13:29-0500 Diastolic blood pressure 68 mm[Hg] Dr. Donell Capps Work Phone: [facility] 03-02-2023 13:29-0500 Heart rate 56 /min Dr. Donell Capps Work Phone: [facility] 03-02-2023 13:29-0500 Respiratory rate 18 /min Dr. Donell Capps Work Phone: [facility] 03-02-2023 13:29-0500 Systolic blood pressure 150 mm[Hg] Dr. Donell Capps Work Phone: [facility] 12-10-2022 15:11-0400 SaO2% (BldA) [Mass fraction] 97 % Dr. Donell Capps Work Phone: [facility] 12-10-2022 14:17-0400 Body height 170.[address] Donell Capps Work Phone: [facility] 12-10-2022 14:17-0400 Body mass index (BMI) [Ratio] 29.5 kg/m2 Dr. Donell Capps Work Phone: [facility] 12-10-2022 14:17-0400 Body temperature 97.8 [degF] Dr. Donell Capps Work Phone: [facility] 12-10-2022 14:17-0400 Body weight 85.[address] Donell Capps Work Phone: [facility] 12-10-2022 14:17-0400 Diastolic blood pressure 64 mm[Hg] Dr. Donell Capps Work Phone: [facility] 12-10-2022 14:17-0400 Heart rate 54 /min Dr. Donell Capps Work Phone: [facility] 12-10-2022 14:17-0400 Respiratory rate 18 /min Dr. Donell Capps Work Phone: [facility] 12-10-2022 14:17-0400 Systolic blood pressure 127 mm[Hg] Dr. Donell Capps Work Phone: [facility] 08-23-2022 11:33-0400 Body height 170.[address] Meño Torres Work Phone: [facility] 08-23-2022 11:33-0400 Body mass index (BMI) [Ratio] 29 kg/m2 Dr. Meño Torres Work Phone: [facility] 08-23-2022 11:33-0400 Body temperature 97.5 [degF] Dr. Meño Torres Work Phone: [facility] 08-23-2022 11:33-0400 Body weight 83.[address] Meño Torres Work Phone: [facility] 08-23-2022 11:33-0400 Diastolic blood pressure 86 mm[Hg] Dr. Meño Torres Work Phone: [facility] 08-23-2022 11:33-0400 Heart rate 98 /min Dr. Meño Torres Work Phone: [facility] 08-23-2022 11:33-0400 Respiratory rate 16 /min Dr. Meño Torres Work Phone: [facility] 08-23-2022 11:33-0400 SaO2% (BldA) [Mass fraction] 98 % Dr. Meño Torres Work Phone: [facility] 08-23-2022 11:33-0400 Systolic blood pressure 122 mm[Hg] Dr. Meño Torres Work Phone: [facility] 07-22-2022 13:40-0400 Body height 170.[address] Meño Torres Work Phone: [facility] 07-22-2022 13:40-0400 Body mass index (BMI) [Ratio] 29.7 kg/m2 Dr. Meño Torres Work Phone: [facility] 07-22-2022 13:40-0400 Body weight 86.[address] Meño Torres Work Phone: [facility] 07-22-2022 13:40-0400 Diastolic blood pressure 76 mm[Hg] Dr. Meño Torres Work Phone: [facility] 07-22-2022 13:40-0400 Heart rate 55 /min Dr. Meño Torres Work Phone: [facility] 07-22-2022 13:40-0400 Respiratory rate 18 /min Dr. Meño Torres Work Phone: [facility] 07-22-2022 13:40-0400 SaO2% (BldA) [Mass fraction] 96 % Dr. Meño Torres Work Phone: [facility] 07-22-2022 13:40-0400 Systolic blood pressure 139 mm[Hg] Dr. Meño Torres Work Phone: [facility] 05-23-2022 09:08-0400 Diastolic blood pressure 68 mm[Hg] James Clark MD Work Phone: [facility] 05-23-2022 09:08-0400 Systolic blood pressure 134 mm[Hg] James Clark MD Work Phone: [facility] 05-23-2022 08:11-0400 Body height 170.9 cm James Clark MD Work Phone: [facility] 05-23-2022 08:11-0400 Body weight 89.18 kg James Clark MD Work Phone: [facility] 05-23-2022 08:11-0400 Heart rate 56 /min James Clark MD Work Phone: [facility] 05-23-2022 08:11-0400 Respiratory rate 16 /min James Clark MD Work Phone: [facility] 05-23-2022 08:11-0400 SaO2% (BldA) [Mass fraction] 97 % James Clark MD Work Phone: [facility] 03-28-2019 13:13-0500 BMI (Body Mass Index) 31.25 kg/m2 [facility] 03-28-2019 13:13-0500 Body weight 92.53 kg [facility] 03-28-2019 13:13-0500 BP Diastolic 67 mm[Hg] [facility] 03-28-2019 13:13-0500 BP Systolic 117 mm[Hg] [facility] 03-28-2019 13:13-0500 Pulse (Heart Rate) 61 /min Lexis Pagan [facility] 11-15-2018 08:48-0400 BP Diastolic 69 mm[Hg] Meño Villalta [facility] 11-15-2018 08:48-0400 BP Systolic 134 mm[Hg] Meño Villalta [facility] 11-15-2018 08:48-0400 Pulse (Heart Rate) 73 /min Meño Villlata [facility] 07-25-2018 08:37-0400 BMI (Body Mass Index) 31.17 kg/m2 ana [facility] 07-25-2018 08:37-0400 BP Diastolic 83 mm[Hg] [facility] 07-25-2018 08:37-0400 BP Systolic 124 mm[Hg] [facility] 07-25-2018 08:37-0400 Pulse (Heart Rate) 67 /min [facility] 07-25-2018 08:37-0400 Weight 92.99 kg [facility] 03-13-2018 08:54-0500 BMI (Body Mass Index) 32.05 kg/m2 [facility] 03-13-2018 08:54-0500 BP Diastolic 77 mm[Hg] [facility] 03-13-2018 08:54-0500 BP Systolic 141 mm[Hg] [facility] 03-13-2018 08:54-0500 Pulse (Heart Rate) 67 /min [facility] 03-13-2018 08:54-0500 Weight 95.62 kg Rosalie [facility] 10-13-2017 11:16-0400 BMI (Body Mass Index) 31.14 kg/m2 Rochelle Ramírez [facility] 10-13-2017 11:16-0400 BP Diastolic 75 mm[Hg] Rochelle Ramírez [facility] 10-13-2017 11:16-0400 BP Systolic 132 mm[Hg] Rochelle Ramírez [facility] 10-13-2017 11:16-0400 Pulse (Heart Rate) 60 /min Rochelle Ramírez [facility] 10-13-2017 11:16-0400 Weight 92.9 kg Rochelle Ramírez [facility] 09-27-2017 09:19-0400 Body Temperature 98.1 [degF] [facility] 09-27-2017 09:19-0400 BP Diastolic 73 mm[Hg] [facility] 09-27-2017 09:19-0400 BP Systolic 137 mm[Hg] [facility] 09-27-2017 09:19-0400 Pulse (Heart Rate) 55 /min [facility] 09-27-2017 09:19-0400 Respiratory Rate 15 /min [facility] 09-20-2017 08:19-0400 Body Temperature 98.29 [degF] [facility] 09-20-2017 08:19-0400 BP Diastolic 75 mm[Hg] [facility] 09-20-2017 08:19-0400 BP Systolic 146 mm[Hg] [facility] 09-20-2017 08:19-0400 Pulse (Heart Rate) 59 /min [facility] 09-20-2017 08:19-0400 Respiratory Rate 16 /min [facility] 08-30-2017 08:30-0400 Body Temperature 97.9 [degF] [facility] 08-30-2017 08:30-0400 BP Diastolic 74 mm[Hg] [facility] 08-30-2017 08:30-0400 BP Systolic 144 mm[Hg] [facility] 08-30-2017 08:30-0400 Pulse (Heart Rate) 65 /min [facility] 08-30-2017 08:30-0400 Respiratory Rate 16 /min [facility] 08-23-2017 13:11-0400 Body Temperature 98.4 [degF] [facility] 08-23-2017 13:11-0400 BP Diastolic 76 mm[Hg] [facility] 08-23-2017 13:11-0400 BP Systolic 150 mm[Hg] [facility] 08-23-2017 13:11-0400 Pulse (Heart Rate) 66 /min [facility] 08-23-2017 13:11-0400 Respiratory Rate 16 /min [facility] 08-23-2017 13:04-0400 BMI (Body Mass Index) 30.71 kg/m2 [facility] 08-23-2017 13:04-0400 Height 172.7 cm [facility] 08-23-2017 13:04-0400 Weight 91.63 kg Shola Garcia [facility] 07-30-2017 20:23-0400 BP Diastolic 87 mm[Hg] [facility] 20:23-0400 BP Systolic 149 mm[Hg] [facility] 07-30-[facility] 20:23-0400 Pulse (Heart Rate) 87 /min [facility] 07-30-2017 20:23-0400 Pulse Oximetry 100 % [facility] 07-30-2017 20:23-0400 Respiratory Rate 16 /min [facility] 07-30-2017 18:25-0400 Body Temperature 98.2 [degF] [facility] 07-30-2017 18:09-0400 BMI (Body Mass Index) 31.02 kg/m2 [facility] [facility] 07-30-2017 18:09-0400 Height 172.7 cm [facility] 07-30-2017 18:09-0400 Weight 92.53 kg [facility] 09-26-2016 09:06-0400 BMI (Body Mass Index) 31.72 kg/m2 Rochelle Ramírez [facility] Work Phone: 09-26-2016 09:06-0400 BP Diastolic 66 mm[Hg] Rochelle Ramírez [facility] Work Phone: 09-26-2016 09:06-0400 BP Systolic 122 mm[Hg] Rochelle Ramírez [facility] Work Phone: 09-26-2016 09:06-0400 Height 172.7 cm Rochelle Ramírez [facility] Work Phone: 09-26-2016 09:06-0400 Pulse (Heart Rate) 57 /min Rochelle Ramírez [facility] Work Phone: 09-26-2016 09:06-0400 Weight 94.62 kg Rochelle Ramírez [facility] Work Phone: Encounters Encounter Date Encounter Type Care Provider Facility Start: 11-13-2024 In-person encounter Milly HARVEY Work Phone: [place] [facility] Work Phone: Start: 11-13-2024 Visit out of hours Milly Serrano BRAZING MACHINE FEEDER-SOFTBALL PLAYER Work Phone: [facility] Work Phone: Start: 10-17-2024 In-person encounter Julia julien MD Work Phone: [place] [facility] Work Phone: Start: 10-17-2024 Visit out of hours Julia woods MD Work Phone: [facility] Work Phone: Start: 10-16-2024 In-person encounter Yohan Santo MD Work Phone: [place] [facility] Work Phone: Start: 10-16-2024 Visit out of hours Yohan Santo MD Work Phone: [facility] Work Phone: Start: 09-25-2024 End: 09-25-2024 Patient encounter procedure Gen SANTIAGO -[facility] Work Phone: Start: 09-25-2024 End: 09-25-[address] Donell Capps DO Work Phone: -[facility] Start: 07-04-2024 ambulatory Donell Capps Facility: [facility] Start: 06-17-2024 End: 06-17-2024 Emergency department patient visit Dr. Donell Capps DO Work Phone: -Emergency Department Work Phone: Start: 04-05-2024 End: 04-05-2024 ambulatory [facility] Start: 03-28-2024 End: 03-28-[address] Duong Reyes MD -[facility] Work Phone: Start: 03-28-2024 End: 03-28-2024 ambulatory Donell Génesis Facility:[facility] Start: 03-05-2024 End: 03-05-2024 Patient encounter procedure Amrita LINN -[facility] Work Phone: Start: 03-05-2024 End: 03-05-2024 ambulatory Donell Capps Facility:[facility] Start: 02-16-2024 ambulatory Shola De La Cruzey Facility:[facility] Start: 02-16-2024 End: 02-16-2024 ambulatory Donell FaustinGénesis Facility:[facility] Start: 02-06-2024 ambulatory Donell FaustinGénesis Facility: [facility] Start: 02-05-2024 ambulatory Donell [facility] Facility: [facility] Start: 02-05-2024 End: 02-06-2024 Evaluation and management of inpatient Raymond Staples Facility:[facility] Start: 11-06-2023 End: 11-06-2023 ambulatory [facility] Facility:[facility] Start: 05-31-2023 End: 05-31-[address] Donell Capps Work Phone: [facility] Work Phone: Start: 05-31-2023 End: 05-31-[address] Donell Capps Work Phone: [facility]-Cardiovascul ar Services Work Phone: Start: 05-03-2023 ambulatory RAMONA Dong [facility] Start: 05-03-2023 ambulatory RAMONA Dong [facility] Start: 03-02-2023 End: 03-02-[address] Donell Capps Work Phone: [facility] Work Phone: Start: 01-12-2023 End: 01-12-2023 ambulatory [facility] Work Phone: Start: 01-12-2023 End: 01-12-2023 Patient encounter procedure [facility]-Laboratory, Specimen Work Phone: Start: 12-10-2022 End: 12-10-2022 Emergency department patient visit Dr. Donell Capps Work Phone: [facility]-Emergency Department Work Phone: Start: 11-16-2022 End: 11-16-[address] Donell Capps Work Phone: [facility] Work Phone: Start: 11-16-2022 End: 11-16-[address] Donell Capps Work Phone: [facility]-Radiology, [facility] Work Phone: Start: 09-20-2022 End: 09-20-[address] Meño Torres Work Phone: [facility] Work Phone: Start: 09-20-2022 End: 09-20-[address] Meño Torres Work Phone: [facility]Laboratory Work Phone: Start: 09-03-2022 End: 09-03-[address] Meño Torres Work Phone: [facility]-Laboratory, Specimen Work Phone: Start: 08-23-2022 End: 08-23-[address] Meño Torres Work Phone: [facility] Work Phone: Start: 08-03-2022 Non-patient / Non-visit Dr. Huey Torres Work Phone: [facility] Start: 08-02-2022 End: 08-02-[address] Meño Torres Work Phone: [facility] Work Phone: Start: 08-02-2022 End: 08-02-[address] Meño Torres Work Phone: [facility]-Cardiovascul [facility] Services Work Phone: Start: 07-26-2022 End: 07-26-[address] Meño Torres Work Phone: [facility] Work Phone: Start: 07-26-2022 End: 07-26-[address] Meño Torres Work Phone: [facility] Start: 07-22-2022 End: 07-22-[address] Meño Torres Work Phone: [facility] Start: 07-21-2022 Refill James Clark MD Work Phone: [facility] Comment on above: Medication Update Start: 07-19-2022 Telephone encounter Adam Clark MD Work Phone: [facility] Comment on above: DOT Clearance Start: 07-13-2022 ambulatory James Clark MD Work Phone: [facility] Comment on above: RX'S needed Start: 07-12-2022 Refill Jessica Heredia APRN.SOFTBALL PLAYER Work Phone: [facility] Comment on above: Refill Request Start: 07-05-2022 Telephone encounter Jessica reardon BRAZING MACHINE FEEDER.SOFTBALL PLAYER Work Phone: [facility] Comment on above: Medication Request Start: 07-01-2022 Refill James Clark MD Work Phone: [facility] Start: 05-26-2022 Telephone encounter Adam Clark MD Work Phone: [facility] Comment on above: Results Start: 05-23-2022 ambulatory James Clark MD Work Phone: [facility] Comment on above: Ramona Cobos Start: 05-23-2022 End: 05-23-2022 Patient encounter procedure James Clark MD Work Phone: [facility] Comment on above: Diabetes mellitus ty pe II (HCC) (Primary Dx); Polyuria; Essential hypertension; Other hyperlipidemia; Acquired hypothyroidism; Coronary artery disease involving [place] heart without angina pectoris, unspecified vessel or lesion type; S/P CABG x 3; Primary osteoarthritis of right knee; Systolic murmur; Class 1 obesity due to excess calories without serious comorbidity with body mass index (BMI) of 30.0 to 30.9 in adult; 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 Meño Torres Work Phone: [facility] Start: 05-10-[address] Meño Torres Work Phone: [facility] Start: 02-27-2020 End: 02-27-2020 Orders Only Nery Rossfrancine Coleman Work Phone: [facility] Start: 11-27-2019 Patient encounter procedure JULIA MORENO [facility] Start: 10-28-2019 End: 10-28-2019 Patient encounter procedure MEÑO VILLALTA [facility] Start: 10-24-2019 End: 10-24-2019 Documentation procedure Tess Up [facility] Start: 10-01-2019 End: 10-05-2019 Patient encounter procedure LUIS MULLER [facility] Start: 04-18-2019 Patient encounter procedure LEXIS PAGAN [facility] Start: 04-04-2019 End: 04-04-2019 Documentation procedure Tess Up [facility] Lipid [facility] Comment on above: external lab entry/l ab grid update Start: 03-28-2019 End: 03-28-2019 Patient encounter procedure LUIS MULLER [facility] Start: 03-28-2019 End: 03-28-2019 Documentation procedure Lexis Pagan Work Phone: [facility] Comment on above: CLS preload Start: 03-28-2019 End: 03-28-2019 Office outpatient visit 25 minutes Lexis Pagan Work Phone: [facility] Comment on above: Hyperlipidemia, unsp ecified hyperlipidemia type (Primary Dx) Start: 03-14-2019 Patient encounter procedure LEXIS Marek PAGAN [facility] Start: 12-21-2018 Patient encounter procedure ROCHELLE TurnerAbe DARRELL [facility] Start: 11-15-2018 End: 11-15-2018 Patient encounter procedure MEÑO VILLALTA [facility] Start: 11-15-2018 End: 11-15-2018 Office outpatient visit 25 minutes Meño Villalta Work Phone: [facility] Comment on above: Hyperlipidemia, unsp ecified hyperlipidemia type (Primary Dx); Atherosclerosis of [place] coronary artery of [place] heart with angina pectoris (HCC); Essential hypertension; Elevated Lp(a); Type 2 diabetes mellitus without complication, without long-term current use of insulin (HCC); ST elevation myocardial infarction (STEMI), unspecified artery (HCC) Start: 11-08-2018 End: 11-08-2018 Documentation procedure Tess Up [facility] Start: 11-06-2018 End: 11-10-2018 Patient encounter procedure RAMONA NAIR [facility] Start: 07-25-2018 End: 07-25-2018 Documentation procedure Rosalie Wu Work Phone: [facility] Start: 07-25-2018 End: 07-25-2018 Office outpatient visit 25 minutes Meño Villalta Work Phone: [facility] Comment on above: Hyperlipidemia, unsp ecified hyperlipidemia type Start: 07-11-2018 End: 07-11-2018 Documentation procedure Minna Brown [facility] Start: 03-13-2018 End: 03-13-2018 Office outpatient visit 25 minutes Meño Villalta Work Phone: [facility] Comment on above: Hyperlipidemia, unsp ecified hyperlipidemia type Start: 02-27-2018 End: 02-27-2018 Documentation procedure Lexis Pagan Work Phone: [facility] Lipid [facility] Comment on above: CLS preload Start: 10-13-2017 End: 10-13-2017 Office outpatient visit 25 minutes Rochelle Ramírez Work Phone: [facility] Comment on above: Hyperlipidemia, unsp ecified hyperlipidemia type (Primary Dx); Type 2 diabetes mellitus with other skin ulcer, without long-term current use of insulin (HCC); Coronary artery disease involving [place] coronary artery of [place] heart without angina pectoris; Rash, skin Start: 10-11-2017 End: 10-11-2017 Patient encounter Minna Rivera Brown [facility] Lip[facility] Start: 09-27-2017 End: 09-27-2017 Patient encounter Shola Garcia Work Phone: [facility] Start: 09-20-2017 End: 09-20-2017 Office outpatient visit 15 minutes Shola Garcia Work Phone: [facility] Start: 08-30-2017 End: 08-30-2017 Patient encounter Shola Garcia Work Phone: [facility] Start: 08-23-2017 End: 08-23-2017 Office outpatient new 30 minutes Shola Garcia Work Phone: [facility] Start: 07-30-2017 End: 07-30-2017 Emergency department patient visit García Barragan Work Phone: [facility] Start: 04-11-2017 End: 04-11-2017 Ambulatory Meño Ace Tarun Work Phone: [facility] Start: 04-10-2017 [facility] Start: 02-13-2017 Patient encounter Minna [facility] Start: 09-26-2016 End: 09-26-2016 Office outpatient visit 25 minutes Rochelle Ramírez Work Phone: [facility] Comment on above: Hyperlipidemia, unsp ecified hyperlipidemia type (Primary Dx) Start: 09-23-2016 Patient encounter Rochelle Hobbs danikanemo Work Phone: [facility] Start: 09-22-2016 Patient encounter Minna Stafford [facility] Start: 09-19-2016 End: 09-19-2016 Ambulatory Meño Villalta Work Phone: [facility] Procedures Date Procedure Procedure Detail Performing Clinician Start: 11-13-2024 Blood pressure withi n normal parameters - no follow-up required Milly Zach BRAZING MACHINE FEEDER-SOFTBALL PLAYER Work Phone: Start: 11-13-2024 BMI outside of jailyn l parameters - no follow-up plan/reason not given Milly Dulgar BRAZING MACHINE FEEDER-SOFTBALL PLAYER Work Phone: Start: 11-13-2024 Current tobacco non- user cad cap copd pv dm Milly Dulgar BRAZING MACHINE FEEDER-SOFTBALL PLAYER Work Phone: Start: 11-13-2024 Documentation of cur rent medications Milly Dulgar BRAZING MACHINE FEEDER-SOFTBALL PLAYER Work Phone: Start: 11-13-2024 Osteoarthritis sympt oms and functional status not assessed Milly Dulgar BRAZING MACHINE FEEDER-SOFTBALL PLAYER Work Phone: Start: 11-13-2024 Pain assessment documented as positive - no follow-up/reason not given Milly Dulgar BRAZING MACHINE FEEDER-SOFTBALL PLAYER Work Phone: Start: 10-17-2024 Blood pressure withi n normal parameters - no follow-up required Julia Cook MD Work Phone: Start: 10-17-2024 BMI documented as ab ove normal parameters - follow-up documented Julia Cook MD Work Phone: Start: 10-17-2024 Current tobacco non- user cad cap copd pv dm Julia Cook MD Work Phone: Start: 10-17-2024 Osteoarthritis symptoms&funcjal status veronica Cook MD Work Phone: Start: 10-17-2024 Documentation of cur rent medications Julia Cook MD Work Phone: Start: 10-17-2024 Pain assessment documented as negative - follow-up not required Julia Cook MD Work Phone: Start: 10-17-2024 Injection - triamcin olone acetonide 10 mg Julia Cook MD Work Phone: Start: 10-17-2024 Injection 1 tendon sheath/ligament aponeurosis Julia Cook MD Work Phone: Start: 10-16-2024 Blood pressure outsi de of normal parameters - follow-up documented Yohan Santo MD Work Phone: Start: 10-16-2024 Osteoarthritis symptoms&funcjal status asses Yohan Santo MD Work Phone: Start: 10-16-2024 BMI documented as ab ove normal parameters - follow-up documented Yohan Santo MD Work Phone: Start: 10-16-2024 Current tobacco non- user cad cap copd pv dm Yohan Santo MD Work Phone: Start: 10-16-2024 Documentation of cur rent medications Yohan Santo MD Work Phone: Start: 10-16-2024 Pain assessment documented as negative - follow-up not required Yohan Santo MD Work Phone: Start: 10-16-2024 Arthrocentesis aspir &/inj major jt/bursa w/o us Yohan Santo MD Work Phone: Start: 10-16-2024 Injection - triamcin olone acetonide 10 mg Yohan Santo MD Work Phone: Start: 06-17-2024 CT of head without contrast Dr. Donell Capps DO Work Phone: Start: 01-12-2023 Coronavirus COVID-19 PCR Start: 12-10-2022 Diagnostic radiograp hy of finger Dr. Donell Capps Work Phone: Start: 11-16-2022 Plain x-ray of pelvi s and lower extremity Dr. Donell Capps Work Phone: Start: 11-16-2022 X-ray of lumbosacral spine Dr. Donell Capps Work Phone: Start: 09-03-2022 Investigation of transfusion reaction Dr. Meño Torres Work Phone: Start: 09-03-[address] Meño Torres Work Phone: Start: 08-02-2022 Radionuclide imaging of perfusion of myocardium under exercise stress Dr. Meño Torres Work Phone: Start: 05-23-2022 History of coronary artery bypass grafting S/P CABG x 3 James Clark MD Work Phone: Start: 05-23-2022 Urnls dip stick/tabl et rgnt auto w/o microscopy James Clark MD Work Phone: Start: 03-14-2019 EXT LAB DRVVT (LUPUS ANTICOAGULANT) Historical Provider Start: 03-14-2019 Plasma lipid measurement Historical Provider Start: 12-04-2018 EXT LAB ALT (SGPT) Hist orical Provider Start: 12-04-2018 EXT LAB AST (SGOT) Hist orical Provider Start: 12-04-2018 EXT LAB BASIC METABOLIC Historical Provider Start: 12-04-2018 EXT LAB TSH Historical Provider Start: 12-04-2018 Hemoglobin A1c/Hemoglobin.total in Blood Historical Provider Start: 12-04-2018 Plasma lipid measurement Historical Provider Start: 09-18-2018 EXT LAB BASIC METABOLIC Historical Provider Start: 09-18-2018 EXT LAB TSH Historical Provider Start: 07-09-2018 Hemoglobin A1c/Hemoglobin.total in Blood Historical Provider Start: 04-02-2018 EXT LAB BASIC METABOLIC Historical Provider Start: 04-02-2018 Hemoglobin A1c/Hemoglobin.total in Blood Historical Provider Start: 11-22-2017 Hemoglobin A1c/Hemoglobin.total in Blood Historical Provider Start: 10-04-2017 End: 10-04-2017 Debridement subcutaneous tissue 20 sq cm/< Shola James Garcia Work Phone: Start: 09-20-2017 End: 09-20-2017 Debridement subcutaneous tissue 20 sq cm/< Shola James Garcia Work Phone: Start: 08-30-2017 End: 08-30-2017 Debridement subcutaneous tissue 20 sq cm/< Shola James Garcia Work Phone: Start: 08-23-2017 End: 08-23-2017 Debridement subcutaneous tissue 20 sq cm/< Shola James Garcia Work Phone: Start: 11-06-2014 History of coronary artery bypass grafting History of coronary artery bypass graft Dr. Meño Torres Work Phone: Comment on above: BOYD to LAD, SVG to Diagonal, SVG to PDA 11/06/14 patient is asymptomatic. This surgery was done at [facility]. Start: 09-17-2014 History of placement of stent for coronary artery disease History of coronary artery stent placement Dr. Meño Torres Work Phone: Comment on above: 2.5 x 16 Promus Shyam ier PATRICIA to RCA, 2.25 x 16 Promus Premier PATRICIA to dRCA 09/17/14 the patient denies any anginal symptom Plan of Treatment Date Care Activity Detail Author Start: 12-21-2030 Urine microalbumin profile DTA P,TDAP,TD (2 - Td or Tdap) [facility] Start: 10-27-2025 [facility] Start: 10-20-2025 TETANUS EVERY 10 YR TETANUS EVERY 10 YR [facility] Work Phone: Start: 10-20-2025 Tetanus vaccination TETANUS EVERY 10 YR [facility] Work Phone: Start: 12-11-2024 End: 12-11-2024 [employer] Work Phone: Start: 11-13-2024 End: 11-13-2024 [employer] Work Phone: Start: 11-13-2024 Injection aa&/strd o ther peripheral nerve/branch [facility] Work Phone: Start: 06-17-2024 [facility] Start: 05-24-2023 ANNUAL PCP TEAM BURR FILER MICHAEL DISEASE VISIT ANNUAL PCP TEAM CHRONIC DISEASE VISIT [facility] Start: 05-24-2023 Hepatitis B surface antibody level LDL CHOLESTEROL [facility] Start: 12-10-2022 [facility] Start: 11-22-2022 Hemoglobin A1c/Hemoglobin.total in Blood HBA1C [facility] Start: 10-07-2022 [facility] Start: 05-23-2022 End: 07-23-2022 ALBUMIN/CREAT RATIO RND UR ALBUMIN/CREAT RATIO RND UR Lab Routine Diabetes mellitus type II (HCC) Expected: 05/23/2022, Expires: 07/23/2022 [facility] Work Phone: Comment on above: Expected: 05/23/2022 , Expires: 07/23/2022 Start: 02-06-2022 ADVANCE DIRECTIVE DISCUSSION ADVANCE DIRECTIVE DISCUSSION [facility] Start: 10-28-2019 End: 10-28-2019 Telemedicine 10/28/2019 Telemedicine Cardiology Meño Villalta MD [address] [place] [address] [phone] [facility] Start: 10-08-2019 Influenza vaccinatio n given Sequential Influenza Vaccine (#1) [facility] Start: 09-27-2019 End: 09-27-2019 Office Visit 09/27/2019 Office Visit Cardiology Meño Villalta MD [address] [place] [address] [phone] [facility] Start: 09-12-2019 End: 03-28-2020 Apolipoprotein B [Mass/Vol] Apolipoprotein B Lab Routine Hyperlipidemia, unspecified hyperlipidemia type Expected: 09/12/2019 (Approximate), Expires: 03/28/2020 [facility] Comment on above: Expected: 09/12/2019 (Approximate), Expires: 03/28/2020 Start: 09-12-2019 End: 03-28-2020 Lipid 1996 panel Lipid Panel Lab Routine Hyperlipidemia, unspecified hyperlipidemia type Expected: 09/12/2019 (Approximate), Expires: 03/28/2020 [facility] Comment on above: Expected: 09/12/2019 (Approximate), Expires: 03/28/2020 Start: 06-05-2019 HbA1c (Bld) [Mass fraction] A1C [facility] Start: 05-08-2019 HbA1c (Bld) [Mass fraction] A1C [facility] Start: 03-18-2019 End: 11-16-2019 Lipoproteins measurement NMR Lab Routine Hyperlipidemia, unspecified hyperlipidemia type Expected: 03/18/2019 (Approximate), Expires: 11/16/2019 [facility] Comment on above: Expected: 03/18/2019 (Approximate), Expires: 11/16/2019 Start: 11-15-2018 End: 11-15-2018 Office Visit 11/15/2018 Office Visit Cardiology Meño Villalta MD [address] [place] [address] [phone] [facility] Lipid [facility] Start: 10-07-2018 Influenza vaccinatio n given [facility] Start: 07-13-2018 End: 07-13-2018 Office Visit 07/13/2018 Office Visit Cardiology Meño Villalta MD [address] [place] [address] [phone] [facility] Lipid [facility] Start: 06-10-2018 End: 03-13-2019 Creatinine mass conc Creatinine, Serum Routine Hyperlipidemia, unspecified hyperlipidemia type Expected: 06/10/2018 (Approximate), Expires: 03/13/2019 [facility] Comment on above: Expected: 06/10/2018 (Approximate), Expires: 03/13/2019 Start: 06-10-2018 End: 03-13-2019 Lipoproteins measurement NMR Routine Hyperlipidemia, unspecified hyperlipidemia type Expected: 06/10/2018 (Approximate), Expires: 03/13/2019 [facility] Comment on above: Expected: 06/10/2018 (Approximate), Expires: 03/13/2019 Start: 06-10-2018 End: 03-13-2019 T4 free mass conc T4, Free Routine Hyperlipidemia, unspecified hyperlipidemia type Expected: 06/10/2018 (Approximate), Expires: 03/13/2019 [facility] Comment on above: Expected: 06/10/2018 (Approximate), Expires: 03/13/2019 Start: 06-10-2018 End: 03-13-2019 Thyrotropin Qn TSH Routine Hyperlipidemia, unspecified hyperlipidemia type Expected: 06/10/2018 (Approximate), Expires: 03/13/2019 [facility] Comment on above: Expected: 06/10/2018 (Approximate), Expires: 03/13/2019 Start: 05-23-2018 Hemoglobin A1c/Hemoglobin.total mass fraction (Bld) [facility] Start: 02-28-2018 End: 02-28-2018 Office Visit 02/28/2018 Office Visit Cardiology Meño Villalta MD [address] [place] [address] [phone] [facility] Lipid [facility] Start: 02-21-2018 Hemoglobin A1c/Hemoglobin.total mass fraction (Bld) HEMOGLOBIN A1C [facility] Start: 01-01-2018 End: 03-15-2018 NMR NMR Routine Hyperlipidemia, unspecified hyperlipidemia type Expected: 01/01/2018, Expires: 03/15/2018 [facility] Comment on above: Expected: 01/01/2018 , Expires: 03/15/2018 Start: 01-01-2018 End: 03-05-2018 TSH TSH Routine Hyperlipidemia, unspecified hyperlipidemia type Expected: 01/01/2018, Expires: 03/05/2018 [facility] Comment on above: Expected: 01/01/2018 , Expires: 03/05/2018 Start: 10-13-2017 End: 10-13-2017 Ambulatory 10/13/2017 Office Visit Cardiology Rochelle Ramírez CNS [address] [place] [address] [phone] [facility] Lipid [facility] Start: 10-11-2017 End: 10-11-2017 Ambulatory 10/11/2017 Office Visit Wound Care Shola Garcia, [address] [place] [address] [phone] [facility] Start: 10-07-2017 Influenza vaccination [facility] Start: 10-07-2017 Influenza vaccinatio n given SEQUENTIAL INFLUENZA VACCINE (#1) [facility] Start: 09-27-2017 End: 09-27-2017 Ambulatory 09/27/2017 Office Visit Wound Care Shola Garcia, PERCYM [address] [facility] [place] [address] [facility] Start: 09-26-2017 End: 09-26-2017 Ambulatory 09/26/2017 Office Visit Cardiology Rochelle Ramírez, GALLITO [address] [place] [address] [phone] [facility] Lipid [facility] Start: 09-13-2017 End: 09-13-2017 Ambulatory 09/13/2017 Office Visit Wound Care Shola Garcia, JAZIEL [address] [facility] [place] [address] [phone] [facility] Start: 08-30-2017 End: 08-30-2017 Ambulatory 08/30/2017 Office Visit Wound Care Shola Garcia, JAZIEL [address] [facility] [place] [address] [facility] Start: 08-01-2017 HbA1c HEMOGLOBIN A1C [facility] Work Phone: Start: 07-17-2017 Administration of he rpes zoster vaccine Zoster Vaccines (2 of 2) [facility] Start: 04-11-2017 Ambulatory 04/11/2017 Off ice Visit Cardiology Meño Villalta MD [address] [place] [address] [phone] [facility] Lipid [facility] Start: 12-20-2016 Ambulatory 12/20/2016 Off ice Visit Cardiology Meño Villalta MD [address] [place] [address] [phone] [facility] Start: 12-19-2016 End: 09-26-2017 NMR NMR Routine Hyperlipidemia, unspecified hyperlipidemia type Expected: 12/19/2016, Expires: 09/26/2017 [facility] Work Phone: Comment on above: Expected: 12/19/2016 , Expires: 09/26/2017 Start: 10-07-2016 Influenza vaccination SEQUENTI AL INFLUENZA VACCINE (#1) [facility] Work Phone: Start: 10-07-2016 SEQUENTIAL INFLUENZA VACCINE (#1) SEQUENTIAL INFLUENZA VACCINE (#1) [facility] Work Phone: Start: 09-26-2016 Ambulatory 09/26/2016 Off ice Visit Cardiology Rochelle Ramírez CNS [address] [place] [address] [phone] [facility] Start: 05-30-2016 HEMOGLOBIN A1C HEMOGLOBIN A1C [facility] Work Phone: Start: 05-30-2016 Hemoglobin A1c/Hemoglobin.total mass fraction (Bld) HEMOGLOBIN A1C [facility] Work Phone: Start: 07-25-2015 Pneumococcal vaccination PNEUM OCOCCAL VACCINE AGE 65+ (2 of 2 - PPSV23) [facility] Start: 2009 ABDOMINAL AORTIC ULTRASOUND ABDOMINAL AORTIC ULTRASOUND [facility] Work Phone: Start: 2009 Fall risk assessment Steadi Fa ll Risk Assessment [facility] Start: 2009 Pneumococcal vaccination PNEUM OCOCCAL VACCINE AGE 65+ (1 of 2 - PCV13) [facility] Work Phone: Start: 2009 PNEUMOCOCCAL VACCINE AGE 65+ (1 of 2 - PCV13) PNEUMOCOCCAL VACCINE AGE 65+ (1 of 2 - PCV13) [facility] Work Phone: Start: 2009 Ultrasound scan of abdominal aorta ABDOMINAL AORTIC ULTRASOUND [facility] Work Phone: Start: 2004 Zoster vacc, sc ZOSTER VACCINE [facility] Work Phone: Start: 1994 Administration of he rpes zoster vaccine ZOSTER VACCINES (1 of 2) [facility] Start: 1994 Screening for malign ant neoplasm of colon [facility] Start: 1994 SHINGRIX VACCINE (1 of 2) RICHARD GRIX VACCINE (1 of 2) [facility] Start: 1994 ZOSTER VACCINES (1 of 2) ZOSTE R VACCINES (1 of 2) [facility] Start: 1962 BP CONTROLLED (<130/80) BP CONTROLLE D (<130/80) [facility] Start: 1962 Hepatitis C antibody , confirmatory test Hepatitis C Screening [facility] Start: 1962 HEPATITIS C SCREENING HEPATITIS C SC REENING [facility] Start: 1956 Adolescent depressio n screening assessment Depression Screening (PHQ9) [facility] Start: 1954 3 comp foot exam completed [facility] Start: 1954 Albumin Test strip detection limit <= 20 mg/L mass conc (U) URINE MICROALBUMIN [facility] Work Phone: Start: 1954 Hepatitis B screening URINE ALBUMIN:CREATININE RATIO [facility] Start: 1954 Hepatitis C antibody , confirmatory test DILATED RETINAL EXAM [facility] Start: 1954 End: 1954 Diabetic foot examination (regime/therapy) FOOT EXAM [facility] Work Phone: Start: 1954 FOOT EXAM FOOT EXAM [facility] Work Phone: Start: 1954 End: 1954 Ophthalmic examination and evaluation OPHTHALMOLOGY EXAM [facility] Work Phone: Start: 1954 OPHTHALMOLOGY EXAM OPHTHALMOLOGY EXA M [facility] Work Phone: Start: 1954 URINE MICROALBUMIN URINE MICROALBUMI N [facility] Work Phone: Start: 1954 End: 1954 Urine, microalbumin URINE MICROALBUMIN [facility] Work Phone: Start: 1950 PNEUMOCOCCAL: 65+ (1 - PCV) PNEUMOCOCCAL: 65+ (1 - PCV) [facility] Start: 09-11-1947 History and physical examination, annual for health maintenance Wellness Visit [facility] Start: 03-13-1945 COVID-19 VACCINE (#1) COVID-19 VACCI NE (#1) [facility] Start: 1944 Colonoscopy COLONOSCOPY [facility] Work Phone: Start: 1944 Colonoscopy COLONOSCOPY [facility] Work Phone: Start: 1944 Depression screening using PHQ-9 (Patient Health Questionnaire 9) score Depression Screening (PHQ9) [facility] Start: 1944 Fall risk assessment Falls Risk Asse ssment [facility] Start: 1944 Hepatitis C antibody , confirmatory test HEPATITIS C SCREENING [facility] Start: 1944 HEPATITIS C SCREENING HEPATITIS C SC REENING [facility] Work Phone: Start: 1944 Prostate specific an tigen measurement PSA Level [facility] Start: 1944 Protein mass conc COLONOSCOPY [facility] Start: 1944 Screening colonoscopy COLONOSCOPY [facility] Work Phone: Start: 1944 Screening for malign ant neoplasm of colon Colorectal Cancer Screening: Colonoscopy [facility] Start: 1944 US scan of abdominal aorta Abd ominal Aortic Ultrasound [facility] End: 05-24-2023 Echocardiography ECHO Cardiology CHITRA Coronary artery disease involving sauk[place] heart without angina pectoris, unspecified vessel or lesion type Systolic murmur 1 Occurrences starting 05/23/2022 until 05/24/2023 [facility] Work Phone: Comment on above: 1 Occurrences starti ng 05/23/2022 until 05/24/2023 Patient Education [facility] Work Phone: Patient referral [facility] Work Phone: Radionuclide imaging of perfusion of myocardium under exercise stress [facility] US Carotid arteries [facility] Wound Aerobic Culture Wound Aero bic Culture Routine Open wound of right lower leg, initial encounter 08/23/2017 1:44 PM EDT [facility] Wound Anaerobic Culture Wound An aerobic Culture Routine Open wound of right lower leg, initial encounter 08/23/2017 1:44 PM EDT [facility] Immunizations Immunization Date Immunization Notes Care Provider Fa cility 06-28-2023 tetanus toxoid, reduced diphtheria toxoid, and acellular pertussis vaccine, adsorbed Dr. Donell Capps DO Work Phone: [facility] 05-17-2022 measles, mumps and rubella virus vaccine Dr. Meño Torres Work Phone: [facility] 12-21-2020 tetanus toxoid, reduced diphtheria toxoid, and acellular pertussis vaccine, adsorbed James Clark MD Work Phone: [facility] Work Phone: 11-22-2017 HEMOGLOBIN A1C [facility] 08-21-2017 HEMOGLOBIN A1C Lexis Pagan [facility] 11-30-2015 HEMOGLOBIN A1C Rochelle Ramírez [facility] Work Phone: 10-21-2015 tetanus toxoid, reduced diphtheria toxoid, and acellular pertussis vaccine, adsorbed; Translations: [Adacel] Rochelle Hendricksonnemo [facility] Work Phone: NEGATED: Highlighted row has not occurred!07-30-2017 tetanus toxoid, reduced diphtheria toxoid, and acellular pertussis vaccine, adsorbed; Translations: [TDAP] García Barragan [facility] Comment on above: Deferred: - pt state s he had his tetanus shot a couple years ago and states, "I don't need this." Payers Date Payer Category Payer Self-pay [id number] 2022 Medicare [employer] [place] [id number] 2022-Present [phone] [address] [place] [address] HMO [id number] 2018 Unknown [place] xxxxxxxxxxxx 2018-Present [id number] 2018 Unknown [id number] 2018 Unknown MMO [place] TRADITIONAL [id number] 2018-Present [id number] .[id number] 2014 Unknown 2014 Medicare xxxxxxxxx [id number] 2014 Medicare [id number] 2009 Medicare MEDICARE MEDICAR E PART A & B xxxxxxxxxxx 2009-Present [place] xxxxxxxxxxx [id number] .[id number] 2009 Medicare [id number] 2009 Medicare MEDICARE MEDICAR E PART A & B [id number] 2009-Present [place] [id number] .[id number] 1959 Medicare [id number] 1944 Unknown [id number] 2.16.840.1.159397.3.579.2.900 1944 Unknown [id number] 2.16.840.1.867215.3.579.2.900 1944 Unknown [id number] 2.16.840.1.123842.3.579.2.900 1944 Unknown [id number] 2.16.840.1.944123.3.579.2.900 1944 Unknown [id number] 2.16.840.1.173054.3.579.2.903 1944 Unknown [id number] 2.16.840.1.575196.3.579.2.90 1944 Unknown [id number] 2.16.840.1.623124.3.579.2. 1944 Unknown [id number] 2.16.840.1.288296.3.579.2. 1944 Unknown [id number] 2.16.840.1.061279.3.579.2.903 1944 Unknown [id number] 2.16840.1.128433.3.579.2.598 Unknown [id number] 2.16.840.1.726121.3.579.2.462 Unknown [id number] 2.16.840.1.208522.3.579.2.462 Unknown [id number] 2.16.840.1.551741.3.579.2.462 Unknown [id number] 2.16.840.1.294553.3.579.2.462 Unknown [id number] 2.16840.1.901954.3.579.2.462 Unknown [id number] 2.16.840.1.199744.3.579.2.462 Unknown [id number] 2.16.840.1.788393.3.579.2.462 Unknown [id number] 2.16.840.1.448706.3.579.2.462 Unknown [id number] 2.16.840.1.650703.3.579.2.462 Unknown [id number] 2.16.840.1.653188.3.579.2.462 Unknown [id number] 2.16.840.1.579229.3.579.2.462 Unknown [id number] 2.16.840.1.811156.3.579.2.462 Social History Date Type Detail Facility Start: 07-28-2016 End: 06-17-2024 Tobacco smoking status NHIS Former smoker [facility] Work Phone: Start: 1945 Sex Assigned At Not on file [facility] Work Phone: Start: 08-03-2014 Alcohol Comment occasional gla ss of wine [facility] Start: 11-02-2018 Alcohol intake Current drinke r of alcohol (finding) [facility] Start: 07-12-1956 End: 02-06-1971 History of tobacco use Smoker [facility] Start: 11-02-2018 Tobacco use and exposure Former user [facility] End: 02-06-1971 History of tobacco use Cigarette Smoker [facility] Work Phone: Start: 05-23-2022 Cigarettes smoked current (pack per day) - Reported 1 [facility] Start: 05-23-2022 Tobacco use and exposure Smokeless tobacco non-user [facility] Work Phone: Start: 05-23-2022 Alcohol intake Ex-drinker (finding) [facility] Start: 1945 Sex Assigned At Male [facility] Start: 07-22-2022 End: 03-02-2023 Tobacco smoking status FLIS Unknown if ever smoked [facility] Start: 07-14-2019 None [facility] Start: 07-14-2019 With Family [facility] Start: 05-23-2022 End: 11-13-2024 Tobacco use panel [facility] Start: 07-12-2022 Gender identity Identifies as male gender (finding) [facility] Medical Equipment Procedure Code Equipment Code Equipment Origin al Text Equipment Identifier Dates Stent 2.5 X 16 [employer]tw - [id number], 71255_[facility] FDA Start: 09-17-2014 Stent 2.25 X 16 [employer]tw - [id number] FDA Start: 09-17-2014 Test blood sugar(s) 1 times daily. Dx: Type 2 DM - Controlled E11.9 Insulin: no Start: 07-05-2022 Comment on above: Test blood sugar(s) 1 times daily. Dx: Type 2 DM - Controlled E11.9 Insulin: no Functional Status Date Assessment Result Facility 11-13-2024 Functional Status with [facility] Work Phone: 11-13-2024 dependent [facility] Work Phone: Mental Status Date Assessment Result Facility 06-17-2024 Cognitive function Level Of Cons ciousness Awake;Alert;Appropriate;Follow s Commands [facility] Work Phone: Clinical Notes 11-06-2014 to 06-17-2024 Note Date & Type Note Facility 06-17-2024 Radiology Diagnostic study note [facility] Imaging Services [address] [place] [address] Brain/Head without Contrast MR#: [id number] Acct: [id number] Name: RAMONA COBOS Rep #: [id number] : 1945 M 78 From: Alec Cabrera MD PCP: Dr. Donell Capps, Status: REG ER Study:Brain/Head without Contrast Date of Exa m: 06/17/24 Exam# [id number] Ordering Dr: Shola Carmona DO EXAM: NONCONTRAST CT SCAN OF THE HEAD CLINICAL HISTORY: Confusion, visual changes COMPARISON: February 06, 2024 MRI TECHNIQUE: Serial axial series through the head were obtained without contrast. 2-D coronaland sagittal reformats were then obtained. DLP = 745.49 mGy-cm, radiation dose lowering protocol was performed. FINDINGS: Brain: There is no acute large territorial infarct, intracranial hemorrhage, midline shift or mass effect. There are atherosclerotic vascular calcifications involving the bilateral carotid siphons.The sella and pineal gland regions appear unremarkable. There is no evidence of cerebellar tonsillar herniation. Ventricles: There is no acute hydrocephalus. Basilar cisterns are patent. Mastoid air cells: Well-aerated. Calvarium: The bony calvarium is intact. Orbits: Postsurgical change is noted in the left globe. Mucosal thickening is visible in the left maxillary sinus. CT/Brain/Head without Contrast IMPRESSION: Postsurgical change is noted in the left globe. Mucosal thickening is visible in the left maxillary sinus. No acute intracranial abnormality is identified. Reading Location: [facility] CC: Dr. Shola Carmona DO; Dr. Donell Capps DO ~ Property Clerk: Signed [facility] 03-05-2024 Evaluation note Diagnosis Onset Date Resolution Carotid artery disease acute Ja nu2024 1:57pm Aortic valve stenosis acute Feb ru2024 10:05am Carotid artery disease acute Fe bru2024 10:05am Atherosclerosis of coronary artery of sauk-suiattle heart without angina pectoris chronic March 28 10:05am Essential hypertension chronic 2024 10:05am Hyperlipidemia chronic March 102024 10:05am [facility] Work Phone: [phone] 327-956812-31-2024 [facility] Medical Records Department [address] [place] [address] Discharge Summary 02/06/24 1522 MR#: [id number] Acct: [id number] Name: RAMONA COBOS Rep #: [id number] : 1945 78 From: Lorenzo Gatica MD PCP: Dr. Donell Capps DO Status:ADM IN Location: [facility] [id number] Providers Date of Admission: 02/05/24 Date of Discharge: 02/06/24 Primary Care Physician: Dr. Donell Capps DO Consultations 02/05/24 22:42 Consult: Tele-Neurology Routine Consulting Provider: [facility] Reason for Consult: Acute Ischemic Stroke/TIA EMERGENT Consult: No Notified: Yes Date Notified: 02/05/24 Time Notified: 23:01 Method of Notification: Answering Service Nursing Unit Staff Notify [facility] of Tele-Neurology Consult: Yes Reason For Visit: VISUAL FIELD CUT Diagnosis Discharge Diagnosis (1) Left homonymous hemianopsia: Status: Acute Code(s): H53.462 - Homonymous bilateral field defects, left side Plan 78-year-old gentleman was admitted with change in left eye vision that started about 1400 hrs. lasted for 1.25-1.5 hours on day of admission while he was driving. NIH score was 2 Left eye hemianopsia, most likely due to ophthalmic cause: Patient was admitted in PCU. He has a history of left eye retinal detachment in the past and had mild left inferior quadrant loss from that but got worse on the day of admission. The patient vision was back to to his baseline in about 4 hours. On exam it seems she is on the baseline and wheezing came back Patient had MRI brain, DWI was negative for acute stroke/infarct. CT head and neck negative. 2D echo was negative for ASD. Mild TR, mild to moderate with mean AV gradient 23 mmHg. Neurologist recommended aspirin and Plavix for 21 days and then continue aspirin indefinitely. Patient has history of myalgia with statin therefore started on low-dose water- soluble rosuvastatin 10 mg daily. LDL 106. A1c 6.8. TSH normal. Essential hypertension/hyperlipidemia -Patient is statin -Hold home antihypertensives for now and allow for permissive hypertension given above concern for stroke -As needed antihypertensives per stroke protocol Hypothyroidism -Continue home levothyroxine TSH DM-2: A1c 6.8. Glucose was controlled. Patient at home is on glimepiride, resumed on BPH with obstruction -Continue home Flomax , Anxiety and depression memory impairment -Continue home memantine -Continue home donepezil -Patient was alert and oriented x 3 on admission DVT prophylaxis -Lovenox subcu 40 mg daily CODE STATUS Full code Discharge medication reconciliation done. Discharge follow-up instructions completed. Discharge process discussed with the patient and all questions were answered to patient's satisfaction. Follow with PCP in 1 to 2 weeks Total time spent, exact 35 minutes on discharge meds reconciliation, examination, coordination of care with nurses and ancillary staff, review of imaging and blood test and discussion with the patient on follow-up instructions. Medications at Discharge Home Medications aspirin 81 mg chewable tablet 81 mg PO DAILY@0800 07/14/19 cholecalciferol (vitamin D3) 50 mcg (2,000 unit) capsule 2,000 unit PO DAILY 07/14/19 glimepiride 4 mg tablet 4 mg PO DAILY 07/14/19 memantine 10 mg tablet 10 mg PO QAM 03/02/23 metoprolol succinate 50 mg tablet,extended release 24 hr 50 mg PO DAILY 03/02/23 escitalopram oxalate 5 mg tablet 5 mg PO QDAY 09/01/23 levothyroxine 50 mcg tablet 50 mcg PO QDAY 09/01/23 losartan 100 mg tablet 100 mg PO DAILY #90 tabs 09/01/23 tamsulosin 0.4 mg capsule 0.4 mg PO BID 09/01/23 donepezil 5 mg tablet 5 mg PO QHS 02/05/24 clopidogrel 75 mg tablet (Plavix) 75 mg PO DAILY 3 weeks #21 tabs 02/06/24 rosuvastatin 10 mg sprinkle capsule 10 mg PO QHS 1 month #30 caps 02/06/24 Physical Exam Narrative Seen and examined Patient has history of left eye retinal detachment in the past and surgery. Physical exam General: Alert, Oriented x3, Cooperative HEENT: Left pupil is irregular, abnormal shape but reactive. Right eye pupil is in normal limit. Atraumatic, left peripheral vision recovered, mild left inferior quadrant chronic deficit Oral: No Gingival or Mucosal Lesions/ Ulcerations Neck: Supple, No JVD, Negative Carotid Bruits Chest wall/Lungs: Air entry diminished in bilateral lung bases. No crepitation/rhonchi Cardiovascular: Regular rate, Regular Rhythm, Normal S1, Normal S2, No M/G/R Abdomen: Bowel Sounds Present, Soft, Non Tender, Non-Distended : No dysuria. No renal angle tenderness. No suprapubic tenderness. Extremities: No edema, Capillary Refill Less than 3 Seconds Skin: No rashes, No breakdown Musculoskeletal: No Tenderness to Palpation of Joints or Extremities. ROM intact. Muscle strength 5/5 at major joints Neurological: Cranial nerves II-XII grossly (more content not included)... [facility]06-20-2023 Miscellaneous Notes* Telephone Encounter - Steff Murry LPN - 07/26/2022 10:18 AM EDT Placed paperwork on [facility] nurses desk. Steff Murry LPN * Telephone Encounter - Steff Murry LPN - 07/26/2022 7:51 AM EDT Patient telephoned and made aware Dr. Clark is unable to do this form. Offered appointment with Donny Stovall. Appointment scheduled August 08 at 820am. Will deliver DOT paperwork to [place] office today. Steff Murry LPN * Telephone Encounter - James Clark MD - 07/23/2022 7:55 AM EDT Donny is certified for DOT physical. Can schedule with him as available if he needs this completed. Otherwise, will need to go online or check with employer for certified physician. * Telephone Encounter - Luna Salazar LPN - 07/22/2022 3:09 PM EDT Phoned patient and reviewed provider's message with him. Patient reports [facility] used to do the paperwork and [facility] took over and he stated they're the ones telling him to get it completed. Patient faxing copy of letter to our office for review. Will review upon receipt. * Telephone Encounter - Luna Salazar LPN - 07/21/2022 1:30 PM EDT [employer] message sent since no call back to date. * Telephone Encounter - Luna Salazar LPN - 07/19/2022 3:23 PM EDT Message left for patient to advise PCP is not certified to complete DOT paperwork. When patient returns call please advise him paperwork is available for picker in medical records. His employer may be able to direct him to a certified provider. * Telephone Encounter - James Clark MD - 07/19/2022 3:14 PM EDT I am not familiar with this [place] [email or web address] and I am not certified to do DOT physicals in [place]. I do not feel comfortable completing this form for him. Would recommend he be examined by certified DOTphysician and have them complete his forms. * Telephone Encounter - James Clark MD - 07/19/2022 9:31 AM EDT Will review * Telephone Encounter - Yancy Sanz MA - 07/19/2022 9:24 AM EDT DOT Physical Exam Medical Clearance form for Type 2 Diabetes Mellitus received from patient. Form partially completed and given to Dr. Clark for review, completion, and signature. Once signed, please fax to [phone] Yancy Sanz MA [facility] Miscellaneous Notes* Telephone Encounter - Isha Coleman RN - 07/21/2022 9:12 AM EDT Patient's calls and states that levothyroxine capsule was sent over to pharmacy instead of tablet. Capsule is not covered under insurance. Called and spoke with pharmacist at [facility] and update that medication should be tablet and not capsule. Please update patient's medication list to reflect this. Isha Coleman RN [facility] Miscellaneous Notes* Telephone Encounter - James Clark MD - 07/13/2022 2:10 PM EDT Rx sent * Telephone Encounter - Zara Chowdhury Ma - 07/13/2022 12:26 PM EDT Please resend rx were transferred to [place] and unable to transfer back. Did verify this was [facility] only allowed to transfer once through alternative pharm location Zara Chowdhury Ma documented in [facility]23 Miscellaneous Notes* Telephone Encounter - Steff Murry LPN - 07/05/2022 10:33 AM EDT Prescriptions faxed to number below at this time. Steff Murry LPN * Telephone Encounter - Jessica Heredia APRN.CNP - 07/05/2022 8:51 AM EDT [facility] [phone]. Prescriptions in my outbox Jessica Heredia APRN.SOFTBALL PLAYER documented in this encounterS[facility]-26-2023 Miscellaneous Notes* Telephone Encounter - Zina Post LPN - 07/01/2022 3:24 PM EDT Patients is requesting an order for a glucose monitor, test strips, [facility] Fax # is [phone]. Please advise. documented in this encounterScci Hospital [facility]ima04-21-2023 Miscellaneous Notes* Telephone Encounter - MARLENE Espinoza - 05/27/2022 10:20 AM EDT TC to patient who verbalizes understanding of providers message and results. Patient has no questions at this time. MARLENE Espinoza * Telephone Encounter - Luna Salazar LPN - 05/26/2022 10:38 AM EDT Message left for patient to return call to review provider's message. * Telephone Encounter - Luna Salazar LPN - 05/26/2022 10:38 AM EDT ----- Message from James Clark MD sent at 05/26/2022 8:50 AM EDT ----- Diabetes well controlled with A1c. 6.1. Other labs unremarkable. No changes to regimen. Awaiting urine albumin results. documented in this encounterScci Hospital [facility]04-17-2023 Miscellaneous Notes* Telephone Encounter - Steff Murry LPN - 05/23/2022 3:49 PM EDT Called Zenaida. Clarified medication. See refill request 05/23/22. Steff Murry LPN documented in this encounterScci Hospital [facility]ima04-17-2023 History of Present illness Narrative* James Clark MD - 05/23/2022 8:15 AM EDT Chief Complaint Patient presents with: Establish Care HPI Ramona Cobos is a 76 year old male who presents here today for Above Complaints. Patient accompanied today by his Zenaida. Just moved back from [place]. Previous PCP Dr. Torres with last OV about 1 year ago in [place] and "Dr. Chapin" in [place] with last OV about 2 months ago. History of type II DM. Last A1c 6.3 about 3 months ago. Noted that he has been urinating more frequently with urgency without dysuria, hematuria, fever/chills, nausea, vomiting, flank pain. Taking Azo which has turned his urine orange. Diagnosed with hypothyroidism while in [place] and has been taking synthroid as prescribed. Feels like he has more energy and memory is improved on his current dosage. Needs TSH rechecked. History of ASHD s/p CABG x3 in 2015. Has not seen cardiology recently. Unable to tolerate statins and states that he tried a PCSK9 but could not tolerate it. Unsure when his last echo or stress test was. Asymptomatic on current regimen. Past medical history, appointments, medications, allergies reviewed. Previous Medical History PAST MEDICAL HISTORY Diagnosis Date CAD (coronary artery disease) Dementia ([facility]) Dr. Stearns. Mild cognitive impairment with high risk for Alzheimers Diabetes mellitus type II ([facility]) Essential hypertension Hyperlipidemia Hypothyroidism Myocardial infarction ([facility]) 2014 OA (osteoarthritis) of knee Right Obesity Previous Surgical History No past surgical history on file. Family History No family history on file. Patient Allergies ALLERGIES Allergen Reactions Penicillins Hives Current Medications Current Outpatient Medications on File Prior to Visit Medication Sig levothyroxine 25 mcg cap Take 25 mcg by mouth daily before breakfast. glyBURIDE 5 mg tablet Take 5 mg by mouth daily with breakfast. losartan (COZAAR) 25 mg tablet Take 25 mg by mouth once daily. donepezil (ARICEPT) 5 mg tablet Take 5 mg by mouth daily at bedtime. 1/2 tab (2.5 mg) po daily pumpkin seed extract/soy germ (AZO BLADDER CONTROL ORAL) Take by mouth. memantine (NAMENDA) 5 mg tablet Take 5 mg by mouth twice daily. metoprolol succinate ER (TOPROL XL) 25 mg 24 hr tablet Take 25 mg by mouth once daily. 1/2 tab (12.5 mg) po daily glimepiride (AMARYL) 4 mg tablet Take 4 mg by mouth daily with breakfast. aspirin, enteric coated (ASPIRIN, ENTERIC COATED) 81 mg EC tablet Take 81 mg by mouth. Cholecalciferol, Vitamin D3, 50 mcg (2,000 unit) cap Take by mouth. Ascorbic Acid (VITAMIN C) 100 mg tablet Take 100 mg by mouth once daily. Fenofibrate (LOFIBRA) 54 mg tablet Take 54 mg by mouth once daily. triamcinolone acetonide (KENALOG) 0.1 % cream Apply to affected area twice daily. As needed for irritation after photodynamic therapy treatment. (Patient not taking: Reported on 12/18/2020 ) No current facility-administered medications on file prior to visit. Social History Social History Tobacco Use Smoking status: Former Types: Cigarettes Smokeless tobacco: Never Vaping Use Vaping Use: Never used Substance Use Topics Alcohol use: Yes Alcohol/week: 1.0 standard drink Types: 1 Glasses of Wine (5oz) per week Comment: 2-3 times per week Drug use: Never Review of Symptoms REVIEW OF SYSTEMS GENERAL: No weight loss, malaise or fevers RESPIRATORY: Negative for cough, hemoptysis, wheezing, COPD, dyspnea or shortness of breath CARDIOVASCULAR: Negative for chest pain, leg swelling, hypertension, CHF or palpitations GI: No nausea, vomiting, or diarrhea SKIN: Negative for lesions, rash, and itching EXAM: BP 134/68 Pulse (!) 56 Resp 16 Ht 170.9 cm (5' 7.28") Wt 89.2 kg (196 lb 9.6 oz) SpO2 97% BMI 30.53 kg/m General Appearance: Well appearing, alert, in no acute distress, well-hydrated, well nourished.. Skin: Skin color, texture, turgor normal, no suspicious rashes or lesions. Lungs: Lungs clear to auscultation. No wheezing, rhonchi, rales.. Heart: Negative findings: regular rate and rhythm, Positive findings: murmur: 2/6 CALEB heard best atLUSB. Abdomen: Normal abdominal exam, Abdomen soft, non-tender. Bowel sounds normal. No masses, organomegaly. Extremities: No deformities, edema, skin discoloration, clubbing or cyanosis. Good capillary refill. . Health Maintenance List COVID-19 VACCINE(1) Never done HEPATITIS C SCREENING Never done DIABETES SCREEN Never done SHINGRIX VACCINE(1 of 2) Never done PNEUMOCOCCAL: 65+(1 - PCV) Never done ADVANCE DIRECTIVE DISCUSSION Never done DEPRESSION ASSESSMENT Never done INFLUENZA(Season Ended) due on 10/07/2022 DTAP,TDAP,TD(2 - Td or Tdap) due on 12/21/2030 Component Latest Ref Rng & Units 05/23/2022 GLUCOSE UA (POCT) Negative mg/dL Negative BILIRUBIN UA (POCT) Negative Negative KETONE UA (POCT) Negative mg/dL Negative SPECIFIC GRAVITY UA (POCT) 1.005 - 1.030 1.025 HEMOGLOBIN/BLOOD UA (POCT) Negative Negative PH UA (POCT) 4.5 - 8.0 6.0 PROTEIN UA (POCT) Negative mg/dL 100 (A) UROBILINOGEN UA (POCT) Normal E.U./dL 0.2 NITRITE UA (POCT) Negative Negative LEUKOCYTES UA (POCT) Negative Negative COLOR UA (POCT) Kailee CLARITY UA (POCT) Clear ASSESSMENT/PLAN: 1. Diabetes mellitus type II (HCC) - ICD9: 250.00, ICD10: E11.9 (primary diagnosis) New to me. - Continue current medications - Blood glucose monitoring on a once daily schedule - Counseled on healthy diet and regular exercise - Discussed diabetic education issues of diabetes complications and monitoring required, hypoglycemic/hyperglycemic symptoms, medication-specific side effects and monitoring, and diabetic sick day rules - Follow up in 1 month, sooner should any other issues arise. - CBC + DIFF - COMP METABOLIC PANEL - ALBUMIN/CREAT RATIO RND UR - HGB A1C 2. Polyuria - ICD9: 788.42, ICD10: R35.89 UA negative for infection. May be 2/2 DM vs BPH. Obtain PSA and A1c. Will call with results. - UA DIP, URINE (POC) - PSA/PROSTSPECAG DIAG 3. Essential hypertension - ICD9: 401.9, ICD10: I10 - suboptimal control - Continue current medication(s) - Encouraged dietary sodium restriction/DASH diet - Recommended regular aerobic exercise. - Reviewed risks of HTN and principles of treatment - Goal of BP <130/80 - recheck at OV in 1 month. 4. Other hyperlipidemia - ICD9: 272.4, ICD10: E78.49 Check lipid panel. Continue current regimen. - LIPID PANEL, NONFASTING 5. Acquired hypothyroidism - ICD9: 244.9, ICD10: E03.9 - Instructed patient on importance of taking on an empty stomach either first thing in the morning or at bedtime. - check TSH today - continue current dose of Synthroid 0.025 mg - TSH BLD 6. Coronary artery disease involving [place] heart without angina pectoris, unspecified vessel or lesion type - ICD9: 414.01, ICD10: I25.10 Asymptomatic.Refer to cardiology and obtain echo due to new murmur. Will obtain records from previous PCP. Not interested in stress testing today. - CONSULT TO CARDIOLOGY - ECHO - PERFLUTREN LIPID MICROSPHERES 1.1 MG/ML INJECTION IN NS 10 ML - SODIUM CHLORIDE 0.9 % (FLUSH) INJECTION SYRINGE 7. S/P CABG x 3 - ICD9: V45.81, ICD10: Z95.1 - CONSULT TO CARDIOLOGY 8. Primary osteoarthritis of right knee - ICD9: 715.16, ICD10: M17.11 Stable, will monitor. 9. Systolic murmur - ICD9: 785.2, ICD10: R01.1 - ECHO - PERFLUTREN LIPID MICROSPHERES 1.1 MG/ML INJECTION IN NS 10 ML - SODIUM CHLORIDE 0.9 % (FLUSH) INJECTION SYRINGE 10. Class 1 obesity due to excess calories without serious comorbidity with body mass index (BMI) of 30.0 to 30.9 in adult - ICD9: 278.00, V85.30, ICD10: E66.09, Z68.30 Newly diagnosed - Behavioral intervention James Clark MD documented in this encounterScci Hospital [facility]10-01-2015 Evaluation note* Diagnosis Onset Date Resolution Status Murmur, cardiac acute Atherosclerosis of coronary artery of [place] heart without angina pectoris chronic Essential hypertension chron ic History of coronary artery bypass graft November 06 015 chronic History of coronary artery stent placement September chronic Hyperlipidemia [facility] Work Phone: Evaluation note* Diagnosis Diabetes mellitus type II (HCC)- Primary Polyuria Essential hypertension Unspecified essential hypertension Other hyperlipidemia Acquired hypothyroidism Unspecified hypothyroidism Coronary artery disease involving [place] heart without angina pectoris, unspecified vessel or lesion type S/P CABG x 3 Postsurgical aortocoronary bypass status Primary osteoarthritis of right knee Primary localized osteoarthrosis, lower leg Systolic murmur Undiagnosed cardiac murmurs Class 1 obesity due to excess calories without serious comorbidity with body mass index (BMI) of 30.0 to 30.9 in adult 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) documented in this encounter [facility]* Diagnosis Onset Date Resolution Status Atherosclerosis of coronary artery of [place] heart without angina pectoris chronic Essential hypertension chron ic Hyperlipidemia [facility] Work Phone: Evaluation note* Diagnosis Onset Date Resolution Status Atherosclerosis of coronary artery of [place] heart without angina pectoris chronic Essential hypertension chron ic Hyperlipidemia chronic Acute maxillary sinusitis, unspecified acute [facility] Work Phone: Evaluation note* Diagnosis Onset Date Resolution Status Acute maxillary sinusitis, unspecified acute [facility] Work Phone: Evaluation noteNo assessment information available [facility] Work Phone: Evaluation note* Diagnosis Onset Date Resolution Status Admit Date Aortic valve stenosis acute Sep us2024 10:36am Carotid artery disease acute [place] 2024 10:36am Atherosclerosis of coronary artery of [place] heart without angina pectoris chronic September 25 10:36am Essential hypertension chronic [facility] 2024 10:36am Hyperlipidemia chronic September 10:36am [facility] Work Phone: Reason for referral (narrative)* Outpatient Procedure (Urgent) - Pending Review Specialty Diagnoses / Procedures Referred By Emelina carmen Referred To Contact [facility] Diagnoses Coronary artery disease involving [place] heart without angina pectoris, unspecified vessel or lesion type Systolic murmur Procedures ECHO ECHO TTHRC R-T 2D W/WOM-MODE COMPL SPEC&COLR D James Clark MD [address] [place] [address] [facility] [address] [address] Referral ID Status Reason Start Date Expiration Date Visits Requested Visits Authorized [id number] Pending Review Auto-Generat ed Referral 05/23/2022 05/23/2023 1 1 * Consult, Test, Treat (Routine) - Pending Review Specialty Diagnoses / Procedures Referred By Emelina carmen Referred To Contact Cardiology Diagnoses Coronary artery disease involving [place] heart without angina pectoris, unspecified vessel or lesion type S/P CABG x 3 Procedures CONSULT TO CARDIOLOGY OFFICE/OUTPATIENT [facility] 60-74 MINUTES James Clark MD [address] [place] [address] Referral ID Status Reason Start Date Expiration Date Visits Requested Visits Authorized [id number] Pending Review PCP Requested Referral 05/23/2022 05/23/2023 1 1 [facility] referral (narrative)No reason for referral information availableWSelect [facility] Work Phone: Assessments Diagnosis Hyperlipidemia, unspecified hyperlipidemia type Diagnosis Hyperlipidemia, unspecified hyperlipidemia type Diagnosis Contusion of head, unspecifi ed part of head, initial encounter - Primary Laceration of right lower ex tremity, initial encounter Diagnosis Open wound of right lower le g, initial encounter - Primary Type 2 diabetes mellitus wit h other skin ulcer, without long-term current use of insulin (HCC) Diagnosis Open wound of right lower le g, initial encounter - Primary Type 2 diabetes mellitus wit h other skin ulcer, without long-term current use of insulin (HCC) 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) Diagnosis Type 2 diabetes mellitus wit h other skin ulcer, without long-term current use of insulin (HCC) - Primary 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) Open wound of right lower le g, initial encounter Diagnosis 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) - Primary Type 2 diabetes mellitus wit h other skin ulcer, without long-term current use of insulin (HCC) Diagnosis Hyperlipidemia, unspecified hyperlipidemia type - Primary Type 2 diabetes mellitus wit h other skin ulcer, without long-term current use of insulin (HCC) Coronary artery disease invo lving [place] coronary artery of [place] heart without angina pectoris Rash, skin Rash and other nonspecific skin eruption Diagnosis Hyperlipidemia, unspecified hyperlipidemia type Diagnosis Hyperlipidemia, unspecified hyperlipidemia type - Primary Diagnosis Hyperlipidemia, unspecified hyperlipidemia type Diagnosis Hyperlipidemia, unspecified hyperlipidemia type Diagnosis Hyperlipidemia, unspecified hyperlipidemia type- Primary Atherosclerosis of [place] coronary artery of [place] heart with angina pectoris (HCC) Essential hypertension Unspecified essential hypertension Elevated Lp(a) Other disorders of lipoid metabolism Type 2 diabetes mellitus without complication, without long-term current use of insulin (HCC) ST elevation myocardial infarction (STEMI), unspecified artery (HCC) Discharge Instructions * García Barragan MD - 07/30/2017 Formatting of this note may be different from the original. Cuts: Care Instructions Your Care Instructions A cut can happen anywhere on your body. Stitches, brenda, skin adhesives, or pieces of tape called Steri-Strips are sometimes used to keepthe edges of a cut together and help it heal. Steri-Strips can be used by themselves or with stitches or brenda. Sometimes cuts are left open. If the cut went deep and through the skin, the doctor may have closed the cut in two layers. A deeper layer of stitches brings the deep part of the cut together. These stitches will dissolve and don't need to be removed. The upper layer closure, which could be stitches, brenda, Steri-Strips, or adhesive, is what you see on the cut. A cut is often covered by a bandage. The doctor has checked you carefully, but problems can develop later. If you notice any problems ornew symptoms, get medical treatment right away. Follow-up care is a bell part of your treatment and safety. Be sure to make and go to all appointments, and call your doctor if you are having problems. It's also a good idea to know your test resultsand keep a list of the medicines you take. How can you care for yourself at home? If a cut is open or closed Prop up the sore area on a pillow anytime you sit or lie down during the next 3 days. Try to keep it above the level of your heart. This will help reduce swelling. Keep the cut dry for the first 24 to 48 hours. After this, you can shower if your doctor okays it. Pat the cut dry. Don't soak the cut, such as in a bathtub. Your doctor will tell you when it's safe to get the cut wet. After the first 24 to 48 hours, clean the cut with soap and water 2 times a day unless your doctor gives you different instructions. Don't use hydrogen peroxide or alcohol, which can slow healing. You may cover the cut with a thin layer of petroleum jelly and a nonstick bandage. If the doctor put a bandage over the cut, put on a new bandage after cleaning the cut or if the bandage gets wet or dirty. Avoid any activity that could cause your cut to reopen. Be safe with medicines. Read and follow all instructions on the label. If the doctor gave you a prescription medicine for pain, take it as prescribed. If you are not taking a prescription pain medicine, ask your doctor if you can take an tryu-cgg-pzfveul medicine. If the cut is closed with stitches, brenda, or Steri-Strips Follow the above instructions for open or closed cuts. Do not remove the stitches or brenda on your own. Your doctor will tell you when to come back to have the stitches or brenda removed. Leave Steri-Strips on until they fall off. If the cut is closed with a skin adhesive Follow the above instructions for open or closed cuts. Leave the skin adhesive on your skin until it falls off on its own. This may take 5 to 10 days. Do not scratch, rub, or pick at the adhesive. Do not put the sticky part of a bandage directly on the adhesive. Do not put any kind of ointment, cream, or lotion over the area. This can make the adhesive fall off too soon. Do not use hydrogen peroxide or alcohol, which can slow healing. When should you call for help? Call your doctor now or seek immediate medical care if: ? You have new pain, or your pain gets worse. ? The skin near the cut is cold or pale or changes color. ? You have tingling, weakness, or numbness near the cut. ? The cut starts to bleed, and blood soaks through the bandage. Oozing small amounts of blood is normal. ? You have trouble moving the area near the cut. ? You have symptoms of infection, such as: Increased pain, swelling, warmth, or redness around the cut. Red streaks leading from the cut. Pus draining from the cut. A fever. ?Watch closely for changes in your health, and be sure to contact your doctor if: ? The cut reopens. ? You do not get better as expected. Where can you learn more? Log into your personal health record on [email or web address] and enter M735 in the "Education" box to learn more about "Cuts: Care Instructions." Current as of: December 26, 2016 Content Version: 11.20057437-8423 [employer], [employer]. Care instructions adapted under license by your healthcare professional. If you have questions about a medical condition or this instruction, always ask your healthcare professional. [email or web address] disclaims any warranty or liability for your use of this information. Head Injury: Care Instructions Your Care Instructions Most injuries to the head are minor. Bumps, cuts, and scrapes on the head and face usually heal well and can be treated the same as injuries to other parts of the body. Although it's rare, once in a while a more serious problem shows up after you are home. So it's good to be on the lookout for symptoms for a day or two. Follow-up care is a bell part of your treatment and safety. Be sure to make and go to all appointments, and call your doctor if you are having problems. It's also a good idea to know your test resultsand keep a list of the medicines you take. How can you care for yourself at home? Follow your doctor's instructions. He or she will tell you if you need someone to watch you closelyfor the next 24 hours or longer. Take it easy for the next few days or more if you are not feeling well. Ask your doctor when it's okay for you to go back to activities like driving a car, riding a bike, or operating machinery. When should you call for help? Call 911 anytime you think you may need emergency care. For example, call if: ? You have a seizure. ? You passed out (lost consciousness). ? You are confused or can't stay awake. ?Call your doctor now or seek immediate medical care if: ? You have new or worse vomiting. ? You feel less alert. ? You have new weakness or numbness in any part of your body. ?Watch closely for changes in your health, and be sure to contact your doctor if: ? You do not get better as expected. ? You have new symptoms, such as headaches, trouble concentrating, or changes in mood. Where can you learn more? Log into your personal health record on [email or web address] and enter M264 in the "Education" box to learn more about "Head Injury: Care Instructions." Current as of: November 14, 2016 Content Version: 12.12-2018 [email or web address]. Care instructions adapted under license by your healthcare professional. If you have questions about a medical condition or this instruction, always ask your healthcare professional. [employer] disclaims any warranty or liability for your use of this information. Sutures out in 10-12 days in this encounter Instructions * Patient Instructions - Bhargavi Dye RN - 08/23/2017 1:14 PM EDT Medical supplies were ordered for you from [facility] will contact you with a delivery date. The number for eTipping is [phone]. A culture of your wound was done today. You will be contacted if any changes to your treatment needto made. Otherwise, the results will be reviewed at your next appointment. Wound Care Instructions: Wound location: Right Lateral Lower Leg Clean with mild soap and water or saline. Do not soak your wound or rub too hard. Gently pat dry before applying a clean dressing. May not shower. Santyl Ointment: Apply a nickel's thickness of the ointment to your wound. Avoid getting on skin around the wound. Cover with saline moistened gauze, then Plain Alignate, then dry dressing. Change dressing every day. May reinforce or change gauze sooner if it becomes soiled or saturated. Watch for bleeding. If your wound continues to bleed after your appointment, apply direct pressure to the wound with a clean cloth or dressing for 10-20 minutes. If the bleeding does not stop, call [facility] at [phone] or go to the Emergency Room. Signs/Symptoms of infection: If you have any fever, chills, nausea, vomiting or increased odor, drainage, pain or redness to thewound, call [facility] at [phone]. If after hours, contactyour family physician or go to the Emergency Room. Edema Control Instructions: Elevate legs above the level of your heart whenever you are sitting. Avoid standing for long periods and do not sit with your legs dangling. Apply Single layer Tubigrips to your leg. Remove at bedtime unless instructed to wear day and night. Hand wash and line dry to prevent loss of elasticity. Diet: Increase the lean protein in your diet. Foods high in protein are lean cuts of meat, fish, dairy foods, peanut butter and eggs. Limit your salt/sodium. Choose fresh fruits, vegetables and lean cuts of meat. Do not add salt to food during or after cooking. Season food with herbs and spices instead of salt. Avoid salty snacks, fast foods, deli meats and pre- packaged foods. Read food labels carefully. Tobacco Use: No smoking or tobacco products because they can slow or even stop wound healing. Return Appointment: Should you experience any significant changes in your wound(s) or have any questions regarding your home care instructions please contact [facility] at [phone]. If after hours, contact your primary care physician or go to the hospital emergency room. Please call 24 hours prior to your scheduled appointment if you need to cancel or reschedule. in this encounter* Patient Instructions - Graciela Baron RN - 08/30/2017 8:33 AM EDT Medical supplies were ordered for you from [facility] will contact you with a delivery date. The number for eTipping is [phone]. Bring your santyl with you to your next appointment. Take a probiotic daily while on FLAGYL. Wound Care Instructions: Wound location: Right Lateral Lower Leg Clean with mild soap and water or saline. Do not soak your wound or rub too hard. Gently pat dry before applying a clean dressing. May not shower. Santyl Ointment: Apply a nickel's thickness of the ointment to your wound. Avoid getting on skin around the wound. Cover with saline moistened gauze, then Plain Alignate, then dry dressing. Change dressing every day. May reinforce or change gauze sooner if it becomes soiled or saturated. Watch for bleeding. If your wound continues to bleed after your appointment, apply direct pressure to the wound with a clean cloth or dressing for 10-20 minutes. If the bleeding does not stop, call [facility] at [phone] or go to the Emergency Room. Signs/Symptoms of infection: If you have any fever, chills, nausea, vomiting or increased odor, drainage, pain or redness to thewound, call [facility] at [phone]. If after hours, contactyour family physician or go to the Emergency Room. Edema Control Instructions: Elevate legs above the level of your heart whenever you are sitting. Avoid standing for long periods and do not sit with your legs dangling. Apply Single layer Tubigrips to your leg. Remove at bedtime unless instructed to wear day and night. Hand wash and line dry to prevent loss of elasticity. Diet: Increase the lean protein in your diet. Foods high in protein are lean cuts of meat, fish, dairy foods, peanut butter and eggs. Limit your salt/sodium. Choose fresh fruits, vegetables and lean cuts of meat. Do not add salt to food during or after cooking. Season food with herbs and spices instead of salt. Avoid salty snacks, fast foods, deli meats and pre- packaged foods. Read food labels carefully. Tobacco Use: No smoking or tobacco products because they can slow or even stop wound healing. Return Appointment: Should you experience any significant changes in your wound(s) or have any questions regarding your home care instructions please contact [facility] at [phone]. If after hours, contact your primary care physician or go to the hospital emergency room. Please call 24 hours prior to your scheduled appointment if you need to cancel or reschedule. in this encounter* Patient Instructions - Yuliana Hill RN - 09/20/2017 8:45 AM EDT Please stop using the Santyl ointment at this time. Please use the seaweed dressing that you already have. Watch for bleeding. If your wound continues to bleed after your appointment, apply direct pressure to the wound with a clean cloth or dressing for 10-20 minutes. If the bleeding does not stop, call [facility] at [phone] or go to the Emergency Room. Signs/Symptoms of infection: If you have any fever, chills, nausea, vomiting or increased odor, drainage, pain or redness to thewound, call [facility] at [phone]. If after hours, contactyour family physician or go to the Emergency Room. Edema Control Instructions: Elevate legs above the level of your heart whenever you are sitting. Avoid standing for long periods and do not sit with your legs dangling. Apply Single layer Tubigrips to your leg. Remove at bedtime unless instructed to wear day and night. Hand wash and line dry to prevent loss of elasticity. Diet: Increase the lean protein in your diet. Foods high in protein are lean cuts of meat, fish, dairy foods, peanut butter and eggs. Limit your salt/sodium. Choose fresh fruits, vegetables and lean cuts of meat. Do not add salt to food during or after cooking. Season food with herbs and spices instead of salt. Avoid salty snacks, fast foods, deli meats and pre- packaged foods. Read food labels carefully. Tobacco Use: No smoking or tobacco products because they can slow or even stop wound healing. Return Appointment: Should you experience any significant changes in your wound(s) or have any questions regarding your home care instructions please contact [facility] at [phone]. If after hours, contact your primary care physician or go to the hospital emergency room. Please call 24 hours prior to your scheduled appointment if you need to cancel or reschedule. in this encounter* Patient Instructions - Ghazal Arimjo RN - 09/27/2017 9:15 AM EDT Medical supplies were ordered for you from [facility] will contact you with a delivery date. The number for eTipping is [phone]. Wound Care Instructions: Wound location: Right Lateral Lower Leg Clean with mild soap and water or saline. Do not soak your wound or rub too hard. Gently pat dry before applying a clean dressing. May not shower. Apply Plain Alginate, then dry dressing. Change dressing every day. May reinforce or change gauze sooner if it becomes soiled or saturated. Watch for bleeding. If your wound continues to bleed after your appointment, apply direct pressure to the wound with a clean cloth or dressing for 10-20 minutes. If the bleeding does not stop, call [facility] at [phone] or go to the Emergency Room. Signs/Symptoms of infection: If you have any fever, chills, nausea, vomiting or increased odor, drainage, pain or redness to thewound, call [facility] at [phone]. If after hours, contactyour family physician or go to the Emergency Room. Edema Control Instructions: Elevate legs above the level of your heart whenever you are sitting. Avoid standing for long periods and do not sit with your legs dangling. Apply Single layer Tubigrips to your leg. Remove at bedtime unless instructed to wear day and night. Hand wash and line dry to prevent loss of elasticity. Diet: Increase the lean protein in your diet. Foods high in protein are lean cuts of meat, fish, dairy foods, peanut butter and eggs. Limit your salt/sodium. Choose fresh fruits, vegetables and lean cuts of meat. Do not add salt to food during or after cooking. Season food with herbs and spices instead of salt. Avoid salty snacks, fast foods, deli meats and pre- packaged foods. Read food labels carefully. Tobacco Use: No smoking or tobacco products because they can slow or even stop wound healing. Return Appointment: Should you experience any significant changes in your wound(s) or have any questions regarding your home care instructions please contact [facility] at [phone]. If after hours, contact your primary care physician or go to the hospital emergency room. Please call 24 hours prior to your scheduled appointment if you need to cancel or reschedule. 0. 0 in this encounter* Patient Instructions - Rochelle Ramírez, DISP[employer]ER [employer] - 10/13/2017 11:47 AM EDT Formatting of this note may be different from the original. Medications: Resume fluvastatin at 20 mg once per week Ok to increase Fluvastatin 20 mg dose to 2 times weekly and then 3 times weekly if tolerated. Do this very slowly and call us for a problem. Praluent at 75 mg every 14 days Labs in 9 weeks after start Appointment in about 10 weeks Physical Activity: A consistent program of exercise sustained over a period of at least 30 minutes is recommended for a minimum of 150 minutes per week. If you have not been exercising on a regular basis, begin gradually. Once you have achieved this level, increase as tolerated. Diet: Reducing overall total daily calorie amount, paying particular attention to carbohydrate intake, isthe most important thing to consider for weight loss and weight management. A diet low in animal fat is recommended as well. A Mediterranean pattern is recommended. For dietary information check [email or web address].org Other: For questions about your labs or medications, call [phone]. To make or change an appointment call [phone], option 2. Appointments are preceded by a lab draw which must be drawn about 7 to 10 days before the appointment. Please donell your calender and plan for this. Please fast from food for 8 to 10 hours before lab draw. You should drink plenty of water before your lab draw. Date Weight BP HR BMI WAIST 10/13/2017 204.8 132/75 60 31.14 09/27/17 137/73 55 09/20/17 146/75 59 08/30/17 144/74 65 04/21/17 210.4 138/80 68 09/26/16 209 122/66 57 07/12/16 203 125/74 67 31.45 03/29/16 200 130/81 67 10/21/15 201 66383 63 01/14/15 199 120/73 62 Date HS-CRP CPK LP(a) 07/15/16 91 09/18/14 853 91 (NMOL/L) Date LDL- P LDL-C HDL-C TG TC NON-HDL HDL-P SM LDL-P LDL Size LG VLDL-P LG HDL-P VLDL Size HDL Size LP-IR Score Treatment 09/28/17 1553 116 35 222 195 160 26.6 921 20.3 3.1 3.2 43.2 8.8 54 none 04/11/17 1417 100 40 210 182 142 29.2 883 20.2 7.5 3.8 48.3 8.8 65 none 01/31/17 36 43 190 117 74 09/19/16 1607 127 41 173 203 162 28.4 859 20.3 1.6 2.9 41.4 8.6 56 pitava 1 mg TIW 07/15/16 2099 146 40 260 238 198 28.8 1083 20.4 2.9 2.5 45.2 8.6 70 none 05/23/16 127 35 248 212 177 11/30/15 106 rosuva? 12/15/14 102 41 135 170 129 rosuva? 11/06/14 91 32 197 162 130 09/18/14 101 41 178 178 137 04/28/02 109 39 355 219 180 01/07/02 43 416 22 199 07/13/01 119 43 328 228 185 12/29/00 140 09/01/00 136 Date Glu HbA1c 25 OH VtD ALT AST Creatinine TSH 08/21/17 284 7.7 1.10 01/31/17 154 6.5 33.1 36 26 0.9 07/15/16 37 4.76 05/23/16 150 7.3 1.0 4.28 02/29/16 6.5 11/30/15 150 6.7 1.0 12/15/14 152 6.1 50 33 1.04 3.44 11/10/14 142 0.87 11/03/14 83 6.1 53 35 0.99 09/19/14 134 0.94 09/18/14 6.5 09/17/14 216 25 22 0.97 5.01 Lipid Goals LDL-P Goal: <800 Non HDL-C Goal: <100 APO B < in this encounter* Patient Instructions* Minna Brown, FOREST OFFICER - 03/13/2018 8:57 AM EST Plan: Start fenofibrate 54 mg daily with food. The prescription has been called into your retail pharmacy Will contact you once we get the re-approval for the Praluent injections Continue good lifestyle habits. Follow up with Dr. Villalta in four months. Fasting Labs: Please have labs drawn 10 days prior to your appointment. Your lab orders will be in the system andyou can go to ANY [facility] lab to have this drawn. Physical Activity: A consistent program of exercise sustained over a period of at least 30 minutes is recommended for a minimum of 150 minutes per week. If you have not been exercising on a regular basis, begin gradually. Once you have achieved this level, increase as tolerated. Diet: Reducing overall total daily calorie amount, paying particular attention to carbohydrate intake, isthe most important thing to consider for weight loss and weight management. A diet low in animal fat is recommended as well. A Mediterranean pattern is recommended. For dietary information check [email or web address].org Other: The analysis of advanced lipid tests (NMR) are completed outside of [facility]. These labs require approximately 7 days for processing from the day of the lab draw to receipt of results in our system. For labs drawn outside of [facility], it may take longer. If you do not hear from us for any of the tests we have ordered for you, including lab results, please call us at [phone]. If your insurance company does not cover the cost of the NMR test, you can appeal the bill by calling Patient Accounts at [phone]. It has been a policy of [facility] to reduce the cost by 35% If this is the case for you and the NMR is not covered by your insurance, let us know and in the future, ow that we have one NMR, we can order another type of lab test which your insurance should cover If you have any questions/concerns please contact the Lipid Clinic at [phone] option 3. Thank you for allowing us to participate in your care! Date LDL- P LDL-C HDL-C TG TC Treatment 02/19/18 645 36 43 214 122 Praluent 75 09/28/17 1553 116 35 222 195 none 04/11/17 1417 100 40 210 182 none 01/31/17 36 43 190 117 09/19/16 1607 127 41 173 203 pitava 1 mg TIW 07/15/16 2099 146 40 260 238 none 01/07/02 43 416 22 07/13/01 119 43 328 228 12/29/00 140 09/01/00 136 Date Glu HbA1c 02/19/18 11/22/17 7.2 08/21/17 284 7.7 01/31/17 154 6.5 07/15/16 05/23/16 150 7.3 02/29/16 6.5 11/30/15 150 6.7 12/15/14 152 6.1 11/10/14 142 11/03/14 83 6.1 09/19/14 134 09/18/14 6.5 09/17/14 216 in this encounter* Patient Instructions - Rochelle Ramírez, GALLITO - 09/26/2016 9:38 AM EDT Formatting of this note may be different from the original. Medications: Start Fluvastatin at 20 mg three times per week, take at bedtime We will try for approval for [employer]. Check out [employer] Recommend weight loss. Physical Activity: A consistent program of exercise sustained over a period of at least 30 minutes is recommended for a minimum of 150 minutes per week. If you have not been exercising on a regular basis, begin gradually. Once you have achieved this level, increase as tolerated. Diet: Reducing overall total daily calorie amount, paying particular attention to carbohydrate intake, isthe most important thing to consider for weight loss and weight management. A diet low in animal fat is recommended as well. A Mediterranean pattern is recommended. For dietary information check [email or web address] Other: For questions about your labs or medications, call [phone]. To make or change an appointment call [phone], option 2. Appointments are preceded by a lab draw which must be drawn about 7 to 10 days before the appointment. Please donell your calender and plan for this. Please fast from food for 8 to 10 hours before lab draw. You should drink plenty of water before your lab draw. Date Weight BP HR BMI WAIST 09/26/16 208.5 122/66 57 07/12/16 203 125/74 67 31.45 03/29/16 200 130/81 67 10/21/15 201 92848 63 01/14/15 199 120/73 62 Date HS-CRP CPK LP(a) 09/18/14 853 91 (NMOL/L) Date LDL- P LDL-C HDL-C TG TC NON-HDL HDL-P SM LDL-P LDL Size LG VLDL-P LG HDL-P VLDL Size HDL Size LP-IR Score Treatment 09/19/16 1607 127 41 173 203 162 28.4 859 20.3 1.6 2.9 41.4 8.6 56 pitava 1 mg TIW/ off 09/12/16 07/15/16 2099 146 40 260 238 198 28.8 1083 20.4 2.9 2.5 45.2 8.6 70 none 05/23/16 127 35 248 212 177 11/30/15 106 rosuva? 12/15/14 102 41 135 170 129 rosuva? 11/06/14 91 32 197 162 130 09/18/14 101 41 178 178 137 04/28/02 109 39 355 219 180 01/07/02 43 416 22 199 07/13/01 119 43 328 228 185 12/29/00 140 09/01/00 136 Date Glu HbA1c 25 OH VtD ALT AST Creatinine TSH 05/23/16 150 7.3 1.0 4.28 02/29/16 6.5 11/30/15 150 6.7 1.0 12/15/14 152 6.1 50 33 1.04 3.44 11/10/14 142 0.87 11/03/14 83 6.1 53 35 0.99 09/19/14 134 0.94 09/18/14 6.5 09/17/14 216 25 22 0.97 5.01 Lipid Goals LDL-P Goal: <1000 Non HDL-C Goal: <100 APO B <60 in this encounter* Patient Instructions* Stephanie Minna Rivera, FOREST OFFICER - 07/25/2018 8:29 AM EDT Plan: Continue the Praluent 75 mg injections every 14 days Continue the fenofibrate 54 mg daily with food. Continue good lifestyle habits. Monitor white starches and carb intake (breads, pastas, rice, potatoes) Increase vegetable intake. Follow up with Dr. Villalta in three months. Check Blood sugars twice daily and keep a daily log of the readings. Stop the OTC product for now. ? IF A NEW PRESCRIPTION IS BEING PRESCRIBED OR YOU REQUESTED A REFILL, PLEASE ALLOW 48 HOURS BEFORECHECKING WITH YOUR PHARMACY. Follow up: Please arrive 10 minutes early to your appointment to complete the registration process. Fasting Labs: Please have labs drawn 10 days prior to your appointment. Your lab orders will be in the system andyou can go to ANY [facility] lab to have this drawn. Physical Activity: A consistent program of exercise sustained over a period of at least 30 minutes is recommended for a minimum of 150 minutes per week. If you have not been exercising on a regular basis, begin gradually. Once you have achieved this level, increase as tolerated. Diet: Reducing overall total daily calorie amount, paying particular attention to carbohydrate intake, isthe most important thing to consider for weight loss and weight management. A diet low in animal fat is recommended as well. A Mediterranean pattern is recommended. For dietary information check [email or web address] If you have any questions/concerns please contact the Lipid Clinic at option 3. Thank you for allowing us to participate in your care! Date LDL- P LDL-C HDL-C TG TC 07/09/18 502 40 46 120 110 02/19/18 645 36 43 214 122 09/28/17 1553 116 35 222 195 04/11/17 1417 100 40 210 182 01/31/17 36 43 190 117 09/19/16 1607 127 41 173 203 07/15/16 2099 146 40 260 238 05/23/16 127 35 248 212 11/30/15 106 12/15/14 102 41 135 170 11/06/14 91 32 197 162 09/18/14 101 41 178 178 04/28/02 109 39 355 219 01/07/02 43 416 22 07/13/01 119 43 328 228 12/29/00 140 09/01/00 136 documented in this encounter* Patient Instructions* Tess Up MA - 03/28/2019 1:14 PM EST Plan: CONTINUE Praluent 75mg every 14 days Fenofibrate 54mg daily [email or web address] Follow up: Please arrive 10 minutes early to your appointment to complete the registration process. Fasting Labs: Please have labs drawn 2 weeks prior to your appointment. Your lab orders will be in the system andyou can go to ANY [facility] lab to have this drawn. Physical Activity: A consistent program of exercise sustained over a period of at least 30 minutes is recommended for a minimum of 150 minutes per week. If you have not been exercising on a regular basis, begin gradually. Once you have achieved this level, increase as tolerated. Diet: Reducing overall total daily calorie amount, paying particular attention to carbohydrate intake, isthe most important thing to consider for weight loss and weight management. A diet low in animal fat is recommended as well. A Mediterranean pattern is recommended. For dietary information check [email or web address] If you have any questions/concerns please contact the Lipid Clinic at Thank you for allowing us to participate in your care! Date LDL- P ApoB LDL-C HDL-C TG TC NON-HDL HDL-P SM LDL-P LDL Size LG VLDL-P LG HDL-P VLDL Size HDL Size LP-IR Score Treatment 03/14/19 42 26 44 132 96 52 Praluent 75mg, feno 54 11/06/18 311 35 43 123 103 60 35.4 127 20.2 3.5 3.6 48.0 9.1 51 Praluent 75, feno 54 07/09/18 502 40 46 120 110 64 33.6 276 20.0 3.5 2.2 49.2 8.7 65 Praluent 75, feno 54 02/19/18 645 36 43 214 122 79 32.1 391 19.7 5.9 5.0 50.8 9.1 60 Praluent 75 09/28/17 1553 116 35 222 195 160 26.6 921 20.3 3.1 3.2 43.2 8.8 54 none documented in this encounter* Patient Instructions* Minna Brown, FOREST OFFICER - 11/15/2018 9:05 AM EDT Plan: Continue: Praluent 75 every 2 weeks. Fenofibrate 54 mg daily. Ozempic 0.25 weekly. Glimepiride 4 mg daily. Keep up the exercise at least 3 days per week. Continue your good dietary habits. ? IF A NEW PRESCRIPTION IS BEING PRESCRIBED OR YOU REQUESTED A REFILL, PLEASE ALLOW 48 HOURS BEFORECHECKING WITH YOUR PHARMACY. Follow up: Please arrive 10 minutes early to your appointment to complete the registration process. Fasting Labs: Please have labs drawn 2 weeks prior to your appointment. Your lab orders will be in the system andyou can go to ANY [facility] lab to have this drawn. Physical Activity: A consistent program of exercise sustained over a period of at least 30 minutes is recommended for a minimum of 150 minutes per week. If you have not been exercising on a regular basis, begin gradually. Once you have achieved this level, increase as tolerated. Diet: Reducing overall total daily calorie amount, paying particular attention to carbohydrate intake, isthe most important thing to consider for weight loss and weight management. A diet low in animal fat is recommended as well. A Mediterranean pattern is recommended. For dietary information check [email or web address] If you have any questions/concerns please contact the Lipid Clinic at Thank you for allowing us to participate in your care! Date LDL- P LDL-C HDL-C TG TC NON-HDL HDL-P SM LDL-P LDL Size LG VLDL-P LG HDL-P VLDL Size HDL Size LP-IR Score Treatment 11/06/18 311 35 43 123 103 60 35.4 127 20.2 3.5 3.6 48.0 9.1 51 Praluent 75, feno 54 07/09/18 502 40 46 120 110 64 33.6 276 20.0 3.5 2.2 49.2 8.7 65 Praluent 75, feno 54 02/19/18 645 36 43 214 122 79 32.1 391 19.7 5.9 5.0 50.8 9.1 60 Praluent 75 09/28/17 1553 116 35 222 195 160 26.6 921 20.3 3.1 3.2 43.2 8.8 54 none 05/22/17 125 43 255 219 176 04/11/17 1417 100 40 210 182 142 29.2 883 20.2 7.5 3.8 48.3 8.8 65 none 01/31/17 36 43 190 117 74 09/19/16 1607 127 41 173 203 162 28.4 859 20.3 1.6 2.9 41.4 8.6 56 pitava 1 mg TIW 07/15/16 2099 146 40 260 238 198 28.8 1083 20.4 2.9 2.5 45.2 8.6 70 none 05/23/16 127 35 248 212 177 11/30/15 106 rosuva? 12/15/14 102 41 135 170 129 rosuva? 11/06/14 91 32 197 162 130 09/18/14 101 41 178 178 137 04/28/02 109 39 355 219 180 01/07/02 43 416 22 199 07/13/01 119 43 328 228 185 12/29/00 140 09/01/00 136 documented in this encounter History of Present Illness * Meño Villalta MD - 03/14/2018 1:26 PM EST Reviewed visit documentation by KW. Agree with the assessment and planning. * Rosalie Wu RPh,PharmD - 03/12/2018 9:34 AM EST 02/28/18 -LIPID CLINIC FOLLOW UP Location of Care:[facility] Cardiovascular Disease Prevention [facility] Lipid [facility] Today's Visit Visit Date:02/28/18 Provider: Rosalie Wu Rph, PharmD, CLS Collaborative Physician: Meño Villalta MD, Lipidologist Patient's Physicians Referring Physician: Julia Moreno PCP: Ramona Nair MD Reason for Referral: Dyslipidemia, statin intolerance, and PCSK9i candidate Dyslipidimia Dx Original Date: 1993 PMH: This is a very nice 70 y/o male who initially seen 07/12/16 for secondary prevention with hx of CAD. Patient reports that he was diagnosis with dyslipidemia in 1993 after having a heart scan that showed calcium deposits. He then was started on treatment but had issues with myalgias. He had a STEMI w/ CABG in 09/2014 and open heart surgery in 11/2014. He reports no recent cardiac issues and/or events. He does not have significant family history of premature ASCVD. Does have type II diabetes, HTN, low HDL, and high TG. 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 Statins: 09/2015-03/2016 rosuva 5 mg d/c muscle pain (treated one tablet per week) 12/08/14-03/13/15 Crestor 10 mg caused myalgias 09/2014-10/2014 rosuva 20 mg (1/2 tab twice per week) d/c due to muscle pain 05/19/12- 05/31/12 Atorvastatin 10 mg caused myalgias 06/04/11- Simvastatin 40 mg caused myalgias 08/03/16 to 09/12/16: Had aches in joints, more sleepy, especially in the afternon, feeling of flu like, stopped about 09/12/16 symptoms subsided in 1.5 weeks. 07/2016-09/2016-Livalo 1 mg TIW- stiffness, knee pain," out of sort". 09/2016- Fluvastatin 20 mg TIW Fluvastatin 20 mg TIW- restarted 04/10/17, stopped after one month due to "all over" aches. NO: Prava, lova Fibrates: 03/13/18 FENO 54 MG Niacin: NO Bile Acid: NO Ezetimibe: NO Ezetimibe + Statin: NO PCSK9i: September 2017: completed 4 doses of Repatha. 09/2017-Repatha 140 mg- Rash, joint pain, stopped and rash resolved after 3 weeks.09/26/17: Will try for Praluent. 10/13/17: Praluent approved, applying for PASS for financial assistance. 11/24/17: 1st Praluent injection Fish Oil or Plant Stanols/Sterols: OTC fish oil caused itching/rash Side Effects: muscle pain Current Treatment: Praluent 75 mg every 2 weeks ( off since 02/05/18) CV Disease History Clinical CV Disease:yes Type: S/p cath with placement of 2 PATRICIA to RCA Diabetes Mellitus: yes (dx. 2006) Special Population: no CV Diagnostic/Interventional History: yes CABG N/A 11/06/2014 Procedure: CORONARY ARTERY BYPASS GRAFTING TIMES THREE WITH ENDOVEIN HARVEST; Surgeon: Jason Wilkinson MD; Location: [facility] Main OR; Service: CARDIAC CATHETERIZATION CORONARY ARTERY BYPASS GRAFT CORONARY STENT PLACEMENT HC LEFT HEART CATH N/A 09/17/2014 Procedure: Left Heart Cath; Surgeon: Julia Moreno MD; Location: [facility]; Service: Cardiovascular 04/06/1998: SPECT THALLIUM STRESS & REST THE STUDY IS NEGATIVE, BOTH FOR ISCHEMIA AND FOR PREVIOUS MYOCARDIAL INFARCTION. EF 56% PV Diagnostic/Interventional History: no Risk Factors: ASCVD, DM type 2, HTN, elevated Lp(a), Age Treatment Goals: LDL-C <70mg/dL, non-HDL <100 mg/dL, LDL-P <800 nmol/L Compliance with Medications: Drug Interactions: Medications reviewed for drug interactions and none that would require therapy modification were identified NOTES FROM TODAY'S VISIT 02/28/18 Last Office Visit: 10/08/17 Weight History: Last OV Weight: 204.8 Current Weight: 210.8 Weight change: 6 lb increase (had boots on) Current Dose: Praluent 75mg every 2 weeks last dose 02/05/18; need updated PA Review of Systems Constitutional (fatigue): NEGATIVE Respiratory (Chest Tightness/SOB): NEGATIVE Cardiovascular (chest pain, palipitations, leg swelling): NEGATIVE Gastrointestinal (abdominal pain, blood in stool/urine, constipation, diarrhea): NEGATIVE Neurological (dizziness/lightheadedness): NEGATIVE Musculoskeletal: NEGATIVE Assessment: Diet/Exercise: Lipids: PRALUENT 75 MG labs reflect being on the injection LDL-P 645 and now <2nd percentile, down 58% wth the addition of Praluent and now at goal TG 214, about the same as the last visit Blood sugar issues: yes Hx Type 2 DM 11/2017 HgbA1c 7.2% BS averaging 120 mg/dL AM; checks daily <1 serving/day vegetable; Limiting salt 1 glass of wine with a good meal. 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 Developed a gash in his leg but did not get bit by the dog. Blood Pressure issues: yes -Hx of HTN -well controlled -Checks at home and is very stable. Typically 125/80-86 Thyroid issues: no -TSH WNL 2018; ULN -Will recheck TSH/Free T4 next clinic visit Kidney/liver function: -SCr WNL August 2017 -ALT/AST WNL 2016 Vitamin D deficiency: -low normal 2016 -D3 1000 units LDL-P is well below goal after starting the Praluent injections in November. TG still mildly elevated and HgbA1c is better at 7.2%. TSH done and is at the ULN. Labs do reflect being on the injection up until 02/06/18 and he has now been off due to waiting for an updated prior authorization. Discuss resuming a statin but patient has had multiple issues with statin side effects on lower doses. Patient would be an excellent candidate for Vascepa with his mildly elevated TG based on the REDUCE-IT clinical trial, but he has an allergy to fish and had issues with itching when taking OTC fish oil. Will start the patient on low dose fenofibrate and continue to wait for the approval for the Praluent. Discussed with the patient to continue good lifestyle habits and incorporate more vegetables into his diet. PLAN: Start fenofibrate 54 mg daily with food. The prescription has been called into your retail pharmacy Will contact you once we get the re-approval for the Praluent injections Continue good lifestyle habits. Follow up with Dr. Villalta in four months. Date Weight BP HR BMI 03/13/18 210.8 141/77 67 32.05 10/13/17 205 132/75 60 31.14 09/27/17 137/73 55 09/20/17 146/75 59 08/30/17 144/74 65 04/21/17 210.4 138/80 68 Date HS-CRP CPK LP(a) 07/15/16 91(nmol/L) 09/18/14 853 91 (NMOL/L) Date LDL- P LDL-C HDL-C TG TC NON-HDL HDL-P SM LDL-P LDL Size LG VLDL-P LG HDL-P VLDL Size HDL Size LP-IR Score Treatment 02/19/18 645 36 43 214 122 79 32.1 391 19.7 5.9 5.0 50.8 9.1 60 Praluent 75 09/28/17 1553 116 35 222 195 160 26.6 921 20.3 3.1 3.2 43.2 8.8 54 none 04/11/17 1417 100 40 210 182 142 29.2 883 20.2 7.5 3.8 48.3 8.8 65 none 01/31/17 36 43 190 117 74 09/19/16 1607 127 41 173 203 162 28.4 859 20.3 1.6 2.9 41.4 8.6 56 pitava 1 mg TIW 07/15/16 2099 146 40 260 238 198 28.8 1083 20.4 2.9 2.5 45.2 8.6 70 none 05/23/16 127 35 248 212 177 11/30/15 106 rosuva? 12/15/14 102 41 135 170 129 rosuva? 11/06/14 91 32 197 162 130 09/18/14 101 41 178 178 137 04/28/02 109 39 355 219 180 01/07/02 43 416 22 199 07/13/01 119 43 328 228 185 12/29/00 140 09/01/00 136 Date Glu HbA1c 25 OH VtD ALT AST Creatinine TSH 02/19/18 4.24 11/22/17 7.2 08/21/17 284 7.7 1.10 01/31/17 154 6.5 33.1 36 26 0.9 07/15/16 37 4.76 05/23/16 150 7.3 1.0 4.28 02/29/16 6.5 11/30/15 150 6.7 1.0 12/15/14 152 6.1 50 33 1.04 3.44 11/10/14 142 0.87 11/03/14 83 6.1 53 35 0.99 09/19/14 134 0.94 09/18/14 6.5 09/17/14 216 25 22 0.97 5.01 Lipid Goals LDL-P Goal: <1000 Non HDL-C Goal: <100 APO B <80 in this encounter* Rochelle Ramírez CNS - 09/26/2016 9:02 AM EDT Formatting of this note may be different from the original. 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 Statins: 09/2015-03/2016 rosuva 5 mg d/c muscle pain (treated one tablet per week) 12/08/14-03/13/15 Crestor 10 mg caused myalgias 09/2014-10/2014 rosuva 20 mg (1/2 tab twice per week) d/c due to muscle pain 05/19/12- 05/31/12 Atorvastatin 10 mg caused myalgias 06/04/11- Simvastatin 40 mg caused myalgias 08/03/16 to 09/12/16: Had aches in joints, more sleepy, especially in the afternon, feeling of flu like, stopped about 09/12/16nd symptoms subsided in 1.5 weeks. NO: Prava, fluva, lova, pitava Fibrates: NO Niacin: NO Bile Acid: NO Ezetimibe: NO Ezetimibe + Statin: NO PCSK9i: NO Fish Oil or Plant Stanols/Sterols: OTC fish oil Side Effects: muscle pain Current Treatment: Pitavastatin 1 mg TIW / stopped CV Disease History Clinical CV Disease:yes Type: S/p cath with placement of 2 PATRICIA to RCA, then CABG Diabetes Mellitus: yes (dx. 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 Weight History Maximum Weight: 245 lbs ([id number]'s around the age of 39) Changed diet and working out (running daily 5-6 miles/day) ; stopped fast food Does not know if lifestyle affected his cholesterol Weight has been stable over the past six months; was down around 193lbs but hard to maintain Subjective: Ramona Cobos is a 71 y.o. male seen in the office today for uncontrolled dyslipidemia History of Present Illness: Initial visit 07/12/16: 71 yr old male seen for secondary prevention. ASCVD event in 2014 and required CABG. He has suffered myalgias on 3 statins. He has additional risk factors of HTN, DM. His LP(a) is mildly elevated (note was measured in NMOL/L). He does not have many family members with ASCVD events, his mother had a stroke late in life. Notes Recorded by Meño Villalta MD on 07/28/2016 at 6:42 PM Initial Lipid Clinic lab analysis: On no lipid med because of side effects. LDL-P close to 95th percentile. Small and large particles pretty evenly divided. Non-HDL-C 198. 85th. Higher than the previous 177. LDL-C 65th. HDL-P 35-40th. Some discordance. TG 260 and similar to last one. Higher than all of them in 2015. LP(a) a little elevated at 91. (NMOL/L result). So we should see what Pitava will cost. Start him at 1 mg a week first few weeks. Prescribe it at 3 days a week. If he feels OK on 1 mg per week in mid August, he can try going up to twice a week for a few weeks and then 3 days a week after that. Fluva would be alternative if cost too high. Call us if has side effect symptoms like he had before. PCSK9i if fails another statin. If tolerates, may add Ezetimibe next visit. Thanks. Notes from today's visit: Stiff and sore today Yesterday was running late and he tripped and fell onto forward He fell forward to to his right side He did npt hit his head To be On the Livalo 1 mg TIW 3 weeks Ago began feeling "out of sort" [place] he was beginning a flu like condition Sleepiness was occurring consistently mid afternoon Increase stiffness in wrist, left > right Knee pain and tried to use supports but did not help Off 3 weeks of the Livalo now He began to feel better after off 1.5 to 2 weeks Feeling back to normal this week Exercise: Consistent and most days, about 4 to 5 days but some weeks more Run TM for 35 min [facility] [employer] and free weights for 25 min on each Diet: Good habits: Not eating red meat, mostly chicken, salmon Sep 10 was BD, had a big steak to eat but was not able Eating more fruits for breakfast with oatmeal Packing lunch, tuna, chicken Could improve: Avoid pizza Likes ice cream and may 3 days per week/ Likes Kirby[employer] small cone Occasionally likes a milkshake, 2 to 3 per month Energy is good Sleep is good Occasional H/A, thinks related to sun Review of Systems Constitution: Positive for weight gain. Negative for weakness and malaise/fatigue. Up 5 lbs from initial visit HENT: Positive for congestion and headaches. Occasional and seems to occur more when in sun, does always wear sunglasses Eyes: Negative for visual disturbance. Cardiovascular: Negative for chest pain, dyspnea on exertion, palpitations and syncope. Respiratory: Negative for cough, shortness of breath and wheezing. Endocrine: Negative for cold intolerance and heat intolerance. Hematologic/Lymphatic: Negative for bleeding problem. Skin: Negative for color change, dry skin and rash. Musculoskeletal: Negative for muscle cramps, muscle weakness and myalgias. Gastrointestinal: Negative for abdominal pain, change in bowel habit and flatus. Genitourinary: Positive for nocturia. Negative for dysuria. Neurological: Negative for difficulty with concentration, light-headedness and sensory change. Psychiatric/Behavioral: Negative for altered mental status. Objective: Physical Exam Constitutional: He is oriented to person, place, and time. He appears well- developed and well-nourished. HENT: Head: Normocephalic and atraumatic. Neck: Normal range of motion. Neck supple. No JVD present. No thyromegaly present. Cardiovascular: Normal rate, regular rhythm and normal heart sounds. Pulmonary/Chest: Effort normal and breath sounds normal. He has no wheezes. Abdominal: Soft. Bowel sounds are normal. He exhibits no distension. There is no guarding. Musculoskeletal: Normal range of motion. He exhibits no edema. Neurological: He is alert and oriented to person, place, and time. Skin: Skin is warm and dry. No rash noted. Psychiatric: He has a normal mood and affect. His behavior is normal. Vitals: BP: 122/66 HR: 57 Lab Review: Notes Recorded by GALLITO Stephen on 09/22/2016 at 4:36 PM Livalo 1 mg 3 times weekly/ Stopped around 09/12/16 due to side effect LDL-P at the 80th percentile, 1/2 small particles LDL-C 50th percentile Discordance as noted in initial labs Non-HDL at the 60th percentile TG above goal at 173, improved, was 248 in May, Assessment & Plan: LDL-P improved from baseline. He stopped the pitavastatin around 09/12/2016 and about one week beforehis lab draw. He was having fatigue, flu like feeling, stilfness in his hands. He reports relief of these symptoms after 1.5 weeks off pitava. He has gained 5 pounds since 07/12/16 at our INTAKE visit and would have been weighed on the same scale. He likes ice cream and states may be related to eating more int he summer, although he also feels his weight tends to move around a bit. He checks his weight at home and has not noticed much difference. He clearly felt better off the pitavastatin and so we will go in a different direction now. He has had recurrent side effects on multiple statins and this has been documented. Will initiate PCSK9i approval now as he has recurrently failed oral therapy and has the indication of ASCVD. There may potentially be a cost issue but we will first seek approval and then se if there is payment assistance available, if necessary I ask him if he would be willing to try low dose fluvastatin in the interim as approval may take a few weeks and he is willing to do this. We have had some success with tolerance of fluvasattin when other statins are not tolerated Other Tests Ordered: Problem List Items Addressed This Visit Hyperlipidemia - Primary Relevant Medications fluvastatin (LESCOL) 20 MG capsule evolocumab (REPATHA SURECLICK) 140 mg/mL Pen Other Relevant Orders NMR Rochelle Ramírez, [employer], CLS Date Weight BP HR BMI WAIST 09/26/16 208.5 122/66 57 07/12/16 203 125/74 67 31.45 03/29/16 200 130/81 67 10/21/15 201 87500 63 01/14/15 199 120/73 62 Date HS-CRP CPK LP(a) 09/18/14 853 91 (NMOL/L) Date LDL- P LDL-C HDL-C TG TC NON-HDL HDL-P SM LDL-P LDL Size LG VLDL-P LG HDL-P VLDL Size HDL Size LP-IR Score Treatment 09/19/16 1607 127 41 173 203 162 28.4 859 20.3 1.6 2.9 41.4 8.6 56 pitava 1 mg TIW/ off 09/12/16 07/15/16 2099 146 40 260 238 198 28.8 1083 20.4 2.9 2.5 45.2 8.6 70 none 05/23/16 127 35 248 212 177 11/30/15 106 rosuva? 12/15/14 102 41 135 170 129 rosuva? 11/06/14 91 32 197 162 130 09/18/14 101 41 178 178 137 04/28/02 109 39 355 219 180 01/07/02 43 416 22 199 07/13/01 119 43 328 228 185 12/29/00 140 09/01/00 136 Date Glu HbA1c 25 OH VtD ALT AST Creatinine TSH 05/23/16 150 7.3 1.0 4.28 02/29/16 6.5 11/30/15 150 6.7 1.0 12/15/14 152 6.1 50 33 1.04 3.44 11/10/14 142 0.87 11/03/14 83 6.1 53 35 0.99 09/19/14 134 0.94 09/18/14 6.5 09/17/14 216 25 22 0.97 5.01 Lipid Goals LDL-P Goal: <1000 Non HDL-C Goal: <100 APO B <60 in this encounter* Minna Brown, FOREST OFFICER - 07/11/2018 5:30 AM EDT 07/11/18 -Return Location of Care:[facility] Cardiovascular Disease Prevention & Lipid Clinic Today's Visit Visit Date:07/11/18 Treating Physician: Meño Villalta MD, Lipidologist Patient's Physicians Referring Physician: Julia Moreno PCP: Ramona Nair MD Reason for Referral: Dyslipidemia, statin intolerance, and PCSK9i candidate Dyslipidimia Dx Original Date: 1993 Treatment History 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 Statins: 09/2015-03/2016 rosuva 5 mg d/c muscle pain (treated one tablet per week) 12/08/14-03/13/15 Crestor 10 mg caused myalgias 09/2014-10/2014 rosuva 20 mg (1/2 tab twice per week) d/c due to muscle pain 05/19/12- 05/31/12 Atorvastatin 10 mg caused myalgias 06/04/11- Simvastatin 40 mg caused myalgias 08/03/16 to 09/12/16: Had aches in joints, more sleepy, especially in the afternon, feeling of flu like, stopped about 09/12/16 symptoms subsided in 1.5 weeks. 07/2016-09/2016-Livalo 1 mg TIW- stiffness, knee pain," out of sort". 09/2016- Fluvastatin 20 mg TIW Fluvastatin 20 mg TIW- restarted 04/10/17, stopped after one month due to "all over" aches. NO: Prava, lova Fibrates: 03/13/18 FENO 54 MG Niacin: NO Bile Acid: NO Ezetimibe: NO Ezetimibe + Statin: NO PCSK9i: 2018: completed 4 doses of Repatha. 09/2017-Repatha 140 mg- Rash, joint pain, stopped and rash resolved after 3 weeks.09/26/17: Will try for Praluent. 10/13/17: Praluent approved, applying for PASS for financial assistance. 11/24/17: 1st Praluent injection Fish Oil or Plant Stanols/Sterols: OTC fish oil caused itching/rash Side Effects: muscle pain Current Treatment: Praluent 75 mg every 2 weeks Fenofibrate 54 mg CV Disease History Clinical CV Disease:yes Type: S/p cath with placement of 2 PATRICIA to RCA Diabetes Mellitus: yes (dx. 2006) Special Population: no CV Diagnostic/Interventional History: yes CABG N/A 11/06/2014 Procedure: CORONARY ARTERY BYPASS GRAFTING TIMES THREE WITH ENDOVEIN HARVEST; Surgeon: Jason Wilkinson MD; Location: [facility] Main OR; Service: CARDIAC CATHETERIZATION CORONARY ARTERY BYPASS GRAFT CORONARY STENT PLACEMENT HC LEFT HEART CATH N/A 09/17/2014 Procedure: Left Heart Cath; Surgeon: Julia Moreno MD; Location: [facility]; Service: Cardiovascular 04/06/1998: SPECT THALLIUM STRESS & REST THE STUDY IS NEGATIVE, BOTH FOR ISCHEMIA AND FOR PREVIOUS MYOCARDIAL INFARCTION. EF 56% PV Diagnostic/Interventional History: no Prevention ASCVD Risk Factors : Baseline elevated LDL-C: yes 140 mg/dL Diabetes (Type 1 or Type 2): yes (dx 2006) HTN: Yes controlled with medications (dx. 2004) Smoking history: Yes from 1956 to 1971 Evidence of genetic hyperlipidemia: no Criteria for Familial Hypercholesterolemia (FH) if indicated: n/a Date Weight BP HR BMI 03/13/18 210.8 141/77 67 32.05 10/13/17 205 132/75 60 31.14 09/27/17 137/73 55 09/20/17 146/75 59 08/30/17 144/74 65 04/21/17 210.4 138/80 68 Date HS-CRP CPK LP(a) 07/15/16 91(nmol/L) 09/18/14 853 91 (NMOL/L) Date LDL- P LDL-C HDL-C TG TC NON-HDL HDL-P SM LDL-P LDL Size LG VLDL-P LG HDL-P VLDL Size HDL Size LP-IR Score Treatment 07/09/18 Praluent 75, feno 54 02/19/18 645 36 43 214 122 79 32.1 391 19.7 5.9 5.0 50.8 9.1 60 Praluent 75 09/28/17 1553 116 35 222 195 160 26.6 921 20.3 3.1 3.2 43.2 8.8 54 none 04/11/17 1417 100 40 210 182 142 29.2 883 20.2 7.5 3.8 48.3 8.8 65 none 01/31/17 36 43 190 117 74 09/19/16 1607 127 41 173 203 162 28.4 859 20.3 1.6 2.9 41.4 8.6 56 pitava 1 mg TIW 07/15/16 2099 146 40 260 238 198 28.8 1083 20.4 2.9 2.5 45.2 8.6 70 none 05/23/16 127 35 248 212 177 11/30/15 106 rosuva? 12/15/14 102 41 135 170 129 rosuva? 11/06/14 91 32 197 162 130 09/18/14 101 41 178 178 137 04/28/02 109 39 355 219 180 01/07/02 43 416 22 199 07/13/01 119 43 328 228 185 12/29/00 140 09/01/00 136 Date Glu HbA1c 25 OH VtD ALT AST Creatinine TSH 07/09/18 1.12 2.93 02/19/18 4.24 11/22/17 7.2 08/21/17 284 7.7 1.10 01/31/17 154 6.5 33.1 36 26 0.9 07/15/16 37 4.76 05/23/16 150 7.3 1.0 4.28 02/29/16 6.5 11/30/15 150 6.7 1.0 12/15/14 152 6.1 50 33 1.04 3.44 11/10/14 142 0.87 11/03/14 83 6.1 53 35 0.99 09/19/14 134 0.94 09/18/14 6.5 09/17/14 216 25 22 0.97 5.01 Lipid Goals LDL-P Goal: <1000 Non HDL-C Goal: <100 APO B <80 documented in this encounter* Rosalie Wu [facility],PharmD - 07/25/2018 8:32 AM EDT 07/25/18 -Return Location of Care:[facility] Cardiovascular Disease Prevention & Lipid Clinic Today's Visit Visit Date:07/25/18 Treating Physician: Meño Villalta MD, Lipidologist Patient's Physicians Referring Physician: Julia Moreno PCP: Ramona Nair MD Reason for Referral: Dyslipidemia, statin intolerance, and PCSK9i candidate Dyslipidimia Dx Original Date: 1993 Treatment History 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 Statins: 09/2015-03/2016 rosuva 5 mg d/c muscle pain (treated one tablet per week) 12/08/14-03/13/15 Crestor 10 mg caused myalgias 09/2014-10/2014 rosuva 20 mg (1/2 tab twice per week) d/c due to muscle pain 05/19/12- 05/31/12 Atorvastatin 10 mg caused myalgias 06/04/11- Simvastatin 40 mg caused myalgias 08/03/16 to 09/12/16: Had aches in joints, more sleepy, especially in the afternon, feeling of flu like, stopped about 09/12/16 symptoms subsided in 1.5 weeks. 07/2016-09/2016-Livalo 1 mg TIW- stiffness, knee pain," out of sort". 09/2016- Fluvastatin 20 mg TIW Fluvastatin 20 mg TIW- restarted 04/10/17, stopped after one month due to "all over" aches. NO: Prava, lova Fibrates: 03/13/18 FENO 54 MG Niacin: NO Bile Acid: NO Ezetimibe: NO Ezetimibe + Statin: NO PCSK9i: September 2017: completed 4 doses of Repatha. 09/2017-Repatha 140 mg- Rash, joint pain, stopped and rash resolved after 3 weeks.09/26/17: Will try for Praluent. 10/13/17: Praluent approved, applying for PASS for financial assistance. 11/24/17: 1st Praluent injection 03/2018 approved for PASS Fish Oil or Plant Stanols/Sterols: OTC fish oil caused itching/rash Side Effects: muscle pain Current Treatment: Praluent 75 mg every 2 weeks Fenofibrate 54 mg CV Disease History Clinical CV Disease:yes Type: S/p cath with placement of 2 PATRICIA to RCA Diabetes Mellitus: yes (dx. 2007) Special Population: no CV Diagnostic/Interventional History: yes CABG N/A 11/06/2014 Procedure: CORONARY ARTERY BYPASS GRAFTING TIMES THREE WITH ENDOVEIN HARVEST; Surgeon: Jason Wilkinson MD; Location: [facility] Main OR; Service: CARDIAC CATHETERIZATION CORONARY ARTERY BYPASS GRAFT CORONARY STENT PLACEMENT HC LEFT HEART CATH N/A 09/17/2014 Procedure: Left Heart Cath; Surgeon: Julia Moreno MD; Location: [facility]; Service: Cardiovascular NOTES FROM TODAY'S VISIT 07/25/18 Last Office Visit: 03/14/18 Weight History: Last OV Weight: 210.8 Current Weight: 205 Changes in weight: 5.8 lb (decrease) Current Dose: Praluent 75, Feno 54 mg Review of Systems Constitutional (fatigue): NEGATIVE Respiratory (Chest Tightness/SOB): NEGATIVE Cardiovascular (chest pain, palipitations, leg swelling): POSITIVE Patient reports that he was off of the metoprolol for two days had chest palpitations Resumed the metoprolol and the symptoms resolved. Gastrointestinal (abdominal pain, blood in stool/urine, constipation, diarrhea): NEGATIVE Neurological (dizziness/lightheadedness): NEGATIVE Musculoskeletal: NEGATIVE Upper respiratory cold for three weeks then resolved. Follow up with Dr. Nair in six weeks Assessment: Compliance with Medications some times forgets to take the Amaryl in the AM but will take it in the evening Does not use a pill box. Started an OTC product called Ageless male 3-4 weeks ago. Drug Interactions: Medications reviewed for drug interactions and none that would require therapy modification were identified Diet/Exercise: No changes in dietary habit. Not working out QOD due to being busy. Working out Sat/Sun and sometimes a Monday in the AM possibly . TM 35 minutes; machines 25-35 minutes (strength training) Lipids: (Praluent 75, Feno 54) LDL-P 502 nmol/L TG 120 mg/dL Blood sugar issues: YES Hx of DM II On glimepiride 07/2018 HbA1c 9.9% Patient reports BS averaging 300 mg/dL; previously averaging aroung 160 mg/dL Started Ozempic 0.[address] Nair two weeks ago; averaging still around upper 200's Increased urination. 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 Gen Castellano Blood Pressure issues: yes Thyroid issues: no; WNL 07/2018 Kidney/liver function: Creatinine WNL 07/2018 ALT WNL 2017 Vitamin D deficiency: 01/2017 WNL The patient is being seen in clinic for follow up. He has been on Praluent 75 mg since November and was off for four weeks during February due to getting approved for the [employer]. The patient'swas started on feno 54 mg in March. The LDL-P continues to be well controlled on the Praluent and TG are good since starting feno 54 mg. The patient reports that his BS have been significantly elevated over the past four weeks and SwF9oyy now 9.9%. Patient previous HbA1c was 9.1% in March. The patient reports no changes in diet and reports exercise is reduced from QOD to 3 times per week due to work. He was recently started on Ozempic 0.25 mg and will be following up with Dr. Nair in six weeks. Patient reports that he has not been on any steroids oral, no new topical agents, and no treatment for hemorrhoids. He did report that he is taking an OTC product that he started three weeks ago for energy called Ageless Male which contains various herbal products. Discussed with the patient that these products are not FDA regulated and uncertain of drug or disease state interactions. Recommend discontinuing the product at this time. Patient verbalized understanding. The patient will begin to monitor his BS twice daily and keep a log to present to Dr. Balderrama his follow up appointment. Patient is also scheduled for a diabetes education call today but might not be able to make it due to his work schedule. Discussed submitting a referral for one of the dieticians at [facility] for diabetes training if he does not attend the class. OV note from Dr. Nair uploaded in the media section. PLAN: Continue the Praluent 75 mg injections every 14 days Continue the fenofibrate 54 mg daily with food. Continue good lifestyle habits. Monitor white starches and carb intake (breads, pastas, rice, potatoes) Increase vegetable intake. Follow up with Dr. Villalta in three months. Check Blood sugars twice daily and keep a daily log of the readings. Stop the OTC product for now. Date Weight BP HR BMI 07/25/18 205 124/83 67 31.17 03/13/18 210.8 141/77 67 32.05 10/13/17 205 132/75 60 31.14 09/27/17 137/73 55 Date HS-CRP CPK LP(a) 07/15/16 91(nmol/L) 09/18/14 853 91 (NMOL/L) Date LDL- P LDL-C HDL-C TG TC NON-HDL HDL-P SM LDL-P LDL Size LG VLDL-P LG HDL-P VLDL Size HDL Size LP-IR Score Treatment 07/09/18 502 40 46 120 110 64 33.6 276 20.0 3.5 2.2 49.2 8.7 65 Praluent 75, feno 54 02/19/18 645 36 43 214 122 79 32.1 391 19.7 5.9 5.0 50.8 9.1 60 Praluent 75 09/28/17 1553 116 35 222 195 160 26.6 921 20.3 3.1 3.2 43.2 8.8 54 none 05/22/17 125 43 255 219 176 04/11/17 1417 100 40 210 182 142 29.2 883 20.2 7.5 3.8 48.3 8.8 65 none 01/31/17 36 43 190 117 74 09/19/16 1607 127 41 173 203 162 28.4 859 20.3 1.6 2.9 41.4 8.6 56 pitava 1 mg TIW 07/15/16 2099 146 40 260 238 198 28.8 1083 20.4 2.9 2.5 45.2 8.6 70 none 05/23/16 127 35 248 212 177 11/30/15 106 rosuva? 12/15/14 102 41 135 170 129 rosuva? 11/06/14 91 32 197 162 130 09/18/14 101 41 178 178 137 04/28/02 109 39 355 219 180 01/07/02 43 416 22 199 07/13/01 119 43 328 228 185 12/29/00 140 09/01/00 136 Date Glu HbA1c 25 OH VtD ALT AST Creatinine TSH/FREE T4 07/09/18 9.9 1.12 2.93 04/02/18 261 9.1 1.0 02/19/18 4.24 11/22/17 7.2 08/21/17 284 7.7 1.10 01/31/17 154 6.5 33.1 36 26 0.9 07/15/16 37 4.76 05/23/16 150 7.3 1.0 4.28 02/29/16 6.5 11/30/15 150 6.7 1.0 12/15/14 152 6.1 50 33 1.04 3.44 11/10/14 142 0.87 11/03/14 83 6.1 53 35 0.99 09/19/14 134 0.94 09/18/14 6.5 09/17/14 216 25 22 0.97 5.01 Lipid Goals LDL-P Goal: <1000 Non HDL-C Goal: <100 APO B <80 documented in this encounter* Rosalie Wu RPh,PharmD - 07/25/2018 8:10 AM EDT 07/25/18 -Return Location of Care:[facility] Cardiovascular Disease Prevention & Lipid Clinic Today's Visit Visit Date:07/25/18 Treating Physician: Meño Villalta MD, Lipidologist Patient's Physicians Referring Physician: Julia Moreno PCP: Ramona Nair MD Reason for Referral: Dyslipidemia, statin intolerance, and PCSK9i candidate Dyslipidimia Dx Original Date: 1993 Treatment History 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 Statins: 09/2015-03/2016 rosuva 5 mg d/c muscle pain (treated one tablet per week) 12/08/14-03/13/15 Crestor 10 mg caused myalgias 09/2014-10/2014 rosuva 20 mg (1/2 tab twice per week) d/c due to muscle pain 05/19/12- 05/31/12 Atorvastatin 10 mg caused myalgias 06/04/11- Simvastatin 40 mg caused myalgias 08/03/16 to 09/12/16: Had aches in joints, more sleepy, especially in the afternon, feeling of flu like, stopped about 09/12/16 symptoms subsided in 1.5 weeks. 07/2016-09/2016-Livalo 1 mg TIW- stiffness, knee pain," out of sort". 09/2016- Fluvastatin 20 mg TIW Fluvastatin 20 mg TIW- restarted 04/10/17, stopped after one month due to "all over" aches. NO: Prava, lova Fibrates: 03/13/18 FENO 54 MG Niacin: NO Bile Acid: NO Ezetimibe: NO Ezetimibe + Statin: NO PCSK9i: September 2017: completed 4 doses of Repatha. 09/2017-Repatha 140 mg- Rash, joint pain, stopped and rash resolved after 3 weeks.09/26/17: Will try for Praluent. 10/13/17: Praluent approved, applying for PASS for financial assistance. 11/24/17: 1st Praluent injection 03/2018 approved for PASS Fish Oil or Plant Stanols/Sterols: OTC fish oil caused itching/rash Side Effects: muscle pain Current Treatment: Praluent 75 mg every 2 weeks Fenofibrate 54 mg CV Disease History Clinical CV Disease:yes Type: S/p cath with placement of 2 PATRICIA to RCA Diabetes Mellitus: yes (dx. 2006) Special Population: no CV Diagnostic/Interventional History: yes CABG N/A 11/06/2014 Procedure: CORONARY ARTERY BYPASS GRAFTING TIMES THREE WITH ENDOVEIN HARVEST; Surgeon: Jason Wilkinson MD; Location: [facility] Main [place]; Service: CARDIAC CATHETERIZATION CORONARY ARTERY BYPASS GRAFT CORONARY STENT PLACEMENT HC LEFT HEART CATH N/A 09/17/2014 Procedure: Left Heart Cath; Surgeon: Julia Moreno MD; Location: [facility]; Service: Cardiovascular NOTES FROM TODAY'S VISIT 07/25/18 Last Office Visit: 03/14/18 Weight History: Last OV Weight: 210.8 Current Weight: Changes in weight: Current Dose: Praluent 75, Feno 54 mg Review of Systems Constitutional (fatigue): NEGATIVE Respiratory (Chest Tightness/SOB): NEGATIVE Cardiovascular (chest pain, palipitations, leg swelling): NEGATIVE Gastrointestinal (abdominal pain, blood in stool/urine, constipation, diarrhea): NEGATIVE Neurological (dizziness/lightheadedness): NEGATIVE Musculoskeletal: NEGATIVE Assessment: Compliance with Medications: Drug Interactions: Medications reviewed for drug interactions and none that would require therapy modification were identified Diet/Exercise: Lipids: (Praluent 75, Feno 54) LDL-P 502 nmol/L TG 120 mg/dL Blood sugar issues: YES Hx of DM II HbA1c 7.2%; 11/2017 HbA1c 9.7% BS averaging 300 mg/dL Blood Pressure issues: yes Thyroid issues: no; WNL 07/2018 Kidney/liver function: Creatinine WNL 07/2018 ALT WNL 2017 Vitamin D deficiency: 01/2017 WNL The patient is being seen in clinic for follow up. Last seen in March and was started on low dose feno 54 mg and the patient resumed his Praluent injections in March after being approved for the [employer]. The patient was off of the injections for approximately four weeks. LDL-P continues to be well controlled and below goal. TG are good and decreased after the addition of the feno 54 mg. NO recent HbA1c and TSH is okay. Will continue the Praluent 75 mg and fenofibrate 54 mg. Encouraged continued lifestyle improvementsand follow up with Dr. Villalta in six months. PLAN: Continue the Praluent 75 mg injections every 14 days Continue the fenofibrate 54 mg daily with food. Continue good lifestyle habits. Follow up with Dr. Villalta in six months. Need to contact Dr. Nair's office to get the most recent labs. Date Weight BP HR BMI 07/25/18 03/13/18 210.8 141/77 67 32.05 10/13/17 205 132/75 60 31.14 09/27/17 137/73 55 Date HS-CRP CPK LP(a) 07/15/16 91(nmol/L) 09/18/14 853 91 (NMOL/L) Date LDL- P LDL-C HDL-C TG TC NON-HDL HDL-P SM LDL-P LDL Size LG VLDL-P LG HDL-P VLDL Size HDL Size LP-IR Score Treatment 07/09/18 502 40 46 120 110 64 33.6 276 20.0 3.5 2.2 49.2 8.7 65 Praluent 75, feno 54 02/19/18 645 36 43 214 122 79 32.1 391 19.7 5.9 5.0 50.8 9.1 60 Praluent 75 09/28/17 1553 116 35 222 195 160 26.6 921 20.3 3.1 3.2 43.2 8.8 54 none 04/11/17 1417 100 40 210 182 142 29.2 883 20.2 7.5 3.8 48.3 8.8 65 none 01/31/17 36 43 190 117 74 09/19/16 1607 127 41 173 203 162 28.4 859 20.3 1.6 2.9 41.4 8.6 56 pitava 1 mg TIW 07/15/16 2099 146 40 260 238 198 28.8 1083 20.4 2.9 2.5 45.2 8.6 70 none 05/23/16 127 35 248 212 177 11/30/15 106 rosuva? 12/15/14 102 41 135 170 129 rosuva? 11/06/14 91 32 197 162 130 09/18/14 101 41 178 178 137 04/28/02 109 39 355 219 180 01/07/02 43 416 22 199 07/13/01 119 43 328 228 185 12/29/00 140 09/01/00 136 Date Glu HbA1c 25 OH VtD ALT AST Creatinine TSH/FREE T4 07/09/18 1.12 2.93 02/19/18 4.24 11/22/17 7.2 08/21/17 284 7.7 1.10 01/31/17 154 6.5 33.1 36 26 0.9 07/15/16 37 4.76 05/23/16 150 7.3 1.0 4.28 02/29/16 6.5 11/30/15 150 6.7 1.0 12/15/14 152 6.1 50 33 1.04 3.44 11/10/14 142 0.87 11/03/14 83 6.1 53 35 0.99 09/19/14 134 0.94 09/18/14 6.5 09/17/14 216 25 22 0.97 5.01 Lipid Goals LDL-P Goal: <1000 Non HDL-C Goal: <100 APO B <80 documented in this encounter* Lexis Pagan, Chavez.Ph. - 03/28/2019 9:28 AM EST 03/28/19 -Return Location of Care:[facility] Cardiovascular Disease Prevention & Lipid Clinic Today's Visit Visit Date:03/28/19 Treating Physician: Meño Villalta MD, Lipidologist Patient's Physicians Referring Physician: Julia Moreno PCP: Luis Muller, Reason for Referral: Dyslipidemia, statin intolerance, and PCSK9i candidate Dyslipidimia Dx Original Date: 1993 PMH: Initially seen in the lipid clinic 07/12/16 for secondary prevention. He has a history of a STEMI and PTCA in Sep 2014 in subsequent CABG in 2014. Other history includes DM type 2 and HTN. Hedoes have a significant family history of CAD along with an elevated Lp(a). 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 Statins: 09/2015-03/2016 rosuva 5 mg d/c muscle pain (treated one tablet per week) 12/08/14-03/13/15 Crestor 10 mg caused myalgias 09/2014-10/2014 rosuva 20 mg (1/2 tab twice per week) d/c due to muscle pain 05/19/12- 05/31/12 Atorvastatin 10 mg caused myalgias 06/04/11- Simvastatin 40 mg caused myalgias 08/03/16 to 09/12/16: Had aches in joints, more sleepy, especially in the afternon, feeling of flu like, stopped about 09/12/16nd symptoms subsided in 1.5 weeks. 07/2016-09/2016-Livalo 1 mg TIW- stiffness, knee pain," out of sort". 09/2016- Fluvastatin 20 mg TIW Fluvastatin 20 mg TIW- restarted 04/10/17, stopped after one month due to "all over" aches. NO: Prava, lova Fibrates: 03/13/18 FENO 54 MG Niacin: NO Bile Acid: NO Ezetimibe: NO Ezetimibe + Statin: NO PCSK9i: September 2017: completed 4 doses of Repatha. 09/2017-Repatha 140 mg- Rash, joint pain, stopped and rash resolved after 3 weeks.09/26/17: Will try for Praluent. 10/13/17: Praluent approved, applying for PASS for financial assistance. 11/24/17: 1st Praluent injection 03/2018 approved for PASS Fish Oil or Plant Stanols/Sterols: OTC fish oil caused itching/rash Side Effects: muscle pain Diabetes medications: Ozempic 0.25mg- started July 2018 Glimepiride 4mg Current Treatment: Praluent 75 mg every 2 weeks Fenofibrate 54 mg CV Disease History Clinical CV Disease:yes Type: S/p cath with placement of 2 PATRICIA to RCA Diabetes Mellitus: yes (dx. 2006) Special Population: no CV Diagnostic/Interventional History: yes CABG N/A 11/06/2014 Procedure: CORONARY ARTERY BYPASS GRAFTING TIMES THREE WITH ENDOVEIN HARVEST; Surgeon: Jason Wilkinson MD; Location: [facility] Main [place]; Service: CARDIAC CATHETERIZATION CORONARY ARTERY BYPASS GRAFT CORONARY STENT PLACEMENT HC LEFT HEART CATH N/A 09/17/2014 Procedure: Left Heart Cath; Surgeon: Julia Moreno MD; Location: [facility]; Service: Cardiovascular NOTES FROM TODAY'S VISIT 03/28/19 Last Office Visit: 11/15/18 Weight History: Last OV Weight: 201 Current Weight: Review of Systems Constitutional (fatigue): NEGATIVE Respiratory (Chest Tightness/SOB): NEGATIVE Cardiovascular (chest pain, palipitations, leg swelling): NEGATIVE Gastrointestinal (abdominal pain, blood in stool/urine, constipation, diarrhea): NEGATIVE Neurological (dizziness/lightheadedness): NEGATIVE Musculoskeletal: NEGATIVE Assessment: Compliance with Medications Drug Interactions: Medications reviewed for drug interactions and none that would require therapy modification were identified Diet/Exercise: Lipids: (Praluent 75, Feno 54) -LDL-C 26 <2nd percentile -ApoB 42, also <2nd percentile -TG 132, up a little Blood sugar issues: YES Hx of DM II Dx 2007 On glimepiride and Ozempic 0.25mg 2018 HgA1c 7.2, improved from July Patient reports BS averaging 300 mg/dL; 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 Need to see how his BS is doing. More recent HgA1c? Plan: Date Weight BP HR BMI 11/15/18 134/69 73 11/02/18 201 135/78 61 07/25/18 205 124/83 67 31.17 03/13/18 210.8 141/77 67 32.05 10/13/17 205 132/75 60 31.14 09/27/17 137/73 55 Date HS-CRP CPK LP(a) 07/15/16 91(nmol/L) 09/18/14 853 91 (NMOL/L) Date LDL- P ApoB LDL-C HDL-C TG TC NON-HDL HDL-P SM LDL-P LDL Size LG VLDL-P LG HDL-P VLDL Size HDL Size LP-IR Score Treatment 03/14/19 42 26 44 132 96 52 11/06/18 311 35 43 123 103 60 35.4 127 20.2 3.5 3.6 48.0 9.1 51 Praluent 75, feno 54 07/09/18 502 40 46 120 110 64 33.6 276 20.0 3.5 2.2 49.2 8.7 65 Praluent 75, feno 54 02/19/18 645 36 43 214 122 79 32.1 391 19.7 5.9 5.0 50.8 9.1 60 Praluent 75 09/28/17 1553 116 35 222 195 160 26.6 921 20.3 3.1 3.2 43.2 8.8 54 none 05/22/17 125 43 255 219 176 04/11/17 1417 100 40 210 182 142 29.2 883 20.2 7.5 3.8 48.3 8.8 65 none 01/31/17 36 43 190 117 74 09/19/16 1607 127 41 173 203 162 28.4 859 20.3 1.6 2.9 41.4 8.6 56 pitava 1 mg TIW 07/15/16 2099 146 40 260 238 198 28.8 1083 20.4 2.9 2.5 45.2 8.6 70 none 05/23/16 127 35 248 212 177 11/30/15 106 rosuva? 12/15/14 102 41 135 170 129 rosuva? 11/06/14 91 32 197 162 130 09/18/14 101 41 178 178 137 04/28/02 109 39 355 219 180 01/07/02 43 416 22 199 07/13/01 119 43 328 228 185 12/29/00 140 09/01/00 136 Date Glu HbA1c 25 OH VtD ALT AST Creatinine TSH/FREE T4 11/06/18 177 7.2 1.12 07/09/18 9.9 1.12 2.93 04/02/18 261 9.1 1.0 02/19/18 4.24 11/22/17 7.2 08/21/17 284 7.7 1.10 01/31/17 154 6.5 33.1 36 26 0.9 07/15/16 37 4.76 05/23/16 150 7.3 1.0 4.28 02/29/16 6.5 11/30/15 150 6.7 1.0 12/15/14 152 6.1 50 33 1.04 3.44 11/10/14 142 0.87 11/03/14 83 6.1 53 35 0.99 09/19/14 134 0.94 09/18/14 6.5 09/17/14 216 25 22 0.97 5.01 Lipid Goals LDL-P Goal: <1000 Non HDL-C Goal: <100 APO B <80 documented in this encounter* Meño Villalta MD - 03/28/2019 3:02 PM EST Reviewed visit documentation by SS. Agree with assessment and planning. * Lexis Pagan, R.Ph. - 03/28/2019 1:13 PM EST 03/28/19 - LIPID CLINIC FOLLOW UP Location of Care:[facility] Cardiovascular Disease Prevention & Lipid Clinic Today's Visit Visit Date:03/28/19 Provider: Lexis Pagan Collaborative Physician: Meño Villalta MD, Lipidologist Patient's Physicians Referring Physician: Julia Moreno PCP: Luis Muller DO Reason for Referral: Dyslipidemia, statin intolerance, and PCSK9i candidate Dyslipidimia Dx Original Date: 1993 PMH: Initially seen in the lipid clinic 07/12/16 for secondary prevention. He has a history of a STEMI and PTCA in Sep 2014 in subsequent CABG in 2014. Other history includes DM type 2 and HTN. Ileanaoes have a significant family history of CAD along with an elevated Lp(a). 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 Statins: 09/2015-03/2016 rosuva 5 mg d/c muscle pain (treated one tablet per week) 12/08/14-03/13/15 Crestor 10 mg caused myalgias 09/2014-10/2014 rosuva 20 mg (1/2 tab twice per week) d/c due to muscle pain 05/19/12- 05/31/12 Atorvastatin 10 mg caused myalgias 06/04/11- Simvastatin 40 mg caused myalgias 08/03/16 to 09/12/16: Had aches in joints, more sleepy, especially in the afternon, feeling of flu like, stopped about 09/12/16 symptoms subsided in 1.5 weeks. 07/2016-09/2016-Livalo 1 mg TIW- stiffness, knee pain," out of sort". 09/2016- Fluvastatin 20 mg TIW Fluvastatin 20 mg TIW- restarted 04/10/17, stopped after one month due to "all over" aches. NO: Prava, lova Fibrates: 2/5/19 FENO 54 MG Niacin: NO Bile Acid: NO Ezetimibe: NO Ezetimibe + Statin: NO PCSK9i: September 2017: completed 4 doses of Repatha. 09/2017-Repatha 140 mg- Rash, joint pain, stopped and rash resolved after 3 weeks.09/26/17: Will try for Praluent. 10/13/17: Praluent approved, applying for PASS for financial assistance. 11/24/17: 1st Praluent injection 03/2018 approved for PASS Fish Oil or Plant Stanols/Sterols: OTC fish oil caused itching/rash Side Effects: muscle pain Diabetes medications: Metformin - did not tolerate Ozempic 0.25mg- started July 2018 $450 Glimepiride 4mg Current Treatment: Praluent 75 mg every 2 weeks Fenofibrate 54 mg CV Disease History Clinical CV Disease:yes Type: S/p cath with placement of 2 PATRICIA to RCA Diabetes Mellitus: yes (dx. 2006) Special Population: no CV Diagnostic/Interventional History: yes CABG N/A 11/06/2014 Procedure: CORONARY ARTERY BYPASS GRAFTING TIMES THREE WITH ENDOVEIN HARVEST; Surgeon: Jason Wilkinson MD; Location: [facility] Main [place]; Service: CARDIAC CATHETERIZATION CORONARY ARTERY BYPASS GRAFT CORONARY STENT PLACEMENT HC LEFT HEART CATH N/A 09/17/2014 Procedure: Left Heart Cath; Surgeon: Julia Moreno MD; Location: [facility]; Service: Cardiovascular NOTES FROM TODAY'S VISIT 03/28/19 Last Office Visit: 11/15/18 Weight History: Last OV Weight: 201 Current Weight: 204 Review of Systems Constitutional (fatigue): NEGATIVE Respiratory (Chest Tightness/SOB): NEGATIVE Cardiovascular (chest pain, palipitations, leg swelling): NEGATIVE Gastrointestinal (abdominal pain, blood in stool/urine, constipation, diarrhea): some abdominal pain and bloating with Ozempic Neurological (dizziness/lightheadedness): NEGATIVE Musculoskeletal: NEGATIVE Assessment: Compliance with Medications Drug Interactions: Medications reviewed for drug interactions and none that would require therapy modification were identified Diet/Exercise: -running on the treadmill every other day 3 miles, 40 min -retired from [employer] job Lipids: (Praluent 75, Feno 54) -LDL-C 26 <2nd percentile -ApoB 42, also <2nd percentile -TG 132, up a little Blood sugar issues: YES Hx of DM II Dx 2007 On glimepiride and Ozempic 0.25mg although he is out of this 2018 HgA1c 7.2, improved from July Patient reports BS averaging 300 mg/dL; 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 Muller's office was contacted Vitamin D deficiency: 01/2017 WNL Lipid status well controlled on current treatment. Overall he's doing well. Exercising very consistently. Goes to the gym every other day and runs on the treadmill for 40 mins (3 miles). He recently retired from his [employer] position when he moved to the [facility]. When he was working he ate moreconsistently healthy.His would pack him a healthy lunch every day. Now he does more snacking than meals. He is trying to avoid sugar containing foods and drinks. His blood sugars have been "jumping" around a little more recently. He has gotten into the habit ofeating later in the evening and when he does that they run higher in the AM. Also, he is out of Ozempic. He had been getting samples from Dr. 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 They recentlysent a prescription for this to his pharmacy and it was going to cost $450. Additionally,he thinks he may be getting some side effects associated with it. After the injection he'll have abdominal cramps and bloating. He has not followed up with Dr. Castellano office on this and I encouraged him to do so.I also contacted his office to request records and inform them of the Ozempic issue. I was told that the patient should contact his insurance and find out what they will cover and the office will change that prescription. We did provide him an application for patient assistance from the [employer] of Ozempic which he will qualify for. However, if he is having side effects it may be best to try a different GLP-1Ra or SGLT2i. He has had side effects with metformin in the past. Plan: Continue Praluent 75mg every 14 days and fenofibrate 54mg daily F/u with Dr. Castellano regarding blood sugar management F/u [address] Villalta (standard lipid, ApoB) Date Weight BP HR BMI 03/28/19 204 117/67 61 11/15/18 134/69 73 11/02/18 201 135/78 61 07/25/18 205 124/83 67 31.17 03/13/18 210.8 141/77 67 32.05 10/13/17 205 132/75 60 31.14 09/27/17 137/73 55 Date HS-CRP CPK LP(a) 07/15/16 91(nmol/L) 09/18/14 853 91 (NMOL/L) Date LDL- P ApoB LDL-C HDL-C TG TC NON-HDL HDL-P SM LDL-P LDL Size LG VLDL-P LG HDL-P VLDL Size HDL Size LP-IR Score Treatment 03/14/19 42 26 44 132 96 52 Praluent 75mg, feno 54 11/06/18 311 35 43 123 103 60 35.4 127 20.2 3.5 3.6 48.0 9.1 51 Praluent 75, feno 54 07/09/18 502 40 46 120 110 64 33.6 276 20.0 3.5 2.2 49.2 8.7 65 Praluent 75, feno 54 02/19/18 645 36 43 214 122 79 32.1 391 19.7 5.9 5.0 50.8 9.1 60 Praluent 75 09/28/17 1553 116 35 222 195 160 26.6 921 20.3 3.1 3.2 43.2 8.8 54 none 05/22/17 125 43 255 219 176 04/11/17 1417 100 40 210 182 142 29.2 883 20.2 7.5 3.8 48.3 8.8 65 none 01/31/17 36 43 190 117 74 09/19/16 1607 127 41 173 203 162 28.4 859 20.3 1.6 2.9 41.4 8.6 56 pitava 1 mg TIW 07/15/16 2099 146 40 260 238 198 28.8 1083 20.4 2.9 2.5 45.2 8.6 70 none 05/23/16 127 35 248 212 177 11/30/15 106 rosuva? 12/15/14 102 41 135 170 129 rosuva? 11/06/14 91 32 197 162 130 09/18/14 101 41 178 178 137 04/28/02 109 39 355 219 180 01/07/02 43 416 22 199 07/13/01 119 43 328 228 185 12/29/00 140 09/01/00 136 Date Glu HbA1c 25 OH VtD ALT AST Creatinine TSH/FREE T4 11/06/18 177 7.2 1.12 07/09/18 9.9 1.12 2.93 04/02/18 261 9.1 1.0 02/19/18 4.24 11/22/17 7.2 08/21/17 284 7.7 1.10 01/31/17 154 6.5 33.1 36 26 0.9 07/15/16 37 4.76 05/23/16 150 7.3 1.0 4.28 02/29/16 6.5 11/30/15 150 6.7 1.0 12/15/14 152 6.1 50 33 1.04 3.44 11/10/14 142 0.87 11/03/14 83 6.1 53 35 0.99 09/19/14 134 0.94 09/18/14 6.5 09/17/14 216 25 22 0.97 5.01 documented in this encounter* Tess Up MA - 04/04/2019 10:49 AM EST Date Weight BP HR BMI 03/28/19 204 117/67 61 11/15/18 134/69 73 11/02/18 201 135/78 61 07/25/18 205 124/83 67 31.17 03/13/18 210.8 141/77 67 32.05 10/13/17 205 132/75 60 31.14 09/27/17 137/73 55 Date HS-CRP CPK LP(a) 07/15/16 91(nmol/L) 09/18/14 853 91 (NMOL/L) Date LDL- P ApoB LDL-C HDL-C TG TC NON-HDL HDL-P SM LDL-P LDL Size LG VLDL-P LG HDL-P VLDL Size HDL Size LP-IR Score Treatment 03/14/19 42 26 44 132 96 52 Praluent 75mg, feno 54 12/04/18 39 47 109 108 61 11/06/18 311 35 43 123 103 60 35.4 127 20.2 3.5 3.6 48.0 9.1 51 Praluent 75, feno 54 07/09/18 502 40 46 120 110 64 33.6 276 20.0 3.5 2.2 49.2 8.7 65 Praluent 75, feno 54 02/19/18 645 36 43 214 122 79 32.1 391 19.7 5.9 5.0 50.8 9.1 60 Praluent 75 09/28/17 1553 116 35 222 195 160 26.6 921 20.3 3.1 3.2 43.2 8.8 54 none 05/22/17 125 43 255 219 176 04/11/17 1417 100 40 210 182 142 29.2 883 20.2 7.5 3.8 48.3 8.8 65 none 01/31/17 36 43 190 117 74 09/19/16 1607 127 41 173 203 162 28.4 859 20.3 1.6 2.9 41.4 8.6 56 pitava 1 mg TIW 07/15/16 2099 146 40 260 238 198 28.8 1083 20.4 2.9 2.5 45.2 8.6 70 none 05/23/16 127 35 248 212 177 11/30/15 106 rosuva? 12/15/14 102 41 135 170 129 rosuva? 11/06/14 91 32 197 162 130 09/18/14 101 41 178 178 137 04/28/02 109 39 355 219 180 01/07/02 43 416 22 199 07/13/01 119 43 328 228 185 12/29/00 140 09/01/00 136 Date Glu HbA1c 25 OH VtD ALT AST Creatinine TSH/FREE T4 12/04/18 170 7.5 23 30 1.10 4.38 11/06/18 177 7.2 1.12 09/18/18 168 0.90 2.85 07/09/18 9.9 1.12 2.93 04/02/18 261 9.1 1.0 02/19/18 4.24 11/22/17 7.2 08/21/17 284 7.7 1.10 01/31/17 154 6.5 33.1 36 26 0.9 07/15/16 37 4.76 05/23/16 150 7.3 1.0 4.28 02/29/16 6.5 11/30/15 150 6.7 1.0 12/15/14 152 6.1 50 33 1.04 3.44 11/10/14 142 0.87 11/03/14 83 6.1 53 35 0.99 09/19/14 134 0.94 09/18/14 6.5 09/17/14 216 25 22 0.97 5.01 documented in this encounter* Minna Brown, FOREST OFFICER - 11/15/2018 8:48 AM EDT 11/15/18 -Return Location of Care:[facility] Cardiovascular Disease Prevention & Lipid Clinic Today's Visit Visit Date:11/15/18 Treating Physician: Meño Villalta MD, Lipidologist Patient's Physicians Referring Physician: Julia Moreno PCP: Luis Muller DO Reason for Referral: Dyslipidemia, statin intolerance, and PCSK9i candidate Dyslipidimia Dx Original Date: 1993 Treatment History 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 Statins: 09/2015-03/2016 rosuva 5 mg d/c muscle pain (treated one tablet per week) 12/08/14-03/13/15 Crestor 10 mg caused myalgias 09/2014-10/2014 rosuva 20 mg (1/2 tab twice per week) d/c due to muscle pain 05/19/12- 05/31/12 Atorvastatin 10 mg caused myalgias 06/04/11- Simvastatin 40 mg caused myalgias 08/03/16 to 09/12/16: Had aches in joints, more sleepy, especially in the afternon, feeling of flu like, stopped about 09/12/16nd symptoms subsided in 1.5 weeks. 07/2016-09/2016-Livalo 1 mg TIW- stiffness, knee pain," out of sort". 09/2016- Fluvastatin 20 mg TIW Fluvastatin 20 mg TIW- restarted 04/10/17, stopped after one month due to "all over" aches. NO: Prava, lova Fibrates: 03/13/18 FENO 54 MG Niacin: NO Bile Acid: NO Ezetimibe: NO Ezetimibe + Statin: NO PCSK9i: September 2017: completed 4 doses of Repatha. 09/2017-Repatha 140 mg- Rash, joint pain, stopped and rash resolved after 3 weeks.09/26/17: Will try for Praluent. 10/13/17: Praluent approved, applying for PASS for financial assistance. 11/24/17: 1st Praluent injection 03/2018 approved for PASS Fish Oil or Plant Stanols/Sterols: OTC fish oil caused itching/rash Side Effects: muscle pain Current Treatment: Praluent 75 mg every 2 weeks Fenofibrate 54 mg CV Disease History Clinical CV Disease:yes Type: S/p cath with placement of 2 PATRICIA to RCA Diabetes Mellitus: yes (dx. 2006) Special Population: no CV Diagnostic/Interventional History: yes CABG N/A 11/06/2014 Procedure: CORONARY ARTERY BYPASS GRAFTING TIMES THREE WITH ENDOVEIN HARVEST; Surgeon: Jason Wilkinson MD; Location: [facility] Main [place]; Service: CARDIAC CATHETERIZATION CORONARY ARTERY BYPASS GRAFT CORONARY STENT PLACEMENT HC LEFT HEART CATH N/A 09/17/2014 Procedure: Left Heart Cath; Surgeon: Julia Moreno MD; Location: [facility]; Service: Cardiovascular 04/06/1998: SPECT THALLIUM STRESS & REST THE STUDY IS NEGATIVE, BOTH FOR ISCHEMIA AND FOR PREVIOUS MYOCARDIAL INFARCTION. EF 56% PV Diagnostic/Interventional History: no Prevention ASCVD Risk Factors : Baseline elevated LDL-C: yes 140 mg/dL Diabetes (Type 1 or Type 2): yes (dx 2006) HTN: Yes controlled with medications (dx. 2004) Smoking history: Yes from 1956 to 1971 Evidence of genetic hyperlipidemia: no Criteria for Familial Hypercholesterolemia (FH) if indicated: n/a Date Weight BP HR BMI 11/15/18 134/69 73 11/02/18 201 135/78 61 07/25/18 205 124/83 67 31.17 03/13/18 210.8 141/77 67 32.05 10/13/17 205 132/75 60 31.14 09/27/17 137/73 55 Date HS-CRP CPK LP(a) 07/15/16 91(nmol/L) 09/18/14 853 91 (NMOL/L) Date LDL- P LDL-C HDL-C TG TC NON-HDL HDL-P SM LDL-P LDL Size LG VLDL-P LG HDL-P VLDL Size HDL Size LP-IR Score Treatment 11/06/18 311 35 43 123 103 60 35.4 127 20.2 3.5 3.6 48.0 9.1 51 Praluent 75, feno 54 07/09/18 502 40 46 120 110 64 33.6 276 20.0 3.5 2.2 49.2 8.7 65 Praluent 75, feno 54 02/19/18 645 36 43 214 122 79 32.1 391 19.7 5.9 5.0 50.8 9.1 60 Praluent 75 09/28/17 1553 116 35 222 195 160 26.6 921 20.3 3.1 3.2 43.2 8.8 54 none 05/22/17 125 43 255 219 176 04/11/17 1417 100 40 210 182 142 29.2 883 20.2 7.5 3.8 48.3 8.8 65 none 01/31/17 36 43 190 117 74 09/19/16 1607 127 41 173 203 162 28.4 859 20.3 1.6 2.9 41.4 8.6 56 pitava 1 mg TIW 07/15/16 2099 146 40 260 238 198 28.8 1083 20.4 2.9 2.5 45.2 8.6 70 none 05/23/16 127 35 248 212 177 11/30/15 106 rosuva? 12/15/14 102 41 135 170 129 rosuva? 11/06/14 91 32 197 162 130 09/18/14 101 41 178 178 137 04/28/02 109 39 355 219 180 01/07/02 43 416 22 199 6/7/02 119 43 328 228 185 12/29/00 140 09/01/00 136 Date Glu HbA1c 25 OH VtD ALT AST Creatinine TSH/FREE T4 11/06/18 177 7.2 1.12 07/09/18 9.9 1.12 2.93 04/02/18 261 9.1 1.0 02/19/18 4.24 11/22/17 7.2 08/21/17 284 7.7 1.10 01/31/17 154 6.5 33.1 36 26 0.9 07/15/16 37 4.76 05/23/16 150 7.3 1.0 4.28 02/29/16 6.5 11/30/15 150 6.7 1.0 12/15/14 152 6.1 50 33 1.04 3.44 11/10/14 142 0.87 11/03/14 83 6.1 53 35 0.99 09/19/14 134 0.94 09/18/14 6.5 09/17/14 216 25 22 0.97 5.01 Lipid Goals LDL-P Goal: <1000 Non HDL-C Goal: <100 APO B <80 * Meño Villalta MD - 11/15/2018 8:47 AM EDT AYO Cobos is a 73 y.o. male in for follow up. Current lipid med Praluent 75 every 2 weeks. Was out of it past month. Last injection one month ago. We have had the experience with him where we need to monitor his refill/usage situation closely because he seems to be less than compulsive about making sure he has a current supply. Feno 54 daily. Ozempic 0.25 weekly. Started week of July. No problems Glimepiride 4 mg daily. All same as before. Cortisone injection into right wrist and base of thumb. 1.[address] Jean Baptiste. Doing much better. Increased his glucose levels significantly. 230 max. 170 range usually. Better this week. 150 fasting. Mid afternoon 145-150. This is similar to before the injections. Saw Dr. Muller not long ago and discussed his glucose levels. Saw Dr. Castellano in August he thinks. He thinks he goes back in December. Not exercising very much lately. Too busy. Very little for several weeks. Did not feel so good then. Started to increase exercise again this month. Sleepy episodes driving which he states was related to carbon monoxide exposure in his car. Exhaustmanifold had a crack in it. Also had headaches, nausea. This was going on for two weeks. No problems since repair took place. Weight down some since March. Was 210 back then. Down to 195 at lowest. Back up to 201 range recently. Eating habits are not much different. Review of Systems Constitutional: Negative for fatigue. Respiratory: Negative for chest tightness and shortness of breath. Cardiovascular: Negative for chest pain, palpitations and leg swelling. Gastrointestinal: Negative for abdominal pain, blood in stool, constipation, diarrhea and vomiting. Neurological: Negative for dizziness. Vitals: 11/15/18 0848 BP: 134/69 Pulse: 73 Physical Exam Constitutional: He appears well-developed and well-nourished. No distress. Neck: No JVD present. No thyromegaly present. Cardiovascular: Normal rate, regular rhythm, S1 normal, S2 normal and normal heart sounds. No extrasystoles are present. PMI is not displaced. Exam reveals no gallop. No murmur heard. No bruits Pulmonary/Chest: Effort normal and breath sounds normal. He has no wheezes. He has no rales. He exhibits no tenderness. Abdominal: Soft. Bowel sounds are normal. He exhibits no distension and no mass. There is no tenderness. There is no rebound and no guarding. Musculoskeletal: General: No edema. Lymphadenopathy: He has no cervical adenopathy. Psychiatric: He has a normal mood and affect. Problem List Items Addressed This Visit Cardiology Problems STEMI (ST elevation myocardial infarction) (HCC) Hypertension Hyperlipidemia - Primary Relevant Orders NMR Coronary atherosclerosis of [place] coronary artery Other Elevated Lp(a) Type 2 diabetes mellitus without complication (HCC) Lipoprotein status is very well controlled and this is somewhat surprising since he was out of Praluent for awhile and lab was drawn about 3-4 weeks after last injection. There is still plenty of PSCK9 inhibition during the 3rd week after injection but it drops off more rapidly after that. No need to change therapy other than to try and not run out of his supply. DM control is somewhat perplexing with the HgA1c being so much lower than a few months ago. We explored this question extensively today. Wonder if the 7.2 is really accurate. He sees Dr. Castellano next month and that will be good to sort this out. Hopefully, he can increase exercise consistently. CAD stable. HTN stable. Plan: Continue same Praluent 75 every 2 weeks. Feno 54 daily. Ozempic 0.25 weekly. Glimepiride 4 mg daily. Keep up the exercise at least 3 days per week. Continue your good dietary habits. FU in 4 months. NMR then. I have collaborated with one of our Lipid Clinic coordinators whose note appears in this encounter with mine, and we have discussed our assessment and plan with each other, and with the patient. This was a 25 minute visit with >50% face to face education and counseling. Portions of this note may have been generated using [employer] technology and therefore some minor documentation errors may be present and related to this. documented in this encounter* Lexis Pagan, R.Ph. - 02/27/2018 12:49 PM EST 02/28/18 -LIPID CLINIC FOLLOW UP Location of Care:[facility] Cardiovascular Disease Prevention & Lipid Clinic Today's Visit Visit Date:02/28/18 Provider: Lexis Pagan RP, PharmD, CLS Collaborative Physician: Meño Villalta MD, Lipidologist Patient's Physicians Referring Physician: Julia Moreno PCP: Ramona Nair MD Reason for Referral: Dyslipidemia, statin intolerance, and PCSK9i candidate Dyslipidimia Dx Original Date: 1993 PMH: This is a very nice 70 y/o male who initially seen 07/12/16 for secondary prevention with hx of CAD. Patient reports that he was diagnosis with dyslipidemia in 1993 after having a heart scan that showed calcium deposits. He then was started on treatment but had issues with myalgias. He had a STEMI w/ CABG in 09/2014 and open heart surgery in 11/2014. He reports no recent cardiac issues and/or events. He does not have significant family history of premature ASCVD. Does have type II diabetes, HTN, low HDL, and high TG. 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 Statins: 09/2015-03/2016 rosuva 5 mg d/c muscle pain (treated one tablet per week) 12/08/14-03/13/15 Crestor 10 mg caused myalgias 09/2014-10/2014 rosuva 20 mg (1/2 tab twice per week) d/c due to muscle pain 05/19/12- 05/31/12 Atorvastatin 10 mg caused myalgias 06/04/11- Simvastatin 40 mg caused myalgias 08/03/16 to 09/12/16: Had aches in joints, more sleepy, especially in the afternon, feeling of flu like, stopped about 09/12/16nd symptoms subsided in 1.5 weeks. 07/2016-09/2016-Livalo 1 mg TIW- stiffness, knee pain," out of sort". 09/2016- Fluvastatin 20 mg TIW Fluvastatin 20 mg TIW- restarted 04/10/17, stopped after one month due to "all over" aches. NO: Prava, lova Fibrates: NO Niacin: NO Bile Acid: NO Ezetimibe: NO Ezetimibe + Statin: NO PCSK9i: September 2017: completed 4 doses of Repatha. 09/2017-Repatha 140 mg- Rash, joint pain, stopped and rash resolved after 3 weeks.09/26/17: Will try for Praluent. 10/13/17: Praluent approved, applying for PASS for financial assistance. 11/24/17: 1st Praluent injection Fish Oil or Plant Stanols/Sterols: OTC fish oil Side Effects: muscle pain Current Treatment: Praluent 75 mg every 2 weeks CV Disease History Clinical CV Disease:yes Type: S/p cath with placement of 2 PATRICIA to RCA Diabetes Mellitus: yes (dx. 2006) Special Population: no CV Diagnostic/Interventional History: yes CABG N/A 11/06/2014 Procedure: CORONARY ARTERY BYPASS GRAFTING TIMES THREE WITH ENDOVEIN HARVEST; Surgeon: Jason Wilkinson MD; Location: [facility] Main OR; Service: CARDIAC CATHETERIZATION CORONARY ARTERY BYPASS GRAFT CORONARY STENT PLACEMENT HC LEFT HEART CATH N/A 09/17/2014 Procedure: Left Heart Cath; Surgeon: Julia Moreno MD; Location: [facility]; Service: Cardiovascular 04/06/1998: SPECT THALLIUM STRESS & REST THE STUDY IS NEGATIVE, BOTH FOR ISCHEMIA AND FOR PREVIOUS MYOCARDIAL INFARCTION. EF 56% PV Diagnostic/Interventional History: no Risk Factors: ASCVD, DM type 2, HTN, elevated Lp(a), Age Treatment Goals: LDL-C <70mg/dL, non-HDL <100 mg/dL, LDL-P <800 nmol/L Compliance with Medications: Drug Interactions: Medications reviewed for drug interactions and none that would require therapy modification were identified NOTES FROM TODAY'S VISIT 02/28/18 Last Office Visit: 10/08/17 Weight History: Last OV Weight: 204.8 Current Weight: Current Dose: Praluent 75mg every 2 weeks Review of Systems Constitutional (fatigue): NEGATIVE Respiratory (Chest Tightness/SOB): NEGATIVE Cardiovascular (chest pain, palipitations, leg swelling): NEGATIVE Gastrointestinal (abdominal pain, blood in stool/urine, constipation, diarrhea): NEGATIVE Neurological (dizziness/lightheadedness): NEGATIVE Musculoskeletal: NEGATIVE Assessment: Diet/Exercise: Lipids: (Praluent 75mg every 2 weeks) LDL-P 645 and now <2nd percentile, down 58% wth the addition of Praluent and now at goal TG 214, about the same as the last visit Blood sugar issues: yes -Hx Type 2 DM -on Glimepiride 4mg -HgA1c 7.12 August 2017 which was highest it's been -need recheck Blood Pressure issues: yes -Hx of HTN -well controlled Thyroid issues: no -TSH WNL 2018 Kidney/liver function: -SCr WNL August 2017 -ALT/AST WNL 2016 Vitamin D deficiency: -low normal 2016 -D3 1000 units LDL-P significantly improved with the addition of Praluent. He is currently not on a statin and we may want to consider a very low dose prava for further risk reduction.He continues to have a TG issue so may want to address this next. He may be a good candidate for Vascepa if not cost prohibitive. PLAN: Date Weight BP HR BMI WAIST 10/13/17 205 132/75 60 8/22/18 137/73 55 09/20/17 146/75 59 08/30/17 144/74 65 04/21/17 210.4 138/80 68 09/26/16 209 122/66 57 07/12/16 203 125/74 67 31.45 03/29/16 200 130/81 67 10/21/15 201 17506 63 01/14/15 199 120/73 62 Date HS-CRP CPK LP(a) 07/15/16 91(nmol/L0 09/18/14 853 91 (NMOL/L) Date LDL- P LDL-C HDL-C TG TC NON-HDL HDL-P SM LDL-P LDL Size LG VLDL-P LG HDL-P VLDL Size HDL Size LP-IR Score Treatment 02/19/18 645 36 43 214 122 79 32.1 391 19.7 5.9 5.0 50.8 9.1 60 Praluent 75 09/28/17 1553 116 35 222 195 160 26.6 921 20.3 3.1 3.2 43.2 8.8 54 none 04/11/17 1417 100 40 210 182 142 29.2 883 20.2 7.5 3.8 48.3 8.8 65 none 01/31/17 36 43 190 117 74 09/19/16 1607 127 41 173 203 162 28.4 859 20.3 1.6 2.9 41.4 8.6 56 pitava 1 mg TIW 07/15/16 2099 146 40 260 238 198 28.8 1083 20.4 2.9 2.5 45.2 8.6 70 none 05/23/16 127 35 248 212 177 11/30/15 106 rosuva? 12/15/14 102 41 135 170 129 rosuva? 11/06/14 91 32 197 162 130 09/18/14 101 41 178 178 137 04/28/02 109 39 355 219 180 01/07/02 43 416 22 199 07/13/01 119 43 328 228 185 12/29/00 140 09/01/00 136 Date Glu HbA1c 25 OH VtD ALT AST Creatinine TSH 02/19/18 4.24 08/21/17 284 7.7 1.10 01/31/17 154 6.5 33.1 36 26 0.9 07/15/16 37 4.76 05/23/16 150 7.3 1.0 4.28 02/29/16 6.5 11/30/15 150 6.7 1.0 12/15/14 152 6.1 50 33 1.04 3.44 11/10/14 142 0.87 11/03/14 83 6.1 53 35 0.99 09/19/14 134 0.94 09/18/14 6.5 09/17/14 216 25 22 0.97 5.01 Lipid Goals LDL-P Goal: <1000 Non HDL-C Goal: <100 APO B <80 in this encounter* Tess Up MA - 10/24/2019 8:17 AM EDT 10/24/19 -Return Location of Care:[facility] Cardiovascular Disease Prevention & Lipid Clinic Today's Visit Visit Date:10/24/19 Treating Physician: Meño Villalta MD, Lipidologist Patient's Physicians Referring Physician: Julia Moreno PCP: Luis Muller DO Reason for Referral: Dyslipidemia, statin intolerance, and PCSK9i candidate Dyslipidimia Dx Original Date: 1993 PMH: Initially seen in the lipid clinic 07/12/16 for secondary prevention. He has a history of a STEMI and PTCA in Sep 2014 in subsequent CABG in 2014. Other history includes DM type 2 and HTN. [place] have a significant family history of CAD along with an elevated Lp(a). 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 Statins: 09/2015-03/2016 rosuva 5 mg d/c muscle pain (treated one tablet per week) 12/08/14-03/13/15 Crestor 10 mg caused myalgias 09/2014-10/2014 rosuva 20 mg (1/2 tab twice per week) d/c due to muscle pain 05/19/12- 05/31/12 Atorvastatin 10 mg caused myalgias 06/04/11- Simvastatin 40 mg caused myalgias 08/03/16 to 09/12/16: Had aches in joints, more sleepy, especially in the afternon, feeling of flu like, stopped about 09/12/16nd symptoms subsided in 1.5 weeks. 07/2016-09/2016-Livalo 1 mg TIW- stiffness, knee pain," out of sort". 09/2016- Fluvastatin 20 mg TIW Fluvastatin 20 mg TIW- restarted 04/10/17, stopped after one month due to "all over" aches. NO: Prava, lova Fibrates: 03/13/18 FENO 54 MG Niacin: NO Bile Acid: NO Ezetimibe: NO Ezetimibe + Statin: NO PCSK9i: September 2017: completed 4 doses of Repatha. 09/2017-Repatha 140 mg- Rash, joint pain, stopped and rash resolved after 3 weeks.09/26/17: Will try for Praluent. 10/13/17: Praluent approved, applying for [employer] for financial assistance. 11/24/17: 1st Praluent injection 03/2018 approved for PASS Fish Oil or Plant Stanols/Sterols: OTC fish oil caused itching/rash Side Effects: muscle pain Diabetes medications: Metformin - did not tolerate Ozempic 0.25mg- started July 2018 $450 Glimepiride 4mg Current Treatment: Praluent 75 mg every 2 weeks Fenofibrate 54 mg CV Disease History Clinical CV Disease:yes Type: S/p cath with placement of 2 PATRICIA to RCA Diabetes Mellitus: yes (dx. 2006) Special Population: no CV Diagnostic/Interventional History: yes CABG N/A 11/06/2014 Procedure: CORONARY ARTERY BYPASS GRAFTING TIMES THREE WITH ENDOVEIN HARVEST; Surgeon: Jason Wilkinson MD; Location: [facility] Main [place]; Service: CARDIAC CATHETERIZATION CORONARY ARTERY BYPASS GRAFT CORONARY STENT PLACEMENT HC LEFT HEART CATH N/A 09/17/2014 Procedure: Left Heart Cath; Surgeon: Julia Moreno MD; Location: [facility]; Service: Cardiovascular Date Weight BP HR BMI 03/28/19 204 117/67 61 11/15/18 134/69 73 11/02/18 201 135/78 61 07/25/18 205 124/83 67 31.17 03/13/18 210.8 141/77 67 32.05 10/13/17 205 132/75 60 31.14 09/27/17 137/73 55 Date HS-CRP CPK LP(a) 07/15/16 91(nmol/L) 09/18/14 853 91 (NMOL/L) Date LDL- P ApoB LDL-C HDL-C TG TC NON-HDL HDL-P SM LDL-P LDL Size LG VLDL-P LG HDL-P VLDL Size HDL Size LP-IR Score Treatment 10/01/19 35 9 39 167 81 42 Praluent 75mg, feno 54 03/14/19 42 26 44 132 96 52 Praluent 75mg, feno 54 12/04/18 39 47 109 108 61 11/06/18 311 35 43 123 103 60 35.4 127 20.2 3.5 3.6 48.0 9.1 51 Praluent 75, feno 54 07/09/18 502 40 46 120 110 64 33.6 276 20.0 3.5 2.2 49.2 8.7 65 Praluent 75, feno 54 02/19/18 645 36 43 214 122 79 32.1 391 19.7 5.9 5.0 50.8 9.1 60 Praluent 75 09/28/17 1553 116 35 222 195 160 26.6 921 20.3 3.1 3.2 43.2 8.8 54 none 05/22/17 125 43 255 219 176 04/11/17 1417 100 40 210 182 142 29.2 883 20.2 7.5 3.8 48.3 8.8 65 none 01/31/17 36 43 190 117 74 09/19/16 1607 127 41 173 203 162 28.4 859 20.3 1.6 2.9 41.4 8.6 56 pitava 1 mg TIW 07/15/16 2099 146 40 260 238 198 28.8 1083 20.4 2.9 2.5 45.2 8.6 70 none 05/23/16 127 35 248 212 177 11/30/15 106 rosuva? 12/15/14 102 41 135 170 129 rosuva? 11/06/14 91 32 197 162 130 09/18/14 101 41 178 178 137 04/28/02 109 39 355 219 180 01/07/02 43 416 22 199 07/13/01 119 43 328 228 185 12/29/00 140 09/01/00 136 Date Glu HbA1c 25 OH VtD ALT AST Creatinine TSH/FREE T4 12/04/18 170 7.5 23 30 1.10 4.38 11/06/18 177 7.2 1.12 09/18/18 168 0.90 2.85 07/09/18 9.9 1.12 2.93 04/02/18 261 9.1 1.0 02/19/18 4.24 11/22/17 7.2 08/21/17 284 7.7 1.10 01/31/17 154 6.5 33.1 36 26 0.9 07/15/16 37 4.76 05/23/16 150 7.3 1.0 4.28 02/29/16 6.5 11/30/15 150 6.7 1.0 12/15/14 152 6.1 50 33 1.04 3.44 11/10/14 142 0.87 11/03/14 83 6.1 53 35 0.99 09/19/14 134 0.94 09/18/14 6.5 09/17/14 216 25 22 0.97 5.01 documented in this encounter* Tess Up MA - 11/08/2018 2:43 PM EDT 11/08/18 -Return Location of Care:[facility] Cardiovascular Disease Prevention & Lipid Clinic Today's Visit Visit Date:11/08/18 Treating Physician: Meño Villalta MD, Lipidologist Patient's Physicians Referring Physician: Julia Moreno PCP: Ramona Nair MD Reason for Referral: Dyslipidemia, statin intolerance, and PCSK9i candidate Dyslipidimia Dx Original Date: 1993 Treatment History 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 Statins: 09/2015-03/2016 rosuva 5 mg d/c muscle pain (treated one tablet per week) 12/08/14-03/13/15 Crestor 10 mg caused myalgias 09/2014-10/2014 rosuva 20 mg (1/2 tab twice per week) d/c due to muscle pain 05/19/12- 05/31/12 Atorvastatin 10 mg caused myalgias 06/04/11- Simvastatin 40 mg caused myalgias 08/03/16 to 09/12/16: Had aches in joints, more sleepy, especially in the afternon, feeling of flu like, stopped about 09/12/16nd symptoms subsided in 1.5 weeks. 07/2016-09/2016-Livalo 1 mg TIW- stiffness, knee pain," out of sort". 09/2016- Fluvastatin 20 mg TIW Fluvastatin 20 mg TIW- restarted 04/10/17, stopped after one month due to "all over" aches. NO: Prava, lova Fibrates: 03/13/18 FENO 54 MG Niacin: NO Bile Acid: NO Ezetimibe: NO Ezetimibe + Statin: NO PCSK9i: September 2017: completed 4 doses of Repatha. 09/2017-Repatha 140 mg- Rash, joint pain, stopped and rash resolved after 3 weeks.09/26/17: Will try for Praluent. 10/13/17: Praluent approved, applying for [employer] for financial assistance. 11/24/17: 1st Praluent injection 03/2018 approved for PASS Fish Oil or Plant Stanols/Sterols: OTC fish oil caused itching/rash Side Effects: muscle pain Current Treatment: Praluent 75 mg every 2 weeks Fenofibrate 54 mg CV Disease History Clinical CV Disease:yes Type: S/p cath with placement of 2 PATRICIA to RCA Diabetes Mellitus: yes (dx. 2006) Special Population: no CV Diagnostic/Interventional History: yes CABG N/A 11/06/2014 Procedure: CORONARY ARTERY BYPASS GRAFTING TIMES THREE WITH ENDOVEIN HARVEST; Surgeon: Jason Wilkinson MD; Location: [facility] Main OR; Service: CARDIAC CATHETERIZATION CORONARY ARTERY BYPASS GRAFT CORONARY STENT PLACEMENT HC LEFT HEART CATH N/A 09/17/2014 Procedure: Left Heart Cath; Surgeon: Julia Moreno MD; Location: [facility] SCLEROSCOPE TESTER; Service: Cardiovascular 04/06/1998: SPECT THALLIUM STRESS & REST THE STUDY IS NEGATIVE, BOTH FOR ISCHEMIA AND FOR PREVIOUS MYOCARDIAL INFARCTION. EF 56% PV Diagnostic/Interventional History: no Prevention ASCVD Risk Factors : Baseline elevated LDL-C: yes 140 mg/dL Diabetes (Type 1 or Type 2): yes (dx 2006) HTN: Yes controlled with medications (dx. 2004) Smoking history: Yes from 1957 to 1971 Evidence of genetic hyperlipidemia: no Criteria for Familial Hypercholesterolemia (FH) if indicated: n/a Date Weight BP HR BMI 11/02/18 201 135/78 61 07/25/18 205 124/83 67 31.17 03/13/18 210.8 141/77 67 32.05 10/13/17 205 132/75 60 31.14 09/27/17 137/73 55 Date HS-CRP CPK LP(a) 07/15/16 91(nmol/L) 09/18/14 853 91 (NMOL/L) Date LDL- P LDL-C HDL-C TG TC NON-HDL HDL-P SM LDL-P LDL Size LG VLDL-P LG HDL-P VLDL Size HDL Size LP-IR Score Treatment 11/06/18 nmr pending Praluent 75, feno 54 07/09/18 502 40 46 120 110 64 33.6 276 20.0 3.5 2.2 49.2 8.7 65 Praluent 75, feno 54 02/19/18 645 36 43 214 122 79 32.1 391 19.7 5.9 5.0 50.8 9.1 60 Praluent 75 09/28/17 1553 116 35 222 195 160 26.6 921 20.3 3.1 3.2 43.2 8.8 54 none 05/22/17 125 43 255 219 176 04/11/17 1417 100 40 210 182 142 29.2 883 20.2 7.5 3.8 48.3 8.8 65 none 01/31/17 36 43 190 117 74 09/19/16 1607 127 41 173 203 162 28.4 859 20.3 1.6 2.9 41.4 8.6 56 pitava 1 mg TIW 07/15/16 2099 146 40 260 238 198 28.8 1083 20.4 2.9 2.5 45.2 8.6 70 none 05/23/16 127 35 248 212 177 11/30/15 106 rosuva? 12/15/14 102 41 135 170 129 rosuva? 11/06/14 91 32 197 162 130 09/18/14 101 41 178 178 137 04/28/02 109 39 355 219 180 01/07/02 43 416 22 199 07/13/01 119 43 328 228 185 12/29/00 140 09/01/00 136 Date Glu HbA1c 25 OH VtD ALT AST Creatinine TSH/FREE T4 11/06/18 177 7.2 1.12 07/09/18 9.9 1.12 2.93 04/02/18 261 9.1 1.0 02/19/18 4.24 11/22/17 7.2 08/21/17 284 7.7 1.10 01/31/17 154 6.5 33.1 36 26 0.9 07/15/16 37 4.76 05/23/16 150 7.3 1.0 4.28 02/29/16 6.5 11/30/15 150 6.7 1.0 12/15/14 152 6.1 50 33 1.04 3.44 11/10/14 142 0.87 11/03/14 83 6.1 53 35 0.99 09/19/14 134 0.94 09/18/14 6.5 09/17/14 216 25 22 0.97 5.01 Lipid Goals LDL-P Goal: <1000 Non HDL-C Goal: <100 APO B <80 Lipid Goals LDL-P Goal: <1000 Non HDL-C Goal: <100 APO B <80 documented in this encounter Advance Directives Latest Code Status on File Code Status Date Activated Date Inactivated Comments Full Code 11/07/2014 11:02 AM 11/10/2014 3:36 PM Full Code 11/06/2014 11:11 AM 11/07/2014 11:02 AM Full Code 09/17/2014 8:40 PM 09/19/2014 2:40 PM Documents on File Type Date Recorded Patient Assistant Professor Of 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 Expl anation Advance Directives and Livin g Will 03/13/2018 8:43 AM Documents on File Type Date Recorded Patient Assistant Professor Of Biology Expl anation Advance Directives and Livin g Will 07/25/2018 8:13 AM Documents on File Type Date Recorded Patient Assistant Professor Of Biology Expl anation Advance Directives and Livin g Will 03/28/2019 8:13 AM Documents on File Type Date Recorded Patient Assistant Professor Of Biology Expl anation Advance Directives and Livin g Will 11/15/2018 8:13 AM Advance Directive Response Recorded Date/ Time Living Will No February 07 9:33am Power of Account Executive Sales Representative No February 07 9:33am Advance Directive Response Recorded Date/ Time Living Will No December 10 2:44pm Power of Account Executive Sales Representative No December 10, 2022 2:44pm Advance Directive Response Recorded Date/ Time Living Will No December 10 1:44pm Power of Account Executive Sales Representative No December 10, 2022 1:44pm Advance Directive Response Recorded Date/ Time Do you have a Healthcare Power of Account Executive Sales Representative? 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 [place] Reason for Visit Atherosclerosis of c oronary artery of [place] heart without angina pectoris Essential hypertension Hyperlipidemia Chief Complaint 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 Reason for Visit Atherosclerosis of c oronary artery of [place] heart without angina pectoris Essential hypertension Hyperlipidemia Chief Complaint OVERDUE FOR OV NEEDS 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 PHYSICAL CONCERN FOR INFECTION IN NOSE Reason for Visit Atherosclerosis of c oronary artery of [place] heart without angina pectoris Essential hypertension Hyperlipidemia Acute maxillary sinusitis, unspecified Chief Complaint DOT PHYSICAL DOT PHYSICAL CONCERN FOR INFECTION IN NOSE Reason for Visit Acute maxillary sinu sitis, unspecified Chief Complaint CONCERN FOR INFECTIO N IN NOSE Finger injury Reason for Visit Acute maxillary sinu sitis, unspecified Chief Complaint Finger injury Chief Complaint 6 M FU PREV NNN PT MURMUR Reason for Visit Murmur, cardiac Atherosclerosis of coronary artery of [place] heart without angina pectoris Essential hypertension History of coronary artery bypass graft History of coronary artery stent placement Hyperlipidemia Chief Complaint Admit Date CAROTID ARTERY STENOSIS March 05 1:57pm 6 M FU March 28, 2024 10:05am headache June 17, 2024 8:17a m Reason for Visit Admit Date Carotid artery disease March 05 1:57pm Aortic valve stenosis March 28 10:05am Carotid artery disease March 28 10:05am Atherosclerosis of coronary artery of [place] heart without angina pectoris March 28, 2024 10:05am Essential hypertension March 28 10:05am Hyperlipidemia March 28, 2024 10:05am Chief Complaint Admit Date headache June 17, 2024 8:17a m 6 M FU September 25, 2024 10 :36am Reason for Visit Admit Date Aortic valve stenosis September 25, 2024 10:36am Carotid artery disease September 25, 2024 10:36am Atherosclerosis of coronary artery of [place] heart without angina pectoris September 25, 2024 10:36am Essential hypertension September 25, 2024 10:36am Hyperlipidemia September 25, 2024 10 :36am Additional Source Comments ED Notes - Ebonie White RN - 07/30/2017 6:35 PM EDTED Provider Notes - García Barragan MD - 07/30/2017 6:27 PM EDTED Triage Notes - Hannah Enriquez RN - 07/30/2017 6:07 PM EDT Miscellaneous Notes (unrecog nized section and content) Sending pt to CT and Xray Formatting of this note may be different from the original. PCP - Ramona Nair MD [phone] Chief Complaint Patient presents with Headache fell backwards and hit the rt side of his upper back and his neck-has abrasios Nausea Feels nauseated but did not vomit Fall backing up when a vicious dog came after him -fell backwards at approx 5pm - denies LOC--did hit his head --became very dizzy and had to go to the bathroom all of a suddenn Laceration laceration to the rt leg under the knee-thinks he hit hism leg on a rock Leg Pain Rt leg pain has open ragged lac sm amt of oozing of blood-looks like skin is missing from site HPI: Dictation on: 07/30/2017 6:28 PM by: GARCÍA BARRAGAN [[id number]] Review of Systems CONSTITUTIONAL: No unexpected weight change; HENT: No drooling; EYES: No discharge; RESPIRATORY: No stridor; ENDOCRINE: No polyphagia; ALLERGY/IMMUN: No hives; SKIN: No color changes; NEUROLOGIC: No new face asymmetry; HEMATOLOGIC: No new easy bruising; PSYCH: No self injury * Past Medical History Reviewed Past Medical History: Diagnosis Date Arthritis Basal cell carcinoma Cancer (HCC) BASAL CELL Cataract of left eye 07/12/2016 Removed and retinal detachment as well. 3 surgeries on that eye. Dr. Us in past. Coronary artery disease Diabetes mellitus (HCC) Diabetes mellitus, type 2 (HCC) Elevated Lp(a) 07/28/2016 91 in 07/2016. This is a NMOL/L result. Normal up to 75. History of cardiac cath History of stress test Hyperlipidemia Hypertension Myocardial infarction (HCC) S/P CABG x 3 12/16/2014 Past Surgical History Reviewed Past Surgical History: Procedure Laterality Date lesli. knee injections Bilateral CABG N/A 11/06/2014 Procedure: CORONARY ARTERY BYPASS GRAFTING TIMES THREE WITH ENDOVEIN HARVEST; Surgeon: Jason Wilkinson MD; Location: [facility] Main OR; Service: CARDIAC CATHETERIZATION CORONARY ARTERY BYPASS GRAFT CORONARY STENT PLACEMENT ELBOW SURGERY Right EYE SURGERY bilateral HC LEFT HEART CATH N/A 09/17/2014 Procedure: Left Heart Cath; Surgeon: Julia Moreno MD; Location: [facility] SCLEROSCOPE TESTER; Service: Cardiovascular skin cancer removal Family History Reviewed and not pertinent Family History Problem Relation Age of Onset Stroke Mother 1997 presented Diabetes Mother Hypertension Mother ALS Father Colorectal cancer Maternal Grandmother Parkinson's Paternal Grandfather Multiple sclerosis Paternal Uncle Social History Reviewed Social History Social History Marital status: Spouse name: N/A Number of children: N/A Years of education: N/A Occupational History Not on file. Social History Main Topics Smoking status: Former Smoker Packs/day: 0.00 Years: 13.00 Start date: [birth year]12/1956 Smokeless tobacco: Not on file Alcohol use Yes Comment: occasional glass of wine Drug use: No Sexual activity: Yes Partners: Female Other Topics Concern Not on file Social History Narrative No narrative on file Allergies Reviewed Allergies Allergen Reactions Fish Derived Penicillins Hives Dfoaeak-Rxs-Xoj Reductase Inhibitors Other (See Comments) Severe myositis Vicodin [Hydrocodone-Acetaminophen] GI Intolerance Medications Patient's Medications New Prescriptions OXYCODONE-ACETAMINOPHEN (PERCOCET) 5-325 MG PER TABLET Take 1 (one) tablet by mouth every 6 (six) hours as needed for pain (Days supply per fill: 4). SULFAMETHOXAZOLE-TRIMETHOPRIM (BACTRIM DS,SEPTRA DS) 800-160 MG PER TABLET Take 1 (one) tablet by mouth 2 (two) times a day for 10 doses. Previous Medications ASCORBIC ACID (ASCORBIC ACID WITH MONET HIPS) 500 MG TABLET Take 500 mg by mouth daily. ASPIRIN 81 MG EC TABLET Take 81 mg by mouth daily ReasonsStop Plavix and start ASA 81 mg. CHOLECALCIFEROL, VITAMIN D3, 1,000 UNIT TABLET Take 1,000 Units by mouth daily. GLIMEPIRIDE (AMARYL) 4 MG TABLET Take 4 mg by mouth every morning before breakfast. IMIQUIMOD (ALDARA) 5 % CREAM Apply 5 % topically as needed Wash hands prior to and following application. . METOPROLOL SUCCINATE (TOPROL-XL) 25 MG 24 HR TABLET Take 1 tablet (25 mg total) by mouth daily. PRAVASTATIN (PRAVACHOL) 10 MG TABLET Take 1 (one) tablet (10 mg total) by mouth Monday, Monday, Monday. Modified Medications No medications on file Discontinued Medications No medications on file Physical Exam Initial Vital Signs BP (!) 170/71 (BP Location: Right arm, Patient Position: Sitting) Pulse 86 Temp 98.2 F (36.8 C ) (Oral) Resp (!) 20 Ht 5' 8" Wt 92.5 kg (204 lb) SpO2 98% BMI 31.02 kg/m Physical Exam Constitutional: He is oriented to person, place, and time. He appears well- developed and well-nourished. HENT: Head: Normocephalic. Head is with abrasion. Eyes: Pupils are equal, round, and reactive to light. Neck: Normal range of motion. Neck supple. Cardiovascular: Normal rate and regular rhythm. Pulmonary/Chest: Effort normal and breath sounds normal. No respiratory distress. He exhibits no tenderness. Abdominal: Soft. There is no tenderness. Musculoskeletal: Legs: Neurological: He is alert and oriented to person, place, and time. Skin: Skin is warm and dry. Psychiatric: He has a normal mood and affect. His behavior is normal. MDM: Dictation on: 07/30/2017 7:48 PM by: GARCÍA BARRAGAN [[id number]] Procedures: Dictation on: 07/30/2017 7:48 PM by: GARCÍA BARRAGAN [[id number]] Procedures Labs Reviewed - No data to display XR Tibia Fibula Right 2 Views Preliminary Result Subcutaneous gas believed to be posttraumatic. No acute fracture. BOGDAN/aw Workstation ID: [id number] CT Cervical Spine Without Contrast 3D Preliminary Result No evidence of acute osseous abnormality. BOGDAN/tde Workstation ID: [id number] CT Head Or Brain Without Contrast Preliminary Result No acute intracranial abnormality. BOGDAN/tde Workstation ID: [id number] Vital Signs During ED Visit (as charted by nursing) Patient Vitals for the past 24 hrs: BP Temp Temp src Pulse Resp SpO2 Height Weight 07/30/17 1825 (!) 170/71 98.2 F (36.8 C ) Oral 86 (!) 20 98 % - - 07/30/17 1809 (!) 161/87 98.2 F (36.8 C ) Oral 84 16 98 % 5' 8" 92.5 kg (204 lb) IMPRESSION: SNOMED CT(R) 1. Contusion of head, unspecified part of head, initial encounter BRUISE OF HEAD 2. Laceration of right lower extremity, initial encounter LACERATION OF LOWER LIMB MD García Martínez MD 07/30/171947 educated to allow patient to answer questions for staff to evaluate his mental status. verbalizes her understanding. Pt arrives via wheelchair into triage, when asking the patient why he's here he's interrupted by his who sts that he's here because "he fell, isn't acting right, gouged his leg, has a headache, is nauseous." When asking the patient what happened he sts he was backing up from a dog and was standing on a deck so hit his head on the deck and his leg on a rock. Denies LOC.in this encounter Reason for Visit (unrecogniz ed section and content) right knee pain, New/Est - 1 st visit with physician Reason Comments Hyperlipidemia Reason Comments CLS preload Reason Comments external lab entry/lab grid update Reason Comments Establish Care Reason Comments Results Reason Comments Medication Request Reason Onset Date Comments Refill Request 07/12/2022 Reason Onset Date Comments Medication Update 07/21/2022 Reason Comments DOT Clearance (unrecognized sect ion and content) No Status Records FoundNo Status Records FoundNo Status Records FoundNo Status Records FoundNo Status Records FoundNo Status Records FoundNo Status Records FoundNo Status Records Found INFORMATION SOURCE (unrecogn ized section and content) DATE CREATED AUTHOR 12/06/2018 [facility] DATE CREATED AUTHOR AUTHOR'S ORGANIZ ATION 10/05/2019 [facility] DATE CREATED AUTHOR AUTHOR'S ORGANIZ ATION 11/28/2019 [facility] DATE CREATED AUTHOR AUTHOR'S ORGANIZ ATION 09/16/2020 [facility] ([place]) DATE CREATED AUTHOR AUTHOR'S ORGANIZ ATION 05/04/2023 [facility] DATE CREATED AUTHOR AUTHOR'S ORGANIZ ATION 04/10/2024 [facility] DATE CREATED AUTHOR AUTHOR'S ORGANIZ ATION 08/30/2024 [facility] DATE CREATED AUTHOR AUTHOR'S ORGANIZ ATION 09/27/2024 [facility] Source Comments (unrecognize d section and content) In the event this informatio n is protected by the Federal Confidentiality of Alcohol and Drug Abuse Patient Records regulations: The Federal rules restrict any use of the information to criminally investigate or prosecute any alcohol or drug abuse patient.[facility] the event this information is protected by the Federal Confidentiality of Alcohol and Drug Abuse Patient Records regulations: The Federal rules restrict any use of the information to criminally investigate or prosecute any alcohol or drug abuse patient.[facility] the event this information is protected by the Federal Confidentiality of Alcohol and Drug Abuse Patient Records regulations: The Federal rules restrict any use of the information to criminally investigate or prosecute any alcohol or drug abuse patient.[facility] the event this information is protected by the Federal Confidentiality of Alcohol and Drug Abuse Patient Records regulations: The Federal rules restrict any use of the information to criminally investigate or prosecute any alcohol or drug abuse patient.[facility] the event this information is protected by the Federal Confidentiality of Alcohol and Drug Abuse Patient Records regulations: The Federal rules restrict any use of the information to criminally investigate or prosecute any alcohol or drug abuse patient.[facility] the event this information is protected by the Federal Confidentiality of Alcohol and Drug Abuse Patient Records regulations: The Federal rules restrict any use of the information to criminally investigate or prosecute any alcohol or drug abuse patient.[facility] the event this information is protected by the Federal Confidentiality of Alcohol and Drug Abuse Patient Records regulations: The Federal rules restrict any use of the information to criminally investigate or prosecute any alcohol or drug abuse patient.[facility] the event this information is protected by the Federal Confidentiality of Alcohol and Drug Abuse Patient Records regulations: The Federal rules restrict any use of the information to criminally investigate or prosecute any alcohol or drug abuse patient.[facility] the event this information is protected by the Federal Confidentiality of Alcohol and Drug Abuse Patient Records regulations: The Federal rules restrict any use of the information to criminally investigate or prosecute any alcohol or drug abuse patient.[facility] Care Teams (unrecognized sec tion and content) Team Status: Active Member Role Status Dates Dr. Donell Capps , DO Primary Care Provider Active Team Status: Inactive Member Role Status Dates Dr. Donell Capps , DO Primary Care Provider, Referrin g Provider Active Jason LINN, PA Attending Provider Active Team Status: Inactive Member Role Status Dates Dr. Donell Capps , DO Primary Care Provider Active Dr. Berenice De Luna , DO Emergency Provider Active Team Status: Inactive Member Role Status Dates Dr. Donell Capps , DO Primary Care Provider Active Dr. Chencho Zacarias MD Attending Provider Active Team Status: Inactive Member Role Status Dates Dr. Donell Capps , DO Primary Care Prov ider, Attending Provider, Referring Provider Active Team Status: Inactive Member Role Status Dates Dr. Donell Capps , DO Primary Care Provider Active JACK Street Attending Provider, Referring Prov ider Active Team Status: Active Member Role Status Dates Dr. Donell Capps , DO Primary Care Provider Active Dr. Rinku Aguirre MD Attending Provider, Referring Provider, Other Provider Active Team Status: Inactive Member Role Status Dates Dr. Donell Capps , DO Primary Care Provider Active Dr. Rinku Aguirre MD Attending Provider, Referring Pro vider Active Team Status: Inactive Member Role Status Dates Dr. Donell Capps , DO Primary Care Provider, Attendin g Provider Active [employer] Turner Relationship Specialty Start Date End Date Meño Torres MD [address] [place], [place] [address] PCP - General Family Medicine 10/08/19 [employer] Relationship Specialty Start Date End Date Meño Torres MD [address] [place], [place] [id number] PCP - General Family Medicine 10/08/19 05/25/22 [employer] Relationship Specialty Start Date End Date James Clark MD [address] [place] [address] PCP - General Family Medicine 05/26/22 [employer] Relationship Specialty Start Date End Date James Clark MD [address] [place] [address] PCP - General Family Medicine 05/26/22 [employer] Relationship Specialty Start Date End Date James Clark MD [address] [place] [address] PCP - General Family Medicine 05/26/22 [employer] Turner Relationship Specialty Start Date End Date James Clark MD [address] [place], [place] [id number] PCP - General Family Medicine 05/26/22 Team Status: Inactive Member Role Status Dates Dr. Meño Torres MD Referring Provider Active Gen Pearson PROPAGATOR, PROPAGATOR-C Attending Provider Active Dr. Donell Capps DO Primary Care Provider Active Team Status: Active Member Role Status Dates Employee Health Attending Provider Active Team Status: Active Member Role Status Dates Dr. Meño Torres MD Primary Care Provider Active Health Risk Assessment Attending Provider, Referring P mercedes Active Cross Tie Turner Relationship Specialty Start Date End Date James Clark MD [address] [place], [place] [id number] PCP - General Family Medicine 05/26/22 Team Status: Inactive Member Role Status Dates Dr. Donell Capps DO Primary Care Provider Active Dr. Berenice De Luna DO Attending Provider, Emergency Pro vider Active Team Status: Inactive Member Role Status Dates Dr. Donell Capps DO Primary Care Provider, Referrin g Provider Active Gen Pearson PROPAGATOR, PROPAGATOR-C Active Dr. Duong Reyes MD Attending Provider Active Team Status: Inactive Member Role Status Dates Dr. Donell Capps DO Primary Care Provider Active Dr. Duong Reyes MD Attending Provider, Referring Provider Active Team Status: Inactive Member Role Status Dates Dr. Donell Capps DO Primary Care Provider Active Start: March 05, 2024 End: March 05, 2024 TEMITOPE Walker Attending Provider Active Star t: March 05, 2024 End: March 05, 2024 Dr. Wilian Foster MD Referring Provider Active Start: March 05, 2024 End: March 05, 2024 Team Status: Inactive Member Role Status Dates Dr. Donell Capps DO Primary Care Provider Active Start: March 28, 2024 End: March 28, 2024 Dr. Donell Capps DO Referring Provider Active Start: March 28, 2024 End: March 28, 2024 Dr. Duong Reyes MD Attending Provider Active Start: March 28, 2024 End: March 28, 2024 Team Status: Inactive Member Role Status Dates Dr. Donell Capps DO Primary Care Provider Active Start: June 17, 2024 End: June 17, 2024 Dr. Shola Carmona DO Emergency Provider Active Start: June 17, 2024 End: June 17, 2024 Team Status: Active Member Role/Relationship Status Dates Dr. Donell Capps DO Primary Care Provider Active Team Status: Inactive Member Role/Relationship Status Dates Dr. Donell Capps DO Primary Care Provider Active Start: June 17, 2024 End: June 17, 2024 Dr. Shola Carmona DO Attending Provider Active Start: June 17, 2024 End: June 17, 2024 Dr. Shola Carmona DO Emergency Provider Active Start: June 17, 2024 End: June 17, 2024 Team Status: Inactive Member Role/Relationship Status Dates Dr. Donell Capps DO Primary Care Provider Active Start: September 25, 2024 End: September 25, 2024 Dr. Donell Capps DO Referring Provider Active Start: September 25, 2024 End: September 25, 2024 Gen Pearson PROPAGATOR, PROPAGATOR-C Attending Provider Active S tart: September 25, 2024 End: September 25, 2024 Goals (unrecognized section and content) Goals may be documented in a n alternate sectionGoals may be documented in an alternate sectionGoals may be documented in an alternate sectionGoals may be documented in an alternate sectionGoals may be documented in an alternate sectionGoals may be documented in an alternate sectionGoals may be documented in an alternate sectionGoals may be documented in an alternate sectionGoals may be documented in an alternate section No Information Available No Information Available No Information Available FOR RECORDS PERTAINING TO PATIENTS WHO ARE OR HAVE BEEN ENROLLED IN A CHEMICAL DEPENDENCY/SUBSTANCEABUSE PROGRAM, SOME INFORMATION MAY BE OMITTED. This clinical summary was aggregated from multiple sources. Caution should be exercised in using it in the provision of clinical care. This summary normalizes information from multiple sources, and as a consequence, information in this document may materially change the coding, format and clinical context of patient data. In addition, data may be omitted in some cases. CLINICAL DECISIONS SHOULD BE BASED ON THE PRIMARY CLINICAL RECORDS. [facility] Center. provides no warranty or guarantee of the accuracy or completeness of information in this document.
[2024-11-26 14:52] LABS: AST(SGOT) 29 U/L (<=37); Alanine Aminotransfer ALT/SGPT 37 U/L (<=46); Albumin, Serum 3.7 g/dL (3.4-4.8); Alkaline Phosphatase 104 U/L (40-129); Anion Gap 12 (5-15); BUN 23 mg/dL (4-19); BUN/Creat Ratio 20.4 RATIO (10-20); Calcium,Total 9.6 mg/dL (7.6-11.0); Carbon Dioxide 21.3 mmol/L (21.0-32.0); Chloride 104 mmol/L (98-108); Globulin 3.2 g/dL (2.2-4.2); Glucose 168 mg/dL (70-99); Potassium 4.4 mmol/L (3.3-5.1); Vitamin B12 859 pg/mL (180-914)
[2024-11-29 12:08] LABS: Vitamin D 1,25-Dihydroxy 33.7 pg/mL (24.8-81.5)
[2024-11-30 16:09] LABS: Folate, Hemolysate Test 393.0 ng/mL (Not Estab.); Folate, RBC (Hct) Test 38.5 % (37.5-51.0); Folates, RBC Test 1021 ng/mL (>498); VITAMIN B6 10.2 ug/L (3.4-65.2); Vitamin B1, Thiamine 84.7 nmol/L (66.5-200.0)
== END | disposition home or self-care (01) ==
LOC: LABSPEC 12:59 → MTLAB 18:37
PROVIDERS: PCP Family Medicine; Referring Provider Psychiatry & Neurology Neurology; Visit Provider Psychiatry & Neurology Neurology
DX: F03.90 Unspecified dementia, unspecified severity, without behavioral disturbance, psychotic disturbance, mood disturbance, and anxiety (principal)
CPT/HCPCS: 36415; 80053; 82607; 82652; 82747; 84207; 84425; 84443; 85014; 85027

== ENCOUNTER → 2024-12-06 | Outpatient (CLI) | payer MEDICARE, SELFPAY ==
[2024-12-06 13:24] LABS: Mucous, Urine 0 SEEN /hpf (<or=2+); Red Blood Cells-Urine 0 SEEN /hpf (0-5); Squamous Epithelial Cells - UA 0 SEEN /hpf (0-5)
[2024-12-06 13:34] LABS: Color, Urine Yellow (Yellow); Glucose, Dipstick Normal (Normal); Ketone-Dipstick Negative (Negative); Leukocyte Esterase-Dipstick 25 /ul (Negative); Nitrite-Dipstick Negative (Negative); Occult Blood-Urine Negative /ul (Negative); Protein-Dipstick 30 mg/dl (Negative); Specific Gravity, Urine 1.010 (1.002-1.030); Urine Bilirubin Dipstick Negative (Negative)
== END | disposition home or self-care (01) ==
LOC: LABSPEC 13:21 → LAB 13:21
PROVIDERS: PCP Family Medicine; Referring Provider Family Medicine; Visit Provider Family Medicine
DX: R35.0 Frequency of micturition (principal); R41.82 Altered mental status, unspecified
CPT/HCPCS: 81001; 87086

== ENCOUNTER → 2024-12-11 | Outpatient (CLI) | payer MEDICARE, SELFPAY ==
--- NOTE | 2024-12-11 07:59 | MRI_ITS ---
PROCEDURE: MRI/Brain W/WO Contrast
== END | disposition home or self-care (01) ==
PROVIDERS: PCP Family Medicine; Referring Provider Psychiatry & Neurology Neurology; Visit Provider Psychiatry & Neurology Neurology
DX: F03.90 Unspecified dementia, unspecified severity, without behavioral disturbance, psychotic disturbance, mood disturbance, and anxiety (principal)
CPT/HCPCS: 70553; A9575

== ENCOUNTER → 2024-12-23 | Outpatient (CLI) | payer MEDICARE, SELFPAY ==
--- NOTE | 2024-12-23 13:35 | RAD_ITS ---
PROCEDURE: ABDOMEN SINGLE VIEW 12/23/2024 REASON FOR EXAM: ABD PAIN TECHNIQUE: Procedure Code: RADABD Modality: DX Procedure: ABDOMEN SINGLE VIEW COMPARISON: None FINDINGS: There is a nonobstructive bowel gas pattern. There are no abnormal soft tissue calcifications or radiopaque foreign bodies. There is [id number] multilevel degenerative disc disease of the lumbar spine. There is mild dextroscoliosis of the lumbar spine. RAD/Abdomen Single View IMPRESSION: No significant constipation. Other findings as noted. Reading Location: [place] [id number]
== END | disposition home or self-care (01) ==
LOC: RAD.FUTURE 13:17 → RAD 13:19
PROVIDERS: PCP Family Medicine; Referring Provider Family Medicine; Visit Provider Family Medicine
DX: R10.9 Unspecified abdominal pain (principal)
CPT/HCPCS: 74018

== ENCOUNTER 2024-12-24 10:30 | Emergency (ER) | payer MEDICARE, SELFPAY ==
[2024-12-24 10:31] VITALS: BP 153/61; PULSE 48; RESP 18; TEMP 37.1; O2SAT 99; BMI 29.0
--- NOTE | 2024-12-24 11:47 | CT_ITS ---
PROCEDURE: ABDOMEN/PELVIS W IV CONT ONLY 12/24/2024 REASON FOR EXAM: ABD PAIN, CONSTIPATION Difficulty with urination. TECHNIQUE: Procedure Code: [id number] Modality: CT Procedure: ABDOMEN/PELVIS W IV CONT ONLY Coronal and Sagittal reconstruction series were provided. CONTRAST: Isovue 370 VOLUME: 100 mL One or more dose reduction techniques were used (e.g., Automated exposure control, adjustment of the mA and/or kV according to patient size, use of iterative reconstruction technique. RADIATION DOSE SUMMARY: CTDlvol: 15.8 mGy DLP: 992.3 mGycm COMPARISON: None FINDINGS: Lung bases: Mild increased linear markings at the lung bases suggestive of linear atelectasis and/or scarring. Coronary artery calcification. Liver: Diffuse fatty infiltration. Gallbladder: Minimal degree of gallbladder wall thickening. Questionable tiny layering gallstones along the dependent portion of the gallbladder lumen. Sonographic correlation recommended if clinically indicated. Spleen: Normal size. Pancreas: Diffuse fatty atrophy. Adrenals: Unremarkable Kidneys: Normal renal sizes. No hydronephrosis. Bladder: Unremarkable Prosthetic enlargement with indentation of the bladder base. The prostate measures 3.9 cm by 4.6 cm. Prostatic calcifications. Bowel: Moderate amount of fecal material is seen in the colon. Appendix: Unremarkable Lymph nodes: Unremarkable. Vasculature: Mild diffuse atherosclerotic calcifications are noted. Peritoneum / Retroperitoneum: Small umbilical hernia containing fat. Bones: Degenerative changes of the spine. CT/Abdomen/Pelvis W IV Cont ONLY IMPRESSION: Minimal degree of gallbladder wall thickening. Questionable tiny layering gall stones. Correlation with ultrasound recommended if clinically indicated. Fatty infiltration of the liver. Prostatic enlargement with prostatic calcification and indentation of the bladd er base. Reading Location: [id number]
[2024-12-24 12:05] LABS: Mucous, Urine 0 SEEN /hpf (<or=2+); Red Blood Cells-Urine 0 SEEN /hpf (0-5); Squamous Epithelial Cells - UA 0 SEEN /hpf (0-5)
[2024-12-24 12:06] LABS: Hematocrit 32.5 % (40-54); Hemoglobin 10.8 g/dL (13.0-16.5); Immature Granulocytes Count 0.010 X10^3/uL (0.0-0.0); Mean Corp Hgb Conc 33.2 g/dL (32-36); Mean Corpuscular Volume 87.4 fL (80-94); Mean Platelet Vol. 10.9 fl (6.2-12.0); NRBC Flagged by Analyzer 0 % (0-5); Platelet Count 183 K/mm3 (150-450); RBC Distribution Width CV 13.3 % (11.6-14.6); RBC Distribution Width SD 42.1 fl (35.1-43.9); Red Blood Count 3.72 M/mm3 (4.6-6.2); White Blood Count 6.1 K/mm3 (4.4-11.0)
[2024-12-24 12:12] LABS: Color, Urine Yellow (Yellow); Glucose, Dipstick Normal (Normal); Ketone-Dipstick Negative (Negative); Leukocyte Esterase-Dipstick Negative /ul (Negative); Nitrite-Dipstick Negative (Negative); Occult Blood-Urine Negative /ul (Negative); Protein-Dipstick 30 mg/dl (Negative); Specific Gravity, Urine 1.010 (1.002-1.030); Urine Bilirubin Dipstick Negative (Negative)
[2024-12-24 12:45] LABS: AST(SGOT) 28 U/L (<=37); Alanine Aminotransfer ALT/SGPT 30 U/L (<=46); Albumin, Serum 3.5 g/dL (3.4-4.8); Alkaline Phosphatase 92 U/L (40-129); Anion Gap 7 (5-15); BUN 17 mg/dL (4-19); BUN/Creat Ratio 15.8 RATIO (10-20); Calcium,Total 8.8 mg/dL (7.6-11.0); Carbon Dioxide 26.5 mmol/L (21.0-32.0); Chloride 109 mmol/L (98-108); Estimated Creatinine Clearance 58.16 ml/min (50-250); Globulin 2.6 g/dL (2.2-4.2); Glucose 159 mg/dL (70-99); Potassium 4.3 mmol/L (3.3-5.1)
[2024-12-24 13:00] VITALS: BP 170/50; PULSE 56; RESP 16; O2SAT 97
--- NOTE | 2024-12-24 14:08 | US_ITS ---
PROCEDURE: GALLBLADDER 12/24/2024 REASON FOR EXAM: ABNORMAL CT TECHNIQUE: Procedure Code: USGB Modality: US Procedure: GALLBLADDER COMPARISON: Prior CT scan addendum and pelvis done earlier in the day. FINDINGS: Liver: Diffusely echogenic suggesting fatty infiltration. Gallbladder: Multiple echogenic gallstones are identified. Common bile duct: Normal measuring 3.1 mm. Pancreas: Obscured by bowel gas. Other: Visualized portions of the right kidney are unremarkable. No right upper quadrant ascites. US/Gallbladder IMPRESSION: Fatty infiltration of the liver. Multiple gallstones. Reading Location: [id number]
--- NOTE | 2024-12-24 16:05 | ED.VIS.GI ---
HPI HPI - GI History of Present Illness Chief Complaint: Abd Pain Informant: patient and family Limited: dementia Narrative Narrative: Patient is a 79-year-old male with history of coronary artery disease, dementia and aortic valve stenosis as well as anxiety and depression and and BPH presenting with difficulty urinating as well as constipation. Patient states he has not urinated in 2 days. States he feels like he might need to urinate right now but is not severe. He also has been dealing with constipation. Last week on had half a bottle of magnesium citrate and the following day drink half the bottle. He then had diarrhea. 710 has been okay per his . Notes he has not had much bowel movement since over the past few days. Denies any black or blood in his stool. Is on Flomax for BPH which she recently was diagnosed with earlier this year. Has increase it to twice a day per his PCP over the past week. Notes that over the past 2 to 3 weeks he has been having issues with dripping and incompletes emptying of the bladder sensation. Had an outpatient x-ray with his PCP yesterday looking for constipation and this was largely nonspecific and he was instructed to come to the ER for further evaluation. No report of any nausea or vomiting. No other complaints or concerns at this time. [facility] Medical History Hypothyroidism Former smoker Myocardial infarct Basal cell carcinoma Acute maxillary sinusitis, unspecified Asthma Hay fever Skin cancer STEMI (ST elevation myocardial infarction) Essential hypertension Hyperlipidemia Atherosclerosis of coronary artery of [place] heart without angina pectoris CKD (chronic kidney disease) Type 2 diabetes mellitus without complication Vitamin D deficiency Mild cognitive impairment Home Medications ?Medication ?Instructions ?Recorded ?Last Taken ?Type glimepiride 4 mg tablet 6 mg PO DAILY BLOOD SUGAR 07/14/19 12/24/24 History metoprolol succinate 50 mg 50 mg PO DAILY 03/02/23 12/24/24 History tablet,extended release 24 hr levothyroxine 50 mcg tablet 50 mcg PO QDAY 09/01/23 12/24/24 History losartan 100 mg tablet 100 mg PO DAILY #90 tabs 08/26/24 12/24/24 Rx aspirin 81 mg chewable tablet 162 mg PO DAILY@0800 09/25/24 12/23/24 History cholecalciferol (vitamin D3) 25 25 mcg PO QDAY 09/25/24 12/23/24 History mcg (1,000 unit) tablet tamsulosin 0.4 mg capsule 0.4 mg PO QDAY 09/25/24 12/23/24 History memantine 10 mg tablet 10 mg PO QAM #30 tabs 11/26/24 12/24/24 Rx quetiapine 25 mg tablet 25 mg PO QHS #30 tabs 12/09/24 12/23/24 Rx donepezil 10 mg tablet 15 mg PO QAM 12/24/24 12/24/24 History escitalopram oxalate 20 mg tablet 20 mg PO DAILY 12/24/24 12/23/24 History triamcinolone acetonide 0.1 % 1 applic topical BID PRN PRN 12/24/24 12/23/24 History lotion PSORIASIS Allergy/AdvReac Type Severity Reaction Status Date / Time fish derived Allergy Intermediate Throat Verified 12/24/24 10:31 swells Penicillins Allergy Hives Verified 12/24/24 10:31 Yirdhlj-MBM-YbL Reductase AdvReac Intermediate myalgias Verified 12/24/24 10:31 Inhibitor (Gwragvg-Kvt-Wnj Reductase Inhibitor) Family History Father ALS (amyotrophic lateral sclerosis) Mother Heart disease Breast cancer CVA (cerebral vascular accident) Diabetes Sister Cancer Uterine cancer Surgical History History of carpal tunnel surgery of left wrist History of carpal tunnel surgery of right wrist (~2023) History of nasal surgery History of left cataract extraction History of elbow surgery History of coronary artery stent placement (09/17/14) 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) History of eye surgery History of right cataract extraction Social History Smoking Status: Former smoker how long ago did patient quit smokin years ago alcohol intake: current alcohol intake frequency: a few times a week Alcohol type: wine substance use type: does not use caffeine: Yes Type: coffee Number of servings: 1 ROS ROS ED Constitutional Constitutional ED: Denies chills or fever(s) Gastrointestinal Gastrointestinal: Reports constipation; Denies abdominal pain, nausea or vomiting Genitourinary Genitourinary ED: Reports other Details: Difficulty urinating ; Denies dysuria or hematuria Musculoskeletal Musculoskeletal: Denies arthralgias or myalgias Integumentary Denies rash Neurologic Neurologic: Denies weakness EXAM Physical Exam Const Vital Signs: 12/24/24 10:31 12/24/24 13:00 12/24/24 16:13 Temperature 98.7 F 98.6 F Temperature Source Oral Pulse Rate 48 L 56 L 51 L Respiratory Rate 18 16 17 Blood Pressure 153/61 H 170/50 H 149/67 H Blood Pressure Mean 91 90 94 Pulse Ox 99 97 96 Oxygen Delivery Method Room Air Room Air Positive well nourished and well developed General Appearance ED: well developed and NAD; Negative for pallor HEENT Reports moist mucous membranes Neck supple Resp normal respiratory effort Cardio regular rate and regular rhythm GI non-tender and non-distended Inspection: Negative for abdominal distention Auscultation: normoactive bowel sounds Palpation: soft; Negative for tender, guarding or rigid Back/Spine no CVA tenderness Extremity full ROM Neuro Sensorium / Orientation: alert and oriented to person Motor Exam: Negative for general weakness Psych mental status grossly normal and thought process normal Skin General Skin Exam: Negative for jaundice or pallor Lesions: no lesions Rashes: no rashes MDM MDM MDM Narrative Medical decision making narrative: Patient have difficulty having bowel movement/constipation as well as reportedly not urinate in the past 48 hours. He does not seem to be in any acute distress associated with acute urinary retention. Will obtain bladder scan which shows a just under 400 mL. Patient does not like he can urinate and empties his bladder to about 150 mL. Workup looking for signs of obstruction, VEROINCA, kidney stone or intra-abdominal infection is obtained. CBC does show mild anemia hemoglobin 10.8 which is nonspecific. No obvious source of bleeding. He has a normal BUN and creatinine. Liver panel is normal. Urinalysis is not consistent with infection. CT abdomen pelvis does show minimal degree of gallbladder wall thickening and recommends ultrasound. Given he is a poor story with his dementia will obtain ultrasound to ensure he has not been having any type of biliary pathology that has been causing his symptoms. He does not have a leukocytosis or transaminitis however. Ultrasound shows fatty liver and gallstones but not consistent with acute cholecystitis. On repeat exam he does not have any right upper quadrant tenderness. CT did show moderate stool burden. Will have him start MiraLAX daily to help regulate his bowel movements. Discussed increase his activity and fluid level as well to help with this. As he does have some slight urinary retention I suspect that is more chronic and I do not think it severe enough to necessitate a Quitnero catheter at this time especially does not have a UTI. Counseled signs symptoms of acute urinary retention and indications to return the emergency room. Discussed signs and symptoms of acute cholecystitis. Patient's and family agreeable to plan of care. Will be discharged home. Given return precautions Lab Data Labs: Laboratory Results - last 24 hr 12/24/24 12/24/24 11:53 11:55 WBC 6.1 RBC 3.72 L Hgb 10.8 L Hct 32.5 L MCV 87.4 MCH 29.0 MCHC 33.2 RDW Std Deviation 42.1 RDW Coeff of [place] 13.3 Plt Count 183 MPV 10.9 Immature Gran % (Auto) 0.200 Neut % (Auto) 65.3 Lymph % (Auto) 16.4 L [place]ulk[place] % (Auto) 9.8 Eos % (Auto) 7.0 H Baso % (Auto) 1.3 H Absolute Neuts (auto) 4.0 Absolute Lymphs (auto) 1.00 Nucleated RBC % 0 Sodium 142 Potassium 4.3 Chloride 109 H Carbon Dioxide 26.5 Anion Gap 7 BUN 17 Creatinine 1.05 Estim Creat Clear Calc 58.16 Est GFR (MDRD) Non-Af 72 BUN/Creatinine Ratio 15.8 Glucose 159 H Calcium 8.8 Total Bilirubin 0.48 AST 28 ALT 30 Alkaline Phosphatase 92 Total Protein 6.1 Albumin 3.5 Globulin 2.6 Albumin/Globulin Ratio 1.3 Urine Color Yellow Urine Clarity Clear Urine pH 6.5 Ur Specific [place] 1.010 Urine Protein 30 H Urine Glucose (UA) Normal Urine Ketones Negative Urine Occult Blood Negative Urine Nitrite Negative Urine Bilirubin Negative Urine Urobilinogen Normal Ur Leukocyte Esterase Negative Urine RBC 0 SEEN Urine WBC 0-5 SEEN Ur Squamous Epith Cells 0 SEEN Urine Bacteria 0 SEEN Urine Mucus 0 SEEN Radiography Diagnostic Testing: Clinical Impression(s) from Imaging Studies Abdomen/Pelvis CT 12/24/24 11:47 IMPRESSION: Minimal degree of gallbladder wall thickening. Questionable tiny layering gallstones. Correlation with ultrasound recommended if clinically indicated. Fatty infiltration of the liver. Prostatic enlargement with prostatic calcification and indentation of the bladder base. Reading Location: [id number] Gallbladder Ultrasound 12/24/24 14:08 IMPRESSION: Fatty infiltration of the liver. Multiple gallstones. Reading Location: [id number] Discharge Plan Triage Chief Complaint: Abd Pain ED Provider: Juana Irwin Dx/Rx/DC Orders Clinical Impression: Constipation, History of BPH Instructions: ED Constipation (Adult), ED Urinary Retention, Male Prescriptions: No Action metoprolol succinate 50 mg tablet extended release 24 hr 50 mg PO DAILY tamsulosin 0.4 mg capsule 0.4 mg PO QDAY levothyroxine 50 mcg tablet 50 mcg PO QDAY cholecalciferol (vitamin D3) 25 mcg (1,000 unit) tablet 25 mcg PO QDAY memantine 10 mg tablet 10 mg PO QAM Qty: 30 4RF quetiapine 25 mg tablet 25 mg PO QHS Qty: 30 4RF glimepiride 4 MG tablet 6 mg PO DAILY aspirin 81 mg tablet,chewable 162 mg PO DAILY@0800 triamcinolone acetonide 0.1 % lotion 1 applic TOPICAL BID PRN PRN (Reason: PSORIASIS) escitalopram oxalate 20 mg tablet 20 mg PO DAILY donepezil 10 mg tablet 15 mg PO QAM losartan 100 mg tablet 100 mg PO DAILY Qty: 90 3RF Primary Care Provider: Donell Capps Referrals: Donell Capps DO [Primary Care Provider, Family Practice] Activity Restrictions/Additional Instructions: Please follow-up later this week or next week for repeat evaluation with your family medicine doctor. Your CT did show some constipation but no signs of obstruction or impaction. You are able to empty your bladder out mostly. He had some slight urinary retention but this time I do not think you require Quintero catheter. No signs of urinary tract infection. Your CT/ultrasound did show gallstones but no signs of an acute gallbladder inflammation/infection. I recommend taking a capful of MiraLAX daily for further treatment of his more chronic constipation. As we discussed increase activity level and fluid intake. Print Language: Bengali Disposition Disposition: Home, Self Care
[2024-12-24 16:13] VITALS: BP 149/67; PULSE 51; RESP 17; TEMP 37; O2SAT 96
== END 2024-12-24 16:29 | disposition home or self-care (01) ==
PROVIDERS: Emergency Provider Emergency Medicine; PCP Family Medicine; Visit Provider Emergency Medicine
DX: K59.00 Constipation, unspecified (principal); F03.90 Unspecified dementia, unspecified severity, without behavioral disturbance, psychotic disturbance, mood disturbance, and anxiety; E11.22 Type 2 diabetes mellitus with diabetic chronic kidney disease; Z87.891 Personal history of nicotine dependence; N40.0 Benign prostatic hyperplasia without lower urinary tract symptoms; E78.5 Hyperlipidemia, unspecified; N18.9 Chronic kidney disease, unspecified; I12.9 Hypertensive chronic kidney disease with stage 1 through stage 4 chronic kidney disease, or unspecified chronic kidney disease; I25.10 Atherosclerotic heart disease of native coronary artery without angina pectoris; F41.9 Anxiety disorder, unspecified; I25.2 Old myocardial infarction; Z85.828 Personal history of other malignant neoplasm of skin; Z79.84 Long term (current) use of oral hypoglycemic drugs; Z79.899 Other long term (current) drug therapy; E03.9 Hypothyroidism, unspecified; Z79.890 Hormone replacement therapy; Z79.82 Long term (current) use of aspirin; Z98.41 Cataract extraction status, right eye; Z98.42 Cataract extraction status, left eye; Z95.5 Presence of coronary angioplasty implant and graft
CPT/HCPCS: 74177; 76705; 80053; 81001; 85025; 99283; Q9967; A4216